=== PATIENT | male | born 1950 | race Caucasian/White ===

== ENCOUNTER 2017-06-18 22:26 | Emergency (ER) | payer OTHER ==
[~2017-06-18] VITALS: Ht 182.9 cm; Wt 76.2 kg
[~2017-06-18 22:26] MED LIST: ACET325 PO; ALBIPROI INH; ALBU.083IS IH; ALBU3IS; ALBU3IS INH; ALBU90OI INH; ALBU90OI6 INH; ALBUIS INH; ASPI81CH PO; ASPI81EC PO; ATOR10 PO; ATOR20 PO; AZIT250 PO; AZIT500; AZIT500 PO; Aspirin EC81 MG PO; BENZ100A PO; BUDE6HFA INH; BUPR150ER PO; Bentyl20 MG PO; Biscolax10 MG RC; CARB10OTL LEFTEAR; CHOL10002 PO; CODGUAEL PO; CYCL10 PO; Cipro500 MG PO; Clotrim Antifun15 GM TOP; Clotrimazole15 GM TOP; Cyclobenzaprine5 MG PO; DELTASONE20 MG PO; DEXT40GEL; DIAZ5 PO; Dicyclomine HCl20 MG PO; Duoneb 2.5-0.5 M3 ML INH; EPIN.3I SC; ETAN25I SC; ETAN50I IM; ETAN50I SC; Flomax0.4 MG PO; GABA100 PO; GEMF600; GLIP2.5ER; GLIP5 PO; GUAI600T33; HUMULIN 70100 UNIT/1 SC; HYDACE5 PO; HYDCOR1TC TOP; HYDCOR2.5B TOP; HYDHCL25 PO; HYDHOMSY PO; HYDMOR2 PO; HYDMOR4 PO; HYDR1TAB94 PO; HYDROCORTISON28.4 GM TOP; IBUP400 PO; INSDET100 SC; INSU100I6; LAVAP17G PO; LEVFLO500 PO; LEVO750 PO; LEVOFLOXACIN500 MG PO; MAGCIT300 PO; META800 PO; METF500 PO; METO10 PO; METPRE4DP PO; METR500 PO; MUSCLE RELAXER; NAPR500; NAPR500 PO; NICO21TP TOP; NORT25 PO; Naprosyn500 MG PO; Norco 10-325 T1 EACH PO; OMEP20ER; OMEP20ER PO; OXYACE5T PO; OXYC10TA19 PO; OXYC5 PO; Omeprazole20 M1 PO; PANT40 PO; PRED10 PO; PRED20 PO; PREG50 PO; PREG75 PO; PROAIR RESPICL90 MCG IH; PROBIOTIC1 EACH PO; Pepcid40 MG PO; Percocet 10-321 EACH PO; Percocet 5-3251 EACH PO; Prednisone10 MG; Prednisone20 MG PO; Protonix40 MG PO; RABE20; ROBITUSSIN DM PO; RXCYCL10 PO; RXHYDACE PO; RXMETA800 PO; SENNA PO; SILD25T PO; SILD50TA PO; SUCR1 PO; SUCR1SU PO; Simvastatin20 MG PO; TAMS.4ER PO; TIOT18 INH; TRAM50 PO; TRAZ50 PO; TRIA80TC TOP; Ultram50 MG PO; VENTOLIN NEB; Ventolin/Prove6.7 GM INH; Zithromax250 MG PO; Zofran Odt4 MG SL; Zofran8 MG PO; [UNRECOGNIZED DRUG - REMARK]; [UNRECOGNIZED DRUG - REMARK]
[2017-06-18 23:45] LABS: BASOPHILS ABSOLUTE AUTO 0.03 K/mm3 (0.00-0.23); BASOPHILS PERCENT AUTO 0 % (0-2); EOSINOPHILS ABSOLUTE AUTO 0.38 K/mm3 (0.00-0.68); EOSINOPHILS PERCENT AUTO 4 % (0-6); Hematocrit 37.9 % (37.0-53.0); Hemoglobin 12.1 g/dL (13.5-17.5); IMMATURE GRAN ABSOLUTE AUTO 0.02 K/mm3 (0.00-0.10); IMMATURE GRAN PERCENT AUTO 0 % (0-1); LYMPHOCYTES ABSOLUTE AUTO 4.09 K/mm3 (0.84-5.20); LYMPHOCYTES PERCENT AUTO 47 % (21-46); MONOCYTES ABSOLUTE AUTO 0.85 K/mm3 (0.16-1.47); MONOCYTES PERCENT AUTO 10 % (4-13); Mean Corpuscular HGB 27.6 pg (26.0-34.0); Mean Corpuscular HGB Conc 31.9 g/dL (31.5-36.5); Mean Corpuscular Volume 87 fL (80-100); Mean Platelet Volume 8.7 fL (9.1-12.4); NEUTROPHILS PERCENT AUTO 38 % (41-73); Platelet Count 265 K/mm3 (150-400); RDW Coefficient Variation 15.5 % (11.7-14.2); RDW Standard Deviation 49.8 fL (35.1-46.3); Red Blood Cell Count 4.38 M/mm3 (4.30-5.90); White Blood Cell Count 8.67 K/mm3 (4.00-11.30)
[2017-06-19 00:10] LABS: Alanine Aminotransfer (ALT/SGP 27 U/L (12-78); Albumin, Blood 3.3 g/dL (3.4-5.0); Albumin/Globulin Ratio 0.8 (0.8-1.8); Alk Phos 100 U/L (50-136); Anion Gap 6 mmol/L (6-16); Aspartate Aminotrans (AST/SGOT 15 U/L (12-37); Bilirubin, Total 0.2 mg/dL (0.1-1.0); Blood Urea Nitrogen 24 mg/dL (8-24); Bun/Creatinine Ratio 27.9 (12.0-20.0); CO2, Blood 27 mmol/L (21-32); Calcium, Blood 8.1 mg/dL (8.5-10.1); Chloride, Blood 107 mmol/L (98-108); Creatinine, Blood 0.86 mg/dL (0.60-1.20); Glomerular Filtration Rate >60 (60-); Glucose, Blood 82 mg/dL (70-99); Potassium, Blood 3.6 mmol/L (3.5-5.5); Sodium, Blood 140 mmol/L (136-145); Total Protein, Blood 7.3 g/dL (6.4-8.2); Troponin I <0.015 ng/mL (0.000-0.040)
[2017-06-19] MEDS ORDERED: Pepcid40 MG PO (01:42)
[2017-06-19] MEDS ORDERED: Percocet 5-3251 EACH PO (01:44)
[2018-01-06] MEDS ORDERED: WARF1 (22:23)
[2018-01-13] MEDS ORDERED: OXYC10ER PO (10:30)
[2018-01-13] MEDS ORDERED: ALPR.25 PO (10:32)
[2018-01-13] MEDS ORDERED: ASCO500 PO (10:33)
[2018-01-13] MEDS ORDERED: BACL10 (10:34)
[2018-01-13] MEDS ORDERED: CEPACOL SORE T1 EACH MM (10:35)
[2018-01-13] MEDS ORDERED: CARB200 PO (10:36)
[2018-01-13] MEDS ORDERED: DOCU100 PO (10:36)
[2018-01-13] MEDS ORDERED: GUAI600T33 PO (10:37)
[2018-01-13] MEDS ORDERED: FERROUS SULFATE (10:39)
[2018-01-13] MEDS ORDERED: ONDA4ODT MM (10:40)
[2018-01-13] MEDS ORDERED: XARELTO20 MG PO (10:41)
[2018-01-13] MEDS ORDERED: SUMA25 (10:43)
[2018-03-28] MEDS ORDERED: Pepcid40 MG PO (16:04)
[2018-03-30] MEDS ORDERED: CIPR500 PO (22:03)
[2018-03-30] MEDS ORDERED: Flagyl500 MG PO (22:03)
[2018-03-30] MEDS ORDERED: Zofran Odt4 MG PO (22:03)
[2018-05-01] MEDS ORDERED: ETAN50I (15:26)
[2018-05-01] MEDS ORDERED: BUDE10.22 INH (15:26)
[2018-05-01] MEDS ORDERED: GABA300 PO (15:26)
[2018-05-03] MEDS ORDERED: ROBITUSSIN COU237 ML PO (13:09)
[2018-05-03] MEDS ORDERED: Acidophilus La1 EACH PO (13:10)
[2018-05-03] MEDS ORDERED: Omeprazole20 M1 PO (13:11)
[2018-05-03] MEDS ORDERED: AZIT500 PO (13:11)
[2018-05-03] MEDS ORDERED: PRED10 PO (13:14)
[2018-05-03] MEDS ORDERED: TIOT18 INH (13:17)
[2018-05-03] MEDS ORDERED: DULERA 200 MCG/13 GM INH (13:18)
== END 2017-06-19 02:42 | disposition home or self-care (01) ==
LOC: ER 22:26
PROVIDERS: Emergency Medicine
DX: R07.89 Other chest pain (principal); K29.70 Gastritis, unspecified, without bleeding; G89.29 Other chronic pain; K21.9 Gastro-esophageal reflux disease without esophagitis; J43.9 Emphysema, unspecified; F17.200 Nicotine dependence, unspecified, uncomplicated; Z90.49 Acquired absence of other specified parts of digestive tract; Z87.01 Personal history of pneumonia (recurrent)
CPT/HCPCS: 71046; 80053; 82272; 83690; 84484; 85025; 93005; 93010; 96374; 96375; 96376; 99284; C9113; J1170; J2405

== ENCOUNTER 2017-07-04 13:01 | Emergency (ER) | payer OTHER ==
[~2017-07-04] VITALS: Ht 180.3 cm; Wt 83.9 kg
[2017-07-04 13:51] LABS: BASOPHILS ABSOLUTE AUTO 0.04 K/mm3 (0.00-0.23); BASOPHILS PERCENT AUTO 0 % (0-2); EOSINOPHILS ABSOLUTE AUTO 0.35 K/mm3 (0.00-0.68); EOSINOPHILS PERCENT AUTO 3 % (0-6); Hematocrit 38.6 % (37.0-53.0); Hemoglobin 11.9 g/dL (13.5-17.5); IMMATURE GRAN ABSOLUTE AUTO 0.04 K/mm3 (0.00-0.10); IMMATURE GRAN PERCENT AUTO 0 % (0-1); LYMPHOCYTES ABSOLUTE AUTO 2.48 K/mm3 (0.84-5.20); LYMPHOCYTES PERCENT AUTO 20 % (21-46); MONOCYTES ABSOLUTE AUTO 0.93 K/mm3 (0.16-1.47); MONOCYTES PERCENT AUTO 8 % (4-13); Mean Corpuscular HGB 27.4 pg (26.0-34.0); Mean Corpuscular HGB Conc 30.8 g/dL (31.5-36.5); Mean Corpuscular Volume 89 fL (80-100); Mean Platelet Volume 9.2 fL (9.1-12.4); NEUTROPHILS ABSOLUTE AUTO 8.56 K/mm3 (1.96-9.15); NEUTROPHILS PERCENT AUTO 69 % (41-73); Platelet Count 217 K/mm3 (150-400); RDW Coefficient Variation 15.2 % (11.7-14.2); RDW Standard Deviation 49.9 fL (35.1-46.3); Red Blood Cell Count 4.35 M/mm3 (4.30-5.90)
[2017-07-04 14:02] LABS: Alanine Aminotransfer (ALT/SGP 20 U/L (12-78); Albumin, Blood 3.2 g/dL (3.4-5.0); Albumin/Globulin Ratio 0.8 (0.8-1.8); Alk Phos 104 U/L (50-136); Anion Gap 3 mmol/L (6-16); Aspartate Aminotrans (AST/SGOT 17 U/L (12-37); Bilirubin, Total 0.3 mg/dL (0.1-1.0); Blood Urea Nitrogen 15 mg/dL (8-24); Bun/Creatinine Ratio 16.1 (12.0-20.0); CO2, Blood 30 mmol/L (21-32); Calcium, Blood 8.2 mg/dL (8.5-10.1); Chloride, Blood 105 mmol/L (98-108); Creatinine, Blood 0.93 mg/dL (0.60-1.20); Globulin, Blood 4.2 g/dL (2.2-4.0); Glomerular Filtration Rate >60 (60-); Glucose, Blood 162 mg/dL (70-99); Potassium, Blood 4.3 mmol/L (3.5-5.5); Sodium, Blood 138 mmol/L (136-145); Total Protein, Blood 7.4 g/dL (6.4-8.2)
[2017-07-04 15:37] LABS: Source, Urine Voided
[2017-07-04 15:42] LABS: Bilirubin, Urine Neg (Neg); Blood, Urine Neg (Neg); Glucose Qualitative, Urine Neg (Neg); Ketones, Urine Neg (Neg); Leukocyte Esterase, Urine Neg (Neg); Nitrite, Urine Neg (Neg); Protein, Urine Neg (Neg); Urobilinogen, Urine NORM (Normal)
[2017-07-04 15:48] LABS: Appearance, Urine Clear (Clear); Color, Urine Yellow (P-Yellow)
[2017-07-04] MEDS ORDERED: Levaquin750 MG PO (19:28)
[2017-07-04] MEDS ORDERED: Prednisone20 MG PO (19:28)
[2018-01-06] MEDS ORDERED: WARF1 (22:23)
[2018-01-13] MEDS ORDERED: OXYC10ER PO (10:30)
[2018-01-13] MEDS ORDERED: ALPR.25 PO (10:32)
[2018-01-13] MEDS ORDERED: ASCO500 PO (10:33)
[2018-01-13] MEDS ORDERED: BACL10 (10:34)
[2018-01-13] MEDS ORDERED: CEPACOL SORE T1 EACH MM (10:35)
[2018-01-13] MEDS ORDERED: CARB200 PO (10:36)
[2018-01-13] MEDS ORDERED: DOCU100 PO (10:36)
[2018-01-13] MEDS ORDERED: GUAI600T33 PO (10:37)
[2018-01-13] MEDS ORDERED: FERROUS SULFATE (10:39)
[2018-01-13] MEDS ORDERED: ONDA4ODT MM (10:40)
[2018-01-13] MEDS ORDERED: XARELTO20 MG PO (10:41)
[2018-01-13] MEDS ORDERED: SUMA25 (10:43)
[2018-03-28] MEDS ORDERED: Pepcid40 MG PO (16:04)
[2018-03-30] MEDS ORDERED: CIPR500 PO (22:03)
[2018-03-30] MEDS ORDERED: Flagyl500 MG PO (22:03)
[2018-03-30] MEDS ORDERED: Zofran Odt4 MG PO (22:03)
[2018-05-01] MEDS ORDERED: ETAN50I (15:26)
[2018-05-01] MEDS ORDERED: GABA300 PO (15:26)
[2018-05-01] MEDS ORDERED: BUDE10.22 INH (15:26)
[2018-05-03] MEDS ORDERED: ROBITUSSIN COU237 ML PO (13:09)
[2018-05-03] MEDS ORDERED: Acidophilus La1 EACH PO (13:10)
[2018-05-03] MEDS ORDERED: Omeprazole20 M1 PO (13:11)
[2018-05-03] MEDS ORDERED: AZIT500 PO (13:11)
[2018-05-03] MEDS ORDERED: PRED10 PO (13:14)
[2018-05-03] MEDS ORDERED: TIOT18 INH (13:17)
[2018-05-03] MEDS ORDERED: DULERA 200 MCG/13 GM INH (13:18)
== END 2017-07-04 20:11 | disposition home or self-care (01) ==
LOC: ER 13:01
PROVIDERS: Physician Assistant
DX: J44.1 Chronic obstructive pulmonary disease with (acute) exacerbation (principal); K59.00 Constipation, unspecified; K57.30 Diverticulosis of large intestine without perforation or abscess without bleeding; K21.9 Gastro-esophageal reflux disease without esophagitis; F17.200 Nicotine dependence, unspecified, uncomplicated; Z91.018 Allergy to other foods; Z88.8 Allergy status to other drugs, medicaments and biological substances; Z79.899 Other long term (current) drug therapy; Z79.82 Long term (current) use of aspirin; Z79.4 Long term (current) use of insulin; Z79.52 Long term (current) use of systemic steroids; Z90.49 Acquired absence of other specified parts of digestive tract; Z87.01 Personal history of pneumonia (recurrent); Z86.73 Personal history of transient ischemic attack (TIA), and cerebral infarction without residual deficits
CPT/HCPCS: 36415; 71046; 74176; 80053; 81003; 83690; 85025; 96374; 96375; 99284; J0696; J1170; J2405

== ENCOUNTER 2017-07-18 16:32 | Emergency (ER) | payer OTHER ==
[~2017-07-18] VITALS: Ht 182.9 cm; Wt 78.9 kg
[~2017-07-18 16:32] MED LIST changes: +Levaquin750 MG PO
[2017-07-18] MEDS ORDERED: ETAN50I SC (17:15)
[2017-07-18 17:55] LABS: BASOPHILS ABSOLUTE AUTO 0.07 K/mm3 (0.00-0.23); BASOPHILS PERCENT AUTO 1 % (0-2); EOSINOPHILS ABSOLUTE AUTO 0.44 K/mm3 (0.00-0.68); EOSINOPHILS PERCENT AUTO 6 % (0-6); Hematocrit 39.2 % (37.0-53.0); Hemoglobin 12.3 g/dL (13.5-17.5); IMMATURE GRAN ABSOLUTE AUTO 0.02 K/mm3 (0.00-0.10); IMMATURE GRAN PERCENT AUTO 0 % (0-1); LYMPHOCYTES ABSOLUTE AUTO 2.96 K/mm3 (0.84-5.20); LYMPHOCYTES PERCENT AUTO 40 % (21-46); MONOCYTES ABSOLUTE AUTO 0.62 K/mm3 (0.16-1.47); MONOCYTES PERCENT AUTO 8 % (4-13); Mean Corpuscular HGB 27.1 pg (26.0-34.0); Mean Corpuscular HGB Conc 31.4 g/dL (31.5-36.5); Mean Corpuscular Volume 86 fL (80-100); NEUTROPHILS PERCENT AUTO 45 % (41-73); Platelet Count 325 K/mm3 (150-400); RDW Standard Deviation 47.9 fL (35.1-46.3); Red Blood Cell Count 4.54 M/mm3 (4.30-5.90); White Blood Cell Count 7.41 K/mm3 (4.00-11.30)
[2017-07-18 18:11] LABS: Alanine Aminotransfer (ALT/SGP 23 U/L (12-78); Albumin, Blood 3.5 g/dL (3.4-5.0); Albumin/Globulin Ratio 0.8 (0.8-1.8); Alk Phos 129 U/L (50-136); Anion Gap 9 mmol/L (6-16); Aspartate Aminotrans (AST/SGOT 20 U/L (12-37); Bilirubin, Total 0.2 mg/dL (0.1-1.0); Blood Urea Nitrogen 21 mg/dL (8-24); Bun/Creatinine Ratio 22.5 (12.0-20.0); CO2, Blood 25 mmol/L (21-32); Calcium, Blood 8.5 mg/dL (8.5-10.1); Chloride, Blood 104 mmol/L (98-108); Creatinine, Blood 0.93 mg/dL (0.60-1.20); Globulin, Blood 4.6 g/dL (2.2-4.0); Glomerular Filtration Rate >60 (60-); Glucose, Blood 130 mg/dL (70-99); Sodium, Blood 138 mmol/L (136-145); Total Protein, Blood 8.1 g/dL (6.4-8.2)
[2017-07-18] MEDS ORDERED: Percocet 5-3251 EACH PO (20:40)
[2018-01-06] MEDS ORDERED: WARF1 (22:23)
[2018-01-13] MEDS ORDERED: OXYC10ER PO (10:30)
[2018-01-13] MEDS ORDERED: ALPR.25 PO (10:32)
[2018-01-13] MEDS ORDERED: ASCO500 PO (10:33)
[2018-01-13] MEDS ORDERED: BACL10 (10:34)
[2018-01-13] MEDS ORDERED: CEPACOL SORE T1 EACH MM (10:35)
[2018-01-13] MEDS ORDERED: DOCU100 PO (10:36)
[2018-01-13] MEDS ORDERED: CARB200 PO (10:36)
[2018-01-13] MEDS ORDERED: GUAI600T33 PO (10:37)
[2018-01-13] MEDS ORDERED: FERROUS SULFATE (10:39)
[2018-01-13] MEDS ORDERED: ONDA4ODT MM (10:40)
[2018-01-13] MEDS ORDERED: XARELTO20 MG PO (10:41)
[2018-01-13] MEDS ORDERED: SUMA25 (10:43)
[2018-03-28] MEDS ORDERED: Pepcid40 MG PO (16:04)
[2018-03-30] MEDS ORDERED: Zofran Odt4 MG PO (22:03)
[2018-03-30] MEDS ORDERED: CIPR500 PO (22:03)
[2018-03-30] MEDS ORDERED: Flagyl500 MG PO (22:03)
[2018-05-01] MEDS ORDERED: GABA300 PO (15:26)
[2018-05-01] MEDS ORDERED: BUDE10.22 INH (15:26)
[2018-05-01] MEDS ORDERED: ETAN50I (15:26)
[2018-05-03] MEDS ORDERED: ROBITUSSIN COU237 ML PO (13:09)
[2018-05-03] MEDS ORDERED: Acidophilus La1 EACH PO (13:10)
[2018-05-03] MEDS ORDERED: AZIT500 PO (13:11)
[2018-05-03] MEDS ORDERED: Omeprazole20 M1 PO (13:11)
[2018-05-03] MEDS ORDERED: PRED10 PO (13:14)
[2018-05-03] MEDS ORDERED: TIOT18 INH (13:17)
[2018-05-03] MEDS ORDERED: DULERA 200 MCG/13 GM INH (13:18)
== END 2017-07-18 21:12 | disposition home or self-care (01) ==
LOC: ER 16:32
PROVIDERS: Physician Assistant
DX: R10.31 Right lower quadrant pain (principal); Z88.8 Allergy status to other drugs, medicaments and biological substances; Z91.018 Allergy to other foods; Z79.899 Other long term (current) drug therapy; Z79.84 Long term (current) use of oral hypoglycemic drugs; K21.9 Gastro-esophageal reflux disease without esophagitis; J44.9 Chronic obstructive pulmonary disease, unspecified; F17.210 Nicotine dependence, cigarettes, uncomplicated
CPT/HCPCS: 36415; 51798; 76882; 80053; 83690; 85025; 93005; 93010; 96374; 96375; 99284; J1170; J2405

== ENCOUNTER 2017-08-09 13:54 | Emergency (ER) | payer SELFPAY ==
[~2017-08-09] VITALS: Ht 182.9 cm; Wt 72.6 kg
[2017-08-09 15:08] LABS: PCO2 Venous 43 mmHg (38-42)
[2017-08-09 15:09] LABS: Base Excess Venous 1.9 mmol/L; Bicarbonate Venous 25.8 mmol/L (24.0-30.0); PO2 Venous 92.6 mmHg (38-42)
[2017-08-09 15:16] LABS: BASOPHILS ABSOLUTE AUTO 0.04 K/mm3 (0.00-0.23); BASOPHILS PERCENT AUTO 1 % (0-2); EOSINOPHILS ABSOLUTE AUTO 0.56 K/mm3 (0.00-0.68); EOSINOPHILS PERCENT AUTO 12 % (0-6); Hematocrit 40.6 % (37.0-53.0); Hemoglobin 12.8 g/dL (13.5-17.5); IMMATURE GRAN PERCENT AUTO 0 % (0-1); LYMPHOCYTES ABSOLUTE AUTO 1.39 K/mm3 (0.84-5.20); LYMPHOCYTES PERCENT AUTO 29 % (21-46); MONOCYTES ABSOLUTE AUTO 0.75 K/mm3 (0.16-1.47); MONOCYTES PERCENT AUTO 16 % (4-13); Mean Corpuscular HGB 27.2 pg (26.0-34.0); Mean Corpuscular HGB Conc 31.5 g/dL (31.5-36.5); Mean Corpuscular Volume 86 fL (80-100); Mean Platelet Volume 8.8 fL (9.1-12.4); NEUTROPHILS ABSOLUTE AUTO 2.08 K/mm3 (1.96-9.15); NEUTROPHILS PERCENT AUTO 43 % (41-73); Platelet Count 222 K/mm3 (150-400); RDW Coefficient Variation 15.2 % (11.7-14.2); RDW Standard Deviation 48.4 fL (35.1-46.3); White Blood Cell Count 4.82 K/mm3 (4.00-11.30)
[2017-08-09 15:28] LABS: Influenza A Negative (NEGATIVE); Influenza B Negative (NEGATIVE)
[2017-08-09 15:36] LABS: Alanine Aminotransfer (ALT/SGP 26 U/L (12-78); Albumin, Blood 3.5 g/dL (3.4-5.0); Albumin/Globulin Ratio 0.8 (0.8-1.8); Alk Phos 114 U/L (50-136); Anion Gap 8 mmol/L (6-16); Aspartate Aminotrans (AST/SGOT 21 U/L (12-37); Bilirubin, Total 0.3 mg/dL (0.1-1.0); Blood Urea Nitrogen 16 mg/dL (8-24); Bun/Creatinine Ratio 18.1 (12.0-20.0); CO2, Blood 26 mmol/L (21-32); Calcium, Blood 8.5 mg/dL (8.5-10.1); Chloride, Blood 104 mmol/L (98-108); Creatinine, Blood 0.88 mg/dL (0.60-1.20); Globulin, Blood 4.6 g/dL (2.2-4.0); Glomerular Filtration Rate >60 (60-); Glucose, Blood 97 mg/dL (70-99); Potassium, Blood 4.1 mmol/L (3.5-5.5); Sodium, Blood 138 mmol/L (136-145); Total Protein, Blood 8.1 g/dL (6.4-8.2); Troponin I <0.015 ng/mL (0.000-0.040)
[2017-08-09 15:41] LABS: Thyroid Stimulating Hormone 0.935 uIU/mL (0.360-4.800)
[2017-08-09] MEDS ORDERED: Proventil5 MG/1 ML INH (16:30)
[2017-08-09] MEDS ORDERED: PRED20 PO (16:30)
[2017-08-09] MEDS ORDERED: Percocet 10-321 EACH PO (16:30)
[2017-08-10] MEDS ORDERED: Desyrel150 MG PO (23:21)
[2018-01-06] MEDS ORDERED: WARF1 (22:23)
[2018-01-13] MEDS ORDERED: OXYC10ER PO (10:30)
[2018-01-13] MEDS ORDERED: ALPR.25 PO (10:32)
[2018-01-13] MEDS ORDERED: ASCO500 PO (10:33)
[2018-01-13] MEDS ORDERED: BACL10 (10:34)
[2018-01-13] MEDS ORDERED: CEPACOL SORE T1 EACH MM (10:35)
[2018-01-13] MEDS ORDERED: DOCU100 PO (10:36)
[2018-01-13] MEDS ORDERED: CARB200 PO (10:36)
[2018-01-13] MEDS ORDERED: GUAI600T33 PO (10:37)
[2018-01-13] MEDS ORDERED: FERROUS SULFATE (10:39)
[2018-01-13] MEDS ORDERED: ONDA4ODT MM (10:40)
[2018-01-13] MEDS ORDERED: XARELTO20 MG PO (10:41)
[2018-01-13] MEDS ORDERED: SUMA25 (10:43)
[2018-03-28] MEDS ORDERED: Pepcid40 MG PO (16:04)
[2018-03-30] MEDS ORDERED: Flagyl500 MG PO (22:03)
[2018-03-30] MEDS ORDERED: CIPR500 PO (22:03)
[2018-03-30] MEDS ORDERED: Zofran Odt4 MG PO (22:03)
[2018-05-01] MEDS ORDERED: GABA300 PO (15:26)
[2018-05-01] MEDS ORDERED: ETAN50I (15:26)
[2018-05-01] MEDS ORDERED: BUDE10.22 INH (15:26)
[2018-05-03] MEDS ORDERED: ROBITUSSIN COU237 ML PO (13:09)
[2018-05-03] MEDS ORDERED: Acidophilus La1 EACH PO (13:10)
[2018-05-03] MEDS ORDERED: AZIT500 PO (13:11)
[2018-05-03] MEDS ORDERED: Omeprazole20 M1 PO (13:11)
[2018-05-03] MEDS ORDERED: PRED10 PO (13:14)
[2018-05-03] MEDS ORDERED: TIOT18 INH (13:17)
[2018-05-03] MEDS ORDERED: DULERA 200 MCG/13 GM INH (13:18)
== END 2017-08-09 16:47 | disposition home or self-care (01) ==
LOC: ER 13:54
PROVIDERS: Emergency Medicine
DX: J40 Bronchitis, not specified as acute or chronic (principal); J98.01 Acute bronchospasm; R06.00 Dyspnea, unspecified; Z88.8 Allergy status to other drugs, medicaments and biological substances; Z91.02 Food additives allergy status; Z91.018 Allergy to other foods; Z79.899 Other long term (current) drug therapy; Z79.4 Long term (current) use of insulin; K21.9 Gastro-esophageal reflux disease without esophagitis; J44.9 Chronic obstructive pulmonary disease, unspecified; F17.210 Nicotine dependence, cigarettes, uncomplicated
CPT/HCPCS: 36415; 71046; 80053; 82803; 83880; 84443; 84484; 85025; 87804; 93005; 93010; 94640; 96361; 96374; 99284; J2930; J7030

== ENCOUNTER 2017-08-10 19:45 | Inpatient (IN) | payer MEDICARE, OTHER ==
[~2017-08-10] VITALS: Ht 182.9 cm; Wt 68.8 kg
[~2017-08-10 19:45] MED LIST changes: +Proventil5 MG/1 ML INH
[2017-08-10 20:36] LABS: PCO2 Arterial 46.6 mmHg (35-45); PO2 Arterial 97.2 mmHg (80-100); pH Blood Arterial 7.37 (7.35-7.45)
[2017-08-10 20:41] LABS: BASOPHILS ABSOLUTE AUTO 0.02 K/mm3 (0.00-0.23); BASOPHILS PERCENT AUTO 0 % (0-2); EOSINOPHILS ABSOLUTE AUTO 0.01 K/mm3 (0.00-0.68); EOSINOPHILS PERCENT AUTO 0 % (0-6); Hematocrit 38.3 % (37.0-53.0); Hemoglobin 12.3 g/dL (13.5-17.5); IMMATURE GRAN ABSOLUTE AUTO 0.06 K/mm3 (0.00-0.10); IMMATURE GRAN PERCENT AUTO 1 % (0-1); LYMPHOCYTES PERCENT AUTO 14 % (21-46); MONOCYTES ABSOLUTE AUTO 1.13 K/mm3 (0.16-1.47); MONOCYTES PERCENT AUTO 9 % (4-13); Mean Corpuscular HGB 27.5 pg (26.0-34.0); Mean Corpuscular HGB Conc 32.1 g/dL (31.5-36.5); Mean Corpuscular Volume 86 fL (80-100); Mean Platelet Volume 8.8 fL (9.1-12.4); NEUTROPHILS ABSOLUTE AUTO 9.73 K/mm3 (1.96-9.15); NEUTROPHILS PERCENT AUTO 76 % (41-73); Platelet Count 234 K/mm3 (150-400); RDW Coefficient Variation 15.2 % (11.7-14.2); RDW Standard Deviation 47.5 fL (35.1-46.3); Red Blood Cell Count 4.48 M/mm3 (4.30-5.90); White Blood Cell Count 12.75 K/mm3 (4.00-11.30)
[2017-08-10 21:00] LABS: Alanine Aminotransfer (ALT/SGP 28 U/L (12-78); Albumin, Blood 3.4 g/dL (3.4-5.0); Albumin/Globulin Ratio 0.8 (0.8-1.8); Alk Phos 108 U/L (50-136); Anion Gap 10 mmol/L (6-16); Aspartate Aminotrans (AST/SGOT 21 U/L (12-37); Bilirubin, Total 0.1 mg/dL (0.1-1.0); Blood Urea Nitrogen 28 mg/dL (8-24); Bun/Creatinine Ratio 34.2 (12.0-20.0); CO2, Blood 24 mmol/L (21-32); Calcium, Blood 8.2 mg/dL (8.5-10.1); Chloride, Blood 107 mmol/L (98-108); Creatinine, Blood 0.82 mg/dL (0.60-1.20); Globulin, Blood 4.4 g/dL (2.2-4.0); Glomerular Filtration Rate >60 (60-); Glucose, Blood 159 mg/dL (70-99); Potassium, Blood 3.9 mmol/L (3.5-5.5); Sodium, Blood 141 mmol/L (136-145); Total Protein, Blood 7.8 g/dL (6.4-8.2); Troponin I <0.015 ng/mL (0.000-0.040)
[2017-08-10] MEDS ORDERED: Desyrel150 MG PO (23:21)
[2017-08-11 02:58] LABS: Source, Urine Clean Catch
[2017-08-11 03:00] LABS: Bilirubin, Urine Neg (Neg); Blood, Urine Neg (Neg); Glucose Qualitative, Urine 4+ (Neg); Ketones, Urine Neg (Neg); Leukocyte Esterase, Urine Neg (Neg); Nitrite, Urine Neg (Neg); Protein, Urine Neg (Neg); Specific Gravity, Urine 1.025 (1.003-1.022); Urobilinogen, Urine NORM (Normal)
[2017-08-11 03:06] LABS: Appearance, Urine Clear (Clear); Color, Urine Yellow (P-Yellow)
[2017-08-11 06:02] LABS: BASOPHILS ABSOLUTE AUTO 0.01 K/mm3 (0.00-0.23); BASOPHILS PERCENT AUTO 0 % (0-2); EOSINOPHILS PERCENT AUTO 0 % (0-6); Hematocrit 37.1 % (37.0-53.0); Hemoglobin 11.8 g/dL (13.5-17.5); IMMATURE GRAN ABSOLUTE AUTO 0.06 K/mm3 (0.00-0.10); IMMATURE GRAN PERCENT AUTO 1 % (0-1); LYMPHOCYTES ABSOLUTE AUTO 0.52 K/mm3 (0.84-5.20); LYMPHOCYTES PERCENT AUTO 6 % (21-46); MONOCYTES ABSOLUTE AUTO 0.28 K/mm3 (0.16-1.47); MONOCYTES PERCENT AUTO 3 % (4-13); Mean Corpuscular HGB 27.6 pg (26.0-34.0); Mean Corpuscular HGB Conc 31.8 g/dL (31.5-36.5); Mean Corpuscular Volume 87 fL (80-100); Mean Platelet Volume 8.7 fL (9.1-12.4); NEUTROPHILS PERCENT AUTO 91 % (41-73); Platelet Count 218 K/mm3 (150-400); RDW Coefficient Variation 15.5 % (11.7-14.2); RDW Standard Deviation 49.1 fL (35.1-46.3); Red Blood Cell Count 4.27 M/mm3 (4.30-5.90); White Blood Cell Count 9.47 K/mm3 (4.00-11.30)
[2017-08-11 06:26] LABS: Troponin I <0.015 ng/mL (0.000-0.040)
[2017-08-11 06:28] LABS: Albumin, Blood 3.1 g/dL (3.4-5.0); Anion Gap 8 mmol/L (6-16); Blood Urea Nitrogen 24 mg/dL (8-24); Bun/Creatinine Ratio 33.7 (12.0-20.0); CO2, Blood 26 mmol/L (21-32); Calcium, Blood 8.1 mg/dL (8.5-10.1); Chloride, Blood 102 mmol/L (98-108); Creatinine, Blood 0.71 mg/dL (0.60-1.20); Glomerular Filtration Rate >60 (60-); Glucose, Blood 252 mg/dL (70-99); Phosphorus, Blood 2.3 mg/dL (2.5-4.9); Potassium, Blood 4.6 mmol/L (3.5-5.5); Sodium, Blood 136 mmol/L (136-145)
[2017-08-11 06:47] LABS: PCO2 Arterial 55.4 mmHg (35-45); PO2 Arterial 92.8 mmHg (80-100); pH Blood Arterial 7.27 (7.35-7.45)
[2017-08-11 17:58] LABS: Influenza A Negative (NEGATIVE); Influenza B Negative (NEGATIVE)
[2017-08-12 03:58] LABS: BASOPHILS ABSOLUTE AUTO 0.01 K/mm3 (0.00-0.23); BASOPHILS PERCENT AUTO 0 % (0-2); EOSINOPHILS PERCENT AUTO 0 % (0-6); Hematocrit 37.4 % (37.0-53.0); Hemoglobin 11.5 g/dL (13.5-17.5); IMMATURE GRAN ABSOLUTE AUTO 0.05 K/mm3 (0.00-0.10); IMMATURE GRAN PERCENT AUTO 1 % (0-1); LYMPHOCYTES ABSOLUTE AUTO 0.94 K/mm3 (0.84-5.20); LYMPHOCYTES PERCENT AUTO 9 % (21-46); MONOCYTES ABSOLUTE AUTO 0.64 K/mm3 (0.16-1.47); MONOCYTES PERCENT AUTO 6 % (4-13); Mean Corpuscular HGB Conc 30.7 g/dL (31.5-36.5); Mean Corpuscular Volume 88 fL (80-100); Mean Platelet Volume 8.8 fL (9.1-12.4); NEUTROPHILS ABSOLUTE AUTO 8.86 K/mm3 (1.96-9.15); NEUTROPHILS PERCENT AUTO 84 % (41-73); Platelet Count 210 K/mm3 (150-400); RDW Coefficient Variation 15.5 % (11.7-14.2); RDW Standard Deviation 50.2 fL (35.1-46.3); Red Blood Cell Count 4.26 M/mm3 (4.30-5.90)
[2017-08-12 04:15] LABS: Anion Gap 7 mmol/L (6-16); Blood Urea Nitrogen 19 mg/dL (8-24); Bun/Creatinine Ratio 31.4 (12.0-20.0); CO2, Blood 27 mmol/L (21-32); Calcium, Blood 8.3 mg/dL (8.5-10.1); Chloride, Blood 103 mmol/L (98-108); Creatinine, Blood 0.61 mg/dL (0.60-1.20); Glomerular Filtration Rate >60 (60-); Glucose, Blood 134 mg/dL (70-99); Potassium, Blood 4.1 mmol/L (3.5-5.5); Sodium, Blood 137 mmol/L (136-145)
[2017-08-13 02:57] LABS: BASOPHILS ABSOLUTE AUTO 0.01 K/mm3 (0.00-0.23); BASOPHILS PERCENT AUTO 0 % (0-2); EOSINOPHILS PERCENT AUTO 0 % (0-6); Hematocrit 38.4 % (37.0-53.0); Hemoglobin 11.6 g/dL (13.5-17.5); IMMATURE GRAN ABSOLUTE AUTO 0.13 K/mm3 (0.00-0.10); IMMATURE GRAN PERCENT AUTO 1 % (0-1); LYMPHOCYTES ABSOLUTE AUTO 1.31 K/mm3 (0.84-5.20); LYMPHOCYTES PERCENT AUTO 10 % (21-46); MONOCYTES ABSOLUTE AUTO 0.83 K/mm3 (0.16-1.47); MONOCYTES PERCENT AUTO 6 % (4-13); Mean Corpuscular HGB 27.1 pg (26.0-34.0); Mean Corpuscular HGB Conc 30.2 g/dL (31.5-36.5); Mean Corpuscular Volume 90 fL (80-100); Mean Platelet Volume 8.8 fL (9.1-12.4); NEUTROPHILS ABSOLUTE AUTO 10.94 K/mm3 (1.96-9.15); NEUTROPHILS PERCENT AUTO 83 % (41-73); Platelet Count 231 K/mm3 (150-400); RDW Coefficient Variation 15.6 % (11.7-14.2); RDW Standard Deviation 51.7 fL (35.1-46.3); Red Blood Cell Count 4.28 M/mm3 (4.30-5.90); White Blood Cell Count 13.22 K/mm3 (4.00-11.30)
[2017-08-13 03:17] LABS: Albumin, Blood 3.1 g/dL (3.4-5.0); Anion Gap 6 mmol/L (6-16); Blood Urea Nitrogen 20 mg/dL (8-24); Bun/Creatinine Ratio 29.3 (12.0-20.0); CO2, Blood 35 mmol/L (21-32); Calcium, Blood 7.9 mg/dL (8.5-10.1); Chloride, Blood 99 mmol/L (98-108); Creatinine, Blood 0.68 mg/dL (0.60-1.20); Glomerular Filtration Rate >60 (60-); Glucose, Blood 109 mg/dL (70-99); Magnesium, Blood 2.4 mg/dL (1.6-2.4); Phosphorus, Blood 4.6 mg/dL (2.5-4.9); Potassium, Blood 4.3 mmol/L (3.5-5.5); Sodium, Blood 140 mmol/L (136-145); Troponin I 0.016 ng/mL (0.000-0.040)
[2017-08-13 04:31] LABS: PCO2 Arterial 60.4 mmHg (35-45); PO2 Arterial 81.3 mmHg (80-100); pH Blood Arterial 7.38 (7.35-7.45)
[2017-08-14 05:07] LABS: BASOPHILS ABSOLUTE AUTO 0.01 K/mm3 (0.00-0.23); BASOPHILS PERCENT AUTO 0 % (0-2); EOSINOPHILS PERCENT AUTO 0 % (0-6); Hemoglobin 11.5 g/dL (13.5-17.5); Mean Corpuscular HGB 27.1 pg (26.0-34.0); Mean Corpuscular HGB Conc 31.1 g/dL (31.5-36.5); Platelet Count 191 K/mm3 (150-400); RDW Coefficient Variation 15.4 % (11.7-14.2); Red Blood Cell Count 4.25 M/mm3 (4.30-5.90); White Blood Cell Count 9.86 K/mm3 (4.00-11.30)
[2017-08-14 05:09] LABS: IMMATURE GRAN ABSOLUTE AUTO 0.04 K/mm3 (0.00-0.10); IMMATURE GRAN PERCENT AUTO 0 % (0-1); LYMPHOCYTES ABSOLUTE AUTO 1.84 K/mm3 (0.84-5.20); LYMPHOCYTES PERCENT AUTO 19 % (21-46); MONOCYTES ABSOLUTE AUTO 0.45 K/mm3 (0.16-1.47); MONOCYTES PERCENT AUTO 5 % (4-13); Mean Corpuscular Volume 87 fL (80-100); NEUTROPHILS ABSOLUTE AUTO 7.52 K/mm3 (1.96-9.15); NEUTROPHILS PERCENT AUTO 76 % (41-73)
[2017-08-14 05:24] LABS: PCO2 Arterial 56.3 mmHg (35-45); PO2 Arterial 83.3 mmHg (80-100); pH Blood Arterial 7.42 (7.35-7.45)
[2017-08-14 05:38] LABS: Anion Gap 4 mmol/L (6-16); Blood Urea Nitrogen 20 mg/dL (8-24); Bun/Creatinine Ratio 36.9 (12.0-20.0); CO2, Blood 35 mmol/L (21-32); Calcium, Blood 8.1 mg/dL (8.5-10.1); Chloride, Blood 100 mmol/L (98-108); Creatinine, Blood 0.54 mg/dL (0.60-1.20); Glomerular Filtration Rate >60 (60-); Glucose, Blood 172 mg/dL (70-99); Potassium, Blood 4.1 mmol/L (3.5-5.5); Sodium, Blood 139 mmol/L (136-145)
[2017-08-15 04:59] LABS: PCO2 Arterial 50.4 mmHg (35-45); PO2 Arterial 74.7 mmHg (80-100); pH Blood Arterial 7.45 (7.35-7.45)
[2017-08-15 09:47] LABS: PCO2 Arterial 51.3 mmHg (35-45); PO2 Arterial 76.8 mmHg (80-100); pH Blood Arterial 7.44 (7.35-7.45)
[2017-08-15 10:11] LABS: Anion Gap 7 mmol/L (6-16); Blood Urea Nitrogen 25 mg/dL (8-24); Bun/Creatinine Ratio 42.7 (12.0-20.0); CO2, Blood 31 mmol/L (21-32); Calcium, Blood 7.9 mg/dL (8.5-10.1); Chloride, Blood 102 mmol/L (98-108); Creatinine, Blood 0.59 mg/dL (0.60-1.20); Glomerular Filtration Rate >60 (60-); Glucose, Blood 157 mg/dL (70-99); Potassium, Blood 3.8 mmol/L (3.5-5.5); Sodium, Blood 140 mmol/L (136-145)
[2017-08-15 10:31] LABS: BASOPHILS ABSOLUTE AUTO 0.01 K/mm3 (0.00-0.23); BASOPHILS PERCENT AUTO 0 % (0-2); EOSINOPHILS PERCENT AUTO 0 % (0-6); Hematocrit 39.8 % (37.0-53.0); Hemoglobin 12.6 g/dL (13.5-17.5); IMMATURE GRAN ABSOLUTE AUTO 0.05 K/mm3 (0.00-0.10); IMMATURE GRAN PERCENT AUTO 1 % (0-1); LYMPHOCYTES ABSOLUTE AUTO 1.05 K/mm3 (0.84-5.20); LYMPHOCYTES PERCENT AUTO 11 % (21-46); MONOCYTES ABSOLUTE AUTO 0.66 K/mm3 (0.16-1.47); MONOCYTES PERCENT AUTO 7 % (4-13); Mean Corpuscular HGB 27.3 pg (26.0-34.0); Mean Corpuscular HGB Conc 31.7 g/dL (31.5-36.5); Mean Corpuscular Volume 86 fL (80-100); Mean Platelet Volume 9.2 fL (9.1-12.4); NEUTROPHILS ABSOLUTE AUTO 7.85 K/mm3 (1.96-9.15); NEUTROPHILS PERCENT AUTO 82 % (41-73); Platelet Count 178 K/mm3 (150-400); RDW Coefficient Variation 15.1 % (11.7-14.2); RDW Standard Deviation 47.6 fL (35.1-46.3); Red Blood Cell Count 4.62 M/mm3 (4.30-5.90); White Blood Cell Count 9.62 K/mm3 (4.00-11.30)
[2017-08-17 04:41] LABS: BASOPHILS ABSOLUTE AUTO 0.01 K/mm3 (0.00-0.23); BASOPHILS PERCENT AUTO 0 % (0-2); EOSINOPHILS PERCENT AUTO 0 % (0-6); Hematocrit 40.2 % (37.0-53.0); Hemoglobin 12.6 g/dL (13.5-17.5); IMMATURE GRAN ABSOLUTE AUTO 0.04 K/mm3 (0.00-0.10); IMMATURE GRAN PERCENT AUTO 1 % (0-1); LYMPHOCYTES ABSOLUTE AUTO 1.09 K/mm3 (0.84-5.20); LYMPHOCYTES PERCENT AUTO 14 % (21-46); MONOCYTES ABSOLUTE AUTO 0.41 K/mm3 (0.16-1.47); MONOCYTES PERCENT AUTO 5 % (4-13); Mean Corpuscular HGB 26.9 pg (26.0-34.0); Mean Corpuscular HGB Conc 31.3 g/dL (31.5-36.5); Mean Corpuscular Volume 86 fL (80-100); Mean Platelet Volume 8.9 fL (9.1-12.4); NEUTROPHILS PERCENT AUTO 80 % (41-73); Platelet Count 210 K/mm3 (150-400); RDW Coefficient Variation 15.2 % (11.7-14.2); RDW Standard Deviation 47.7 fL (35.1-46.3); Red Blood Cell Count 4.69 M/mm3 (4.30-5.90); White Blood Cell Count 7.65 K/mm3 (4.00-11.30)
[2017-08-17 04:58] LABS: Anion Gap 5 mmol/L (6-16); Blood Urea Nitrogen 26 mg/dL (8-24); Bun/Creatinine Ratio 51.7 (12.0-20.0); CO2, Blood 32 mmol/L (21-32); Calcium, Blood 8.1 mg/dL (8.5-10.1); Chloride, Blood 102 mmol/L (98-108); Glomerular Filtration Rate >60 (60-); Glucose, Blood 196 mg/dL (70-99); Potassium, Blood 3.9 mmol/L (3.5-5.5); Sodium, Blood 139 mmol/L (136-145)
[2017-08-17 05:09] LABS: PCO2 Arterial 44.1 mmHg (35-45); PO2 Arterial 77.3 mmHg (80-100); pH Blood Arterial 7.47 (7.35-7.45)
[2017-08-18 03:33] LABS: BASOPHILS ABSOLUTE AUTO 0.01 K/mm3 (0.00-0.23); BASOPHILS PERCENT AUTO 0 % (0-2); EOSINOPHILS PERCENT AUTO 0 % (0-6); Hemoglobin 13.4 g/dL (13.5-17.5); IMMATURE GRAN PERCENT AUTO 1 % (0-1); LYMPHOCYTES ABSOLUTE AUTO 1.22 K/mm3 (0.84-5.20); LYMPHOCYTES PERCENT AUTO 10 % (21-46); MONOCYTES ABSOLUTE AUTO 0.59 K/mm3 (0.16-1.47); MONOCYTES PERCENT AUTO 5 % (4-13); Mean Corpuscular HGB 26.9 pg (26.0-34.0); Mean Corpuscular HGB Conc 31.9 g/dL (31.5-36.5); Mean Corpuscular Volume 84 fL (80-100); Mean Platelet Volume 8.9 fL (9.1-12.4); NEUTROPHILS ABSOLUTE AUTO 9.78 K/mm3 (1.96-9.15); NEUTROPHILS PERCENT AUTO 84 % (41-73); Platelet Count 227 K/mm3 (150-400); RDW Coefficient Variation 15.1 % (11.7-14.2); Red Blood Cell Count 4.98 M/mm3 (4.30-5.90)
[2017-08-18 03:50] LABS: Anion Gap 6 mmol/L (6-16); Blood Urea Nitrogen 23 mg/dL (8-24); Bun/Creatinine Ratio 48.4 (12.0-20.0); CO2, Blood 30 mmol/L (21-32); Calcium, Blood 8.1 mg/dL (8.5-10.1); Chloride, Blood 103 mmol/L (98-108); Creatinine, Blood 0.48 mg/dL (0.60-1.20); Glomerular Filtration Rate >60 (60-); Glucose, Blood 186 mg/dL (70-99); Potassium, Blood 3.7 mmol/L (3.5-5.5); Sodium, Blood 139 mmol/L (136-145)
[2017-08-18 05:25] LABS: PCO2 Arterial 43.7 mmHg (35-45); PO2 Arterial 82.7 mmHg (80-100); pH Blood Arterial 7.46 (7.35-7.45)
[2017-08-19 04:44] LABS: PO2 Arterial 62.2 mmHg (80-100); pH Blood Arterial 7.48 (7.35-7.45)
[2017-08-19 05:11] LABS: BASOPHILS ABSOLUTE AUTO 0.02 K/mm3 (0.00-0.23); BASOPHILS PERCENT AUTO 0 % (0-2); EOSINOPHILS PERCENT AUTO 0 % (0-6); Hemoglobin 12.2 g/dL (13.5-17.5); IMMATURE GRAN ABSOLUTE AUTO 0.12 K/mm3 (0.00-0.10); IMMATURE GRAN PERCENT AUTO 1 % (0-1); LYMPHOCYTES ABSOLUTE AUTO 0.79 K/mm3 (0.84-5.20); LYMPHOCYTES PERCENT AUTO 8 % (21-46); MONOCYTES PERCENT AUTO 4 % (4-13); Mean Corpuscular HGB 27.3 pg (26.0-34.0); Mean Corpuscular HGB Conc 32.1 g/dL (31.5-36.5); Mean Corpuscular Volume 85 fL (80-100); NEUTROPHILS ABSOLUTE AUTO 9.14 K/mm3 (1.96-9.15); NEUTROPHILS PERCENT AUTO 87 % (41-73); Platelet Count 185 K/mm3 (150-400); RDW Coefficient Variation 15.2 % (11.7-14.2); RDW Standard Deviation 47.3 fL (35.1-46.3); Red Blood Cell Count 4.47 M/mm3 (4.30-5.90); White Blood Cell Count 10.47 K/mm3 (4.00-11.30)
[2017-08-19 05:22] LABS: Anion Gap 10 mmol/L (6-16); Blood Urea Nitrogen 23 mg/dL (8-24); Bun/Creatinine Ratio 47.5 (12.0-20.0); CO2, Blood 27 mmol/L (21-32); Chloride, Blood 102 mmol/L (98-108); Creatinine, Blood 0.48 mg/dL (0.60-1.20); Glomerular Filtration Rate >60 (60-); Glucose, Blood 205 mg/dL (70-99); Potassium, Blood 4.1 mmol/L (3.5-5.5); Sodium, Blood 139 mmol/L (136-145)
[2017-08-20 04:35] LABS: BASOPHILS ABSOLUTE AUTO 0.02 K/mm3 (0.00-0.23); BASOPHILS PERCENT AUTO 0 % (0-2); EOSINOPHILS PERCENT AUTO 0 % (0-6); Hematocrit 39.6 % (37.0-53.0); Hemoglobin 12.5 g/dL (13.5-17.5); IMMATURE GRAN PERCENT AUTO 1 % (0-1); LYMPHOCYTES ABSOLUTE AUTO 1.38 K/mm3 (0.84-5.20); LYMPHOCYTES PERCENT AUTO 13 % (21-46); MONOCYTES PERCENT AUTO 6 % (4-13); Mean Corpuscular HGB Conc 31.6 g/dL (31.5-36.5); Mean Corpuscular Volume 86 fL (80-100); Mean Platelet Volume 8.9 fL (9.1-12.4); NEUTROPHILS ABSOLUTE AUTO 8.27 K/mm3 (1.96-9.15); NEUTROPHILS PERCENT AUTO 80 % (41-73); Platelet Count 193 K/mm3 (150-400); RDW Coefficient Variation 15.5 % (11.7-14.2); RDW Standard Deviation 48.7 fL (35.1-46.3); Red Blood Cell Count 4.63 M/mm3 (4.30-5.90); White Blood Cell Count 10.37 K/mm3 (4.00-11.30)
[2017-08-20 05:00] LABS: Albumin, Blood 2.8 g/dL (3.4-5.0); Anion Gap 8 mmol/L (6-16); Blood Urea Nitrogen 21 mg/dL (8-24); Bun/Creatinine Ratio 42.2 (12.0-20.0); CO2, Blood 29 mmol/L (21-32); Calcium, Blood 8.2 mg/dL (8.5-10.1); Chloride, Blood 103 mmol/L (98-108); Glomerular Filtration Rate >60 (60-); Glucose, Blood 185 mg/dL (70-99); Phosphorus, Blood 2.8 mg/dL (2.5-4.9); Potassium, Blood 3.6 mmol/L (3.5-5.5); Sodium, Blood 140 mmol/L (136-145)
[2017-08-21 04:05] LABS: BASOPHILS ABSOLUTE AUTO 0.02 K/mm3 (0.00-0.23); BASOPHILS PERCENT AUTO 0 % (0-2); EOSINOPHILS PERCENT AUTO 0 % (0-6); Hemoglobin 12.9 g/dL (13.5-17.5); IMMATURE GRAN ABSOLUTE AUTO 0.15 K/mm3 (0.00-0.10); IMMATURE GRAN PERCENT AUTO 1 % (0-1); LYMPHOCYTES ABSOLUTE AUTO 1.28 K/mm3 (0.84-5.20); LYMPHOCYTES PERCENT AUTO 11 % (21-46); MONOCYTES ABSOLUTE AUTO 0.81 K/mm3 (0.16-1.47); MONOCYTES PERCENT AUTO 7 % (4-13); Mean Corpuscular HGB 26.9 pg (26.0-34.0); Mean Corpuscular HGB Conc 31.5 g/dL (31.5-36.5); Mean Corpuscular Volume 85 fL (80-100); NEUTROPHILS ABSOLUTE AUTO 9.82 K/mm3 (1.96-9.15); NEUTROPHILS PERCENT AUTO 81 % (41-73); Platelet Count 197 K/mm3 (150-400); RDW Coefficient Variation 15.9 % (11.7-14.2); RDW Standard Deviation 49.1 fL (35.1-46.3); White Blood Cell Count 12.08 K/mm3 (4.00-11.30)
[2017-08-21 04:21] LABS: Albumin, Blood 2.8 g/dL (3.4-5.0); Anion Gap 8 mmol/L (6-16); Blood Urea Nitrogen 15 mg/dL (8-24); Bun/Creatinine Ratio 31.4 (12.0-20.0); CO2, Blood 29 mmol/L (21-32); Calcium, Blood 7.9 mg/dL (8.5-10.1); Chloride, Blood 104 mmol/L (98-108); Creatinine, Blood 0.48 mg/dL (0.60-1.20); Glomerular Filtration Rate >60 (60-); Glucose, Blood 240 mg/dL (70-99); Magnesium, Blood 2.2 mg/dL (1.6-2.4); Phosphorus, Blood 2.6 mg/dL (2.5-4.9); Potassium, Blood 3.3 mmol/L (3.5-5.5); Sodium, Blood 141 mmol/L (136-145)
[2017-08-22 03:27] LABS: BASOPHILS ABSOLUTE AUTO 0.02 K/mm3 (0.00-0.23); BASOPHILS PERCENT AUTO 0 % (0-2); EOSINOPHILS ABSOLUTE AUTO 0.02 K/mm3 (0.00-0.68); EOSINOPHILS PERCENT AUTO 0 % (0-6); Hematocrit 40.8 % (37.0-53.0); Hemoglobin 12.8 g/dL (13.5-17.5); IMMATURE GRAN PERCENT AUTO 1 % (0-1); LYMPHOCYTES ABSOLUTE AUTO 3.11 K/mm3 (0.84-5.20); LYMPHOCYTES PERCENT AUTO 27 % (21-46); MONOCYTES ABSOLUTE AUTO 0.93 K/mm3 (0.16-1.47); MONOCYTES PERCENT AUTO 8 % (4-13); Mean Corpuscular HGB 27.2 pg (26.0-34.0); Mean Corpuscular HGB Conc 31.4 g/dL (31.5-36.5); Mean Corpuscular Volume 87 fL (80-100); Mean Platelet Volume 9.7 fL (9.1-12.4); NEUTROPHILS ABSOLUTE AUTO 7.34 K/mm3 (1.96-9.15); NEUTROPHILS PERCENT AUTO 64 % (41-73); Platelet Count 172 K/mm3 (150-400); RDW Coefficient Variation 15.9 % (11.7-14.2); RDW Standard Deviation 49.9 fL (35.1-46.3); White Blood Cell Count 11.52 K/mm3 (4.00-11.30)
[2017-08-22 03:44] LABS: Albumin, Blood 2.5 g/dL (3.4-5.0); Anion Gap 6 mmol/L (6-16); Blood Urea Nitrogen 14 mg/dL (8-24); Bun/Creatinine Ratio 26.4 (12.0-20.0); CO2, Blood 31 mmol/L (21-32); Calcium, Blood 7.6 mg/dL (8.5-10.1); Chloride, Blood 105 mmol/L (98-108); Creatinine, Blood 0.53 mg/dL (0.60-1.20); Glomerular Filtration Rate >60 (60-); Glucose, Blood 195 mg/dL (70-99); Magnesium, Blood 2.2 mg/dL (1.6-2.4); Phosphorus, Blood 2.6 mg/dL (2.5-4.9); Potassium, Blood 3.3 mmol/L (3.5-5.5); Sodium, Blood 142 mmol/L (136-145)
[2017-08-23 05:35] LABS: BASOPHILS ABSOLUTE AUTO 0.02 K/mm3 (0.00-0.23); BASOPHILS PERCENT AUTO 0 % (0-2); EOSINOPHILS ABSOLUTE AUTO 0.16 K/mm3 (0.00-0.68); EOSINOPHILS PERCENT AUTO 2 % (0-6); Hematocrit 41.7 % (37.0-53.0); Hemoglobin 12.7 g/dL (13.5-17.5); IMMATURE GRAN ABSOLUTE AUTO 0.12 K/mm3 (0.00-0.10); IMMATURE GRAN PERCENT AUTO 1 % (0-1); LYMPHOCYTES ABSOLUTE AUTO 2.34 K/mm3 (0.84-5.20); LYMPHOCYTES PERCENT AUTO 21 % (21-46); MONOCYTES ABSOLUTE AUTO 0.85 K/mm3 (0.16-1.47); MONOCYTES PERCENT AUTO 8 % (4-13); Mean Corpuscular HGB 26.8 pg (26.0-34.0); Mean Corpuscular HGB Conc 30.5 g/dL (31.5-36.5); Mean Corpuscular Volume 88 fL (80-100); NEUTROPHILS ABSOLUTE AUTO 7.49 K/mm3 (1.96-9.15); NEUTROPHILS PERCENT AUTO 68 % (41-73); RDW Coefficient Variation 15.9 % (11.7-14.2); RDW Standard Deviation 50.4 fL (35.1-46.3); Red Blood Cell Count 4.73 M/mm3 (4.30-5.90); White Blood Cell Count 10.98 K/mm3 (4.00-11.30)
[2017-08-23 05:39] LABS: Mean Platelet Volume 10.5 fL (9.1-12.4); Platelet Count 122 K/mm3 (150-400)
[2017-08-23 06:05] LABS: Anion Gap 7 mmol/L (6-16); Blood Urea Nitrogen 12 mg/dL (8-24); Bun/Creatinine Ratio 25.4 (12.0-20.0); CO2, Blood 29 mmol/L (21-32); Calcium, Blood 7.9 mg/dL (8.5-10.1); Chloride, Blood 101 mmol/L (98-108); Creatinine, Blood 0.47 mg/dL (0.60-1.20); Glomerular Filtration Rate >60 (60-); Glucose, Blood 221 mg/dL (70-99); Magnesium, Blood 2.1 mg/dL (1.6-2.4); Phosphorus, Blood 2.8 mg/dL (2.5-4.9); Potassium, Blood 4.2 mmol/L (3.5-5.5); Sodium, Blood 137 mmol/L (136-145)
[2017-08-23] MEDS ORDERED: CEPACOL SORE T1 EACH MM (11:09)
[2017-08-23] MEDS ORDERED: Pulmicort0.5 MG/2 M INH (11:10)
[2017-08-23] MEDS ORDERED: INSU100I6 SC (11:11)
[2017-08-23] MEDS ORDERED: OLAN10A MM (11:13)
[2017-08-23] MEDS ORDERED: MORP20L PO (11:14)
[2017-08-23] MEDS ORDERED: OMEPRAZOLE MAGN20 MG PO (11:14)
[2018-01-06] MEDS ORDERED: WARF1 (22:23)
[2018-01-13] MEDS ORDERED: OXYC10ER PO (10:30)
[2018-01-13] MEDS ORDERED: ALPR.25 PO (10:32)
[2018-01-13] MEDS ORDERED: ASCO500 PO (10:33)
[2018-01-13] MEDS ORDERED: BACL10 (10:34)
[2018-01-13] MEDS ORDERED: CEPACOL SORE T1 EACH MM (10:35)
[2018-01-13] MEDS ORDERED: CARB200 PO (10:36)
[2018-01-13] MEDS ORDERED: DOCU100 PO (10:36)
[2018-01-13] MEDS ORDERED: GUAI600T33 PO (10:37)
[2018-01-13] MEDS ORDERED: FERROUS SULFATE (10:39)
[2018-01-13] MEDS ORDERED: ONDA4ODT MM (10:40)
[2018-01-13] MEDS ORDERED: XARELTO20 MG PO (10:41)
[2018-01-13] MEDS ORDERED: SUMA25 (10:43)
[2018-03-28] MEDS ORDERED: Pepcid40 MG PO (16:04)
[2018-03-30] MEDS ORDERED: Flagyl500 MG PO (22:03)
[2018-03-30] MEDS ORDERED: Zofran Odt4 MG PO (22:03)
[2018-03-30] MEDS ORDERED: CIPR500 PO (22:03)
[2018-05-01] MEDS ORDERED: ETAN50I (15:26)
[2018-05-01] MEDS ORDERED: GABA300 PO (15:26)
[2018-05-01] MEDS ORDERED: BUDE10.22 INH (15:26)
[2018-05-03] MEDS ORDERED: ROBITUSSIN COU237 ML PO (13:09)
[2018-05-03] MEDS ORDERED: Acidophilus La1 EACH PO (13:10)
[2018-05-03] MEDS ORDERED: AZIT500 PO (13:11)
[2018-05-03] MEDS ORDERED: Omeprazole20 M1 PO (13:11)
[2018-05-03] MEDS ORDERED: PRED10 PO (13:14)
[2018-05-03] MEDS ORDERED: TIOT18 INH (13:17)
[2018-05-03] MEDS ORDERED: DULERA 200 MCG/13 GM INH (13:18)
== END 2017-08-23 11:36 | DRG 871 ==
LOC: ER 19:45 → ICUW 22:13 → MEDS 22:13 → ICUE 22:13 → MEDS 23:05 → ICUE 08-11 06:52 → MEDS 08-11 06:52 → ICUE 08-12 06:28 → PCU 08-12 15:29 → ICUE 08-12 15:29 → ICUW 08-13 02:26 → PCU 08-13 02:26 → ICUW 08-21 16:22 → MEDS 08-22 16:00 → ICUW 08-22 16:00 → ENPENDDIS 08-23 10:32 → MEDS 08-23 11:36
PROVIDERS: Family Medicine; Hospitalist; Internal Medicine; Internal Medicine Critical Care Medicine; Internal Medicine Pulmonary Disease; Physician Assistant
PROC: 5A09357 Assistance with Respiratory Ventilation, Less than 24 Consecutive Hours, Continuous Positive Airway Pressure (ICD-10-PCS; 2017-08-11)
PROC: 0BH17EZ Insertion of Endotracheal Airway into Trachea, Via Natural or Artificial Opening (ICD-10-PCS; principal; 2017-08-13)
PROC: 5A1935Z Respiratory Ventilation, Less than 24 Consecutive Hours (ICD-10-PCS; 2017-08-13)
DX: A41.9 Sepsis, unspecified organism (principal); J96.21 Acute and chronic respiratory failure with hypoxia; G93.41 Metabolic encephalopathy; J44.0 Chronic obstructive pulmonary disease with (acute) lower respiratory infection; E87.2 Acidosis; J44.1 Chronic obstructive pulmonary disease with (acute) exacerbation; R13.12 Dysphagia, oropharyngeal phase; J96.22 Acute and chronic respiratory failure with hypercapnia; F11.20 Opioid dependence, uncomplicated; F10.239 Alcohol dependence with withdrawal, unspecified; B97.4 Respiratory syncytial virus as the cause of diseases classified elsewhere; E11.42 Type 2 diabetes mellitus with diabetic polyneuropathy; J20.9 Acute bronchitis, unspecified; F17.210 Nicotine dependence, cigarettes, uncomplicated; R03.0 Elevated blood-pressure reading, without diagnosis of hypertension; G89.29 Other chronic pain; M54.9 Dorsalgia, unspecified; E87.6 Hypokalemia; F41.9 Anxiety disorder, unspecified; S01.91XA Laceration without foreign body of unspecified part of head, initial encounter; W18.30XA Fall on same level, unspecified, initial encounter; Y92.239 Unspecified place in hospital as the place of occurrence of the external cause; L40.9 Psoriasis, unspecified; K21.9 Gastro-esophageal reflux disease without esophagitis; Z88.8 Allergy status to other drugs, medicaments and biological substances; Z78.1 Physical restraint status; Z79.4 Long term (current) use of insulin; Z79.52 Long term (current) use of systemic steroids; Z79.899 Other long term (current) drug therapy; Z86.73 Personal history of transient ischemic attack (TIA), and cerebral infarction without residual deficits; Z99.81 Dependence on supplemental oxygen
CPT/HCPCS: 31500; 31720; 36415; 36600; 51702; 70450; 71045; 80048; 80053; 80069; 81003; 82803; 82947; 83605; 83735; 84100; 84484; 85025; 87040; 87070; 87205; 87804; 87807; 92526; 92610; 93005; 93010; 94002; 94003; 94640; 94660; 94760; 94762; 96361; 96374; 97116; 97162; 97166; 97530; 99285; C1751; C9113; G8978; G8979; G8987; G8988; G8996; G8997; J0330; J0456; J0696; J1630; J1650; J1720; J1815; J1956; J2060; J2405; J2930; J3010; J7030; J7040; J7050; J7060; J7120

== ENCOUNTER 2017-08-29 10:22 | Inpatient (IN) | payer OTHER, MEDICARE ==
[~2017-08-29] VITALS: Ht 182.9 cm; Wt 73.0 kg
[~2017-08-29 10:22] MED LIST changes: +CEPACOL SORE T1 EACH MM; +Desyrel150 MG PO; +INSU100I6 SC; +MORP20L PO; +OLAN10A MM; +OMEPRAZOLE MAGN20 MG PO; +Pulmicort0.5 MG/2 M INH
[2017-08-29 10:58] LABS: Source, Urine Clean Catch
[2017-08-29 11:03] LABS: BASOPHILS ABSOLUTE AUTO 0.01 K/mm3 (0.00-0.23); BASOPHILS PERCENT AUTO 0 % (0-2); Hematocrit 37.2 % (37.0-53.0); Hemoglobin 11.6 g/dL (13.5-17.5); LYMPHOCYTES ABSOLUTE AUTO 1.01 K/mm3 (0.84-5.20); LYMPHOCYTES PERCENT AUTO 14 % (21-46); MONOCYTES ABSOLUTE AUTO 0.47 K/mm3 (0.16-1.47); MONOCYTES PERCENT AUTO 6 % (4-13); Mean Corpuscular HGB 27.5 pg (26.0-34.0); Mean Corpuscular HGB Conc 31.2 g/dL (31.5-36.5); Mean Corpuscular Volume 88 fL (80-100); Mean Platelet Volume 9.1 fL (9.1-12.4); Platelet Count 252 K/mm3 (150-400); RDW Standard Deviation 51.6 fL (35.1-46.3); Red Blood Cell Count 4.22 M/mm3 (4.30-5.90); White Blood Cell Count 7.39 K/mm3 (4.00-11.30)
[2017-08-29 11:05] LABS: Bilirubin, Urine Neg (Neg); Blood, Urine Neg (Neg); Glucose Qualitative, Urine 1+ (Neg); Ketones, Urine 1+ (Neg); Leukocyte Esterase, Urine 1+ (Neg); Nitrite, Urine Neg (Neg); Protein, Urine 2+ (Neg); Urobilinogen, Urine 1+ (Normal); pH, Urine 6.5 (5.0-8.0)
[2017-08-29 11:22] LABS: Alanine Aminotransfer (ALT/SGP 33 U/L (12-78); Albumin, Blood 2.3 g/dL (3.4-5.0); Albumin/Globulin Ratio 0.4 (0.8-1.8); Alk Phos 108 U/L (50-136); Anion Gap 4 mmol/L (6-16); Aspartate Aminotrans (AST/SGOT 13 U/L (12-37); Bilirubin, Total 0.4 mg/dL (0.1-1.0); Blood Urea Nitrogen 17 mg/dL (8-24); CO2, Blood 32 mmol/L (21-32); Calcium, Blood 8.5 mg/dL (8.5-10.1); Chloride, Blood 100 mmol/L (98-108); Creatinine, Blood 0.77 mg/dL (0.60-1.20); Globulin, Blood 5.2 g/dL (2.2-4.0); Glomerular Filtration Rate >60 (60-); Glucose, Blood 184 mg/dL (70-99); Potassium, Blood 4.4 mmol/L (3.5-5.5); Sodium, Blood 136 mmol/L (136-145); Total Protein, Blood 7.5 g/dL (6.4-8.2); Troponin I <0.015 ng/mL (0.000-0.040)
[2017-08-29 11:23] LABS: PCO2 Arterial 50.1 mmHg (35-45); PO2 Arterial 72.6 mmHg (80-100); pH Blood Arterial 7.43 (7.35-7.45)
[2017-08-29 11:31] LABS: Appearance, Urine Cloudy (Clear); Color, Urine Yellow (P-Yellow)
[2017-08-29] MEDS ORDERED: Albuterol S5 MG/1 ML INH (11:34)
[2017-08-29] MEDS ORDERED: OXYC5 PO (11:35)
[2017-08-29 11:36] LABS: Influenza A Negative (NEGATIVE); Influenza B Negative (NEGATIVE)
[2017-08-29 11:36] LABS: Bacteria Rare /hpf; Mucus Mod (0-Heavy); Red Blood Cells, Urine 0-2 /hpf (0-2); Squamous Epithelial Cells Few /hpf (Few)
[2017-08-29] MEDS ORDERED: Multivitamin1 EAC2 PO (11:36)
[2017-08-29 11:42] LABS: EOSINOPHILS ABSOLUTE AUTO 0.01 K/mm3 (0.00-0.68); EOSINOPHILS PERCENT AUTO 0 % (0-6); IMMATURE GRAN ABSOLUTE AUTO 0.03 K/mm3 (0.00-0.10); IMMATURE GRAN PERCENT AUTO 0 % (0-1); NEUTROPHILS ABSOLUTE AUTO 5.86 K/mm3 (1.96-9.15); NEUTROPHILS PERCENT AUTO 79 % (41-73)
[2017-08-29 16:06] LABS: PCO2 Arterial 64.5 mmHg (35-45); PO2 Arterial 85.6 mmHg (80-100); pH Blood Arterial 7.23 (7.35-7.45)
[2017-08-29 18:08] LABS: BASOPHILS PERCENT AUTO 0 % (0-2); Hematocrit 32.9 % (37.0-53.0); LYMPHOCYTES ABSOLUTE AUTO 0.12 K/mm3 (0.84-5.20); LYMPHOCYTES PERCENT AUTO 10 % (21-46); MONOCYTES ABSOLUTE AUTO 0.01 K/mm3 (0.16-1.47); MONOCYTES PERCENT AUTO 1 % (4-13); Mean Corpuscular HGB 27.8 pg (26.0-34.0); Mean Corpuscular HGB Conc 30.4 g/dL (31.5-36.5); Mean Platelet Volume 8.9 fL (9.1-12.4); Platelet Count 148 K/mm3 (150-400); RDW Standard Deviation 53.2 fL (35.1-46.3); White Blood Cell Count 1.24 K/mm3 (4.00-11.30)
[2017-08-29 18:12] LABS: EOSINOPHILS PERCENT AUTO 0 % (0-6); IMMATURE GRAN PERCENT AUTO 0 % (0-1); Mean Corpuscular Volume 91 fL (80-100); NEUTROPHILS ABSOLUTE AUTO 1.11 K/mm3 (1.96-9.15); NEUTROPHILS PERCENT AUTO 90 % (41-73)
[2017-08-29 18:21] LABS: International Normalized Ratio 1.27; Prothrombin Time Results 13.3 Sec (9.7-11.5)
[2017-08-29 18:22] LABS: PCO2 Arterial 61.8 mmHg (35-45); PO2 Arterial 92.2 mmHg (80-100); pH Blood Arterial 7.31 (7.35-7.45)
[2017-08-29 18:26] LABS: Magnesium, Blood 1.7 mg/dL (1.6-2.4)
[2017-08-29 18:27] LABS: Alanine Aminotransfer (ALT/SGP 26 U/L (12-78); Albumin/Globulin Ratio 0.5 (0.8-1.8); Alk Phos 138 U/L (50-136); Anion Gap 7 mmol/L (6-16); Aspartate Aminotrans (AST/SGOT 34 U/L (12-37); Bilirubin, Total 0.3 mg/dL (0.1-1.0); Blood Urea Nitrogen 17 mg/dL (8-24); Bun/Creatinine Ratio 22.9 (12.0-20.0); CO2, Blood 29 mmol/L (21-32); Calcium, Blood 7.5 mg/dL (8.5-10.1); Chloride, Blood 105 mmol/L (98-108); Creatinine, Blood 0.74 mg/dL (0.60-1.20); Globulin, Blood 4.2 g/dL (2.2-4.0); Glomerular Filtration Rate >60 (60-); Glucose, Blood 187 mg/dL (70-99); Phosphorus, Blood 3.4 mg/dL (2.5-4.9); Potassium, Blood 4.1 mmol/L (3.5-5.5); Sodium, Blood 141 mmol/L (136-145); Total Protein, Blood 6.2 g/dL (6.4-8.2)
[2017-08-30 01:42] LABS: Base Excess Venous 4.4 mmol/L; Bicarbonate Venous 27.3 mmol/L (24.0-30.0); PCO2 Venous 56.9 mmHg (38-42); PO2 Venous 39.6 mmHg (38-42); pH Blood Venous 7.33 (7.34-7.37)
[2017-08-30 03:33] LABS: Hematocrit 30.2 % (37.0-53.0); Hemoglobin 9.4 g/dL (13.5-17.5); Mean Corpuscular HGB 28.1 pg (26.0-34.0); Mean Corpuscular HGB Conc 31.1 g/dL (31.5-36.5); Mean Corpuscular Volume 90 fL (80-100); Mean Platelet Volume 9.1 fL (9.1-12.4); Platelet Count 153 K/mm3 (150-400); RDW Coefficient Variation 15.8 % (11.7-14.2); RDW Standard Deviation 51.6 fL (35.1-46.3); Red Blood Cell Count 3.34 M/mm3 (4.30-5.90); White Blood Cell Count 5.46 K/mm3 (4.00-11.30)
[2017-08-30 03:51] LABS: Anion Gap 5 mmol/L (6-16); Blood Urea Nitrogen 14 mg/dL (8-24); Bun/Creatinine Ratio 21.6 (12.0-20.0); CO2, Blood 29 mmol/L (21-32); Calcium, Blood 7.5 mg/dL (8.5-10.1); Chloride, Blood 104 mmol/L (98-108); Creatinine, Blood 0.65 mg/dL (0.60-1.20); Glomerular Filtration Rate >60 (60-); Glucose, Blood 275 mg/dL (70-99); Sodium, Blood 138 mmol/L (136-145)
[2017-08-30 04:03] LABS: BAND PERCENT MAN 23 % (0-8); BASOPHILS PERCENT MAN 0 % (0-2); EOSINOPHILS PERCENT MAN 0 % (0-6); LYMPHOCYTES ABSOLUTE MAN 0.32 K/mm3 (0.84-5.20); LYMPHOCYTES PERCENT MAN 6 % (21-46); MONOCYTES ABSOLUTE MAN 0.16 K/mm3 (0.16-1.47); MONOCYTES PERCENT MAN 3 % (4-13); NEUTROPHILS ABSOLUTE MAN 4.96 K/mm3 (1.96-9.15); SEG NEUTROPHILS PERCENT MAN 68 % (41-73); TOTAL CELLS COUNTED 100
[2017-08-30 04:54] LABS: PCO2 Arterial 50.6 mmHg (35-45); PO2 Arterial 82.4 mmHg (80-100); pH Blood Arterial 7.38 (7.35-7.45)
[2017-08-30] MEDS ORDERED: ACET325 PO (11:03)
[2017-08-30 14:48] LABS: Vancomycin, Trough 6.7 ug/mL (5.0-10.0)
[2017-08-31 03:47] LABS: Hematocrit 27.8 % (37.0-53.0); Hemoglobin 8.7 g/dL (13.5-17.5); Mean Corpuscular HGB 27.4 pg (26.0-34.0); Mean Corpuscular HGB Conc 31.3 g/dL (31.5-36.5); Mean Corpuscular Volume 88 fL (80-100); Mean Platelet Volume 8.9 fL (9.1-12.4); Platelet Count 154 K/mm3 (150-400); RDW Coefficient Variation 15.3 % (11.7-14.2); RDW Standard Deviation 48.7 fL (35.1-46.3); Red Blood Cell Count 3.17 M/mm3 (4.30-5.90); White Blood Cell Count 4.77 K/mm3 (4.00-11.30)
[2017-08-31 04:06] LABS: Alanine Aminotransfer (ALT/SGP 29 U/L (12-78); Albumin, Blood 1.8 g/dL (3.4-5.0); Albumin/Globulin Ratio 0.4 (0.8-1.8); Alk Phos 93 U/L (50-136); Anion Gap 5 mmol/L (6-16); Aspartate Aminotrans (AST/SGOT 13 U/L (12-37); Bilirubin, Total 0.1 mg/dL (0.1-1.0); Blood Urea Nitrogen 8 mg/dL (8-24); Bun/Creatinine Ratio 14.8 (12.0-20.0); CO2, Blood 31 mmol/L (21-32); Calcium, Blood 7.6 mg/dL (8.5-10.1); Chloride, Blood 103 mmol/L (98-108); Creatinine, Blood 0.54 mg/dL (0.60-1.20); Globulin, Blood 4.1 g/dL (2.2-4.0); Glomerular Filtration Rate >60 (60-); Glucose, Blood 298 mg/dL (70-99); Potassium, Blood 2.9 mmol/L (3.5-5.5); Sodium, Blood 139 mmol/L (136-145); Total Protein, Blood 5.9 g/dL (6.4-8.2)
[2017-08-31 04:15] LABS: BAND PERCENT MAN 15 % (0-8); BASOPHILS PERCENT MAN 0 % (0-2); EOSINOPHILS PERCENT MAN 0 % (0-6); LYMPHOCYTES ABSOLUTE MAN 0.38 K/mm3 (0.84-5.20); LYMPHOCYTES PERCENT MAN 8 % (21-46); MONOCYTES ABSOLUTE MAN 0.19 K/mm3 (0.16-1.47); MONOCYTES PERCENT MAN 4 % (4-13); NEUTROPHILS ABSOLUTE MAN 4.19 K/mm3 (1.96-9.15); SEG NEUTROPHILS PERCENT MAN 73 % (41-73); TOTAL CELLS COUNTED 100
[2017-08-31 05:20] LABS: PCO2 Arterial 48.7 mmHg (35-45); PO2 Arterial 73.3 mmHg (80-100); pH Blood Arterial 7.42 (7.35-7.45)
[2017-08-31 15:50] LABS: Vancomycin, Trough 20.7 ug/mL (5.0-10.0)
[2017-09-01 05:22] LABS: Hematocrit 28.3 % (37.0-53.0); Mean Corpuscular HGB 27.6 pg (26.0-34.0); Mean Corpuscular HGB Conc 31.8 g/dL (31.5-36.5); Mean Corpuscular Volume 87 fL (80-100); Mean Platelet Volume 9.5 fL (9.1-12.4); Platelet Count 182 K/mm3 (150-400); RDW Coefficient Variation 15.2 % (11.7-14.2); Red Blood Cell Count 3.26 M/mm3 (4.30-5.90); White Blood Cell Count 5.58 K/mm3 (4.00-11.30)
[2017-09-01 06:12] LABS: BAND PERCENT MAN 6 % (0-8); BASOPHILS PERCENT MAN 0 % (0-2); EOSINOPHILS PERCENT MAN 0 % (0-6); LYMPHOCYTES ABSOLUTE MAN 0.61 K/mm3 (0.84-5.20); LYMPHOCYTES PERCENT MAN 11 % (21-46); MONOCYTES ABSOLUTE MAN 0.27 K/mm3 (0.16-1.47); MONOCYTES PERCENT MAN 5 % (4-13); NEUTROPHILS ABSOLUTE MAN 4.68 K/mm3 (1.96-9.15); SEG NEUTROPHILS PERCENT MAN 78 % (41-73); TOTAL CELLS COUNTED 100
[2017-09-01 06:15] LABS: Alanine Aminotransfer (ALT/SGP 38 U/L (12-78); Albumin, Blood 1.9 g/dL (3.4-5.0); Albumin/Globulin Ratio 0.5 (0.8-1.8); Alk Phos 92 U/L (50-136); Anion Gap 6 mmol/L (6-16); Aspartate Aminotrans (AST/SGOT 20 U/L (12-37); Bilirubin, Total 0.3 mg/dL (0.1-1.0); Blood Urea Nitrogen 9 mg/dL (8-24); Bun/Creatinine Ratio 18.3 (12.0-20.0); CO2, Blood 31 mmol/L (21-32); Calcium, Blood 7.8 mg/dL (8.5-10.1); Chloride, Blood 103 mmol/L (98-108); Creatinine, Blood 0.49 mg/dL (0.60-1.20); Globulin, Blood 3.9 g/dL (2.2-4.0); Glomerular Filtration Rate >60 (60-); Glucose, Blood 214 mg/dL (70-99); Potassium, Blood 3.4 mmol/L (3.5-5.5); Sodium, Blood 140 mmol/L (136-145); Total Protein, Blood 5.8 g/dL (6.4-8.2)
[2017-09-02 03:53] LABS: BASOPHILS ABSOLUTE AUTO 0.01 K/mm3 (0.00-0.23); BASOPHILS PERCENT AUTO 0 % (0-2); EOSINOPHILS PERCENT AUTO 0 % (0-6); Hematocrit 33.2 % (37.0-53.0); Hemoglobin 10.6 g/dL (13.5-17.5); IMMATURE GRAN ABSOLUTE AUTO 0.11 K/mm3 (0.00-0.10); IMMATURE GRAN PERCENT AUTO 2 % (0-1); LYMPHOCYTES PERCENT AUTO 27 % (21-46); MONOCYTES PERCENT AUTO 11 % (4-13); Mean Corpuscular HGB 27.5 pg (26.0-34.0); Mean Corpuscular HGB Conc 31.9 g/dL (31.5-36.5); Mean Corpuscular Volume 86 fL (80-100); Mean Platelet Volume 9.7 fL (9.1-12.4); NEUTROPHILS ABSOLUTE AUTO 4.01 K/mm3 (1.96-9.15); NEUTROPHILS PERCENT AUTO 60 % (41-73); NRBC ABSOLUTE 0.07 K/mm3 (0.00-0.02); NRBC Auto 1.1 /100 WBC (0.0-0.2); Platelet Count 194 K/mm3 (150-400); RDW Coefficient Variation 15.8 % (11.7-14.2); RDW Standard Deviation 49.1 fL (35.1-46.3); Red Blood Cell Count 3.85 M/mm3 (4.30-5.90); White Blood Cell Count 6.63 K/mm3 (4.00-11.30)
[2017-09-02 04:16] LABS: Alanine Aminotransfer (ALT/SGP 58 U/L (12-78); Albumin, Blood 2.2 g/dL (3.4-5.0); Albumin/Globulin Ratio 0.5 (0.8-1.8); Alk Phos 107 U/L (50-136); Anion Gap 4 mmol/L (6-16); Aspartate Aminotrans (AST/SGOT 29 U/L (12-37); Bilirubin, Total 0.2 mg/dL (0.1-1.0); Blood Urea Nitrogen 14 mg/dL (8-24); Bun/Creatinine Ratio 25.3 (12.0-20.0); CO2, Blood 30 mmol/L (21-32); Calcium, Blood 8.1 mg/dL (8.5-10.1); Chloride, Blood 103 mmol/L (98-108); Creatinine, Blood 0.55 mg/dL (0.60-1.20); Globulin, Blood 4.7 g/dL (2.2-4.0); Glomerular Filtration Rate >60 (60-); Glucose, Blood 178 mg/dL (70-99); Potassium, Blood 3.7 mmol/L (3.5-5.5); Sodium, Blood 137 mmol/L (136-145); Total Protein, Blood 6.9 g/dL (6.4-8.2)
[2017-09-03 05:18] LABS: Hematocrit 37.3 % (37.0-53.0); Hemoglobin 12.1 g/dL (13.5-17.5); Mean Corpuscular HGB 27.3 pg (26.0-34.0); Mean Corpuscular HGB Conc 32.4 g/dL (31.5-36.5); Mean Corpuscular Volume 84 fL (80-100); Mean Platelet Volume 10.2 fL (9.1-12.4); NRBC ABSOLUTE 0.06 K/mm3 (0.00-0.02); NRBC Auto 0.8 /100 WBC (0.0-0.2); Platelet Count 220 K/mm3 (150-400); RDW Coefficient Variation 16.2 % (11.7-14.2); RDW Standard Deviation 48.4 fL (35.1-46.3); Red Blood Cell Count 4.44 M/mm3 (4.30-5.90); White Blood Cell Count 7.24 K/mm3 (4.00-11.30)
[2017-09-03 05:59] LABS: BAND PERCENT MAN 3 % (0-8); BASOPHILS PERCENT MAN 0 % (0-2); EOSINOPHILS PERCENT MAN 0 % (0-6); LYMPHOCYTES % ATYPICAL MANUAL 5 % (0-0); LYMPHOCYTES ABSOLUTE MAN 3.83 K/mm3 (0.84-5.20); LYMPHOCYTES PERCENT MAN 48 % (21-46); METAMYELOCYTE ABSOLUTE MAN 0.07 K/mm3 (0.00-0.00); METAMYELOCYTE PERCENT MAN 1 % (0-0); MONOCYTES ABSOLUTE MAN 0.57 K/mm3 (0.16-1.47); MONOCYTES PERCENT MAN 8 % (4-13); NEUTROPHILS ABSOLUTE MAN 2.75 K/mm3 (1.96-9.15); SEG NEUTROPHILS PERCENT MAN 35 % (41-73); TOTAL CELLS COUNTED 100
[2017-09-03 06:20] LABS: Alanine Aminotransfer (ALT/SGP 66 U/L (12-78); Albumin, Blood 2.4 g/dL (3.4-5.0); Albumin/Globulin Ratio 0.5 (0.8-1.8); Alk Phos 101 U/L (50-136); Anion Gap 8 mmol/L (6-16); Aspartate Aminotrans (AST/SGOT 25 U/L (12-37); Bilirubin, Total 0.4 mg/dL (0.1-1.0); Blood Urea Nitrogen 20 mg/dL (8-24); CO2, Blood 27 mmol/L (21-32); Calcium, Blood 8.4 mg/dL (8.5-10.1); Chloride, Blood 101 mmol/L (98-108); Creatinine, Blood 0.67 mg/dL (0.60-1.20); Globulin, Blood 4.5 g/dL (2.2-4.0); Glomerular Filtration Rate >60 (60-); Glucose, Blood 99 mg/dL (70-99); Magnesium, Blood 2.2 mg/dL (1.6-2.4); Potassium, Blood 3.7 mmol/L (3.5-5.5); Sodium, Blood 136 mmol/L (136-145); Total Protein, Blood 6.9 g/dL (6.4-8.2)
[2017-09-04 04:51] LABS: Hematocrit 39.4 % (37.0-53.0); Hemoglobin 12.4 g/dL (13.5-17.5); Mean Corpuscular HGB 26.8 pg (26.0-34.0); Mean Corpuscular HGB Conc 31.5 g/dL (31.5-36.5); Mean Corpuscular Volume 85 fL (80-100); Mean Platelet Volume 9.5 fL (9.1-12.4); Platelet Count 265 K/mm3 (150-400); RDW Coefficient Variation 16.8 % (11.7-14.2); RDW Standard Deviation 51.7 fL (35.1-46.3); Red Blood Cell Count 4.62 M/mm3 (4.30-5.90); White Blood Cell Count 8.25 K/mm3 (4.00-11.30)
[2017-09-04 05:13] LABS: Alanine Aminotransfer (ALT/SGP 61 U/L (12-78); Albumin, Blood 2.4 g/dL (3.4-5.0); Albumin/Globulin Ratio 0.5 (0.8-1.8); Alk Phos 108 U/L (50-136); Anion Gap 8 mmol/L (6-16); Aspartate Aminotrans (AST/SGOT 19 U/L (12-37); Bilirubin, Total 0.3 mg/dL (0.1-1.0); Blood Urea Nitrogen 22 mg/dL (8-24); Bun/Creatinine Ratio 31.9 (12.0-20.0); CO2, Blood 27 mmol/L (21-32); Calcium, Blood 8.7 mg/dL (8.5-10.1); Chloride, Blood 100 mmol/L (98-108); Creatinine, Blood 0.69 mg/dL (0.60-1.20); Globulin, Blood 4.8 g/dL (2.2-4.0); Glomerular Filtration Rate >60 (60-); Glucose, Blood 156 mg/dL (70-99); Sodium, Blood 135 mmol/L (136-145); Total Protein, Blood 7.2 g/dL (6.4-8.2)
[2017-09-04 05:22] LABS: BASOPHILS PERCENT MAN 0 % (0-2); EOSINOPHILS ABSOLUTE MAN 0.08 K/mm3 (0.00-0.68); EOSINOPHILS PERCENT MAN 1 % (0-6); LYMPHOCYTES % ATYPICAL MANUAL 1 % (0-0); LYMPHOCYTES ABSOLUTE MAN 4.12 K/mm3 (0.84-5.20); LYMPHOCYTES PERCENT MAN 49 % (21-46); METAMYELOCYTE ABSOLUTE MAN 0.16 K/mm3 (0.00-0.00); METAMYELOCYTE PERCENT MAN 2 % (0-0); MONOCYTES ABSOLUTE MAN 0.66 K/mm3 (0.16-1.47); MONOCYTES PERCENT MAN 8 % (4-13); MYELOCYTE ABSOLUTE MAN 0.16 K/mm3 (0.00-0.00); MYELOCYTE PERCENT MAN 2 % (0-0); NEUTROPHILS ABSOLUTE MAN 3.05 K/mm3 (1.96-9.15); SEG NEUTROPHILS PERCENT MAN 37 % (41-73); TOTAL CELLS COUNTED 100
[2017-09-06 08:37] LABS: RPR Non-reactive (Nonreactive)
[2017-09-06 09:53] LABS: RNP/SM Ab IgG <0.2 AI (<1.0)
[2017-09-06 10:53] LABS: Antinuclear Antibody Screen Negative (Negative)
[2017-09-07 04:47] LABS: Hematocrit 32.9 % (37.0-53.0); Hemoglobin 10.3 g/dL (13.5-17.5); Mean Corpuscular HGB 27.1 pg (26.0-34.0); Mean Corpuscular HGB Conc 31.3 g/dL (31.5-36.5); Mean Corpuscular Volume 87 fL (80-100); Mean Platelet Volume 9.5 fL (9.1-12.4); Platelet Count 299 K/mm3 (150-400); RDW Coefficient Variation 16.5 % (11.7-14.2); RDW Standard Deviation 51.3 fL (35.1-46.3); White Blood Cell Count 9.44 K/mm3 (4.00-11.30)
[2017-09-07 05:06] LABS: Anion Gap 8 mmol/L (6-16); Blood Urea Nitrogen 16 mg/dL (8-24); Bun/Creatinine Ratio 23.8 (12.0-20.0); CO2, Blood 27 mmol/L (21-32); Calcium, Blood 7.8 mg/dL (8.5-10.1); Chloride, Blood 100 mmol/L (98-108); Creatinine, Blood 0.67 mg/dL (0.60-1.20); Glomerular Filtration Rate >60 (60-); Glucose, Blood 176 mg/dL (70-99); Potassium, Blood 4.2 mmol/L (3.5-5.5); Sodium, Blood 135 mmol/L (136-145)
[2017-09-07 06:02] LABS: C3 165 mg/dL
[2017-09-08] MEDS ORDERED: INSU100I6 (11:34)
[2017-09-08] MEDS ORDERED: LEVEMIR FL100 UNIT/1 SC (11:35)
[2017-09-08] MEDS ORDERED: QUET25 PO (11:35)
[2017-09-08] MEDS ORDERED: Miralax17 GM PO (11:36)
[2017-09-08] MEDS ORDERED: THIA100 PO (11:36)
== END 2017-09-08 11:31 | DRG 871 ==
LOC: ER 10:22 → PCU 12:34 → ICUE 12:34 → MEDS 12:34 → ICUE 16:49 → PCU 08-31 07:30 → MEDS 09-02 18:30 → ENPENDDIS 09-08 10:30 → MEDS 09-08 11:31
PROVIDERS: Emergency Medicine; Internal Medicine; Internal Medicine Critical Care Medicine; Pharmacist
PROC: 5A09357 Assistance with Respiratory Ventilation, Less than 24 Consecutive Hours, Continuous Positive Airway Pressure (ICD-10-PCS; principal; 2017-08-29)
DX: A41.9 Sepsis, unspecified organism (principal); J96.22 Acute and chronic respiratory failure with hypercapnia; J96.21 Acute and chronic respiratory failure with hypoxia; G92 Toxic encephalopathy; J44.0 Chronic obstructive pulmonary disease with (acute) lower respiratory infection; J44.1 Chronic obstructive pulmonary disease with (acute) exacerbation
CPT/HCPCS: 36415; 36569; 36600; 51702; 70450; 71045; 74220; 80048; 80053; 80202; 81001; 82330; 82533; 82607; 82728; 82746; 82803; 82947; 83540; 83550; 83605; 83735; 83880; 84100; 84425; 84443; 84484; 85007; 85025; 85027; 85610; 85651; 85730; 86038; 86160; 86225; 86235; 86592; 87040; 87070; 87086; 87205; 87804; 92610; 93005; 93010; 94640; 94660; 94760; 94762; 96365; 96375; 97110; 97116; 97162; 97164; 97530; 99285; C1751; C9113; G8978; G8979; G8996; G8997; G8998; J0456; J0696; J1650; J1815; J2001; J2405; J2543; J2920; J2930; J3370; J3480; J7030; J7050; J7060; J7120

== ENCOUNTER 2017-09-11 11:37 | Emergency (ER) | payer OTHER, MEDICARE ==
[~2017-09-11] VITALS: Ht 182.9 cm; Wt 72.6 kg
[~2017-09-11 11:37] MED LIST changes: +Albuterol S5 MG/1 ML INH; +LEVEMIR FL100 UNIT/1 SC; +Miralax17 GM PO; +Multivitamin1 EAC2 PO; +QUET25 PO; +THIA100 PO
[2017-09-11 12:07] LABS: BASOPHILS ABSOLUTE AUTO 0.03 K/mm3 (0.00-0.23); BASOPHILS PERCENT AUTO 0 % (0-2); EOSINOPHILS ABSOLUTE AUTO 0.02 K/mm3 (0.00-0.68); EOSINOPHILS PERCENT AUTO 0 % (0-6); Hematocrit 32.1 % (37.0-53.0); Hemoglobin 9.8 g/dL (13.5-17.5); IMMATURE GRAN ABSOLUTE AUTO 0.06 K/mm3 (0.00-0.10); IMMATURE GRAN PERCENT AUTO 1 % (0-1); LYMPHOCYTES ABSOLUTE AUTO 2.32 K/mm3 (0.84-5.20); LYMPHOCYTES PERCENT AUTO 33 % (21-46); MONOCYTES ABSOLUTE AUTO 1.02 K/mm3 (0.16-1.47); MONOCYTES PERCENT AUTO 15 % (4-13); Mean Corpuscular HGB 27.4 pg (26.0-34.0); Mean Corpuscular HGB Conc 30.5 g/dL (31.5-36.5); Mean Corpuscular Volume 90 fL (80-100); Mean Platelet Volume 8.7 fL (9.1-12.4); NEUTROPHILS ABSOLUTE AUTO 3.52 K/mm3 (1.96-9.15); NEUTROPHILS PERCENT AUTO 51 % (41-73); Platelet Count 392 K/mm3 (150-400); RDW Coefficient Variation 15.9 % (11.7-14.2); RDW Standard Deviation 51.9 fL (35.1-46.3); Red Blood Cell Count 3.58 M/mm3 (4.30-5.90); White Blood Cell Count 6.97 K/mm3 (4.00-11.30)
[2017-09-11 12:21] LABS: Alanine Aminotransfer (ALT/SGP 30 U/L (12-78); Albumin, Blood 2.1 g/dL (3.4-5.0); Albumin/Globulin Ratio 0.5 (0.8-1.8); Alk Phos 87 U/L (50-136); Anion Gap 7 mmol/L (6-16); Aspartate Aminotrans (AST/SGOT 18 U/L (12-37); Bilirubin, Total 0.1 mg/dL (0.1-1.0); Blood Urea Nitrogen 11 mg/dL (8-24); Bun/Creatinine Ratio 17.5 (12.0-20.0); CO2, Blood 27 mmol/L (21-32); Chloride, Blood 101 mmol/L (98-108); Creatinine, Blood 0.63 mg/dL (0.60-1.20); Globulin, Blood 4.6 g/dL (2.2-4.0); Glomerular Filtration Rate >60 (60-); Glucose, Blood 184 mg/dL (70-99); Potassium, Blood 3.9 mmol/L (3.5-5.5); Sodium, Blood 135 mmol/L (136-145); Total Protein, Blood 6.7 g/dL (6.4-8.2); Troponin I <0.015 ng/mL (0.000-0.040)
[2017-09-11] MEDS ORDERED: QUET25 PO ×2 (15:26→15:27)
== END 2017-09-11 16:37 | disposition home or self-care (01) ==
LOC: ER 11:37
PROVIDERS: Emergency Medicine
DX: R07.89 Other chest pain (principal); K21.9 Gastro-esophageal reflux disease without esophagitis; J44.9 Chronic obstructive pulmonary disease, unspecified; E11.9 Type 2 diabetes mellitus without complications; F03.90 Unspecified dementia, unspecified severity, without behavioral disturbance, psychotic disturbance, mood disturbance, and anxiety; Z91.02 Food additives allergy status; Z88.8 Allergy status to other drugs, medicaments and biological substances; Z91.018 Allergy to other foods; Z79.899 Other long term (current) drug therapy; Z79.4 Long term (current) use of insulin; Z87.891 Personal history of nicotine dependence
CPT/HCPCS: 36415; 71046; 71260; 80053; 83880; 84484; 85025; 93005; 93010; 99284; Q9967

== ENCOUNTER 2017-09-20 13:51 | Observation (INO) | payer OTHER ==
[~2017-09-20] VITALS: Ht 182.9 cm; Wt 74.7 kg
[2017-09-20 14:29] LABS: BASOPHILS ABSOLUTE AUTO 0.03 K/mm3 (0.00-0.23); BASOPHILS PERCENT AUTO 1 % (0-2); EOSINOPHILS ABSOLUTE AUTO 0.12 K/mm3 (0.00-0.68); EOSINOPHILS PERCENT AUTO 4 % (0-6); Hematocrit 32.4 % (37.0-53.0); Hemoglobin 9.8 g/dL (13.5-17.5); IMMATURE GRAN ABSOLUTE AUTO 0.02 K/mm3 (0.00-0.10); IMMATURE GRAN PERCENT AUTO 1 % (0-1); LYMPHOCYTES ABSOLUTE AUTO 1.15 K/mm3 (0.84-5.20); LYMPHOCYTES PERCENT AUTO 37 % (21-46); MONOCYTES ABSOLUTE AUTO 0.61 K/mm3 (0.16-1.47); MONOCYTES PERCENT AUTO 19 % (4-13); Mean Corpuscular HGB 26.8 pg (26.0-34.0); Mean Corpuscular HGB Conc 30.2 g/dL (31.5-36.5); Mean Corpuscular Volume 89 fL (80-100); Mean Platelet Volume 8.6 fL (9.1-12.4); NEUTROPHILS ABSOLUTE AUTO 1.21 K/mm3 (1.96-9.15); NEUTROPHILS PERCENT AUTO 39 % (41-73); Platelet Count 310 K/mm3 (150-400); RDW Coefficient Variation 15.9 % (11.7-14.2); RDW Standard Deviation 51.8 fL (35.1-46.3); Red Blood Cell Count 3.65 M/mm3 (4.30-5.90); White Blood Cell Count 3.14 K/mm3 (4.00-11.30)
[2017-09-20 14:43] LABS: International Normalized Ratio 1.09; Prothrombin Time Results 11.4 Sec (9.7-11.5)
[2017-09-20 14:51] LABS: Alanine Aminotransfer (ALT/SGP 19 U/L (12-78); Albumin, Blood 2.7 g/dL (3.4-5.0); Albumin/Globulin Ratio 0.6 (0.8-1.8); Alk Phos 129 U/L (50-136); Anion Gap 4 mmol/L (6-16); Aspartate Aminotrans (AST/SGOT 19 U/L (12-37); Bilirubin, Total 0.2 mg/dL (0.1-1.0); Blood Urea Nitrogen 6 mg/dL (8-24); Bun/Creatinine Ratio 9.4 (12.0-20.0); CO2, Blood 30 mmol/L (21-32); Calcium, Blood 8.1 mg/dL (8.5-10.1); Chloride, Blood 103 mmol/L (98-108); Creatinine, Blood 0.64 mg/dL (0.60-1.20); Globulin, Blood 4.9 g/dL (2.2-4.0); Glomerular Filtration Rate >60 (60-); Glucose, Blood 103 mg/dL (70-99); Potassium, Blood 3.9 mmol/L (3.5-5.5); Sodium, Blood 137 mmol/L (136-145); Total Protein, Blood 7.6 g/dL (6.4-8.2); Troponin I <0.015 ng/mL (0.000-0.040)
[2017-09-20 15:26] LABS: Source, Urine Clean Catch
[2017-09-20 15:47] LABS: Bilirubin, Urine Neg (Neg); Blood, Urine Neg (Neg); Glucose Qualitative, Urine Neg (Neg); Ketones, Urine Neg (Neg); Leukocyte Esterase, Urine Neg (Neg); Nitrite, Urine Neg (Neg); Protein, Urine Neg (Neg); Specific Gravity, Urine 1.005 (1.003-1.022); Urobilinogen, Urine NORM (Normal)
[2017-09-20 16:06] LABS: Appearance, Urine Clear (Clear); Color, Urine Pale Yellow (P-Yellow)
[2017-09-21 06:45] LABS: BASOPHILS ABSOLUTE AUTO 0.04 K/mm3 (0.00-0.23); BASOPHILS PERCENT AUTO 1 % (0-2); EOSINOPHILS ABSOLUTE AUTO 0.16 K/mm3 (0.00-0.68); EOSINOPHILS PERCENT AUTO 4 % (0-6); Hematocrit 35.9 % (37.0-53.0); Hemoglobin 10.8 g/dL (13.5-17.5); IMMATURE GRAN ABSOLUTE AUTO 0.02 K/mm3 (0.00-0.10); IMMATURE GRAN PERCENT AUTO 1 % (0-1); LYMPHOCYTES ABSOLUTE AUTO 2.46 K/mm3 (0.84-5.20); LYMPHOCYTES PERCENT AUTO 56 % (21-46); MONOCYTES ABSOLUTE AUTO 0.75 K/mm3 (0.16-1.47); MONOCYTES PERCENT AUTO 17 % (4-13); Mean Corpuscular HGB 26.7 pg (26.0-34.0); Mean Corpuscular HGB Conc 30.1 g/dL (31.5-36.5); Mean Corpuscular Volume 89 fL (80-100); Mean Platelet Volume 8.8 fL (9.1-12.4); NEUTROPHILS PERCENT AUTO 23 % (41-73); Platelet Count 318 K/mm3 (150-400); RDW Standard Deviation 52.2 fL (35.1-46.3); Red Blood Cell Count 4.04 M/mm3 (4.30-5.90); White Blood Cell Count 4.43 K/mm3 (4.00-11.30)
[2017-09-21 06:58] LABS: International Normalized Ratio 1.11; Prothrombin Time Results 11.6 Sec (9.7-11.5)
[2017-09-21 07:22] LABS: Albumin, Blood 2.7 g/dL (3.4-5.0); Anion Gap 6 mmol/L (6-16); Blood Urea Nitrogen 6 mg/dL (8-24); CO2, Blood 30 mmol/L (21-32); Calcium, Blood 8.4 mg/dL (8.5-10.1); Chloride, Blood 101 mmol/L (98-108); Creatinine, Blood 0.66 mg/dL (0.60-1.20); Glomerular Filtration Rate >60 (60-); Glucose, Blood 97 mg/dL (70-99); Phosphorus, Blood 3.8 mg/dL (2.5-4.9); Potassium, Blood 4.3 mmol/L (3.5-5.5); Sodium, Blood 137 mmol/L (136-145)
[2017-09-21] MEDS ORDERED: XARELTO15 MG PO (17:39)
== END 2017-09-21 18:00 | disposition home or self-care (01) ==
LOC: ER 13:51 → MEDS 13:52
PROVIDERS: Emergency Medicine; Family Medicine
DX: R07.9 Chest pain, unspecified (principal); F17.210 Nicotine dependence, cigarettes, uncomplicated; I26.99 Other pulmonary embolism without acute cor pulmonale; R94.31 Abnormal electrocardiogram [ECG] [EKG]; D72.819 Decreased white blood cell count, unspecified; D64.9 Anemia, unspecified; I82.401 Acute embolism and thrombosis of unspecified deep veins of right lower extremity; E11.9 Type 2 diabetes mellitus without complications; J44.9 Chronic obstructive pulmonary disease, unspecified; M25.551 Pain in right hip; G89.29 Other chronic pain; Z88.8 Allergy status to other drugs, medicaments and biological substances; Z79.899 Other long term (current) drug therapy; Z79.01 Long term (current) use of anticoagulants; Z86.73 Personal history of transient ischemic attack (TIA), and cerebral infarction without residual deficits; Z99.81 Dependence on supplemental oxygen; Z98.890 Other specified postprocedural states; Z87.01 Personal history of pneumonia (recurrent); Z90.49 Acquired absence of other specified parts of digestive tract
CPT/HCPCS: 36415; 71046; 71260; 80053; 80069; 81003; 82947; 83880; 84484; 85025; 85610; 93005; 93010; 93306; 93971; 94640; 94760; 96372; 99285; G0378; J1650; J1815; Q9967

== ENCOUNTER 2017-10-02 08:28 | Emergency (ER) | payer OTHER, MEDICARE ==
[~2017-10-02] VITALS: Ht 182.9 cm; Wt 99.8 kg
[~2017-10-02 08:28] MED LIST changes: +XARELTO15 MG PO
[2017-10-02 08:59] LABS: BASOPHILS ABSOLUTE AUTO 0.06 K/mm3 (0.00-0.23); BASOPHILS PERCENT AUTO 1 % (0-2); EOSINOPHILS ABSOLUTE AUTO 0.09 K/mm3 (0.00-0.68); EOSINOPHILS PERCENT AUTO 1 % (0-6); Hematocrit 37.4 % (37.0-53.0); Hemoglobin 11.4 g/dL (13.5-17.5); IMMATURE GRAN ABSOLUTE AUTO 0.02 K/mm3 (0.00-0.10); IMMATURE GRAN PERCENT AUTO 0 % (0-1); LYMPHOCYTES ABSOLUTE AUTO 3.38 K/mm3 (0.84-5.20); LYMPHOCYTES PERCENT AUTO 34 % (21-46); MONOCYTES ABSOLUTE AUTO 0.93 K/mm3 (0.16-1.47); MONOCYTES PERCENT AUTO 9 % (4-13); Mean Corpuscular HGB 26.3 pg (26.0-34.0); Mean Corpuscular HGB Conc 30.5 g/dL (31.5-36.5); Mean Platelet Volume 8.6 fL (9.1-12.4); NEUTROPHILS ABSOLUTE AUTO 5.48 K/mm3 (1.96-9.15); NEUTROPHILS PERCENT AUTO 55 % (41-73); Platelet Count 390 K/mm3 (150-400); RDW Coefficient Variation 15.6 % (11.7-14.2); Red Blood Cell Count 4.34 M/mm3 (4.30-5.90); White Blood Cell Count 9.96 K/mm3 (4.00-11.30)
[2017-10-02 09:01] LABS: Mean Corpuscular Volume 86 fL (80-100)
[2017-10-02 09:09] LABS: Alanine Aminotransfer (ALT/SGP 24 U/L (12-78); Albumin/Globulin Ratio 0.6 (0.8-1.8); Alk Phos 116 U/L (50-136); Anion Gap 6 mmol/L (6-16); Aspartate Aminotrans (AST/SGOT 20 U/L (12-37); Bilirubin, Total 0.5 mg/dL (0.1-1.0); Blood Urea Nitrogen 19 mg/dL (8-24); Bun/Creatinine Ratio 31.2 (12.0-20.0); CO2, Blood 27 mmol/L (21-32); Calcium, Blood 8.3 mg/dL (8.5-10.1); Chloride, Blood 105 mmol/L (98-108); Creatinine, Blood 0.61 mg/dL (0.60-1.20); Globulin, Blood 5.2 g/dL (2.2-4.0); Glomerular Filtration Rate >60 (60-); Glucose, Blood 120 mg/dL (70-99); Potassium, Blood 4.1 mmol/L (3.5-5.5); Sodium, Blood 138 mmol/L (136-145); Total Protein, Blood 8.2 g/dL (6.4-8.2)
== END 2017-10-02 11:42 | disposition home or self-care (01) ==
LOC: ER 08:28
PROVIDERS: Physician Assistant
DX: R10.9 Unspecified abdominal pain (principal); F11.23 Opioid dependence with withdrawal; E11.9 Type 2 diabetes mellitus without complications; K21.9 Gastro-esophageal reflux disease without esophagitis; J44.9 Chronic obstructive pulmonary disease, unspecified; F03.90 Unspecified dementia, unspecified severity, without behavioral disturbance, psychotic disturbance, mood disturbance, and anxiety; Z91.02 Food additives allergy status; Z88.8 Allergy status to other drugs, medicaments and biological substances; Z91.018 Allergy to other foods; Z79.899 Other long term (current) drug therapy; Z79.01 Long term (current) use of anticoagulants; Z79.4 Long term (current) use of insulin; Z86.711 Personal history of pulmonary embolism; Z86.73 Personal history of transient ischemic attack (TIA), and cerebral infarction without residual deficits; Z87.01 Personal history of pneumonia (recurrent); Z87.891 Personal history of nicotine dependence
CPT/HCPCS: 74177; 80053; 81000; 83690; 85025; 93005; 93010; 96374; 96375; 96376; 99284; J2405; J3010; J7030; Q9967

== ENCOUNTER 2018-07-09 19:51 | Inpatient (IN) | payer OTHER, MEDICARE ==
[~2018-07-09] VITALS: Ht 182.9 cm; Wt 82.2 kg
[~2018-07-09 19:51] MED LIST changes: +ALPR.25 PO; +ASCO500 PO; +Acidophilus La100 GM; +BACL10; +BUDE10.22 INH; +CARB200 PO; +CIPR500 PO; +DOCU100 PO; +FERROUS SULFATE; +Flagyl500 MG PO; +GABA300 PO; +GUAI600T33 PO; -LEVEMIR FL100 UNIT/1 SC; +ONDA4ODT MM; +OXYC10ER PO; +ROBITUSSIN COU237 ML PO; +SUMA25; +Symbicort 80-10.2 GM INH; +WARF1; +XARELTO10 MG PO; +Zofran Odt4 MG PO
[2018-07-09 21:06] LABS: BASOPHILS ABSOLUTE AUTO 0.04 K/mm3 (0.00-0.23); BASOPHILS PERCENT AUTO 1 % (0-2); EOSINOPHILS ABSOLUTE AUTO 0.42 K/mm3 (0.00-0.68); EOSINOPHILS PERCENT AUTO 5 % (0-6); Hematocrit 40.9 % (37.0-53.0); Hemoglobin 12.5 g/dL (13.5-17.5); IMMATURE GRAN ABSOLUTE AUTO 0.03 K/mm3 (0.00-0.10); IMMATURE GRAN PERCENT AUTO 0 % (0-1); LYMPHOCYTES ABSOLUTE AUTO 3.05 K/mm3 (0.84-5.20); LYMPHOCYTES PERCENT AUTO 35 % (21-46); MONOCYTES ABSOLUTE AUTO 0.92 K/mm3 (0.16-1.47); MONOCYTES PERCENT AUTO 10 % (4-13); Mean Corpuscular HGB 26.9 pg (26.0-34.0); Mean Corpuscular HGB Conc 30.6 g/dL (31.5-36.5); Mean Corpuscular Volume 88 fL (80-100); Mean Platelet Volume 8.8 fL (9.1-12.4); NEUTROPHILS ABSOLUTE AUTO 4.39 K/mm3 (1.96-9.15); NEUTROPHILS PERCENT AUTO 50 % (41-73); Platelet Count 230 K/mm3 (150-400); RDW Coefficient Variation 15.3 % (11.7-14.2); RDW Standard Deviation 48.7 fL (35.1-46.3); Red Blood Cell Count 4.65 M/mm3 (4.30-5.90); White Blood Cell Count 8.85 K/mm3 (4.00-11.30)
[2018-07-09 21:26] LABS: Alanine Aminotransfer (ALT/SGP 29 U/L (12-78); Albumin, Blood 3.7 g/dL (3.4-5.0); Albumin/Globulin Ratio 0.8 (0.8-1.8); Alk Phos 147 U/L (50-136); Anion Gap 5 mmol/L (6-16); Aspartate Aminotrans (AST/SGOT 21 U/L (12-37); Bilirubin, Total 0.4 mg/dL (0.1-1.0); Blood Urea Nitrogen 18 mg/dL (8-24); Bun/Creatinine Ratio 19.7 (12.0-20.0); CO2, Blood 29 mmol/L (21-32); Calcium, Blood 8.3 mg/dL (8.5-10.1); Chloride, Blood 104 mmol/L (98-108); Creatinine, Blood 0.92 mg/dL (0.60-1.20); Globulin, Blood 4.8 g/dL (2.2-4.0); Glomerular Filtration Rate >60 (60-); Glucose, Blood 124 mg/dL (70-99); Potassium, Blood 4.3 mmol/L (3.5-5.5); Sodium, Blood 138 mmol/L (136-145); Total Protein, Blood 8.5 g/dL (6.4-8.2); Troponin I <0.015 ng/mL (0.000-0.040)
[2018-07-09] MEDS ORDERED: Prednisone50 MG PO (22:26)
[2018-07-09] MEDS ORDERED: Zithromax250 MG PO (22:26)
[2018-07-09 23:47] LABS: PO2 Arterial 81.8 mmHg (80-100)
--- NOTE | 2018-07-10 00:55 | NUR ---
ASSUMED CARE PT TRANSFERRED FROM ED GURNEY TO BED VIA AMBULATION. PT DYSPNEIC ON EXERTION. VS STABLE. 02 SATS 100% VIA 4L NC. PT TITRATED TO 3L AND SATS HAVE REMAINED ABOVE 92%. LS INSP EXP WHEEZES. PT STATES HE HAS BEEN COUGHING FOR SEVERAL DAYS AND IT IS CAUSING CHEST PAIN. COUGH SOUNDS MOIST, BUT IS NONPRODUCTIVE. PT MEDICATED FOR PAIN PRIOR TO ADMISSION TO UNIT. THREADY PULSES BLE PT STATES HE HAS DVT. PT ORIENTED TO ROOM. WILL CONTINUE TO MONITOR AND ASSESS. CALL LIGHT IN REACH.
[2018-07-10 01:55] LABS: Influenza A Negative (NEGATIVE); Influenza B Negative (NEGATIVE)
--- NOTE | 2018-07-10 05:36 | NUR ---
SHIFT SUMMARY PT ALERT AND ORIENTED WITH MILD CONFUSION UPON WAKING. PT REORIENTS QUICKLY. VS STABLE. 02 SATS >92% ON 3L VIA NC. PT DENIES ANY CHEST PAIN AT THIS TIME. PT HAS BEEN RESTING SINCE ADMISSION. NO OTHER CHANGES AT THIS TIME. WILL CONTINUE TO MONITOR AND REPORT TO ONCOMING RN. CALL LIGHT IN REACH.
--- NOTE | 2018-07-10 10:31 | NUR ---
ABDOMINAL PAIN PT AWOKE, YELLING OUT DUE TO ABDOMINAL PAIN. STATED FELT LIKE SOMETHING "RIPPING" INSIDE. TENDER TO PALPATION ON R SIDE. BTx4. VSS. NO CHANGES TO TELE. CALLED DR JEAN-BAPTISTE AND NOTIFIED. ORDERS OBTAINED.
--- NOTE | 2018-07-10 11:16 | NUR ---
ABDOMINAL PAIN PT REPORTS CONTINUES TO HAVE ABD PAIN. REPOSITIONED TO R SIDE. ADMINISTERED SIMETHICONE PER ORDERS. WILL CONTINUE TO MONITOR.
[2018-07-10 11:37] LABS: Adenovirus Not Detected (NOT DETECT); Bordetella pertussis Not Detected (NOT DETECT); Chlamydophila pneumoniae Not Detected (NOT DETECT); Coronavirus 229E Not Detected (NOT DETECT); Coronavirus HKU1 Not Detected (NOT DETECT); Coronavirus NL63 Not Detected (NOT DETECT); Coronavirus OC43 Not Detected (NOT DETECT); Human Metapneumovirus Not Detected (NOT DETECT); Human Rhinovirus/Enterovirus Detected (NOT DETECT); Influenza A Not Detected (NOT DETECT); Influenza A/2009-H1 Not Detected (NOT DETECT); Influenza A/H1 Not Detected (NOT DETECT); Influenza A/H3 Not Detected (NOT DETECT); Influenza B Not Detected (NOT DETECT); Mycoplasma pneumoniae Not Detected (NOT DETECT); Parainfluenza Virus 1 Not Detected (NOT DETECT); Parainfluenza Virus 2 Not Detected (NOT DETECT); Parainfluenza Virus 3 Not Detected (NOT DETECT); Parainfluenza Virus 4 Not Detected (NOT DETECT); Respiratory Syncytial Virus Not Detected (NOT DETECT)
[2018-07-10 12:53] LABS: Source, Urine Clean Catch
[2018-07-10 13:05] LABS: Appearance, Urine Clear (Clear); Bilirubin, Urine Neg (Neg); Blood, Urine 1+ (Neg); Color, Urine Yellow (P-Yellow); Glucose Qualitative, Urine 4+ (Neg); Ketones, Urine 1+ (Neg); Leukocyte Esterase, Urine Neg (Neg); Nitrite, Urine Neg (Neg); Protein, Urine Neg (Neg); Urobilinogen, Urine NORM (Normal)
[2018-07-10 13:26] LABS: Bacteria Not Seen /hpf; Red Blood Cells, Urine 0-2 /hpf (0-2); Squamous Epithelial Cells Not Seen /hpf (Few); White Blood Cells, Urine Not Seen /hpf (0-5)
--- NOTE | 2018-07-10 16:44 | NUR ---
report called to tierra villar rn and pt transferred to room 305
--- NOTE | 2018-07-10 16:50 | NUR ---
PT. ARRIVED TO FLOOR VIA WC FROM PCU. NOTICEBLY SOB WITH NC IN PLACE. PT APPEARS TO BE GASPING FOR AIR. PT. SETTLED IN BED AND ENCOURAGED TO BREATHE THROUGH THE NOSE AND OUT THROUGH MOUTH, SPOUSE AND GRANDSON ACCOMPANIED PT TO THE ROOM. ICE WATER GIVEN PER PT. REQUEST. PT. A&O, PLEASANT AND COOPERATIVE DENIES PAIN AT THIS TIME.
--- NOTE | 2018-07-10 18:15 | NUR ---
WAS CALLED TO ROOM BY BUSINESS SOLUTIONS ANALYST WHO REPORTED PT. HAVING TROUBLE BREATHING. I HAD JUST GIVEN HIS SOLUMEDROL AND AND HE WAS RESTING COMFORTABLY WHEN I LEFT THE ROOM. HE IS NOW SITTING UP IN BED GASPING FOR AIR, TRIED TO GET HIM TO SLOW HIS BREATHING AND BREATHE IN THROUGH THE NOSE AND OUT THROUGHT THE MOUTH. CALLED RT FOR A BREATHING TREATMENT BUT THEY WERE UNABLE TO COME AT THAT TIME. COULD FEEL PT'S HEART POUNDING AND HE WAS NOT CALMING DOWN, HAD BUSINESS SOLUTIONS ANALYST GET VS AND CALLED RAPID RESPONSE. BP 90/70 BIOX 97% ON 5L/NC. RT ARIVED AND GAVE BREATHING TREATMENT, 1830 BP 120/60, 1MG ATIVAN GIVEN AT 1835 AND TRAMADOL AT 1840. PT. RESTING AND BREATHING QUIETLY RR RESOLVED.
--- NOTE | 2018-07-11 05:23 | NUR ---
VSS, AFEBRILE, TELE: NSR, 22G R HAND, 20G R AC, SBA W/FWW, CBG ACHS. PMHX: A FIB, DM II, PE/DVT. RAPID RESPONSE CALLED AT CHANGE OF SHIFT 07/10/18 DUE OF PANIC ATTACK. VERY ANXIOUS ALL NOC, SLEPT VERY LITTLE, FREQ REQUESTS FOR PAIN MEDICATION FOR R UPPER ABD PAIN, [place]RA[place].
--- NOTE | 2018-07-11 15:40 | NUR ---
The patient has given verbal concent to allow this associate of science in nursing to see his medical chart, and attend in his care in the morning of 07-12-18.
--- NOTE | 2018-07-11 19:44 | NUR ---
SHIFT SUMMARY: VSS. NO ACUTE CHANGES NOTED THIS SHIFT. PT IS A SBA W/FWW. HE IS ABLE TO USE URINAL AT BEDSIDE. R/T IN T/O DAY FOR BREATHING TREATMENTS. REPORT GIVEN TO BAYRON ROTHMAN.
--- NOTE | 2018-07-12 05:43 | NUR ---
*SHIFT SUMMARY* PATIENT IS ALERT AND ORIENTED. PATIENT COMPLAINS OF PAIN, SEE EMAR. USES URINAL INDEPENDENTLY. PT DID NOT SLEEP MUCH THROUGHOUT THE NIGHT. NO NEW CHANGES TO STATUS. CALL LIGHT WITHIN REACH, BED LOWERED AND LOCKED.
--- NOTE | 2018-07-12 11:21 | NUR ---
Pt medications were late secondary to pt experiencing headache. I did not give the pt his lovenox because of when asking the pt about his the medication he stated that he doesn't remember getting it before. Pt also stated that he has beed experiencing increased confusion. I inquired about the medication to the nurse, and she stated that she would talk to the patient and give it to him.
[2018-07-12] MEDS ORDERED: Atrovent Inha12.9 GM INH (15:23)
[2018-07-12] MEDS ORDERED: Percocet 5-3251 EACH PO (15:23)
--- NOTE | 2018-07-12 16:57 | NUR ---
SHIFT SUMMARY PT HAS HAD NO ACUTE CHANGES THIS SHIFT, MEDICATED PER MAR FOR PAIN, 1X FOR ANXIETY. PT IS BEDRESTING AT THIS TIME, WILL CONT TO MONITOR UNTIL REPORT GTIVEN TO NOC RN.
--- NOTE | 2018-07-13 03:03 | NUR ---
PT WOKE UP COMPLAINING OF PAIN AND REQUESTING MEDICATIONS. MEDICATED ORDERED SEE EMAR.
--- NOTE | 2018-07-13 05:46 | NUR ---
*SHIFT SUMMARY* PATIENT IS ALERT AND ORIETNED. NO COMPLAINTS OF SOB, OR HEART BURN THROUGHOUT SHIFT. PT DID HAVE PAIN AND WAS MEDICATED SEE EMAR. PATIENT WOKE UP AROUND 0200 HAVING PAIN AND FEELING ANXIOUS. MEDICATED PATIENT WITH TYLENOL AND XANAX ORDERED. PATIENT SLEPT THROUGHOUT THE REST OF THE NIGHT WELL. NO NEW ACUTE CHANGES TO PATIENTS STATUS. VITAL SIGNS STABLE. USES CALL LIGHT APPROPRIATELY. BED LOWERED AND LOCKED WITH ALARM ON
[2018-07-13 13:11] LABS: BASOPHILS ABSOLUTE AUTO 0.03 K/mm3 (0.00-0.23); BASOPHILS PERCENT AUTO 0 % (0-2); EOSINOPHILS PERCENT AUTO 0 % (0-6); Hematocrit 37.2 % (37.0-53.0); Hemoglobin 11.5 g/dL (13.5-17.5); IMMATURE GRAN ABSOLUTE AUTO 0.16 K/mm3 (0.00-0.10); IMMATURE GRAN PERCENT AUTO 1 % (0-1); LYMPHOCYTES ABSOLUTE AUTO 1.83 K/mm3 (0.84-5.20); LYMPHOCYTES PERCENT AUTO 16 % (21-46); MONOCYTES ABSOLUTE AUTO 0.89 K/mm3 (0.16-1.47); MONOCYTES PERCENT AUTO 8 % (4-13); Mean Corpuscular HGB 26.4 pg (26.0-34.0); Mean Corpuscular HGB Conc 30.9 g/dL (31.5-36.5); Mean Platelet Volume 9.2 fL (9.1-12.4); NEUTROPHILS ABSOLUTE AUTO 8.66 K/mm3 (1.96-9.15); NEUTROPHILS PERCENT AUTO 75 % (41-73); Platelet Count 281 K/mm3 (150-400); RDW Standard Deviation 49.8 fL (35.1-46.3); Red Blood Cell Count 4.36 M/mm3 (4.30-5.90); White Blood Cell Count 11.57 K/mm3 (4.00-11.30)
[2018-07-13 13:16] LABS: Mean Corpuscular Volume 85 fL (80-100)
[2018-07-13 13:18] LABS: Anion Gap 10 mmol/L (6-16); Blood Urea Nitrogen 31 mg/dL (8-24); Bun/Creatinine Ratio 35.3 (12.0-20.0); CO2, Blood 24 mmol/L (21-32); Calcium, Blood 7.8 mg/dL (8.5-10.1); Chloride, Blood 102 mmol/L (98-108); Creatinine, Blood 0.88 mg/dL (0.60-1.20); Glomerular Filtration Rate >60 (60-); Glucose, Blood 300 mg/dL (70-99); Potassium, Blood 4.3 mmol/L (3.5-5.5); Sodium, Blood 136 mmol/L (136-145)
--- NOTE | 2018-07-13 14:27 | NUR ---
Spiritual care visit conducted. Patient was sleeping when I enetered the room but awoke to the sound of his name. Patient said the last couple of days have been rough and that his overall pain seems to be increasing. He said he was not up for much of a visit this day. I listened, provided companionship and laughter, and I provided prayer. Patient said that he needed the prayer and that it was greatly appreciated. Patient also expressed gratitude for my visit.
--- NOTE | 2018-07-13 16:28 | NUR ---
SHIFT SUMMARY PT HAS HAD NO ACUTE CHANGES THIS SHIFT, MEDICATED PER MAR FOR PAIN, HAVE BEEN REMINDING PT SEVERAL TIMES T/O SHIFT TO REAPPLY O2. HAVE ENCOURAGED PT TO AMBULATE, PT WAS UP TO CHAIR FOR LUNCH. PT IS BEDRESTING AT THIS TIME, WILL CONT TO MONITOR UNTIL REPORT GIVEN TO NOC RN.
--- NOTE | 2018-07-14 04:56 | NUR ---
PT CONTINUES WITH IV STEROIDS FOR COPD. BLOOD GLUCOSE ELEVATED. BG GREATER THAN 300 AND 9 UNITS SLIDING SCALE GIVEN WITH 40 UNITS LANTUS BID. CHRONIC PAIN AND ANXIETY. MEDICATED FOR BOTH WITH HELPFUL EFFECT. PT IS A WAS IN 2 TOURS OF DUTY A ELECTRICAL TESTER. HAS SUPPORTIVE FAMILY. OXYGEN AND NEBS PER HOME SETUP. SMOKING CESSATION ENCOURAGED.
[2018-07-14 06:07] LABS: BASOPHILS ABSOLUTE AUTO 0.03 K/mm3 (0.00-0.23); BASOPHILS PERCENT AUTO 0 % (0-2); EOSINOPHILS PERCENT AUTO 0 % (0-6); Hematocrit 36.2 % (37.0-53.0); Hemoglobin 11.3 g/dL (13.5-17.5); IMMATURE GRAN ABSOLUTE AUTO 0.34 K/mm3 (0.00-0.10); IMMATURE GRAN PERCENT AUTO 3 % (0-1); LYMPHOCYTES ABSOLUTE AUTO 1.77 K/mm3 (0.84-5.20); LYMPHOCYTES PERCENT AUTO 15 % (21-46); MONOCYTES ABSOLUTE AUTO 0.72 K/mm3 (0.16-1.47); MONOCYTES PERCENT AUTO 6 % (4-13); Mean Corpuscular HGB Conc 31.2 g/dL (31.5-36.5); Mean Corpuscular Volume 86 fL (80-100); Mean Platelet Volume 8.9 fL (9.1-12.4); NEUTROPHILS ABSOLUTE AUTO 9.29 K/mm3 (1.96-9.15); NEUTROPHILS PERCENT AUTO 77 % (41-73); Platelet Count 268 K/mm3 (150-400); RDW Coefficient Variation 15.9 % (11.7-14.2); RDW Standard Deviation 50.3 fL (35.1-46.3); Red Blood Cell Count 4.19 M/mm3 (4.30-5.90); White Blood Cell Count 12.15 K/mm3 (4.00-11.30)
[2018-07-14 06:33] LABS: Alanine Aminotransfer (ALT/SGP 29 U/L (12-78); Albumin/Globulin Ratio 0.8 (0.8-1.8); Alk Phos 93 U/L (50-136); Anion Gap 9 mmol/L (6-16); Aspartate Aminotrans (AST/SGOT 14 U/L (12-37); Bilirubin, Total 0.4 mg/dL (0.1-1.0); Blood Urea Nitrogen 25 mg/dL (8-24); Bun/Creatinine Ratio 29.8 (12.0-20.0); CO2, Blood 26 mmol/L (21-32); Calcium, Blood 7.9 mg/dL (8.5-10.1); Chloride, Blood 102 mmol/L (98-108); Creatinine, Blood 0.84 mg/dL (0.60-1.20); Glomerular Filtration Rate >60 (60-); Glucose, Blood 191 mg/dL (70-99); Potassium, Blood 4.3 mmol/L (3.5-5.5); Sodium, Blood 137 mmol/L (136-145)
[2018-07-14 06:34] LABS: Troponin I <0.015 ng/mL (0.000-0.040)
--- NOTE | 2018-07-14 18:45 | NUR ---
PT. LAYING IN BED WWATCHING TV. REPORTING RIB PAIN FROM COUGHING BUT DOES NOT HAVE ANY PAIN MEDS DUE AT THIS TIME. NO CHANGES WITH PT. THIS SHIFT. DR. LANDEROS (ANTIQUE JEWELRY REPAIRER) CAME TO SEE PT TODAY. DO NOT KNOW THE OUTCOME THE DID NOT LEAVE A CONSULT NOTE.
--- NOTE | 2018-07-14 19:35 | NUR ---
complaints of abd and chest pain when PT woken by day RN. He was asleep and appeared comfortable. Lungs wheezy and lt sided breath sounds very diminished. he has loose nonprod cough.
--- NOTE | 2018-07-14 20:09 | NUR ---
DR BOCANEGRA ON FLOOR AND SAW PT AND EKG DONE , MEDS AND NEB TX ORDERS GIVEN. WILL GIVE TORADOL. ON ANTICOAGU. FOR PE. FENTANYL GIVEN WITH SOME HELPFUL EFFECT.
--- NOTE | 2018-07-14 21:22 | NUR ---
spoke with PT's and discussed anxiety and PTs refusal to stop smoking. hx of [facility] recently decreaased xaralto from 20 mg to 10 mg due to risk of bleeding and gi issues baseline. PT has long hx of smoking and lung disease. Spouse asked to be updated on plan of care if it changes. PT has been asleep after toradol and oxicodone given. sats 92 % on 2.5 l nc. cxr has been completed.
--- NOTE | 2018-07-15 03:48 | NUR ---
68 year old Male Smoker with copd, repeated admissions for copd on 2.5 l nc and co acute abd and chest pain continues to complain of acute upper epigastric pain but is passing large amts of flatus and appears much more comfortable. no desats stat 12 lead ekg wnl shows nsr. pt has acute anxiety PTSD? 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 PT has been noncompliant with smoking cessation and refusing flutter therapy to promote clearance of thick yellow resp secretions. he appears painful to any touch and on lyrica. simethicone liquid given x 3 with helpful effect. pt laying on lt side passing large amts of flatus. medicated x 2 with xanax and oxycontin 10 mg x 2 . ultram 50 mg po x 1 , iv toradol 15 mg x 1 and fentanyl 25 mcg x 1 for co acute chest and abd pain. discussed pt's refusal to comply with medical advice from [facility] and [facility] for smoking cessation and increase activity. not out of bed this shift, continues on iv steroids with blood glucose elevated greater than 200. lantus and sliding scale insulin given. will provide handout on copd and tobacco dependence.
--- NOTE | 2018-07-15 06:34 | NUR ---
pt reassessed frequently duering night and he has much more relaxed and denies acute shortness of breath. 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 chronic pain continues to request pain meds frequently for pain 10/10 as per usual complaints. vital signs continue stable. encouraged pt to cough out thick sticky yellow sputum and says he always swallows sputum, he says he is too lazy to spit it out. Continues to have pain with any touch,. on lyrica for pain
--- NOTE | 2018-07-15 08:11 | NUR ---
NOTIFIED DR. TERRY PT C/O MUSCLE SPASMS IN HIS ABDOMEN. DR. TERRY SAID TO ORDER 10MG PO FLEXERIL Q8H PRN. NO OTHER NEW ORDERS AT THIS TIME.
--- NOTE | 2018-07-15 10:57 | NUR ---
Spiritual care visit conducted. Patient was lying in bed and alert. Patient is known to me from prior visits and so therapeutic alliance is already established. Patient shared about personal fears, his deep anatoliy and what the future may look like for him. I listened empathically, provided companionship and emotional support, normalized his experience, provided anxiety containment and provided prayer. Patient responded well to all interventions. Patient displayed evidence of reduced stress, restored anatoliy and elevated mood.
[2018-07-15 12:28] LABS: Albumin, Blood 2.7 g/dL (3.4-5.0); Anion Gap 9 mmol/L (6-16); Blood Urea Nitrogen 32 mg/dL (8-24); Bun/Creatinine Ratio 40.5 (12.0-20.0); CO2, Blood 25 mmol/L (21-32); Calcium, Blood 7.5 mg/dL (8.5-10.1); Chloride, Blood 100 mmol/L (98-108); Creatinine, Blood 0.79 mg/dL (0.60-1.20); Glomerular Filtration Rate >60 (60-); Glucose, Blood 261 mg/dL (70-99); Magnesium, Blood 2.6 mg/dL (1.6-2.4); Potassium, Blood 4.4 mmol/L (3.5-5.5); Sodium, Blood 134 mmol/L (136-145)
--- NOTE | 2018-07-15 13:10 | NUR ---
Initial palliative care consult: Orville is a 68 year old with a history of COPD, home O2 at 2.5 l/min at night, GERD, psoriasis, migraines, DM, DVT. He was having increased SOB at home and [place] Orville is and lives in the [facility]. He lives with his and they are raising his 3 year old great nephew. Orville reports he helped raise his great nephew's mother and grandmother as well. He has no biological children. He reports that he enjoys "every minute of it." He does admit that his breathing and his hip pain from a hip that needs to be replaced do slow him down. He reports that he has enough money to get by, but that sometimes money gets tight. He receives no money or assistance for raising his great nephew. He state he wears his home O2 only at night and that he used to have a nebulizer but he no longer uses it. He reports that he quit smoking recently and that he doesn't like to talk about it. He states "I don't want people telling me what I have to do or not do." He does not have a CPAP or bipap machine at home. Some of the pain and anxiety issues that have been reviewed in his chart may be from nicotine withdrawl. He reports pain, sounds like it may be pleuritic from what he describes as pain that increases with coughing and deep breathing. He also complains of his muscles aching in his right upper quad with coughing. He states he was recently scheduled to have a hip surgery, however he states this has been postponed because he is currently ill. He takes 3 pain pills a day, down from 4 pain pills per day that are prescribed by Dr. rBennan in the [facility]. He states 3 pills a day doesn't work as well as the 4, however, he states he is managing at home. He reports that he has an upcoming pain clinic appointment in [place]. He reports his pain is mostly in his hip and chest. He states that sometimes it gets as bad as 10-11/10. He reports that lowest his pain level gets is 7-8/10. He states that the lyrica that he was started on 07/12/18 he feels is working. He is very appreciative of the time and effort staff spend caring for him. He states that when his pain escalates he feels bad that he gets short tempered with staff. He currently is on oxycodone, tramadol and tylenol for pain here and he feels this regimen is helping. Discussed other non-pharmalogical pain reduction modalities: imagery, visualization, relaxation, heat and cold therapies. He states at home that sometimes heat works. He states that imagery and visualization have not worked for him in the past. Explained to him that the lyrica may take several weeks to see the full effects. Also discussed staggering pain medication admin times to help get more consistant pain relief. He is currently receiving IV steroids which may also assist with pain symptoms. He didn't appear to be anxious during our conversation this afternoon. He was calm and open to talking about his symptoms and his home life. He is working with CM to get some extra in home care assistance through the [place]. He again was very appreciative of the help received from care management. He does get SOB with conversation, so time was allowed for him to take breaks and recover. He reports a good appetite. PC to follow up with pt for symptom management and advanced care planning.
--- NOTE | 2018-07-15 16:20 | NUR ---
SHIFT SUMMARY- PT C/O BACK, SHOULDER AND ABDOMEN PAIN. MEDS GIVEN PER EMAR. PT CONSISTANTLY RATES PAIN 10/. PT BECAME IRRITABLE AND STARTED YELLING THIS AFTERNOON WHEN I EXPLAINED TO HIM HE HAD HIS OXYCONTIN 2 TIMES AND ONLY HAD ONE REMAINING DOSE TODAY. HE BECAME VERY UPSET WHEN I EXPLAINED TO HIM THE RN CASE MANAGER HOSPICE RN GAVE HIM HIS 1ST DOSE AND AT 0334 AND HE RECIEVED HIS SECOND DOSE FROM ME AT 0900. I OFFERED PT ULTRAM AND TYLENOL. THE PT KEPT REPEATING "LIAR." I OFFERED TO CALL THE AND SEE IF WE COULD INCREASE THE DOSE TO QID. THE PT REFUSED TO ALLOW ME TO SPEAK AND KEPT REPEATING "LIAR I NEVER GOT ANY PAIN MEDICINE AT 3 IN THE MORNING." SENT ROSENDO, CHARGE NURSE IN TO SPEAK WITH PT. PT AGREED TO TRY TRAMADOL AND TYLENOL AND WAIT FOR THIRD DOSE OF OXYCONTIN AT 2100. PT ANXIOUS THIS AFTERNOON. MEDS GIVEN PER EMAR. PT REPORTS MILD SOB. DYSPNEA UPON EXERTION. 96% ON RA. DENIES N/V. BEDREST AT THIS TIME. TURNS Q2H. PALLIATIVE CARE IN TO SEE PT. NO OTHER SIGNIFICANT CHANGES THIS SHIFT.
--- NOTE | 2018-07-15 17:47 | NUR ---
NOTIFIED DR. TERRY PT REQUESTING HIS OXYCONTIN BE INCREASED TO QID AND THAT HE CONTINUALLY RATES HIS PAIN 10/10. INFORMED DR. TERRY PT HAS BEEN SLEEPING A LOT T/O THE DAY. DR. TERRY REPORTS SHE WILL NOT BE INCREASING HIS MEDICATION FREQUENCY. NO OTHER NEW ORDERS AT THIS TIME.
--- NOTE | 2018-07-16 05:18 | NUR ---
SHIFT SUMMARY PT SLEPT SOUNDLY T/O NIGHT AFTER RECIVING TRAZODONE @HS PER ORDERS. THIS AM PT WOKE UP CONFUSED TO WHERE HE WAS, DATE & WHAT HIS NAME WAS STATING IT WAS "RAYMON, OR SOMETHING LIKE THAT," PT REPORTED HE DID NOT FEEL WELL & WAS SOB. RR WAS 24, LUNGS SOUND WHEEZY T/O, W/SPO2 @ 85% ON RA DUE TO PT TAKING NASAL CANNULA OFF. PUT O2 CANNULA BACK ON & INCREASED O2 TO 4L UNTIL SPO2 REACHED 90% & THEN DECREASED O2 BACK DOWN TO 3L, CALLED RT FOR BREATHING TX PER ORDERS. PT IS MORE ALERT NOW & ABLE TO STATE HE IS AT "[facility]" BUT IS STILL GROGGY. PT REPORTS CONSTANT 10/10 PAIN IN BACK/ALLOVER BODY & WAS MEDICATED 1X THIS AM W/ULTRAM. NO S/S OF N/V. PT REPORTED FEELING ANXIOUS LAST NIGHT & WAS MEDICATED 1X W/XANAX PER ORDERS. CALL LIGHT IS IN REACH & I WILL CONTINUE TO MONITOR PT UNTIL DAY SHIFT RN TAKES OVER CARE.
--- NOTE | 2018-07-16 09:03 | NUR ---
PT SITTING QUIETLY IN ROOM WHEN NURSE ENTERED AT THIS TIME TO ADMINISTER MORNING MEDICATIONS. PT THEN SMILED AND STARTED CLAPPING AND SAYING "YAY! TIME FOR MY PAIN MEDS!" THEN QUICKLY THE SMILE DISAPPEARED AND PT STARTED SAYING " OH GOD, OH GOD"
[2018-07-16 11:54] LABS: PCO2 Arterial 48.7 mmHg (35-45); PO2 Arterial 51.5 mmHg (80-100); pH Blood Arterial 7.38 (7.35-7.45)
[2018-07-16 12:01] LABS: Hemoglobin 13.1 g/dL (13.5-17.5); Mean Corpuscular HGB 26.7 pg (26.0-34.0); Mean Corpuscular HGB Conc 31.2 g/dL (31.5-36.5); Mean Corpuscular Volume 86 fL (80-100); Mean Platelet Volume 8.7 fL (9.1-12.4); NRBC ABSOLUTE 0.04 K/mm3 (0.00-0.02); NRBC Auto 0.4 /100 WBC (0.0-0.2); Platelet Count 344 K/mm3 (150-400); RDW Coefficient Variation 16.3 % (11.7-14.2); RDW Standard Deviation 50.9 fL (35.1-46.3); Red Blood Cell Count 4.91 M/mm3 (4.30-5.90); White Blood Cell Count 10.69 K/mm3 (4.00-11.30)
--- NOTE | 2018-07-16 12:15 | NUR ---
NURSE ATTEMPTED TO CALL PT'S SPOUSE TO UPDATE HER ON PT. NO ANSWER, LEFT MESSAGE TO CALL BACK
[2018-07-16 12:16] LABS: Alanine Aminotransfer (ALT/SGP 48 U/L (12-78); Albumin, Blood 2.8 g/dL (3.4-5.0); Albumin/Globulin Ratio 0.7 (0.8-1.8); Alk Phos 90 U/L (50-136); Anion Gap 8 mmol/L (6-16); Aspartate Aminotrans (AST/SGOT 28 U/L (12-37); Bilirubin, Total 0.2 mg/dL (0.1-1.0); Blood Urea Nitrogen 35 mg/dL (8-24); Bun/Creatinine Ratio 41.3 (12.0-20.0); CO2, Blood 28 mmol/L (21-32); Calcium, Blood 7.5 mg/dL (8.5-10.1); Chloride, Blood 100 mmol/L (98-108); Creatinine, Blood 0.85 mg/dL (0.60-1.20); Globulin, Blood 4.1 g/dL (2.2-4.0); Glomerular Filtration Rate >60 (60-); Glucose, Blood 223 mg/dL (70-99); Potassium, Blood 4.6 mmol/L (3.5-5.5); Sodium, Blood 136 mmol/L (136-145); Total Protein, Blood 6.9 g/dL (6.4-8.2)
[2018-07-16 12:20] LABS: BAND PERCENT MAN 12 % (0-8); BASOPHILS PERCENT MAN 0 % (0-2); EOSINOPHILS PERCENT MAN 0 % (0-6); LYMPHOCYTES % ATYPICAL MANUAL 2 % (0-0); LYMPHOCYTES ABSOLUTE MAN 1.38 K/mm3 (0.84-5.20); LYMPHOCYTES PERCENT MAN 11 % (21-46); METAMYELOCYTE PERCENT MAN 1 % (0-0); MONOCYTES PERCENT MAN 1 % (4-13); NEUTROPHILS ABSOLUTE MAN 9.08 K/mm3 (1.96-9.15); SEG NEUTROPHILS PERCENT MAN 73 % (41-73); TOTAL CELLS COUNTED 100
--- NOTE | 2018-07-16 15:05 | NUR ---
NURSE ENTERED PT ROOM AT 1040 TO GIVE LONG ACTING INSULIN PER EMAR. PT ANXIOUS, STATING THAT HE FELT LIKE HE "WAS GOING TO ." NURSE ASSESSED PT VITAL SIGNS TEMP WAS 101.2, HR WAS 131, 28 BPM, AND WAS 89% ON 4L O2. NURSE TURNED UP O2 AND CALLED RT. RT IN, SEE NOTE AND MAR. NURSE CALLED CHARGE NURSE BARB DUENAS RN. NURSE THEN CALLED DR TERRY AT 1050 WHO INITIATED NEW ORDERS. BLOOD CULTURES ORDERED STAT. AT 1104 PT WAS TRANSITIONED TO HIGH FLOW NASAL CANNULA AT 10LPM, PT CONTINUED TO SAT AT 86%. PT PLACED ON BI-PAP, SEE RT NOTES. DR TERRY CALLED AT 1210 WHO ORDERED TRANSFER TO PCU.REPORT CALLED TO MANNY DE LOS SANTOS AT 1230. IV PLACED BY JEVON GREGG THEM PT TRANSFERRED. MANNY DE LOS SANTOS TO ASSUME CARE UPON TRANSFER.
--- NOTE | 2018-07-16 18:45 | NUR ---
SHIFT SUMMARY PT ARRIVED TO UNIT AT 1310, PT WAS VERY ANXIOUS AND TALKING VERY RAPIDLY AND CONSTANTLY, PT APPEARED TO BE GETTING INCREASINGLY MORE AGITATED AND ANXIOUS AND WAS REFUSING TO WEAR THE BIPAP MASK. PROVIDER WAS CALLED AND ORDERS OBTAINED (SEE EMAR.) PT WAS MEDICATED PER EMAR WITH GOOD RESULTS, PT WAS ABLE TO TOLERATE THE BIPAP AND REST. AT APROX 1700 PT WOKE UP, PULLED OFF THE BIPAP AND BEGAN YELLING OUT "MAMA MAMA!" AND OTHER WORDS THAT DID NOT MAKE SENSE. PT REFUSED TO PUT THE BIPAP BACK ON, PT WAS 89% ON 4L NC. PT AGAIN WAS TALKING CONSTANTLY AND NOT MAKING SENSE, PT WAS MEDICATED PER EMAR WITH GOOD RESULTS. PT'S CURRENT VS ARE 173/85, RR 37, 99.1, HR 128 AND 94% ON THE BIPAP. ALL OF PT'S PO MEDS HAVE BEEN HELD AT THIS TIME DUE TO RESPIRATORY STATUS AND CONFUSION, PT HAS BEEN UNABLE TO FOLLOW DIRECTIONS AT THIS TIME. CALL LIGHT IN REACH, BED ALARM ON, WILL CONTINUE TO MONITOR UNTIL REPORT IS GIVEN TO ONCOMING RN.
--- NOTE | 2018-07-16 19:30 | NUR ---
PT UPDATE... SPOKE WITH PT'S , SHE STATED THAT HE HAS A HISTORY OF ASPIRATION PNEUMONIA AND HAS BEEN HOSPITALIZED MULTIPLE TIMES FOR THIS IN THE PAST AND "ALMOST ONE TIME FROM IT."
--- NOTE | 2018-07-17 01:58 | NUR ---
UPDATE PT CONTINUES TO BE DISORIENTED AND AGITATED, CALLING OUT "MOMMY!" AND OTHER NONSENSICAL THINGS. PT DOES CALL OUT "PEE! PEE!" WHEN HE'S PEED IN HIS ATTENDS. PT WEARING BIPAP, REMOVING IT AND HIS CONTINUOUS PULSE OX AT TIMES. PT REFUSING BIPAP FOR SHORT PERIOD, REAPPLIED WHEN PT AGREEABLE. MEDICATING ANXIETY AND AGITATION PER EMAR. PO MEDICATIONS HELD D/T PT CONFUSION AND RR IN THE 30'S. WILL CONTINUE TO MONITOR AND PROVIDE CARE.
--- NOTE | 2018-07-17 05:13 | NUR ---
SHIFT SUMMARY UNABLE TO FULLY ASSESS PT'S ORIENTATION D/T MAJORITY OF PT SPEECH NONSENSIBLE W/ OCCASSIONAL UNDERSTANDABILITY OF WORDS "MOMMY" AND "PEE PEE". PT CALLING OUT INTERMITTENTLY T/O SHIFT, MEDICATING AND PROVIDING CARE TO PT ORDERED/NEEDED. PT PULLING AT BIPAP AND PULSE OX, BUT TOLERATING OXYMIZER. SPO2 > 90% ON 14L OXYMIZER OR BIPAP 14/6 W/ DESAT TO 80'S% W/ OXYGEN REMOVAL BY PT. PT INCONTINENT, PRN GANESH CARE/ATTENDS CHANGES PROVIDED ALONG W/ Q2H REPOSITIONING. WILL CONTINUE TO MONITOR AND PROVIDE CARE UNTIL REPORT OFF TO DAY SHIFT RN. FOLLOW UP IMAGING TO BE PERFORMED DURING DAY SHIFT PER ORDERS.
[2018-07-17 06:27] LABS: Hematocrit 37.5 % (37.0-53.0); Hemoglobin 11.6 g/dL (13.5-17.5); Mean Corpuscular HGB 26.4 pg (26.0-34.0); Mean Corpuscular HGB Conc 30.9 g/dL (31.5-36.5); Mean Corpuscular Volume 85 fL (80-100); Mean Platelet Volume 9.3 fL (9.1-12.4); NRBC ABSOLUTE 0.03 K/mm3 (0.00-0.02); NRBC Auto 0.2 /100 WBC (0.0-0.2); Platelet Count 238 K/mm3 (150-400); RDW Coefficient Variation 16.8 % (11.7-14.2); RDW Standard Deviation 51.8 fL (35.1-46.3); Red Blood Cell Count 4.39 M/mm3 (4.30-5.90); White Blood Cell Count 19.85 K/mm3 (4.00-11.30)
[2018-07-17 06:43] LABS: Albumin, Blood 2.3 g/dL (3.4-5.0); Anion Gap 7 mmol/L (6-16); Blood Urea Nitrogen 32 mg/dL (8-24); Bun/Creatinine Ratio 36.4 (12.0-20.0); CO2, Blood 28 mmol/L (21-32); Calcium, Blood 7.3 mg/dL (8.5-10.1); Chloride, Blood 103 mmol/L (98-108); Creatinine, Blood 0.88 mg/dL (0.60-1.20); Glomerular Filtration Rate >60 (60-); Glucose, Blood 74 mg/dL (70-99); Phosphorus, Blood 3.9 mg/dL (2.5-4.9); Potassium, Blood 4.8 mmol/L (3.5-5.5); Sodium, Blood 138 mmol/L (136-145)
[2018-07-17 08:21] LABS: BAND PERCENT MAN 27 % (0-8); BASOPHILS PERCENT MAN 0 % (0-2); EOSINOPHILS PERCENT MAN 0 % (0-6); LYMPHOCYTES ABSOLUTE MAN 1.58 K/mm3 (0.84-5.20); LYMPHOCYTES PERCENT MAN 8 % (21-46); METAMYELOCYTE ABSOLUTE MAN 0.39 K/mm3 (0.00-0.00); METAMYELOCYTE PERCENT MAN 2 % (0-0); MONOCYTES PERCENT MAN 0 % (4-13); NEUTROPHILS ABSOLUTE MAN 17.86 K/mm3 (1.96-9.15); SEG NEUTROPHILS PERCENT MAN 63 % (41-73); TOTAL CELLS COUNTED 100
[2018-07-17 13:27] LABS: PO2 Arterial 53.1 mmHg (80-100); pH Blood Arterial 7.46 (7.35-7.45)
--- NOTE | 2018-07-17 13:35 | NUR ---
Visited with nursing regarding Orville this afternoon. Chart and EMAR reviewed. Pt's family is not currently in his room. Nursing and RT are present drawing a blood gas at the time of my visit. Pt is currently on 6L of O2 per NC and nursing reports he is starting to talk with words that make sense and he is starting to follow commands. Reviewed lyrica side effects. Pt over the past day or so has experienced many of the lyrica side effects: tachycardia, difficulty breathing, tiredness, changes in cognition, speech disturbances, confusion, anxiety, loss of bladder control. Pt has pneumonia and chronic pain and anxiety, so it is difficult to tell what the exact cause of his change in behavior is over the past day. Pt also reportedly stopped smoking about a week ago after smoking for >30 years. Nicotine withdrawl may also be playing a role in his behavior. D/T pt's change in condition, he has not received any lyrica or oxycondone is the past 24 hours. Half life of lyrica is [address] Ramirez re: concerns for lyrica side effects vs pt's pneumonia and chronic pain/anxiety. Lyrica will be discontinued per MD. Nursing plans to administer pt's scheduled narcotic when able to prevent any withdrawls from that. PC will continue to follow for symptom management. Pt's spouse plans to visit later, and nursing will call PC RN when pt's spouse arrives.
--- NOTE | 2018-07-17 18:02 | NUR ---
Met with pt's this afternoon. Pt slept during the visit. Pt's states that pt did talk with her earlier today and she felt he appeared to be more oriented today than yesterday. Talked with pt's re: POLST. She reports that she and Mo have had conversations in the past and that he would want to be resusitated. She reports their three year old great nephew who they are raising means the world to him and he would want to live for him. She also stated that during the last hospital stay Mo wore a nicotine patch. She reports he smokes about 1 1/2 packs a day and quit on the day he was admitted to the hospital. Pt may benefit from a nicotine patch. Pt has current orders for a full code which is consistant with his current wishes per his . If pt continues to improve his cognition a discussion can be held with him re: signing a POLST form.
[2018-07-17 18:20] LABS: Appearance, Urine Clear (Clear); Bilirubin, Urine Neg (Neg); Blood, Urine Neg (Neg); Color, Urine Yellow (P-Yellow); Glucose Qualitative, Urine 1+ (Neg); Ketones, Urine 2+ (Neg); Leukocyte Esterase, Urine Neg (Neg); Nitrite, Urine Neg (Neg); Protein, Urine 1+ (Neg); Specific Gravity, Urine 1.015 (1.003-1.022); Urobilinogen, Urine NORM (Normal)
--- NOTE | 2018-07-17 18:24 | NUR ---
SHIFT SUMMARY PT RESTING IN BED THROUGHOUT THE DAY. VSS. PT YELLING OUT OFF AND ON TODAY. ALERT AND ORIENTED TO SELF ONLY THIS AM, UNABLE TO FOLLOW COMMANDS. STATES "LET ME GO HOME" AND ALSO C/O [place] 03/23 BUT THEN PT FALLS BACK TO SLEEP. LUNG SOUNDS COARSE WITH EXPIRATORY WHEEZES THROUGHOUT. ON HIGH FLOW NASAL CANNULA OXYGEN STARTED AT 14L/MIN THIS AM, TITRATED O2 DOWN TO 6-7 L/MIN VIA HIGH FLOW NC, SATURATION 88-91%. AM MEDS HELD D/T ASPIRATION RISK. PT WAKING UP MORE DURING THIS AFTERNOON AND EVENING. ALERT AND ORIENTED TO SELF, PLACE, AND FAMILY. HOB ELEVATED AND PT SWALLOWED EVENING PILLS WITH APPLESAUCE AND PUDDING. PT C/O 03/23 STOMACH PAIN, MEDICATED WITH PRN PAIN MEDS, SEE EMAR. PT TOLERATING PUDDING WELL THIS EVENING. AT BEDSIDE THIS AFTERNOON. WILL CONTINUE TO MONITOR.
[2018-07-18 04:17] LABS: Hematocrit 38.9 % (37.0-53.0); Hemoglobin 11.2 g/dL (13.5-17.5); Mean Corpuscular HGB 27.4 pg (26.0-34.0); Mean Corpuscular HGB Conc 28.8 g/dL (31.5-36.5); Platelet Count 180 K/mm3 (150-400); RDW Coefficient Variation 16.2 % (11.7-14.2); RDW Standard Deviation 56.5 fL (35.1-46.3); Red Blood Cell Count 4.09 M/mm3 (4.30-5.90); White Blood Cell Count 17.75 K/mm3 (4.00-11.30)
[2018-07-18 04:35] LABS: Mean Corpuscular Volume 95 fL (80-100)
[2018-07-18 04:50] LABS: Albumin, Blood 2.1 g/dL (3.4-5.0); Anion Gap 7 mmol/L (6-16); Blood Urea Nitrogen 29 mg/dL (8-24); Bun/Creatinine Ratio 35.3 (12.0-20.0); CO2, Blood 30 mmol/L (21-32); Calcium, Blood 7.5 mg/dL (8.5-10.1); Chloride, Blood 99 mmol/L (98-108); Creatinine, Blood 0.82 mg/dL (0.60-1.20); Glomerular Filtration Rate >60 (60-); Glucose, Blood 197 mg/dL (70-99); Phosphorus, Blood 2.6 mg/dL (2.5-4.9); Potassium, Blood 4.2 mmol/L (3.5-5.5); Sodium, Blood 136 mmol/L (136-145)
[2018-07-18 04:54] LABS: Vancomycin, Trough 9.9 ug/mL (5.0-10.0)
[2018-07-18 05:22] LABS: BAND PERCENT MAN 14 % (0-8); BASOPHILS PERCENT MAN 0 % (0-2); EOSINOPHILS PERCENT MAN 0 % (0-6); LYMPHOCYTES ABSOLUTE MAN 0.71 K/mm3 (0.84-5.20); LYMPHOCYTES PERCENT MAN 4 % (21-46); MONOCYTES PERCENT MAN 0 % (4-13); NEUTROPHILS ABSOLUTE MAN 17.04 K/mm3 (1.96-9.15); SEG NEUTROPHILS PERCENT MAN 82 % (41-73); TOTAL CELLS COUNTED 100
--- NOTE | 2018-07-18 07:28 | NUR ---
SHIFT SUMMARY PT ALERT, ORIENTED TO SELF AND FAMILY. PT INTERMITTENTLY CRYING OUT FROM ROOM. PT C/O BACK AND BILAT FOOT PAIN DURING SHIFT. PT MEDICATED PER EMAR, REPOSITIONED, AND WARM BLANKETS PROVIDED. PT CONFUSED THIS MORNING STATING SOMEONE WAS USING HIS URINAL SO HE NEEDED TO USE A BUCKET AND STATING "SOMEONE'S IN MY BED. THERE'S A MAN WHO'S BEEN USING MY BED." THEN LATER STATING "I WANT TO GO TO BED" THOUGH PT WAS IN BED. PT ATTEMPTING TO GET OUT OF BED ON OWN, BED ALARM SET OFF MULTIPLE TIMES. PT PULLING OFF O2 W/ DESAT TO 79% W/ REFUSAL TO PLACE O2 BACK ON. TIME SPENT ENCOURAGING PT W/ SUCCESSFUL READMINISTRATION OF O2. PT THEN MOVED TO PCU RM 9 TO BE CLOSER TO NURSES'S STATION FOR CLOSER MONITORING. PT IN BED W/ CALL LIGHT IN REACH AND BED ALARM ON. REPORT OFF TO DAY SHIFT RN DONE.
--- NOTE | 2018-07-18 13:06 | NUR ---
PT SITTING UP IN BED, REFUSED TO SIT UP ALL THE WAY FOR LUNCH, TOLD PT HE HAD TO SIT UP TO EAT, WHEN THIS RN WALKED IN THE ROOM, HOB WAS AT 44 DEGREES AND PT WAS EATING LUNCH. PT BEGAN TO COUGH. HOB ELEVATED PT STARTED TO YELL HE COULDN'T SIT UP ANY MORE. PT STATES "IT WENT DOWN THE WRONG TUBE". COUGHING AND SPITTING UP. PT BECOMING ANXIOUS AND NAUSEOUS. OXYGEN SATURATIONS AT 89-92% ON 7L VIA HIGH FLOW CANNULA. MEDICATED WITH ATIVAN AND ZOFRAN. PT RESTING QUIETLY IN BED.
--- NOTE | 2018-07-18 15:16 | NUR ---
Spiritual care visit conducted. Patient was in his bed resting when I entered the room but quickly awoke to the sound of his name. Patient had requested at a prior visit that I let him know when my granddaughter was born so I showed patient baby pictures and he perked up and celebrated with me. Patient displayed signs of an elevated mood. Pt. and RT. were waiting to get in to see the patient so I had to cut my visit short.
--- NOTE | 2018-07-18 18:48 | NUR ---
SHIFT SUMMARY PT RESTING IN BED THROUGHOUT THE DAY. ALERT AND ORIENTED TO SELF, FAMILY, AND PLACE. FOLLOWING COMMANDS APPROPRIATELY. YELLS OUT FROM TIME TO TIME. C/O 10/10 "ALL OVER" PAIN, MEDICATED WITH PRN PAIN MEDS, SEE EMAR. LUNG SOUNDS COARSE WITH EXPIRATORY WHEEZES THROUGHOUT THE DAY. C/O SHORTNESS OF BREATH, OXYGEN SATURATIONS 90-95% ON 5-7 L VIA HIGH FLOW NC. C/O NUMBNESS TO HANDS AND FEET. HAD AN EPISODE OF POSSIBLE ASPIRATION AT LUNCH TIME, LARGE AMOUNT OF COUGHING AND PT BECAME ANXIOUS. PT'S OXYGENATION MAINTAINED AT GREATER THAN 90% ON 5-7L. DR. DASILVA AND DR. RICH AWARE. ORDERS RECEIVED. FAMILY AT BEDSIDE THIS EVENING. WILL CONTINUE TO MONITOR.
--- NOTE | 2018-07-18 19:15 | NUR ---
ASSUMING CARE OF PT AT THIS TIME. PT REPORT RECEIVED AT BEDSIDE WITH OFFGOING NURSE, ASHA ROTHMAN. PT SITTING IN CHAIR, WATCHING TELEVISION, AND TALKING WITH FAMILY MEMBERS UPON ENTERING THE ROOM. VS STABLE - SEE VS FS. PT DOES NOT APPEAR TO BE IN DISTRESS AT THIS TIME. WILL REVIEW PLAN OF CARE.
--- NOTE | 2018-07-18 19:30 | NUR ---
ASSESSMENT PT CALM, COOPERATIVE, OCC ANXIETY AND AGITATION NOTED, GARBLED SPEECH AT TIMES, A&O TO SELF AND FAMILY, RESPONDS TO VERBAL STIMULI, SPONT OPENS EYES, ABLE TO COMMUNICATE NEEDS, CONFUSION NOTED. PT STATES HX OF NEUROPATHY. N/T ALL EXTREMETIES. PT LAUGHLIN. WEAKNESS NOTED. 1P SBA WITH WALKER TO AMBULATE. PT ABLE TO TURN SELF IN BED. PT C/O PAIN "ALL OVER". MEDICATED WITH SCHEDULED PAIN MEDICATIONS PER PHYSICIAN'S ORDER / UTILIZED NONPHARM METHODS. LUNGS COARSSE, DIMINISHED MIDDLE AND LOWER LOBES. SHALLOW BREATHING NOTED. PT ON 5L HIGH FLOW NC. OXY SAT >90%. RR 20'S. DENIES SOB @ REST. DYSPNEA WITH EXERTION. OCC MOIST NONPRODUCTIVE COUGH. AFEBRILE. NSR. HR 90'S. BP STABLE - SEE VS FS. STRONG RADIAL PULSES. FAINT TIBIAL AND PEDAL PULSES. WARM, PALE SKIN. ACTIVE BT X4 QUADRANTS. ABD SOFT, TENDER WITH AND WITHOUT PALPATION. PT STATES ABD TENDERNESS IS NORMAL. NO BM AT THIS TIME. NO N/V. OCC INCONTIENCE. PT VOIDS IN URINAL - CLEAR, YELLOW URINE NOTED. PIV X1. NS TKO AT 10 ML/HR.
--- NOTE | 2018-07-19 04:56 | NUR ---
SHIFT ASSESSMENT NO ACUTE CHANGES NOTED T/O SHIFT. PT SLEPT APPROXIMATELY 7 HOURS T/O SHIFT. PT CALM, COOPERATIVE, OCC ANXIETY AND AGITATION NOTED, GARBLED SPEECH AT TIMES, YELLING OUT FOR STAFF AT TIMES, USING CALL LIGHT APPROPRIATELY AT TIMES, A&O TO SELF AND FAMILY, RESPONDS TO VERBAL STIMULI, SPONT OPENS EYES, ABLE TO COMMUNICATE NEEDS, CONFUSION NOTED. PT STATES HX OF NEUROPATHY. N/T TO ALL EXTREMETIES. PT LAUGHLIN. WEAKNESS NOTED. 1P SBA WITH WALKER TO AMBULATE. 1P SBA TO STAND AT EDGE OF BED TO VOID. PT ABLE TO TURN SELF IN BED, BUT REQUIRES CONSTANT REINFORCEMENT. PT C/O PAIN "ALL OVER". CONT TO ASSESS FOR PAIN/DISCOMFORT AND MEDICATED WITH SCHEDULED AND PRN PAIN MEDICATIONS PER PHYSICIAN'S ORDER / UTILIZED NONPHARM METHODS. LUNGS COARSE, DIMINISHED MIDDLE AND LWOER LOBES. SHALLOW BREATHING. PT ON 2L HIGH FLOW NC. OXY SAT REMAINED >90%. RR 16 TO 20'S. DENIES SOB AT REST. DYSPNEA WITH EXERTION. OCC MOIST NONPRODUCTIVE COUGH. AFEBRILE. NSR. HR 80'S TO 90'S. BP STABLE - SEE VS FS. STRONG RADIAL PUSLES. FAINT TIBIAL AND PEDAL PULSES. WARM, PALE SKIN. ACTIVE BT X4 QUADRANTS. ABD SOFT, TENDER WITH AND WITHOUT PALPATION. PT STATES ABD TENDERNESS IS NORMAL. BM X1 T/O SHIFT. NO N/V. OCC INCONTIENCE. PT OCC VOIDS IN URINAL WITH ASSISTANCE - CLEAR, YELLOW URINE NOTED. PIV X1. NS TKO AT 10 ML/HR. WILL SL PIV THIS AM. WAITING FOR HEADING MAKER TO RECEIVE AM LABS. WILL CONT TO MONITOR PT AND WILL PROVIDE BEDSIDE REPORT TO ONCOMING NURSE THIS AM.
[2018-07-19 06:14] LABS: BASOPHILS ABSOLUTE AUTO 0.02 K/mm3 (0.00-0.23); BASOPHILS PERCENT AUTO 0 % (0-2); EOSINOPHILS PERCENT AUTO 0 % (0-6); Hematocrit 33.1 % (37.0-53.0); Hemoglobin 10.3 g/dL (13.5-17.5); IMMATURE GRAN ABSOLUTE AUTO 0.11 K/mm3 (0.00-0.10); IMMATURE GRAN PERCENT AUTO 1 % (0-1); LYMPHOCYTES ABSOLUTE AUTO 0.54 K/mm3 (0.84-5.20); LYMPHOCYTES PERCENT AUTO 4 % (21-46); MONOCYTES ABSOLUTE AUTO 0.42 K/mm3 (0.16-1.47); MONOCYTES PERCENT AUTO 3 % (4-13); Mean Corpuscular HGB 26.7 pg (26.0-34.0); Mean Corpuscular HGB Conc 31.1 g/dL (31.5-36.5); NEUTROPHILS ABSOLUTE AUTO 13.14 K/mm3 (1.96-9.15); NEUTROPHILS PERCENT AUTO 92 % (41-73); Platelet Count 186 K/mm3 (150-400); RDW Coefficient Variation 16.5 % (11.7-14.2); RDW Standard Deviation 51.7 fL (35.1-46.3); Red Blood Cell Count 3.86 M/mm3 (4.30-5.90); White Blood Cell Count 14.23 K/mm3 (4.00-11.30)
[2018-07-19 06:19] LABS: Mean Corpuscular Volume 86 fL (80-100)
[2018-07-19 06:44] LABS: Alanine Aminotransfer (ALT/SGP 31 U/L (12-78); Albumin, Blood 2.1 g/dL (3.4-5.0); Albumin/Globulin Ratio 0.5 (0.8-1.8); Alk Phos 70 U/L (50-136); Anion Gap 7 mmol/L (6-16); Aspartate Aminotrans (AST/SGOT 9 U/L (12-37); Bilirubin, Total 0.3 mg/dL (0.1-1.0); Blood Urea Nitrogen 27 mg/dL (8-24); CO2, Blood 27 mmol/L (21-32); Calcium, Blood 7.5 mg/dL (8.5-10.1); Chloride, Blood 102 mmol/L (98-108); Creatinine, Blood 0.64 mg/dL (0.60-1.20); Globulin, Blood 3.9 g/dL (2.2-4.0); Glomerular Filtration Rate >60 (60-); Glucose, Blood 293 mg/dL (70-99); Magnesium, Blood 2.5 mg/dL (1.6-2.4); Potassium, Blood 4.3 mmol/L (3.5-5.5); Sodium, Blood 136 mmol/L (136-145)
--- NOTE | 2018-07-19 07:20 | NUR ---
Initial assessment: Pt resting in bed. States that he wants something for his caugh and for pain. States that he has pain in his lower back. Rates it a 10/10. FLACC scale 4. LS with crackles and coarsness in bases. HR reg. PUlses palp. Pt oriented to self, family. Pt also remembers that he is at [facility] for "breathing problems". Pt confused to date and year. Pt seems forgetful to using call light. Bed and chair alarm in use. Pt up to chair for breakfast with 2 person SBA. Stable at this time. Call light in reach and chair alarm on.
[2018-07-19 11:14] LABS: Thyroid Stimulating Hormone 0.383 uIU/mL (0.360-4.800)
--- NOTE | 2018-07-19 16:02 | NUR ---
PAtient was awake and alert when I entered the room. Patient was glad to see me (Patient is known to me from prior visits). I conducted a life review covering patients family history and work life history. I provided companionship, emotional support and prayer. Patient responded well to all interventions and showed signs elevated mood and reduced stress. Patient expressed gratitude for the visit.
--- NOTE | 2018-07-19 19:25 | NUR ---
SHIFT SUMMARY: Pt resting in bed at this time. He was up for every meal today. Tolerated Physical therapy well. Pt seems to be becoming stronger. Pt oxygen has been titrated up and down today to keep oxgyen level >90%. Pt on 4L oxygen per HF NC at this time. Pt seemed to become more oriented throughout the shift. Started using call light appropriatly and was able to answer orientation questions correctly. VSS throughout shift. Pt called at around 1820 C/O severe headache. States it is the worst CLIFTON he has ever had. Physician notified and orders were obtained. Pt was medicated prior to transfer of care. Report given.
--- NOTE | 2018-07-19 20:16 | NUR ---
PM NOTE. ASSUMED CARE OF PT APROX 1900. PT IS A&Ox3, PT IS CONFUSED AT TIMES AND CALLS OUT AT TIME WELL. PT WAS ADMITTED DUE TO RESP FAILURE, HE IS CURRENTLY ON A NC AT 4L, RESPIRATIONS ARE EVEN AND UNLABORED. TELE INTACT, SR IN THE 70'S PER STRATEGIC ACCOUNT EXECUTIVE. PT'S BP 119/59, NO EDEMA NOTED ON ASSESSMENT. L/S COARSE AND TIGHT W/WHEEZES HEARD T/O. BT PRESENT AND HYPOACTIVE, ABD IS FIRM BUT NONTENDER TO PALP. PT IS CURRENTLY COMPLAINING OF A 10/10 HEADACHE, PT WAS MEDICATED PER EMAR BUT STATES THAT IT DID NOT HELP, HOWEVER 10MINS LATER WHEN THIS RN WENT TO CHECK ON PT HE WAS RESTING WITH EYES CLOSED, RELAXED AND APPEARED TO BE ASLEEP. CALL LIGHT IN REACH, BED IS LOCKED AND LOW W/BED ALARM ON, WILL CONTINUE TO MONITOR.
--- NOTE | 2018-07-20 05:05 | NUR ---
SHIFT SUMMARY. NO ACUTE CHANGES NOTED THIS SHIFT. PT VS HAVE BEEN STABLE T/O SHIFT. PT DENIES ANY CHEST PAIN/PRESSURE. PT COMPLAINS OF CONSTANT 10/10 PAIN "EVERYWHERE" THAT DOES NOT RESPOND TO MEDICATION. PT HAS HAD MOMENTS OF CONFUSION AND YELLING OUT AND PERIODS OF SEVERE ANXIETY, PT WAS MEDICATED PER EMAR FOR THESE EPISODES WITH GOOD RESULTS. PT HAS BEEN TITRATED FROM 4L NC TO 1L NC T/O THIS SHIFT, PT'S O2 STATS ARE CURRENTLY >90%. PER H&P PT'S HOME 02 IS 2L NC. CALL LIGHT IN REACH, BED IS LOCKED AND LOW WILL CONTINUE TO MONITOR UNTIL REPORT IS GIVEN TO ONCOMING RN.
[2018-07-20 05:41] LABS: BASOPHILS ABSOLUTE AUTO 0.01 K/mm3 (0.00-0.23); BASOPHILS PERCENT AUTO 0 % (0-2); EOSINOPHILS PERCENT AUTO 0 % (0-6); Hematocrit 31.9 % (37.0-53.0); IMMATURE GRAN ABSOLUTE AUTO 0.13 K/mm3 (0.00-0.10); IMMATURE GRAN PERCENT AUTO 1 % (0-1); LYMPHOCYTES ABSOLUTE AUTO 2.47 K/mm3 (0.84-5.20); LYMPHOCYTES PERCENT AUTO 26 % (21-46); MONOCYTES ABSOLUTE AUTO 0.64 K/mm3 (0.16-1.47); MONOCYTES PERCENT AUTO 7 % (4-13); Mean Corpuscular HGB 26.2 pg (26.0-34.0); Mean Corpuscular HGB Conc 31.3 g/dL (31.5-36.5); Mean Corpuscular Volume 84 fL (80-100); Mean Platelet Volume 9.4 fL (9.1-12.4); NEUTROPHILS ABSOLUTE AUTO 6.43 K/mm3 (1.96-9.15); NEUTROPHILS PERCENT AUTO 67 % (41-73); Platelet Count 177 K/mm3 (150-400); RDW Coefficient Variation 16.5 % (11.7-14.2); RDW Standard Deviation 50.3 fL (35.1-46.3); Red Blood Cell Count 3.82 M/mm3 (4.30-5.90); White Blood Cell Count 9.68 K/mm3 (4.00-11.30)
[2018-07-20 05:59] LABS: Alanine Aminotransfer (ALT/SGP 29 U/L (12-78); Albumin/Globulin Ratio 0.5 (0.8-1.8); Alk Phos 57 U/L (50-136); Anion Gap 5 mmol/L (6-16); Aspartate Aminotrans (AST/SGOT 10 U/L (12-37); Bilirubin, Total 0.3 mg/dL (0.1-1.0); Blood Urea Nitrogen 28 mg/dL (8-24); Bun/Creatinine Ratio 35.2 (12.0-20.0); CO2, Blood 30 mmol/L (21-32); Calcium, Blood 7.4 mg/dL (8.5-10.1); Chloride, Blood 103 mmol/L (98-108); Globulin, Blood 3.7 g/dL (2.2-4.0); Glomerular Filtration Rate >60 (60-); Glucose, Blood 160 mg/dL (70-99); Magnesium, Blood 2.3 mg/dL (1.6-2.4); Potassium, Blood 4.2 mmol/L (3.5-5.5); Sodium, Blood 138 mmol/L (136-145); Total Protein, Blood 5.7 g/dL (6.4-8.2)
--- NOTE | 2018-07-20 08:50 | NUR ---
INITIAL ASSESSMENT: Pt wakes to verabl stimulus. LS coarse with wheezing throughout. BT positive. HR reg. Pulses palp. Pt states that he has "unbearable" pain everywhere. Will medicate per orders. VSS. Pt up to chair with one person standby assist with walker. Tolerated well. Pt was also given a bedbath by KIMBERLY. This seemed to help and lifted his spirits. Call light in reach. Chair alarm on. Will monitor.
--- NOTE | 2018-07-20 13:34 | NUR ---
update: Pt Resting in bed after being up in chair for lunch. VSS. Prior to getting up to chair for lunch Pt was C/O "severe abd pain". When offered gas releif pt states "no, it's my arm and it's my head, I need something more then Tylenol". Infomed him I would look and see what he could have. Assisted Pt up and did some talking and joking and Pt seemed very comfortable. After this I talked to Pt about pain control at home and about medications he takes. Pt states "I can manage really well with my medications at home and I never abuse them." Told Pt that I would like to continue with his home meds since we were hoping to discharge soon, and that we could use Tylenol for breakthrough pain. Pt agreed to this and took Tylenol and gas ex. Assured him I would give him his oxycodone when it was due. Pt states "I know you will". Pt denies needs, call light in reach. Bed alarm on. Will continue to monitor.
--- NOTE | 2018-07-20 16:06 | NUR ---
Spiritual care visit conducted. Patient is known to me from prior visits. Patient immediately shared his frustrations about feeling like he was being forced to go to a SNF and that he was feeling depressed about this. I listened empathically and reminded the patient that options are being presented and that there is no coercion. I also stated that the patient is still in control of his medical decisions. Concern for his safety and well being are the driving forces for the options going forward. I explored sources of dignity and reminded him of his value as a person, a man, a and a father. I provided companionship and emotional support and I provided prayer. Patient responded well and was laughing and smiling as we concluded our time. Patient expressed gratitude for my time and care.
--- NOTE | 2018-07-20 18:06 | NUR ---
SHIFT SUMMARY: Pt has done well this shift. Biox has remained >90% on 2-4L NC. Pt states that he plans to be discharged tomorrow. Pt has been more oriented this shift. Able to answer questions appropriatly, use call light, and carry on conversation. VSS this shift. Will report to night RN.
--- NOTE | 2018-07-20 22:00 | NUR ---
ASSUMED CARE OF PATIENT AT APPROXIMATELY 1900 FROM ANABELLE Armstrong RN. PATIENT ALERT TO SELF, FAMILY AND LOCATION; STATES READY TO GO HOME. PATIENT IS ANXIOUS AT TIMES; PATIENT CAN BE FORGETFUL; SETS BED ALARM OFF WHEN ATTEMPTS TO AMBULATE INDEPENDENTLY; SBA W/ FWW OR USES URINAL AT BEDSIDE. NSR ON TELE; OXYEGN SATURATION ABOVE 90% ON 1-2LPM VIA NC. PATIENT REPORTS PAIN 10/10 IN LEGS, HEADACHE AND ALL OVER; MEDICATED PER EMAR. PATIENT REPORTS NUMBNESS, TINGLING IN LEGS AND ARMS. PATIENT DENIES DIZZINESS OR NAUSEA. REPORTED PATIENT IS BEING D/C'D IN AM. PIV S/L IN ANASTASIA. PATIENT CURRENTLY EATING A SNACK IN BED; CALL LIGHT IN REACH; BED IN LOWEST POSISTION; BED ALARM ON; WILL CONTINUE TO MONITOR AND ASSESS UNTIL END OF SHIFT.
[2018-07-21 06:07] LABS: Alanine Aminotransfer (ALT/SGP 33 U/L (12-78); Albumin, Blood 2.2 g/dL (3.4-5.0); Albumin/Globulin Ratio 0.5 (0.8-1.8); Alk Phos 65 U/L (50-136); Anion Gap 6 mmol/L (6-16); Aspartate Aminotrans (AST/SGOT 12 U/L (12-37); BASOPHILS ABSOLUTE AUTO 0.01 K/mm3 (0.00-0.23); BASOPHILS PERCENT AUTO 0 % (0-2); Bilirubin, Total 0.6 mg/dL (0.1-1.0); Blood Urea Nitrogen 21 mg/dL (8-24); Bun/Creatinine Ratio 27.4 (12.0-20.0); CO2, Blood 30 mmol/L (21-32); Chloride, Blood 102 mmol/L (98-108); Creatinine, Blood 0.77 mg/dL (0.60-1.20); EOSINOPHILS ABSOLUTE AUTO 0.02 K/mm3 (0.00-0.68); EOSINOPHILS PERCENT AUTO 0 % (0-6); Globulin, Blood 4.2 g/dL (2.2-4.0); Glomerular Filtration Rate >60 (60-); Glucose, Blood 140 mg/dL (70-99); Hematocrit 36.8 % (37.0-53.0); Hemoglobin 11.6 g/dL (13.5-17.5); IMMATURE GRAN ABSOLUTE AUTO 0.16 K/mm3 (0.00-0.10); IMMATURE GRAN PERCENT AUTO 2 % (0-1); LYMPHOCYTES ABSOLUTE AUTO 3.02 K/mm3 (0.84-5.20); LYMPHOCYTES PERCENT AUTO 32 % (21-46); MONOCYTES PERCENT AUTO 7 % (4-13); Mean Corpuscular HGB 26.1 pg (26.0-34.0); Mean Corpuscular HGB Conc 31.5 g/dL (31.5-36.5); Mean Corpuscular Volume 83 fL (80-100); Mean Platelet Volume 9.2 fL (9.1-12.4); NEUTROPHILS ABSOLUTE AUTO 5.67 K/mm3 (1.96-9.15); NEUTROPHILS PERCENT AUTO 59 % (41-73); Platelet Count 206 K/mm3 (150-400); Potassium, Blood 3.8 mmol/L (3.5-5.5); RDW Coefficient Variation 16.4 % (11.7-14.2); RDW Standard Deviation 49.7 fL (35.1-46.3); Red Blood Cell Count 4.44 M/mm3 (4.30-5.90); Sodium, Blood 138 mmol/L (136-145); Total Protein, Blood 6.4 g/dL (6.4-8.2); White Blood Cell Count 9.58 K/mm3 (4.00-11.30)
[2018-07-21] MEDS ORDERED: GUAI600T33 PO (10:42)
[2018-07-21] MEDS ORDERED: DOCU100 PO (10:42)
[2018-07-21] MEDS ORDERED: QUET25 PO (10:43)
[2018-07-21] MEDS ORDERED: PRED20 PO (10:44)
[2018-07-21] MEDS ORDERED: AMOXICILLIN-CL1 EACH PO (10:45)
--- NOTE | 2018-07-21 13:22 | NUR ---
PT DISCHARGED PT HAS HAD NO CHANGES TO THE ASSESSMENT, VSS, PT HAS NO PAIN, PT EDUCATED ON THE DISCHARGE EDUCATION AND MEDICATION, PT AGREED WITH THE EDUCATION, PT HAS NO PAIN AT THIS TIME, PT IN STABLE CONDITION
== END 2018-07-21 12:51 | disposition home or self-care (01) | DRG 190 ==
LOC: ER 19:51 → PCU 23:41 → MEDS 23:41 → PCU 07-10 00:38 → MEDS 07-10 16:41 → PCU 07-16 12:38
PROVIDERS: Emergency Medicine; Hospitalist; Internal Medicine; Internal Medicine Critical Care Medicine; ADMIT Hospitalist
PROC: 5A09357 Assistance with Respiratory Ventilation, Less than 24 Consecutive Hours, Continuous Positive Airway Pressure (ICD-10-PCS; principal; 2018-07-16)
DX: J43.9 Emphysema, unspecified (principal); J96.21 Acute and chronic respiratory failure with hypoxia; J18.9 Pneumonia, unspecified organism; J96.22 Acute and chronic respiratory failure with hypercapnia; I82.509 Chronic embolism and thrombosis of unspecified deep veins of unspecified lower extremity; G43.909 Migraine, unspecified, not intractable, without status migrainosus; K21.9 Gastro-esophageal reflux disease without esophagitis; L40.9 Psoriasis, unspecified; Z86.73 Personal history of transient ischemic attack (TIA), and cerebral infarction without residual deficits; F17.210 Nicotine dependence, cigarettes, uncomplicated; E11.9 Type 2 diabetes mellitus without complications; F41.9 Anxiety disorder, unspecified; R07.9 Chest pain, unspecified; R00.0 Tachycardia, unspecified; E83.51 Hypocalcemia; E88.09 Other disorders of plasma-protein metabolism, not elsewhere classified; G89.29 Other chronic pain; Z99.81 Dependence on supplemental oxygen; R41.0 Disorientation, unspecified; Z79.4 Long term (current) use of insulin
CPT/HCPCS: 36415; 36600; 70450; 71045; 71046; 71260; 80048; 80053; 80069; 80202; 81001; 82140; 82607; 82746; 82803; 82947; 83735; 83880; 84443; 84484; 85025; 85379; 85651; 86592; 87040; 87070; 87077; 87186; 87205; 87486; 87581; 87633; 87798; 87804; 92610; 93005; 93010; 94640; 94644; 94660; 94667; 94760; 94762; 96365; 96375; 97110; 97116; 97162; 97165; 97530; 99285-25; J0696; J1100; J1650; J1885; J2060; J2405; J2543; J2930; J3010; J3370; J3475; J7050; Q9967

== ENCOUNTER 2018-08-29 21:29 | Emergency (ER) | payer SELFPAY ==
[~2018-08-29] VITALS: Ht 182.9 cm; Wt 77.6 kg
[~2018-08-29 21:29] MED LIST changes: +AMOXICILLIN-CL1 EACH PO; +Atrovent Inha12.9 GM INH; +Prednisone50 MG PO
== END 2018-08-30 00:15 | disposition home or self-care (01) ==
LOC: ER 21:29
DX: R10.9 Unspecified abdominal pain (principal); Z91.018 Allergy to other foods; Z88.8 Allergy status to other drugs, medicaments and biological substances; Z79.899 Other long term (current) drug therapy; Z79.52 Long term (current) use of systemic steroids; K21.9 Gastro-esophageal reflux disease without esophagitis; J44.9 Chronic obstructive pulmonary disease, unspecified; F17.200 Nicotine dependence, unspecified, uncomplicated
CPT/HCPCS: 96372; 99283; J1885

== ENCOUNTER 2018-09-04 19:51 | Emergency (ER) | payer SELFPAY ==
[~2018-09-04] VITALS: Ht 182.9 cm; Wt 73.0 kg
[2018-09-04 20:50] LABS: BASOPHILS ABSOLUTE AUTO 0.02 K/mm3 (0.00-0.23); BASOPHILS PERCENT AUTO 0 % (0-2); EOSINOPHILS ABSOLUTE AUTO 0.07 K/mm3 (0.00-0.68); EOSINOPHILS PERCENT AUTO 1 % (0-6); Hematocrit 34.7 % (37.0-53.0); Hemoglobin 10.8 g/dL (13.5-17.5); IMMATURE GRAN ABSOLUTE AUTO 0.02 K/mm3 (0.00-0.10); IMMATURE GRAN PERCENT AUTO 0 % (0-1); LYMPHOCYTES ABSOLUTE AUTO 2.97 K/mm3 (0.84-5.20); LYMPHOCYTES PERCENT AUTO 33 % (21-46); MONOCYTES ABSOLUTE AUTO 0.92 K/mm3 (0.16-1.47); MONOCYTES PERCENT AUTO 10 % (4-13); Mean Corpuscular HGB 26.6 pg (26.0-34.0); Mean Corpuscular HGB Conc 31.1 g/dL (31.5-36.5); Mean Corpuscular Volume 86 fL (80-100); Mean Platelet Volume 8.4 fL (9.1-12.4); NEUTROPHILS ABSOLUTE AUTO 4.99 K/mm3 (1.96-9.15); NEUTROPHILS PERCENT AUTO 56 % (41-73); Platelet Count 300 K/mm3 (150-400); RDW Coefficient Variation 15.9 % (11.7-14.2); RDW Standard Deviation 50.3 fL (35.1-46.3); Red Blood Cell Count 4.06 M/mm3 (4.30-5.90); White Blood Cell Count 8.99 K/mm3 (4.00-11.30)
[2018-09-04 21:08] LABS: Alanine Aminotransfer (ALT/SGP 18 U/L (12-78); Albumin, Blood 3.4 g/dL (3.4-5.0); Albumin/Globulin Ratio 0.7 (0.8-1.8); Alk Phos 93 U/L (50-136); Anion Gap 7 mmol/L (6-16); Aspartate Aminotrans (AST/SGOT 16 U/L (12-37); Bilirubin, Total 0.3 mg/dL (0.1-1.0); Blood Urea Nitrogen 17 mg/dL (8-24); CO2, Blood 26 mmol/L (21-32); Calcium, Blood 8.4 mg/dL (8.5-10.1); Chloride, Blood 104 mmol/L (98-108); Creatinine, Blood 0.81 mg/dL (0.60-1.20); Globulin, Blood 4.6 g/dL (2.2-4.0); Glomerular Filtration Rate >60 (60-); Glucose, Blood 114 mg/dL (70-99); Potassium, Blood 4.3 mmol/L (3.5-5.5); Sodium, Blood 137 mmol/L (136-145)
== END 2018-09-05 00:13 | disposition home or self-care (01) ==
LOC: ER 19:51
PROVIDERS: Emergency Medicine
DX: J11.1 Influenza due to unidentified influenza virus with other respiratory manifestations (principal); R07.9 Chest pain, unspecified
CPT/HCPCS: 36415; 70450; 71046; 80053; 82947; 84484; 85025; 93005; 93010; 96374; 99285-25; J1885

== ENCOUNTER 2019-01-14 18:17 | Inpatient (IN) | payer OTHER, MEDICARE ==
[~2019-01-14] VITALS: Ht 182.9 cm; Wt 74.5 kg
[2019-01-14 19:15] LABS: BASOPHILS ABSOLUTE AUTO 0.03 K/mm3 (0.00-0.23); BASOPHILS PERCENT AUTO 0 % (0-2); EOSINOPHILS ABSOLUTE AUTO 0.29 K/mm3 (0.00-0.68); EOSINOPHILS PERCENT AUTO 4 % (0-6); Hematocrit 40.3 % (37.0-53.0); Hemoglobin 12.4 g/dL (13.5-17.5); IMMATURE GRAN ABSOLUTE AUTO 0.02 K/mm3 (0.00-0.10); IMMATURE GRAN PERCENT AUTO 0 % (0-1); LYMPHOCYTES ABSOLUTE AUTO 3.33 K/mm3 (0.84-5.20); LYMPHOCYTES PERCENT AUTO 45 % (21-46); MONOCYTES ABSOLUTE AUTO 0.65 K/mm3 (0.16-1.47); MONOCYTES PERCENT AUTO 9 % (4-13); Mean Corpuscular HGB 26.1 pg (26.0-34.0); Mean Corpuscular HGB Conc 30.8 g/dL (31.5-36.5); Mean Corpuscular Volume 85 fL (80-100); Mean Platelet Volume 9.2 fL (9.1-12.4); NEUTROPHILS ABSOLUTE AUTO 3.04 K/mm3 (1.96-9.15); NEUTROPHILS PERCENT AUTO 41 % (41-73); Platelet Count 351 K/mm3 (150-400); RDW Coefficient Variation 15.9 % (11.7-14.2); RDW Standard Deviation 49.9 fL (35.1-46.3); Red Blood Cell Count 4.76 M/mm3 (4.30-5.90); White Blood Cell Count 7.36 K/mm3 (4.00-11.30)
[2019-01-14 19:33] LABS: Alanine Aminotransfer (ALT/SGP 35 U/L (12-78); Albumin, Blood 3.4 g/dL (3.4-5.0); Albumin/Globulin Ratio 0.7 (0.8-1.8); Alk Phos 125 U/L (50-136); Anion Gap 5 mmol/L (6-16); Aspartate Aminotrans (AST/SGOT 22 U/L (12-37); Bilirubin, Total 0.3 mg/dL (0.1-1.0); Blood Urea Nitrogen 25 mg/dL (8-24); Bun/Creatinine Ratio 28.9 (12.0-20.0); CO2, Blood 25 mmol/L (21-32); Calcium, Blood 8.7 mg/dL (8.5-10.1); Chloride, Blood 106 mmol/L (98-108); Creatinine, Blood 0.86 mg/dL (0.60-1.20); Globulin, Blood 4.7 g/dL (2.2-4.0); Glomerular Filtration Rate >60 (60-); Glucose, Blood 137 mg/dL (70-99); Potassium, Blood 4.2 mmol/L (3.5-5.5); Sodium, Blood 136 mmol/L (136-145); Total Protein, Blood 8.1 g/dL (6.4-8.2)
[2019-01-14] MEDS ORDERED: ETAN50I SC (19:52)
[2019-01-14] MEDS ORDERED: GABA300 PO (19:54)
[2019-01-14] MEDS ORDERED: TRAZ50 PO (19:55)
[2019-01-14] MEDS ORDERED: TRIDESILON60 GM TOP (19:56)
--- NOTE | 2019-01-15 03:09 | NUR ---
shift summary: Pt admitted to med floor at 2330 last pm for upper gi bleed. Pt has had no bloody emesis since being admitted but does c/o abdominal pain. Morphine giving some relief but does not last long enough. Admission paperwork completed. VSS. Pt has COPD and is a smoker. Lungs tight. Pt put on 2 liters O2 NC and pt states he wears this at night at home. Pt npo p mn for an EGD in am. Protonix drip running.
[2019-01-15 04:49] LABS: BASOPHILS ABSOLUTE AUTO 0.04 K/mm3 (0.00-0.23); BASOPHILS PERCENT AUTO 1 % (0-2); EOSINOPHILS ABSOLUTE AUTO 0.34 K/mm3 (0.00-0.68); EOSINOPHILS PERCENT AUTO 5 % (0-6); Hemoglobin 10.8 g/dL (13.5-17.5); IMMATURE GRAN ABSOLUTE AUTO 0.03 K/mm3 (0.00-0.10); IMMATURE GRAN PERCENT AUTO 0 % (0-1); LYMPHOCYTES ABSOLUTE AUTO 4.46 K/mm3 (0.84-5.20); LYMPHOCYTES PERCENT AUTO 59 % (21-46); MONOCYTES ABSOLUTE AUTO 0.65 K/mm3 (0.16-1.47); MONOCYTES PERCENT AUTO 9 % (4-13); Mean Corpuscular HGB 25.2 pg (26.0-34.0); Mean Corpuscular Volume 84 fL (80-100); Mean Platelet Volume 9.1 fL (9.1-12.4); NEUTROPHILS ABSOLUTE AUTO 1.99 K/mm3 (1.96-9.15); NEUTROPHILS PERCENT AUTO 27 % (41-73); Platelet Count 298 K/mm3 (150-400); RDW Coefficient Variation 15.9 % (11.7-14.2); RDW Standard Deviation 48.7 fL (35.1-46.3); Red Blood Cell Count 4.29 M/mm3 (4.30-5.90); White Blood Cell Count 7.51 K/mm3 (4.00-11.30)
--- NOTE | 2019-01-15 06:17 | NUR ---
PT C/O CHEST PAIN LEVEL 8 OUT OF 10. sTATES HE HAS NO CARDIAC HISTORY. sTATES PAIN GOING OUT TO LEFT ARM. O2 ON AT 4 LITER. EKG TAKEN. vss. O2 SAT 94 RA.
--- NOTE | 2019-01-15 06:31 | NUR ---
EKG NORMAL. MORPHINE GIVEN A LITTLE EARLY. WILL CONTINUE TO MONITOR CLOSELY
--- NOTE | 2019-01-15 06:49 | NUR ---
ekg normal. Pt states he's feeling better since getting the morphine.
--- NOTE | 2019-01-15 09:28 | NUR ---
01/15/19 0928 Christy Batista PATIENT DETERMINED TO BE ASA APPROPRIATE FOR PROPOFOL SEDATION PRIOR TO START OF PROCEDURE BY DR. CASTELLANOS. 3-LEAD EKG REVIEWED WITH PHYSICIAN PRIOR TO START OF PROCEDURE. PATIENT CONFIRMS NPO STATUS AND AGREES WITH SCHEDULED PROCEDURE. History, Chart, Medications and Allergies reviewed before start of procedure. MONITOR INTACT WITH CONTINUOUS PULSE OXIMETRY AND INTERMITTENT BP. O2 VIA N/C INTACT THROUGHOUT SEDATION/PROCEDURE, POM MASK WITH END TIDAL CO2 INTACT, 10 L. DROPLET PRECAUTIONS OBSERVED.
--- NOTE | 2019-01-15 19:11 | NUR ---
shift summary patient is alert and oriented. does not want to get up. asking for pain medications every 2 hours on the dot. will assess for any changes.
--- NOTE | 2019-01-16 03:23 | NUR ---
Shift summary. Pt very demanding and slept very little all night. Pt requesting pain meds q 2 hours all night. Pt abdominal pain remains about the same. Pt has strange affect and pain is difficult to access. Pt gets very loud and demanding if he doesn't get his pain meds now. Pt upset about his clear liquid diet. Pt called family to bring him in some real food at 0200 in am. No gi bleeding noted and no emesis during the night.
[2019-01-16 05:08] LABS: BASOPHILS ABSOLUTE AUTO 0.04 K/mm3 (0.00-0.23); BASOPHILS PERCENT AUTO 1 % (0-2); EOSINOPHILS ABSOLUTE AUTO 0.31 K/mm3 (0.00-0.68); EOSINOPHILS PERCENT AUTO 4 % (0-6); Hematocrit 35.8 % (37.0-53.0); Hemoglobin 10.9 g/dL (13.5-17.5); IMMATURE GRAN ABSOLUTE AUTO 0.02 K/mm3 (0.00-0.10); IMMATURE GRAN PERCENT AUTO 0 % (0-1); LYMPHOCYTES ABSOLUTE AUTO 3.28 K/mm3 (0.84-5.20); LYMPHOCYTES PERCENT AUTO 45 % (21-46); MONOCYTES ABSOLUTE AUTO 0.64 K/mm3 (0.16-1.47); MONOCYTES PERCENT AUTO 9 % (4-13); Mean Corpuscular HGB 25.5 pg (26.0-34.0); Mean Corpuscular HGB Conc 30.4 g/dL (31.5-36.5); Mean Corpuscular Volume 84 fL (80-100); Mean Platelet Volume 9.3 fL (9.1-12.4); NEUTROPHILS ABSOLUTE AUTO 2.95 K/mm3 (1.96-9.15); NEUTROPHILS PERCENT AUTO 41 % (41-73); Platelet Count 292 K/mm3 (150-400); RDW Coefficient Variation 15.8 % (11.7-14.2); RDW Standard Deviation 48.2 fL (35.1-46.3); Red Blood Cell Count 4.27 M/mm3 (4.30-5.90); White Blood Cell Count 7.24 K/mm3 (4.00-11.30)
--- NOTE | 2019-01-16 10:24 | NUR ---
DOWN TO RADIOLOGY AT BOUT 0830. RADIOLOGY NOTIFIED OF NEW ORDER OF 2V ABD, PATIENT STILL IN XRAY.
--- NOTE | 2019-01-16 13:33 | NUR ---
PATIENT C/O LEFT SIDED CHEST PAIN RAD TO LEFT ARM. NO NAUSEA OR SOB. MORPHINE HELPS. IS REPRODUCIBLE. PAIN SINCE THIS AM WHEN HE HAS BEEN GOING DOWN TO RADIOLOGY. PER PATIENT HAD SAME THING YESTERDAY. PER EKG.
--- NOTE | 2019-01-16 14:54 | NUR ---
Patient is sitting on the edge of his bed and alert. Patient tells me about his medical issues, about the process they are in currently to adopt his 4 year old grandson, and about his recent return to hinduism. Patient tells me that their have been a few tests and scans but the doctors have not nailed down exactly what is going on. Patient is concerned by this. I listen empathically, provide companionship and prayer. Patient responds well and thanks me for the visit.
--- NOTE | 2019-01-16 15:13 | NUR ---
PER RADIOLOGY DEPT PATIENT ADMITTED TO CHEWING ONE OF HIS OXYCODONE AND CHASING IT WITH WATER. PER PATIENT "THEY TOLD ME I COULD." THIS RN TALKED TO HIS WHO STATES SHE DID NOT GIVE HIM ANY, BUT HE "MAY HAVE HAD ONE PILL ON HIM." ADVISED TO NOT GIVE HIM ANY. DISCUSS RESPIRATORY ARREST,ETC.
--- NOTE | 2019-01-16 18:01 | NUR ---
ALERT. ORIENTED. CALLS FOR PRN PAIN MEDS Q2 HOURS WITH PAIN ALWAYS A "10". NO NAUSEA OR VOMITING. AMBULATORY WITH STEADY GAIT IN ROOM. UNLABORED RESPIRATIONS OFF OF OXYGEN. SAW PATIENT AND ADVANCED DIET TO FULL LIQUID. PER , PATIENT DOES NOT HAVE ANY MORE OF HIS HOME MEDS. PATIENT TOLD THIS RN ABOUT TAKING HIS OXY AND WAS APOLOGETIC AND STS HE WOULD NOT DO IT AGAIN. ABLE TO MAKE HIS NEEDS KNOWN. RELATIVE GAVE PATIENT A TAQUITO WHEN PATIENT KNEW HE WAS NOT SUPPOSE TO HAVE. SCOUT
--- NOTE | 2019-01-17 07:16 | NUR ---
SHIFT SUMMARY A/O, ABLE TO MAKE NEEDS KNOWN. COOPERATIVE WITH CARE, ALTHOUGH WITH INSTRUCTION BECOMES AGITATED. MULTIPLE REQUESTS FOR PAIN MEDICATION WITH MINIMAL CHANGES DURING RE-ASSESSMENTS. STATED ABLE TO REST MORE SOUNDLY THIS NIGHT. NO BLOODY EMESIS/STOOLS REPORTD. NO N/V/D. COMPLETED LAST PART OF RADIOLOGY STUDY. NO ACUTE CHANGES OVERNIGHT. VSS. UP INDEPENDENTLY IN ROOM. BED IN LOWEST POSITION. CALL LIGHT AND BELONGINGS WITHIN REACH. WCTM. REPORT GIVEN TO DAY SHIFT RN.
--- NOTE | 2019-01-17 13:29 | NUR ---
REVIEW D'C ORDERS. NO NEW MEDS AND MEDS HAVE NOT CHANGED. HAS F/U APPT LATER THIS MONTH AT [facility] ANSWER ALL QUESTIONS. WAITING RIDE.
== END 2019-01-17 14:06 | disposition home or self-care (01) | DRG 379 ==
LOC: ER 18:17 → MEDS 22:11 → ENPENDDIS 01-16 11:33 → MEDS 01-17 14:06
PROVIDERS: Hospitalist; Internal Medicine Gastroenterology; Physician Assistant; ADMIT Hospitalist
PROC: 0DJ08ZZ Inspection of Upper Intestinal Tract, Via Natural or Artificial Opening Endoscopic (ICD-10-PCS; principal; 2019-01-15 09:00)
DX: K92.2 Gastrointestinal hemorrhage, unspecified (principal); E11.42 Type 2 diabetes mellitus with diabetic polyneuropathy; M06.9 Rheumatoid arthritis, unspecified; J44.9 Chronic obstructive pulmonary disease, unspecified; F17.210 Nicotine dependence, cigarettes, uncomplicated; Z86.718 Personal history of other venous thrombosis and embolism; L40.9 Psoriasis, unspecified; Z79.4 Long term (current) use of insulin
CPT/HCPCS: 36415; 71275; 74175; 74245; 80053; 82947; 83605; 83690; 85025; 86140; 87081; 93005; 93010; 94640; 94760; 96365-59; 96366; 96375-59; 96376-59; 99285-25; C9113; J2250; J2270; J2405; J2704; J7030; J7120; Q9967

== ENCOUNTER 2019-03-17 10:07 | Emergency (ER) | payer OTHER ==
[~2019-03-17] VITALS: Ht 182.9 cm; Wt 80.3 kg
[~2019-03-17 10:07] MED LIST changes: +TRIDESILON60 GM TOP
[2019-03-17] MEDS ORDERED: Norco 10-325 T1 EACH PO (11:57)
[2019-03-17] MEDS ORDERED: Prednisone20 MG PO (11:57)
== END 2019-03-17 12:26 | disposition home or self-care (01) ==
LOC: ER 10:07
DX: S29.011A Strain of muscle and tendon of front wall of thorax, initial encounter (principal); J44.1 Chronic obstructive pulmonary disease with (acute) exacerbation; Z86.711 Personal history of pulmonary embolism; F17.200 Nicotine dependence, unspecified, uncomplicated; Z91.018 Allergy to other foods; Z88.8 Allergy status to other drugs, medicaments and biological substances; Z79.899 Other long term (current) drug therapy; Z79.01 Long term (current) use of anticoagulants; X58.XXXA Exposure to other specified factors, initial encounter
CPT/HCPCS: 71046; 94640; 99285-25

== ENCOUNTER 2019-05-27 11:47 | Emergency (ER) | payer OTHER ==
[~2019-05-27] VITALS: Ht 182.9 cm; Wt 83.9 kg
[~2019-05-27 11:47] MED LIST changes: +MIRALAX17 GM PO; +PROM25 PO
[2019-05-27] MEDS ORDERED: Cyclobenzaprine5 MG PO (14:37)
[2019-05-28] MEDS ORDERED: Ventolin/Prove6.7 GM INH (21:12)
[2019-05-28] MEDS ORDERED: OMEPRAZOLE20 MG PO (21:16)
[2019-05-28] MEDS ORDERED: ENBREL50 MG/1 M1 SC (21:17)
[2019-05-28] MEDS ORDERED: Desowen60 GM TOP (21:18)
[2019-06-22] MEDS ORDERED: ALBU2.5V5 INH (15:30)
[2019-06-22] MEDS ORDERED: BASAGLAR K100 UNIT/1 SC (15:35)
[2019-06-22] MEDS ORDERED: PRED10 PO (15:39)
[2019-06-22] MEDS ORDERED: Duoneb 2.5-0.5 M3 ML INH (16:03)
[2019-07-03] MEDS ORDERED: Norco 5-325 Ta1 EACH PO (14:19)
== END 2019-05-27 15:19 | disposition home or self-care (01) ==
LOC: ER 11:47
DX: G89.29 Other chronic pain (principal); M54.5 Low back pain; K21.9 Gastro-esophageal reflux disease without esophagitis; J44.9 Chronic obstructive pulmonary disease, unspecified; F17.210 Nicotine dependence, cigarettes, uncomplicated; Z91.02 Food additives allergy status; Z91.018 Allergy to other foods; Z88.8 Allergy status to other drugs, medicaments and biological substances; Z79.899 Other long term (current) drug therapy
CPT/HCPCS: 72100; 96372; 99283-25; J1885

== ENCOUNTER 2019-05-28 14:56 | Inpatient (IN) | payer OTHER, MEDICARE ==
[~2019-05-28] VITALS: Ht 182.9 cm; Wt 89.5 kg
[2019-05-28 15:51] LABS: Source, Urine Clean Catch
[2019-05-28 15:54] LABS: Bilirubin, Urine Neg (Neg); Blood, Urine Neg (Neg); Glucose Qualitative, Urine Neg (Neg); Ketones, Urine Neg (Neg); Leukocyte Esterase, Urine Neg (Neg); Nitrite, Urine Neg (Neg); Protein, Urine 1+ (Neg); Specific Gravity, Urine 1.025 (1.003-1.022); Urobilinogen, Urine NORM (Normal)
[2019-05-28 16:03] LABS: Appearance, Urine Clear (Clear); Color, Urine Yellow (P-Yellow)
[2019-05-28 16:45] LABS: Hematocrit 41.4 % (37.0-53.0); Hemoglobin 12.6 g/dL (13.5-17.5); Mean Corpuscular HGB 26.8 pg (26.0-34.0); Mean Corpuscular HGB Conc 30.4 g/dL (31.5-36.5); Mean Corpuscular Volume 88 fL (80-100); Mean Platelet Volume 8.7 fL (9.1-12.4); Platelet Count 329 K/mm3 (150-400); RDW Standard Deviation 52.5 fL (35.1-46.3); White Blood Cell Count 22.98 K/mm3 (4.00-11.30)
[2019-05-28 17:07] LABS: BAND PERCENT MAN 17 % (0-8); BASOPHILS ABSOLUTE MAN 0.22 K/mm3 (0.00-0.23); BASOPHILS PERCENT MAN 1 % (0-2); EOSINOPHILS PERCENT MAN 0 % (0-6); LYMPHOCYTES PERCENT MAN 7 % (21-46); METAMYELOCYTE ABSOLUTE MAN 0.22 K/mm3 (0.00-0.00); METAMYELOCYTE PERCENT MAN 1 % (0-0); MONOCYTES PERCENT MAN 7 % (4-13); SEG NEUTROPHILS PERCENT MAN 67 % (41-73); TOTAL CELLS COUNTED 100
[2019-05-28 17:21] LABS: Bun/Creatinine Ratio 25.7 (12.0-20.0); Calcium, Blood 8.9 mg/dL (8.5-10.1); Creatinine, Blood 1.36 mg/dL (0.60-1.20); Potassium, Blood 6.2 mmol/L (3.5-5.5)
[2019-05-28] MEDS ORDERED: Ventolin/Prove6.7 GM INH (21:12)
[2019-05-28] MEDS ORDERED: OMEPRAZOLE20 MG PO (21:16)
[2019-05-28] MEDS ORDERED: ENBREL50 MG/1 M1 SC (21:17)
[2019-05-28] MEDS ORDERED: Desowen60 GM TOP (21:18)
--- NOTE | 2019-05-28 23:05 | NUR ---
UPDATE DR DEVRIES NOTIFIED OF LACTIC RESULTS. ORDERS RECIEVED.
--- NOTE | 2019-05-28 23:30 | NUR ---
ADMIT NOTE PATIENT ARRIVED FROM THE ER AT APPROX 2152. PATIENT VERY SLEEPY BUT AWAKENS TO PAINFUL STIMULI. PATIENT VERY PALE WITH RAPID RESPIRATIONS IN THE 30'S. TEMP 99.0, OTHER VITALS STABLE AT THIS TIME. PATIENT'S AT THE BEDSIDE AND WILL ASSIST WITH COMPLETING THE ADMIT. WILL CONTINUE TO MONITOR PATIENT.
[2019-05-28 23:48] LABS: PCO2 Arterial 68.3 mmHg (35-45); PO2 Arterial 66.3 mmHg (80-100)
[2019-05-28 23:49] LABS: pH Blood Arterial 7.23 (7.35-7.45)
[2019-05-29 00:27] LABS: Source, Urine Catheter
[2019-05-29 00:31] LABS: Appearance, Urine Clear (Clear); Bilirubin, Urine Neg (Neg); Blood, Urine 1+ (Neg); Color, Urine Yellow (P-Yellow); Glucose Qualitative, Urine Neg (Neg); Ketones, Urine Neg (Neg); Leukocyte Esterase, Urine Neg (Neg); Nitrite, Urine Neg (Neg); Protein, Urine Neg (Neg); Specific Gravity, Urine 1.015 (1.003-1.022); Urobilinogen, Urine NORM (Normal)
[2019-05-29 00:39] LABS: Red Blood Cells, Urine 0-2 /hpf (0-2); White Blood Cells, Urine 0-2 /hpf (0-5)
[2019-05-29 00:40] LABS: Bacteria Few /hpf; Squamous Epithelial Cells Not Seen /hpf (Few)
--- NOTE | 2019-05-29 01:00 | NUR ---
LARGE LOOSE BROWN STOOL CLEANED. TYLENOL SUPP PLACED PER MD ORDERS. REPOSITIONED TO COMFORT. SAFETY MEASURES IN PLACE. WILL CONTINUE TO MONITOR.
--- NOTE | 2019-05-29 01:10 | NUR ---
UPDATE AT APPROX 2330 PATIENT BEGAN TO GUPPY BREATH ALONG WITH USING ACCESSORY MUSCLES FOR BREATHING. RESPIRATION RATE CONTINUED TO BE IN THE 30'S. PATIENT CONTINUED TO BE VERY PALE. PATIENT ALSO HAD STARTED TO HAVE TREMORS AND SHAKES. CHARGE NURSE JUDE YUNG CAME INTO ASSESS PATIENT. ICU CHARGE NURSE MOHAMUD CAME TO ASSESS PATIENT WELL. AT THIS TIME PATIENT STARTED TO BECOME MUCH LESS RESPONSIVE EVEN TO PAIN. PATIENT DID NOT APPEAR TO HAVE A GAG REFLEX WHEN BEING SUCTIONED. RESPIRTORY THERAPY ARRIVED AT THE BEDSIDE. DR DEVRIES WAS CALLED TO THE BEDSIDE AND CAME TO ASSESS PATIENT. NARCAN X 3 WAS GIVEN WITH MINIMAL RESULTS. PATIENT SLIGHTLY MORE RESPONSIVE TO PAIN BUT CONTINUES TO BE VERY LETHARGIC WITH RESPIRATIONS IN THE 30'S AND GUPPY BREATHING. PATIENT ALSO CONTINUED TO BE VERY PALE WITH TREMORS. PATIENT'S TEMP WAS ALSO STARTING TO CLIMB. PATIENT THEN TRANSFERED TO ICU PER ORDERS AND WAS PLACED ON BIPAP AND A NARCAN GTT. REPORT GIVEN TO LORNA YADAV. WAITING IN ICU WAITING ROOM AND AWARE OF SITUATION AND TRANSFER. ALL BELONGINGS GATHERED AND SENT WITH PATIENT.
[2019-05-29 01:23] LABS: PCO2 Arterial 51.2 mmHg (35-45); PO2 Arterial 81.7 mmHg (80-100); pH Blood Arterial 7.37 (7.35-7.45)
--- NOTE | 2019-05-29 02:00 | NUR ---
RECEIVED HAND OFF FROM Gaby STOKES RN USING SBAR AT 0015HRS . TRANSPORTED TO ICU 8 VIA BED. TRANSFERED WITH FULL STAFF ASSISTANCE, TOLERATED WELL. CPAP IN PLACED DUE TO RESPIRATORY DISTRESS. TEMPERATURE CAMACHO PLACED BY Trenton PEREZ RN USING STERILE TECHNIQUE, TOLERATED WELL. CAMACHO TEMP AT 102.9 AND CLIMBING. ICE PACKS PLACED TO AXILLA AND GROIN. COOLING VEST AND LEG SLEEVES PLACED TO ASSIST WITH LOWERING TEMP. DR. ARRIAZA AT BEDSIDE SPEAKING TO ABOUT PMHX AND CURRENT STATUS. SAFETY MEASURES IN PLACE. WILL CONTINUE TO MONITOR.
[2019-05-29 02:34] LABS: Adenovirus Not Detected (NOT DETECT); Bordetella pertussis Not Detected (NOT DETECT); Chlamydophila pneumoniae Not Detected (NOT DETECT); Coronavirus 229E Not Detected (NOT DETECT); Coronavirus HKU1 Not Detected (NOT DETECT); Coronavirus NL63 Not Detected (NOT DETECT); Coronavirus OC43 Not Detected (NOT DETECT); Human Metapneumovirus Not Detected (NOT DETECT); Human Rhinovirus/Enterovirus Not Detected (NOT DETECT); Influenza A Not Detected (NOT DETECT); Influenza A/2009-H1 Not Detected (NOT DETECT); Influenza A/H1 Not Detected (NOT DETECT); Influenza A/H3 Not Detected (NOT DETECT); Influenza B Not Detected (NOT DETECT); Mycoplasma pneumoniae Not Detected (NOT DETECT); Parainfluenza Virus 1 Not Detected (NOT DETECT); Parainfluenza Virus 2 Not Detected (NOT DETECT); Parainfluenza Virus 3 Not Detected (NOT DETECT); Parainfluenza Virus 4 Not Detected (NOT DETECT); Respiratory Syncytial Virus Not Detected (NOT DETECT)
--- NOTE | 2019-05-29 03:50 | NUR ---
DR. ARRIAZA CONTACTED REGUARDING CONTINUED ELEVATED TEMP. NEW OREDERS RECEIVED. WILL CONTINUE TO MONITOR.
--- NOTE | 2019-05-29 04:10 | NUR ---
LARGE LIQUID BROWN BM CLEANED. REPOSITIONED TO COMFORT AFTER PLACING ASA RECTALLY PER ORDERS. SAFETY MEASURES IN PLACE. WILL CONTINUE TO MONITOR.
--- NOTE | 2019-05-29 04:35 | NUR ---
CONTACTED DR. ARRIAZA VIA TELEPHONE FOR ORDERS DUE TO PT TREMORS. NEW ORDERS RECEIVED. WILL CONTINUE TO MONITOR.
[2019-05-29 05:48] LABS: Hematocrit 32.6 % (37.0-53.0); Hemoglobin 9.8 g/dL (13.5-17.5); Mean Corpuscular HGB 26.5 pg (26.0-34.0); Mean Corpuscular HGB Conc 30.1 g/dL (31.5-36.5); Mean Corpuscular Volume 88 fL (80-100); Mean Platelet Volume 9.1 fL (9.1-12.4); Platelet Count 187 K/mm3 (150-400); RDW Coefficient Variation 16.3 % (11.7-14.2); RDW Standard Deviation 52.8 fL (35.1-46.3); White Blood Cell Count 12.77 K/mm3 (4.00-11.30)
[2019-05-29 06:01] LABS: Albumin, Blood 2.9 g/dL (3.4-5.0); Anion Gap 5 mmol/L (6-16); BAND PERCENT MAN 30 % (0-8); BASOPHILS ABSOLUTE MAN 0.12 K/mm3 (0.00-0.23); BASOPHILS PERCENT MAN 1 % (0-2); Blood Urea Nitrogen 25 mg/dL (8-24); Bun/Creatinine Ratio 27.6 (12.0-20.0); CO2, Blood 28 mmol/L (21-32); Calcium, Blood 7.8 mg/dL (8.5-10.1); Chloride, Blood 107 mmol/L (98-108); Creatinine, Blood 0.91 mg/dL (0.60-1.20); EOSINOPHILS PERCENT MAN 0 % (0-6); Glomerular Filtration Rate >60 (60-); Glucose, Blood 150 mg/dL (70-99); LYMPHOCYTES ABSOLUTE MAN 0.63 K/mm3 (0.84-5.20); LYMPHOCYTES PERCENT MAN 5 % (21-46); MONOCYTES ABSOLUTE MAN 0.12 K/mm3 (0.16-1.47); MONOCYTES PERCENT MAN 1 % (4-13); NEUTROPHILS ABSOLUTE MAN 11.87 K/mm3 (1.96-9.15); Phosphorus, Blood 3.1 mg/dL (2.5-4.9); Potassium, Blood 4.4 mmol/L (3.5-5.5); SEG NEUTROPHILS PERCENT MAN 63 % (41-73); Sodium, Blood 140 mmol/L (136-145); TOTAL CELLS COUNTED 100
--- NOTE | 2019-05-29 10:33 | NUR ---
PT ASSESSED AT 0715 THIS AM. PT ASLEEP INTERMIT ON BIPAP 14/8 WITH FIO2 35%. PT MOANS AND CALLS OUT FOR HELP. BIPAP REMOVED FOR ASSESSMENT AND ORAL CARE. OXY AT 4-6L PLACED. PT TOLERATED BREAK FOR 10MIN. PT C/O SOB AND STOMACH PAIN. ZOFRAN GIVEN. OFF BIPAP RESP 30-40 SHALLOW AND LABORED, AFTER 5-10MIN SATS DROPPED INTO HIGH 80'S; BIPAP REPLACED. DURING BREAK PT C/O PAIN;UNSPECIFIC, CALLED OUT FOR , UNABLE TO REDIRECT, ORIENTED TO SELF AND ONLY, UNABLE TO FOLLOW SIMPLE COMMANDS. PT REQUIRED NT SX VIA LEFT NARE(R NARE DEVIATED). COPIOUS AMTS OF THICK DARK YELLOW SPUTUM SUCTIONS, PT TOLERATED PROCEDURE WELL. DR PHAM IN TO SEE PT; FULL UPDATE GIVEN. PT HAS HAD TO BM'S, LAST BM LIQUID; SENT FOR CDIFF PER DR PHAM. RECTAL TUBE PLACED. SKIN ON BUTTOCKS AND AROUND RECTUM CLEAR AND INTACT. PT HAS CRACKLES TO BILAT LOWER LOBES. PT ATTEMPTS TO PULL OFF BIPAP AND PULLS AT IV LINES, RESTRAINTS PLACED AT 0800. PRCEDEX GTT STARTED TO HELP PT TOLERATED BIPAP HE IS NOT TOLERATING BREAKS WELL AT THIS POINT. RT GIVEN FULL UPDATE.
--- NOTE | 2019-05-29 13:15 | NUR ---
PT IS RESTING WELL WITH BIPAP; PRECEDEX AT 0.2MCG. NS MAINENANCE FLUIDS DC'D. BICARB GTT INFUSING.
--- NOTE | 2019-05-29 13:26 | NUR ---
Spiritual care visit conducted. Patient is lying in bed and resting. He awakens to the sound of his name. Patient tells he is not well. He asks me, "Please pray." I gladly provide prayer. After I pray patient asks, "Am I dying?" I ask his RN, Chante, who tells me that he is not. I tell patient that he is not at this time and that he is going to hang out for awhile longer. Patient seems to seattle right down (his pain medications kicking may help with this as well). I will continue to remain available to patient and family.
--- NOTE | 2019-05-29 15:13 | NUR ---
PT AWAKE, AND ABLE TO STATE THAT HE IS IN PAIN 8/10 TO RIGHT HIP. PT IS CLEARING BUT REMAINS SOMEWHAT CONFUSED. PT MEDICATED FOR PAIN AND REPOSITIONED OFF OF RIGHT HIP. PT CONT TO TOLERATE BIPAP ON PRECEDEX GTT.
--- NOTE | 2019-05-29 15:46 | NUR ---
Patient going to CT scan. On Precidex, review of pt status with nursing. Will see if chaplian Felipe has spoke with . Will review patient social needs with outdoor emergency care technician.
--- NOTE | 2019-05-29 16:08 | NUR ---
Review of plan of care with intesivist and pt needs. Review of wifes needs with managed care analyst. Suggest pt meet with benefits team at [place]. Hope is that they can adopt child and get some benefits and fanancial support. Will speak with and hopfully patient later about trajectory of his disease and plan addressing his increasing fraility.
--- NOTE | 2019-05-29 18:31 | NUR ---
PT WAS ABLE TO GO TO CT ON OXYMIZER AT 4L, SATS STAYED AT 100%. PT AWAKE, CONFUSED, AND VERY ANXIOUS ON TRIP DOWN TO CT. PT CRYING OUT IN PAIN AT TIMES, AND ASKING QUESTIONS AT OTHER TIMES. PT UNABLE TO LAY STILL FOR CT SCAN. VERSED 2MG IVP GIVEN FOR CT SCAN PER DR ARRIAZA. PRECEDEX PLACED ON STABY D/T SEDATION. PT REMAINS AROUSABLE TO VOICE, BIPAP PLACED BACK ON PT IN ICU. PT HAS BEEN SOMEWHAT HYPOTENSIVE T/O SHIFT W MOST MAPS>60/65. BP CONT TO TREND DOWN AT 1700 W MAPS 50'S. PRECEDEX REMAINS ON STANDBY. BIPAP ON. DR ARRIAZA NOTIFIED; ALBUMIN X2 ORDERED. PT AWAKENS INTERMIT YELLING OUT INCOMPREHENSIBLE STATEMENTS AND HELP ME. RESTRAINTS REMAIN ON.
[2019-05-29 23:28] LABS: Adenovirus F 40/41 Not Detected (NOT DETECT); Astrovirus Not Detected (NOT DETECT); Campylobacter Sp Not Detected (NOT DETECT); Cryptosporidium Not Detected (NOT DETECT); Cyclospora Cayetanensis Not Detected (NOT DETECT); E. Coli O157 Not Detected (NOT DETECT); Entamoeba Histolytica Not Detected (NOT DETECT); Enteroaggregative E. coli-EAEC Not Detected (NOT DETECT); Enteropathogenic E. coli-EPEC Not Detected (NOT DETECT); Enterotoxigenic E. coli-ETEC Not Detected (NOT DETECT); Giardia Lamblia Not Detected (NOT DETECT); Norovirus GI/GII Not Detected (NOT DETECT); Plesiomonas Shigelloides Not Detected (NOT DETECT); Rotavirus A Not Detected (NOT DETECT); Salmonella Sp Not Detected (NOT DETECT); Sapovirus Not Detected (NOT DETECT); Shiga Toxin-prod E. coli-STEC Not Detected (NOT DETECT); Shigella/Enteroin E. coli-EIEC Not Detected (NOT DETECT); Vibrio Cholerae Not Detected (NOT DETECT); Vibrio Sp Not Detected (NOT DETECT); Yersinia Enterocolitica Not Detected (NOT DETECT)
--- NOTE | 2019-05-30 01:14 | NUR ---
TEMP VIA CAMACHO PROBE 102.4 RECTAL TUBE REMOVED, CONTAINING SMALL AMT OF LIQUID LIGHT BROWN STOOL. TYLENOL GIVEN PER RECTAL DUE TO ASPIRATION RISK.
[2019-05-30 02:18] LABS: Vancomycin, Trough 13.1 ug/mL (5.0-10.0)
[2019-05-30 04:24] LABS: BASOPHILS ABSOLUTE AUTO 0.02 K/mm3 (0.00-0.23); BASOPHILS PERCENT AUTO 0 % (0-2); Hematocrit 29.8 % (37.0-53.0); Hemoglobin 8.8 g/dL (13.5-17.5); LYMPHOCYTES ABSOLUTE AUTO 0.95 K/mm3 (0.84-5.20); LYMPHOCYTES PERCENT AUTO 8 % (21-46); MONOCYTES ABSOLUTE AUTO 0.32 K/mm3 (0.16-1.47); MONOCYTES PERCENT AUTO 3 % (4-13); Mean Corpuscular HGB 26.3 pg (26.0-34.0); Mean Corpuscular HGB Conc 29.5 g/dL (31.5-36.5); Mean Corpuscular Volume 89 fL (80-100); Mean Platelet Volume 8.8 fL (9.1-12.4); Platelet Count 119 K/mm3 (150-400); RDW Coefficient Variation 16.1 % (11.7-14.2); Red Blood Cell Count 3.34 M/mm3 (4.30-5.90); White Blood Cell Count 11.83 K/mm3 (4.00-11.30)
[2019-05-30 04:29] LABS: EOSINOPHILS ABSOLUTE AUTO 0.15 K/mm3 (0.00-0.68); EOSINOPHILS PERCENT AUTO 1 % (0-6); IMMATURE GRAN PERCENT AUTO 1 % (0-1); NEUTROPHILS ABSOLUTE AUTO 10.29 K/mm3 (1.96-9.15); NEUTROPHILS PERCENT AUTO 87 % (41-73)
[2019-05-30 04:47] LABS: Albumin, Blood 3.1 g/dL (3.4-5.0); Anion Gap 3 mmol/L (6-16); Blood Urea Nitrogen 14 mg/dL (8-24); Bun/Creatinine Ratio 19.7 (12.0-20.0); CO2, Blood 33 mmol/L (21-32); Calcium, Blood 7.3 mg/dL (8.5-10.1); Chloride, Blood 103 mmol/L (98-108); Creatinine, Blood 0.71 mg/dL (0.60-1.20); Glomerular Filtration Rate >60 (60-); Glucose, Blood 158 mg/dL (70-99); Potassium, Blood 3.8 mmol/L (3.5-5.5); Sodium, Blood 139 mmol/L (136-145)
[2019-05-30 05:17] LABS: Phosphorus, Blood 0.8 mg/dL (2.5-4.9)
--- NOTE | 2019-05-30 06:29 | NUR ---
SUMMARY PATIENT SLEEPING MOST OF THE NIGHT WITH BIPAP IN PLACE SET AT 14/8 FIO2 35%. WHEN AWAKE PATIENT YELLING OUT, VERY FORGETFUL. PATIENT ABLE TO HOLD A CONVERSATION BETTER THIS AM. PRECEDEX INFUSING TO HELP PATIENT KAT BIPAP. PATIENT ON 2L/NC WHEN OFF BIPAP, PATIENT C/O FEELING LIKE HE CAN'T BREATH WHEN BIPAP IS OFF. PATIENT MEDICATED SEVERAL TIMES T/O NIGHT FOR C/O PAIN TO BACK AND HIPS. PATIENT NEEDING A LOT OF ENCOURAGEMENT TO ASSIST WITH REPOSITIONING. T/O THE NIGHT. DOCTOR ARRIAZA CALLED WITH AM LABS AND CRITICAL PHOS. ORDER OBTAINED FOR KPHOS 30MM.
--- NOTE | 2019-05-30 10:35 | NUR ---
PT ASSESSED AT 0730. PT DOZING ON AND OFF ON BIPAP; AROUSES TO VOICE. PRECEDEX AT 0.3MCG. BIPAP REMOVED AT 0800 FOR ASSESSEMNT AND ORAL CARE. PT MUCH MORE ALERT AND ORIENTED THIS AM. ORIENTED TO SELF AND MAINTAINING APPROPRIATE CONVERSATION. WHEN PROBED AND GIVEN TIME PT ABLE TO STATE THAT HE IS IN A HOSPITAL IN [place]. UNABLE TO GIVE DATE/YEAR. PT PLACED ON 2L O2 VIA OXYMIZER; TOLERATING BREAK OFF BIPAP VERY WELL. RESP EVEN AND UNLABORED. DENIES SOB. C/O PAIN 10/10 TO RIGHT SIDE (FALL AT HOME) AND ESSENTIALY EVERYWHERE WHEN TOUCHED OR MOVED. FENT PRN; TOLERATES WELL WITH GOOD EFFECT. KPHOS INFUSING. PRECEDEX PLACED ON STANDBY AT 1025. DR ARRIAZA AND DR PHAM HAVE SEEN PT THIS AM.
--- NOTE | 2019-05-30 11:20 | NUR ---
PT AWAKE AND ALERT, C/O PAIN EVERYWHERE; MEDICATED W FENT. WILL ASK ABOUT TRANSITIONING TO PT'S HOME MED P SPEECH EVAL. PRECEDEX HAS BEEN OFF SINCE 1024; PT DOING VERY WELL. OXYMIZER CHANGED TO N/C AT 2L; STATS 96%. PT PLACED IN HIGH FOWLERS AND ENCOURAGED TO COUGH AND TAKE DEEP BREATHS. PT/OT ORDERED. PT NOW PCU STATUS; MAY TRANSFER PT TO CHAIR USING LIFT LATER TODAY.
--- NOTE | 2019-05-30 12:05 | NUR ---
Spiritual care visit conducted. Patient is resting in bed but awakens to the sound of his name. Patient lights up once he realizes that I am in the room to visit with him. Because therapeutic alliance is already established, Patient tells me that he prays to God and asks Him to forgive Him so He could make the patient well. I then talk with patient about his idea of God and about what the Bible says about God's love and forgiveness. Patient states that he feels like his heart is "much hyperbaric tech and yet full of peace." Patient also shares about how much he misses his grandson (whom he and La Nena are raising). I listen empathically, hear confession, explore sources of value and forgiveness, provide companionship and prayer. Patient responds well and displays evidence of catharsis. Patient also tells me about the amazing care he is receiving from RNChnate. I will continue to remain available to patient and family.
--- NOTE | 2019-05-30 12:51 | NUR ---
PT AWAKE, CHILD LIKE BEHAVIOR/COMMUNICATION. CHOSE A PRESCHOOL PROGRAM TO WATCH ON TV. PT CRIES OUT AND WHINES ABOUT NEEDING SOMETHING FOR PAIN, AND SOMETHING TO EAT IN CHILD-LIKE MANOR. PT IS CONSOLABLE TO SOME DEGREE. PT VERY THANKFUL AND APPOLIGIZES OFTEN UNNECESSARILY. ORAL CAST CLEANED. PT SHOULD BE HAVING SWALLOW EVAL SHORTLY; THIS EXPLAINED TO PT; THEN HE MAY EAT. ALSO EXPLAINED THAT PAIN MEDS HELD SO THAT HE MAY BE ALERT FOR EVAL PAIN MEDS TEND TO SEDATE HIM; FALLS ASLEEP. PT VERY DISTRACTABLE AND FELL ASLEEP SHORTLY AFTER ORAL CARE
--- NOTE | 2019-05-30 14:31 | NUR ---
AROUND 1330 PT COUGHED ON SALIVA FOLLOWING SWALLOW EVAL; PT W INCREASED ANXIETY AND C/O SOB. PT PLACED BACK ON BIPAP. PRECEDEX REMAINS OFF. RT AT BEDSIDE SHORTLY ATER TO GIVE BREATHING TX. PT CALM AND SLEEPING NOW. VSS
--- NOTE | 2019-05-30 18:34 | NUR ---
PT OOB TO CHAIR WHILE WORKING W PT/OT. PT UP TO COMMODE X2, MUCH STRONGER 2ND TIME UP. PT'S CNVI 0/5 IN-BETWEEN PAIN MED DOSES. PT REQUEST PAIN MEDICATION Q2HRS. SUGGESTION MADE THAT ADDING PO PAIN MAY HELP LENGTHEN PAIN RELIEF, PT STATED "NO I DONT WANT MY OXYCONTIN UNTIL I GO BACK HOME, I WANT TO STAY ON THE IV PAIN MEDS WHILE IM IN THE HOSPITAL". PT EDUCATED THAT HE WOULD BE TRANSITIONED BACK TO HIS ORAL PAIN MEDS PRIOR TO GOING HOME. PT YELLS HE IS [place] AND REFUSES TO WEAR HIS HEARING AIDES. PT IS VERY DEMANDING AND YELLS OUT FOR HELP FREQUENTLY, BUT REMAINS PLEASANT AND THANKFUL FOR CARE.
--- NOTE | 2019-05-30 21:26 | NUR ---
PATIENT AWAKE, A&O ABLE TO HOLD A CONVERSATION. CONTINUES TO YELL OUT WHEN HE FEELS IF HIS CALL LIGHT HAS NOT BEEN ANSWERED QUICK ENOUGH. PATIENT C/O ABD PAIN AND CRAMPING. ASSISTED UP TO BSC WITH WALKER AND 1 PERSON STAND BY ASSIST. PATIENT PASSED LARGE LIQUID/SOFT STOOL BROWN/GREEN IN COLOR. PATIENT CONTINUES TO C/O ABD CRAMPING, AND BACK PAIN. PATIENT HAD SMALL EMESIS AND NAUSEA AFTER TAKING PO MEDICATIONS AND SOME MILK. ZOFRAN GIVEN FOR NAUSEA AND FENTANYL GIVEN FOR PAIN. ORDER OBTAINED FROM DOCTOR ARRIAZA FOR IMODIUM FOR DIARRHEA.
--- NOTE | 2019-05-31 00:50 | NUR ---
PATIENT CONTINUES TO C/O ABD CRAMPING AND C/O "HEART BURN" DOCTOR ARSALAN CALLED AND ORDER OBTAINED FOR TUMS. PATIENT CONTINUES TO HAVE LOOSE BM, APPEARS TO BE FIRMING UP AFTER IMODIUM.
--- NOTE | 2019-05-31 02:50 | NUR ---
DOCTOR ARSALAN NOTIFIED OF PATIENT CONTINUE TO C/O ABD CRAMPING AND CONTINUING TO HAVE FREQUENT LOOSE BM. PEPTO ORDERED.
--- NOTE | 2019-05-31 03:45 | NUR ---
PATIENT CONTINUES TO BE RESTLESS AND ANXIOUS. ON AND OFF BED CARRERO WITH NO RESULTS. ORDER OBTAINED FOR ATIVAN.
[2019-05-31 04:35] LABS: BASOPHILS ABSOLUTE AUTO 0.03 K/mm3 (0.00-0.23); BASOPHILS PERCENT AUTO 0 % (0-2); EOSINOPHILS ABSOLUTE AUTO 0.06 K/mm3 (0.00-0.68); EOSINOPHILS PERCENT AUTO 1 % (0-6); Hematocrit 31.6 % (37.0-53.0); Hemoglobin 9.4 g/dL (13.5-17.5); IMMATURE GRAN ABSOLUTE AUTO 0.08 K/mm3 (0.00-0.10); IMMATURE GRAN PERCENT AUTO 1 % (0-1); LYMPHOCYTES ABSOLUTE AUTO 1.48 K/mm3 (0.84-5.20); LYMPHOCYTES PERCENT AUTO 15 % (21-46); MONOCYTES ABSOLUTE AUTO 0.61 K/mm3 (0.16-1.47); MONOCYTES PERCENT AUTO 6 % (4-13); Mean Corpuscular HGB Conc 29.7 g/dL (31.5-36.5); Mean Corpuscular Volume 87 fL (80-100); NEUTROPHILS ABSOLUTE AUTO 7.86 K/mm3 (1.96-9.15); NEUTROPHILS PERCENT AUTO 78 % (41-73); Platelet Count 136 K/mm3 (150-400); Red Blood Cell Count 3.62 M/mm3 (4.30-5.90); White Blood Cell Count 10.12 K/mm3 (4.00-11.30)
[2019-05-31 04:51] LABS: Albumin, Blood 2.9 g/dL (3.4-5.0); Anion Gap 4 mmol/L (6-16); Blood Urea Nitrogen 10 mg/dL (8-24); Bun/Creatinine Ratio 15.6 (12.0-20.0); CO2, Blood 30 mmol/L (21-32); Calcium, Blood 7.6 mg/dL (8.5-10.1); Chloride, Blood 104 mmol/L (98-108); Creatinine, Blood 0.64 mg/dL (0.60-1.20); Glomerular Filtration Rate >60 (60-); Glucose, Blood 136 mg/dL (70-99); Phosphorus, Blood 1.6 mg/dL (2.5-4.9); Potassium, Blood 3.4 mmol/L (3.5-5.5); Sodium, Blood 138 mmol/L (136-145)
--- NOTE | 2019-05-31 05:00 | NUR ---
PATIENT RESTING QUIETLY, AWAKENS TO SLIGHT STIMULI, VERBALIZING RELIEF OF ABD CRAMPING. FALLING BACK TO SLEEP WHEN UNDISTURBED.
--- NOTE | 2019-05-31 07:32 | NUR ---
SUMMARY PATIENT AWAKE MOST OF THE NIGHT. A&O X3, BUT YELLING OUT WHEN FEELING IF HIS NEEDS ARE NOT BEING MET. PATIENT ANXIOUS T/O NIGHT, WITH SEVERAL LOOSE BM'S T/O THE NIGHT. BM IS NOW A SOFT BROWN AFTER SEVERAL DOSES OF IMODIUM. CAMACHO DRAINING LARGE AMT YELLOW URINE. TYLENOL GIVEN X1 FOR TEMP 101.3 WITH GOOD RESULTS. AFTER ATIVAN PATIENT RESTING QUIETLY AND VERBALIZED RELIEF OF ABD CRAMPING
--- NOTE | 2019-05-31 08:00 | NUR ---
INITIAL ASSESMENT PT RESTING IN BED, OCCASIONALLY YELLING OUT/ C/O HIP/SHOULDER/ABD AND LOWER BACK PAIN. PRNS GIVEN PER MD ORDER. ALERT AND ORIENT TIMES FOUR. FOLLOWS ALL COMMANDS. VSS, PALP PULSES T/O AND GENERALIZED EDEMA. 2L NC WITH SATS WNL AND CLEAR AND DIN BILAT. NO APPETITE AND NO N/V. UO ADEQUATE. REFUSING PT/OT AT THIS TIME. WILL CONT TO MONITOR.
[2019-05-31 13:48] LABS: Vancomycin, Trough 14.6 ug/mL (5.0-10.0)
--- NOTE | 2019-05-31 14:00 | NUR ---
PT UPDATE PT DOWNGRADED TO MEDICAL STATUS. STILL REQUIRING PAIN RX. 2L NC, CLEAR AND DIM BILAT AND WILL WEAN TOLERATED. POOR PO INTAKE R/T ABD PAIN, RX GIVEN PER MD ORDERS. PT/OT AT BEDSIDE TO GET PT OOB. UPDATED ON PT STATUS. WILL CONT TO MONITOR
--- NOTE | 2019-05-31 14:06 | NUR ---
Spiritual care visit conducted. Patient is somewhat aggitated and complaining of his stomach being [id number]. It was a a challenge to get any laughter from the patient but patient does have a love for God that is a hope and strength to him and Talk of God can melt his heart and change his demeanor. Also talking about his grandson, Branden helps perk the patient up almost immediately. I listen to patient, hear patient's stories of anatoliy and family, provide companioship and prayer. Patient responds well and shows signs of an elevated mood. I will continue to remain available to patient and family.
--- NOTE | 2019-05-31 20:33 | NUR ---
ASSUMED CARE OF PT AT 1915. REPORT RECEIVED. PT PRESENTS IN BED SLEEPING. PT PENDING TRANSFER TO MEDICAL FLOOR ROOM 330. WILL ALLOW TO REST AT THIS TIME. WILL REVIEW CHART AND PLAN OF CARE FOR THIS PT.
--- NOTE | 2019-05-31 23:15 | NUR ---
PT TRANSFERRED OUT OF ICU 8 TO ROOM 330 ON MEDICAL FLOOR STATUS. PT LEAVES UNIT AT 2245. HAS BEEN PREMEDICATED WITH 1 PERCOCET FOR COMFORT WITH TRANSPORT. PT WAS AWAKENED FOR HS MEDICATIONS INCLUDING THE PERCOCET. PT ASKS FOR "PAIN SHOT" REFERRING TO FENTANYL. PT STATES HE WAS HAVING LEG, HIP, ARM, CHEST, BACK, AND FOOT PAIN HE RATED 10/10. WHEN EXPLAINING THE PAIN SCALE, HE STATES "IT IS A 10". PT STATES THAT HIS PAIN GOT WORSE WHEN HIS SCD PUMP WAS UNPLUGGED. PT INSTRUCTED THAT THE FENTANYL IV HAD BEEN DISCONTINUED EARLIER IN THE DAY SECONDARY TRANSISTIONING PT TO ORAL PAIN MEDICATIONS. PT STATES "WELL THEY GAVE IT TO ME LAST NIGHT". AGAIN, TEACHING DONE.
[2019-06-01 05:35] LABS: BASOPHILS ABSOLUTE AUTO 0.02 K/mm3 (0.00-0.23); BASOPHILS PERCENT AUTO 0 % (0-2); EOSINOPHILS ABSOLUTE AUTO 0.35 K/mm3 (0.00-0.68); EOSINOPHILS PERCENT AUTO 6 % (0-6); Hematocrit 31.4 % (37.0-53.0); Hemoglobin 9.6 g/dL (13.5-17.5); IMMATURE GRAN ABSOLUTE AUTO 0.01 K/mm3 (0.00-0.10); IMMATURE GRAN PERCENT AUTO 0 % (0-1); LYMPHOCYTES PERCENT AUTO 35 % (21-46); MONOCYTES ABSOLUTE AUTO 0.65 K/mm3 (0.16-1.47); MONOCYTES PERCENT AUTO 11 % (4-13); Mean Corpuscular HGB 26.4 pg (26.0-34.0); Mean Corpuscular HGB Conc 30.6 g/dL (31.5-36.5); Mean Corpuscular Volume 87 fL (80-100); Mean Platelet Volume 8.9 fL (9.1-12.4); NEUTROPHILS ABSOLUTE AUTO 2.86 K/mm3 (1.96-9.15); NEUTROPHILS PERCENT AUTO 48 % (41-73); Platelet Count 141 K/mm3 (150-400); RDW Coefficient Variation 16.4 % (11.7-14.2); RDW Standard Deviation 52.5 fL (35.1-46.3); Red Blood Cell Count 3.63 M/mm3 (4.30-5.90); White Blood Cell Count 5.99 K/mm3 (4.00-11.30)
[2019-06-01 06:29] LABS: Albumin, Blood 2.8 g/dL (3.4-5.0); Anion Gap 8 mmol/L (6-16); Blood Urea Nitrogen 11 mg/dL (8-24); CO2, Blood 25 mmol/L (21-32); Calcium, Blood 7.7 mg/dL (8.5-10.1); Chloride, Blood 106 mmol/L (98-108); Creatinine, Blood 0.58 mg/dL (0.60-1.20); Glomerular Filtration Rate >60 (60-); Glucose, Blood 220 mg/dL (70-99); Phosphorus, Blood 2.3 mg/dL (2.5-4.9); Potassium, Blood 3.5 mmol/L (3.5-5.5); Sodium, Blood 139 mmol/L (136-145)
--- NOTE | 2019-06-01 06:32 | NUR ---
SHIFT SUMMARY PATIENT TRANFERRED FROM ICU. HE IS ALERT AND ORIENTED, ALTHOUGH SLIGHTLY ANXIOUS. PATIENT IS PAINFUL AND HAS BEEN REQUIRING PRN PERCOCET EVERY 4 HOURS OVERNIGHT. IV AND POWERGLIDE PATENT AND FLUSHED. CAMACHO PATENT AND FLOWING. PATIENT PLACED ON TELEMITRY MONITOR. BED IN LOWEST POSITION WITH WHEELS LOCKED AND ALARM ON. CALL LIGHT WITHIN REACH. REPORT GIVEN TO ONCOMING RN.
--- NOTE | 2019-06-01 17:08 | NUR ---
PT AOX4 AND COOPERATIVE OF CARE. PT TREATED FOR CHRONIC BACK AND HIP PAIN PER EMAR. 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 PT RESTING IN BED AT THIS TIME. PT DOES HAVE EPISODES OF ANXIETY WHICH SEEM TO RESOLVE. HE WILL THINK HE IS SHORT OF BREATH, YET WHEN CHECKED OUT HE IS DOING WELL IN THE LOW 90s. HE QUICKLY CALMS DOWN WHEN SHOWN HE IS FINE. WILL CONTINUE TO MONITOR. CAMACHO REMOVED TO DAY AND PT TOLERATED WELL AND HAS BEEN VOIDING.
--- NOTE | 2019-06-02 04:40 | NUR ---
SHIFT SUMMARY PT HAD NO NEW ISSUES NOTED. PT HAS SLEPT WELL THIS SHIFT. PT STILL HAS COMPLAINTS OF HIP/ LEG DISCOMFORT. PT CURRENTLY SLEEPING IN NO DISTRESS. CALL LIGHT IN REACH.
--- NOTE | 2019-06-02 11:17 | NUR ---
Spiritual acre visit conducted. I provided companionship and prayer. Patient responded well and expressed increased court following the prayer. I will continue to remain available to patient and family.
[2019-06-02] MEDS ORDERED: Augmentin 875-1 EACH PO (13:53)
[2019-06-02] MEDS ORDERED: TUMS500 MG PO (13:55)
[2019-06-02] MEDS ORDERED: Pepto-Bism525 MG/15 PO (13:55)
[2019-06-02] MEDS ORDERED: FERSU300 PO (13:57)
[2019-06-02] MEDS ORDERED: Vsl#3 Capsule1 EACH PO (13:58)
--- NOTE | 2019-06-02 16:58 | NUR ---
PT AOX4 AND COOPERATIVE OF CARE. PT VOIDING WELL TODAY. DISCHARGED AT 1655 ALL PAPERWORK REVIEWED WITH PT AND HIS . INSTRUCTED ON THE IMPORTANCE OF PT DRINKING THICKENED LIQUIDS AND EATING MECHANICAL SOFT AT 90 DEGREES. PT ALSO NEEDS 1L OF O2. PT DID NOT HAVE O2 TANK IN CARE. THIS COMPUTER CUSTOMER SUPPORT SPECIALIST WAS INSTRUCTED TO SEND NASAL CANULA HOME WITH PT O2 WAS AT HOME, PER WHIT. [facility] AND WERE REVIEWED. THIS COMPUTER CUSTOMER SUPPORT SPECIALIST ESCORTE PT TO [facility] VIA WHEEL CHAIR.
[2019-06-22] MEDS ORDERED: ALBU2.5V5 INH (15:30)
[2019-06-22] MEDS ORDERED: BASAGLAR K100 UNIT/1 SC (15:35)
[2019-06-22] MEDS ORDERED: PRED10 PO (15:39)
[2019-06-22] MEDS ORDERED: Duoneb 2.5-0.5 M3 ML INH (16:03)
[2019-07-03] MEDS ORDERED: Norco 5-325 Ta1 EACH PO (14:19)
== END 2019-06-02 16:42 | disposition home health service (06) | DRG 871 ==
LOC: ER 14:56 → ICUE 21:50 → MEDS 21:50 → PCU 21:50 → ICUE 22:05 → MEDS 05-31 22:56
PROVIDERS: Internal Medicine; Internal Medicine Critical Care Medicine; Physician Assistant; ADMIT Hospitalist
PROC: 5A09357 Assistance with Respiratory Ventilation, Less than 24 Consecutive Hours, Continuous Positive Airway Pressure (ICD-10-PCS; principal; 2019-05-29)
DX: A41.9 Sepsis, unspecified organism (principal); J69.0 Pneumonitis due to inhalation of food and vomit; G92 Toxic encephalopathy; J96.21 Acute and chronic respiratory failure with hypoxia; J96.22 Acute and chronic respiratory failure with hypercapnia; N17.9 Acute kidney failure, unspecified; Z99.81 Dependence on supplemental oxygen; K21.9 Gastro-esophageal reflux disease without esophagitis; L40.9 Psoriasis, unspecified; J43.9 Emphysema, unspecified; E87.5 Hyperkalemia; G89.4 Chronic pain syndrome; Z68.28 Body mass index [BMI] 28.0-28.9, adult; E66.9 Obesity, unspecified; E78.00 Pure hypercholesterolemia, unspecified; F17.210 Nicotine dependence, cigarettes, uncomplicated; E83.39 Other disorders of phosphorus metabolism; R65.20 Severe sepsis without septic shock
CPT/HCPCS: 0097U; 0099U; 36415; 36600; 51702; 70450; 71045; 71046; 74176; 80048; 80069; 80202; 81001; 82803; 82947; 83605; 84145; 85025; 87040; 87493; 92526; 92610; 93005; 93010; 94640; 94660; 94667; 94760; 94761; 96361; 96365; 96375; 96376; 97116; 97162; 97166; 97530; 97535; 99285-25; A9270; C1751; C9113; J0610; J0692; J0696; J1170; J1650; J1815; J1940; J2060; J2250; J2310; J2405; J2543; J3010; J3370; J7030; J7050; J7060; J7070; J7120; P9046

== ENCOUNTER 2019-06-08 15:20 | Emergency (ER) | payer OTHER, MEDICARE ==
[~2019-06-08] VITALS: Ht 182.9 cm; Wt 81.7 kg
[~2019-06-08 15:20] MED LIST changes: +Augmentin 875-1 EACH PO; +Desowen60 GM TOP; +ENBREL50 MG/1 M1 SC; +FERSU300 PO; +OMEPRAZOLE20 MG PO; +Pepto-Bism525 MG/15 PO; +TUMS500 MG PO; +Vsl#3 Capsule1 EACH PO
[2019-06-08 16:10] LABS: BASOPHILS ABSOLUTE AUTO 0.05 K/mm3 (0.00-0.23); BASOPHILS PERCENT AUTO 1 % (0-2); EOSINOPHILS ABSOLUTE AUTO 0.15 K/mm3 (0.00-0.68); EOSINOPHILS PERCENT AUTO 3 % (0-6); Hematocrit 33.9 % (37.0-53.0); Hemoglobin 10.5 g/dL (13.5-17.5); IMMATURE GRAN ABSOLUTE AUTO 0.01 K/mm3 (0.00-0.10); IMMATURE GRAN PERCENT AUTO 0 % (0-1); LYMPHOCYTES PERCENT AUTO 41 % (21-46); MONOCYTES ABSOLUTE AUTO 0.57 K/mm3 (0.16-1.47); MONOCYTES PERCENT AUTO 11 % (4-13); Mean Corpuscular HGB 26.6 pg (26.0-34.0); Mean Corpuscular Volume 86 fL (80-100); Mean Platelet Volume 9.1 fL (9.1-12.4); NEUTROPHILS ABSOLUTE AUTO 2.38 K/mm3 (1.96-9.15); NEUTROPHILS PERCENT AUTO 45 % (41-73); Platelet Count 357 K/mm3 (150-400); RDW Coefficient Variation 16.4 % (11.7-14.2); RDW Standard Deviation 52.2 fL (35.1-46.3); Red Blood Cell Count 3.95 M/mm3 (4.30-5.90); White Blood Cell Count 5.36 K/mm3 (4.00-11.30)
[2019-06-08 16:30] LABS: Alanine Aminotransfer (ALT/SGP 35 U/L (12-78); Albumin, Blood 3.5 g/dL (3.4-5.0); Albumin/Globulin Ratio 0.8 (0.8-1.8); Alk Phos 76 U/L (50-136); Anion Gap 4 mmol/L (6-16); Aspartate Aminotrans (AST/SGOT 24 U/L (12-37); Bilirubin, Total 0.3 mg/dL (0.1-1.0); Blood Urea Nitrogen 18 mg/dL (8-24); Bun/Creatinine Ratio 22.3 (12.0-20.0); CO2, Blood 27 mmol/L (21-32); Calcium, Blood 8.3 mg/dL (8.5-10.1); Chloride, Blood 103 mmol/L (98-108); Creatinine, Blood 0.81 mg/dL (0.60-1.20); Globulin, Blood 4.3 g/dL (2.2-4.0); Glomerular Filtration Rate >60 (60-); Glucose, Blood 116 mg/dL (70-99); Potassium, Blood 4.2 mmol/L (3.5-5.5); Sodium, Blood 134 mmol/L (136-145); Total Protein, Blood 7.8 g/dL (6.4-8.2); Troponin I <0.015 ng/mL (0.000-0.040)
[2019-06-22] MEDS ORDERED: ALBU2.5V5 INH (15:30)
[2019-06-22] MEDS ORDERED: BASAGLAR K100 UNIT/1 SC (15:35)
[2019-06-22] MEDS ORDERED: PRED10 PO (15:39)
[2019-06-22] MEDS ORDERED: Duoneb 2.5-0.5 M3 ML INH (16:03)
[2019-07-03] MEDS ORDERED: Norco 5-325 Ta1 EACH PO (14:19)
== END 2019-06-08 19:42 | disposition home or self-care (01) ==
LOC: ER 15:20
PROVIDERS: Emergency Medicine
DX: R07.9 Chest pain, unspecified (principal); R91.1 Solitary pulmonary nodule; G89.29 Other chronic pain; M54.9 Dorsalgia, unspecified; J43.9 Emphysema, unspecified; F17.200 Nicotine dependence, unspecified, uncomplicated; Z79.899 Other long term (current) drug therapy
CPT/HCPCS: 71046; 71260; 80053; 84484; 85025; 85379; 93005; 93010; 96374-59; 99285-25; A9270-GY; J3010; Q9967

== ENCOUNTER 2019-08-30 22:46 | Observation (INO) | payer OTHER ==
[~2019-08-30] VITALS: Ht 182.9 cm; Wt 72.6 kg
[~2019-08-30 22:46] MED LIST changes: +ALBU2.5V5 INH; +BASAGLAR K100 UNIT/1 SC; +Norco 5-325 Ta1 EACH PO
[2019-08-30 23:14] LABS: BASOPHILS ABSOLUTE AUTO 0.06 K/mm3 (0.00-0.23); BASOPHILS PERCENT AUTO 1 % (0-2); EOSINOPHILS ABSOLUTE AUTO 0.34 K/mm3 (0.00-0.68); EOSINOPHILS PERCENT AUTO 4 % (0-6); Hematocrit 42.6 % (37.0-53.0); Hemoglobin 13.5 g/dL (13.5-17.5); IMMATURE GRAN ABSOLUTE AUTO 0.01 K/mm3 (0.00-0.10); IMMATURE GRAN PERCENT AUTO 0 % (0-1); LYMPHOCYTES ABSOLUTE AUTO 2.82 K/mm3 (0.84-5.20); LYMPHOCYTES PERCENT AUTO 29 % (21-46); MONOCYTES ABSOLUTE AUTO 0.93 K/mm3 (0.16-1.47); MONOCYTES PERCENT AUTO 10 % (4-13); Mean Corpuscular HGB 28.8 pg (26.0-34.0); Mean Corpuscular HGB Conc 31.7 g/dL (31.5-36.5); Mean Corpuscular Volume 91 fL (80-100); Mean Platelet Volume 8.5 fL (9.1-12.4); NEUTROPHILS ABSOLUTE AUTO 5.54 K/mm3 (1.96-9.15); NEUTROPHILS PERCENT AUTO 57 % (41-73); Platelet Count 224 K/mm3 (150-400); RDW Coefficient Variation 16.4 % (11.7-14.2); RDW Standard Deviation 54.7 fL (35.1-46.3); Red Blood Cell Count 4.69 M/mm3 (4.30-5.90)
[2019-08-30 23:35] LABS: Alanine Aminotransfer (ALT/SGP 28 U/L (12-78); Albumin, Blood 3.6 g/dL (3.4-5.0); Albumin/Globulin Ratio 0.8 (0.8-1.8); Alk Phos 107 U/L (50-136); Anion Gap 5 mmol/L (6-16); Aspartate Aminotrans (AST/SGOT 17 U/L (12-37); Bilirubin, Total 0.2 mg/dL (0.1-1.0); Blood Urea Nitrogen 26 mg/dL (8-24); CO2, Blood 26 mmol/L (21-32); Calcium, Blood 8.5 mg/dL (8.5-10.1); Chloride, Blood 105 mmol/L (98-108); Creatinine, Blood 0.96 mg/dL (0.60-1.20); Globulin, Blood 4.6 g/dL (2.2-4.0); Glomerular Filtration Rate >60 (60-); Glucose, Blood 137 mg/dL (70-99); Potassium, Blood 4.4 mmol/L (3.5-5.5); Sodium, Blood 136 mmol/L (136-145); Total Protein, Blood 8.2 g/dL (6.4-8.2)
--- NOTE | 2019-08-31 05:16 | NUR ---
69 YR OLD MALE DMITTED TO THE FLOOR FROM THE ED WITH DX OF DIVERTICULITIS. REMAINS NPO. ALERT AND ORIENTED X 4. ABLE TO AMBULATE TO AND FROM THE BR, NOTE SHUFFLING GAIT. ORIENTED TO USE OF CALL LIGHT. CALL LIGHT IN REACH.
--- NOTE | 2019-08-31 11:12 | NUR ---
Spiritual care visit conducted. Patient tells me about his fears of coming to the hospital even though he knew he needed help. Patient explains the pain and discomfort he is having. Patient also shares about the stress he is under because a custody miramontes he is in for his grandson. 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 I listen empathically, normalize patient's experience and provide pastoral addictions counselor, companionship and prayer. Patient responds well and states that his stress is reduced because of the guidance and the prayer. I will continue to remain available to patient and family.
[2019-08-31 13:37] LABS: Source, Urine Clean Catch
[2019-08-31 14:14] LABS: Appearance, Urine Clear (Clear); Bilirubin, Urine Neg (Neg); Blood, Urine Neg (Neg); Color, Urine Yellow (P-Yellow); Glucose Qualitative, Urine 3+ (Neg); Ketones, Urine Neg (Neg); Leukocyte Esterase, Urine Neg (Neg); Nitrite, Urine Neg (Neg); Protein, Urine 1+ (Neg); Specific Gravity, Urine 1.015 (1.003-1.022); Urobilinogen, Urine NORM (Normal)
--- NOTE | 2019-08-31 15:54 | NUR ---
AROUND 2PM THE PATIENT WAS COMPLAINING OF 10/10 PAIN IN HIS ABDOMEN, ARMS, AND LEGS. MEDICATED PER EMAR. WHEN THE RN WENT TO ASSESS THE PAIN MEDICATION, SHE NOTICED HE WAS INCREASINGLY CONFUSED WITH A TEMPERATURE OF 101.1. THE HEATER IN HIS ROOM WAS TURNED OFF AT THIS TIME AND THE BLANKETS WERE REVOVED FROM THE PATIENT'S LAP. TYLENOL WAS GIVEN PER EMAR. DR. LOPEZ WAS NOTIFIED OF THE PATIENT'S TEMPERATURE. AT THIS TIME THE PATIENT IS RESTING AND HAS AN ORAL TEMPERATURE OF 99.2. WILL CONTINUE TO MONITOR
--- NOTE | 2019-08-31 17:22 | NUR ---
PATIENT IS ALERT. HE IS CONFUSED. 2L O2 VIA NC. HE HAD MULTIPLE STOOLS TODAY, LOOSE AND GREEN. A UA WAS COLLECTED AND SENT TO THE LAB. PAIN MANAGED PER EMAR. HE HAD A TEMPERATURE OF 101.1 THIS AFTERNOON WHICH WAS TREATED PER EMAR. WILL CONTINUE TO MONITOR
--- NOTE | 2019-09-01 05:17 | NUR ---
SHIFT SUMMARY PT VERY DROWSY AT THE BEGINNING OF THE SHIFT TO THE POINT THAT IT WAS UNSAFE TO GIVE HIM HIS NIGHT TIME MEDICATION HE WOULD NOT STAY AWAKE LONG ENOUGH TO TAKE THEM. PT BECAME MUCH MORE AWAKE AND ALERT AROUND 2300 AFTER A FEW EXTRA HOURS OF REST. PT IS A/OX4 AND INDPENDENT IN THE ROOM. PT ASSESSMENT OTHERWISE UNCHANGED. IV ABX CONTINUED PER ORDERS. BED IN LOWEST POSITION, CALL LIGHT WITHIN REACH. WILL CONTINUE TO MONITOR AND REPORT TO ONCOMING RN.
[2019-09-01 05:19] LABS: BASOPHILS ABSOLUTE AUTO 0.02 K/mm3 (0.00-0.23); BASOPHILS PERCENT AUTO 0 % (0-2); EOSINOPHILS ABSOLUTE AUTO 0.03 K/mm3 (0.00-0.68); EOSINOPHILS PERCENT AUTO 0 % (0-6); Hematocrit 40.2 % (37.0-53.0); Hemoglobin 12.6 g/dL (13.5-17.5); IMMATURE GRAN ABSOLUTE AUTO 0.03 K/mm3 (0.00-0.10); IMMATURE GRAN PERCENT AUTO 0 % (0-1); LYMPHOCYTES ABSOLUTE AUTO 0.88 K/mm3 (0.84-5.20); LYMPHOCYTES PERCENT AUTO 9 % (21-46); MONOCYTES ABSOLUTE AUTO 0.37 K/mm3 (0.16-1.47); MONOCYTES PERCENT AUTO 4 % (4-13); Mean Corpuscular HGB 28.4 pg (26.0-34.0); Mean Corpuscular HGB Conc 31.3 g/dL (31.5-36.5); Mean Corpuscular Volume 91 fL (80-100); Mean Platelet Volume 8.5 fL (9.1-12.4); NEUTROPHILS ABSOLUTE AUTO 8.12 K/mm3 (1.96-9.15); NEUTROPHILS PERCENT AUTO 86 % (41-73); Platelet Count 160 K/mm3 (150-400); RDW Coefficient Variation 16.7 % (11.7-14.2); RDW Standard Deviation 56.1 fL (35.1-46.3); Red Blood Cell Count 4.44 M/mm3 (4.30-5.90); White Blood Cell Count 9.45 K/mm3 (4.00-11.30)
[2019-09-01 05:29] LABS: Alanine Aminotransfer (ALT/SGP 22 U/L (12-78); Albumin, Blood 3.2 g/dL (3.4-5.0); Albumin/Globulin Ratio 0.7 (0.8-1.8); Alk Phos 91 U/L (50-136); Anion Gap 6 mmol/L (6-16); Aspartate Aminotrans (AST/SGOT 26 U/L (12-37); Bilirubin, Total 0.5 mg/dL (0.1-1.0); Blood Urea Nitrogen 17 mg/dL (8-24); Bun/Creatinine Ratio 15.7 (12.0-20.0); CO2, Blood 27 mmol/L (21-32); Calcium, Blood 8.4 mg/dL (8.5-10.1); Chloride, Blood 104 mmol/L (98-108); Creatinine, Blood 1.08 mg/dL (0.60-1.20); Globulin, Blood 4.4 g/dL (2.2-4.0); Glomerular Filtration Rate >60 (60-); Glucose, Blood 136 mg/dL (70-99); Potassium, Blood 4.6 mmol/L (3.5-5.5); Sodium, Blood 137 mmol/L (136-145); Total Protein, Blood 7.6 g/dL (6.4-8.2)
[2019-09-01] MEDS ORDERED: CIPR500 PO (13:26)
--- NOTE | 2019-09-01 16:28 | NUR ---
DISCHARGE NOTE- PT WAS GIVEN VERBAL AND WRITTEN DISCHARGE INSTRUCTIONS AND ACKNOWLEDGED UNDERSTANDING OF THEM. PT MEDS WERE FAXED TO HIS PHARMACY AND HE WILL RECIEVE A CALL FROM CARE MANAGEMENT WITH APPOINTMENT TIMES AND DATES. PT IV DC'D PRIOR TO DISCHARGE. PT PROVIDED HARD COPY SCRIPT FOR PAIN MEDICATION AND DECLINED TO TAKE IT. PT STATED HE IS ON A PAIN CONTRACT AND HIS PAIN MANAGEMENT DOCTOR WILL PROVIDE PAIN MEDICINE FOR HIM. HARD COPY SCRIPT RETAINED IN PT CHART, NOTIFIED.
== END 2019-09-01 15:25 | disposition home or self-care (01) ==
LOC: ER 22:46 → MEDS 22:47
PROVIDERS: Emergency Medicine; ADMIT Internal Medicine
DX: K57.32 Diverticulitis of large intestine without perforation or abscess without bleeding (principal); R30.0 Dysuria; J44.9 Chronic obstructive pulmonary disease, unspecified; K21.9 Gastro-esophageal reflux disease without esophagitis; L40.9 Psoriasis, unspecified; M19.90 Unspecified osteoarthritis, unspecified site; E11.9 Type 2 diabetes mellitus without complications; G89.29 Other chronic pain; Z86.73 Personal history of transient ischemic attack (TIA), and cerebral infarction without residual deficits; Z87.891 Personal history of nicotine dependence; Z86.711 Personal history of pulmonary embolism; Z86.718 Personal history of other venous thrombosis and embolism; Z79.01 Long term (current) use of anticoagulants; Z79.51 Long term (current) use of inhaled steroids; Z79.52 Long term (current) use of systemic steroids; Z79.4 Long term (current) use of insulin; Z79.899 Other long term (current) drug therapy; Z88.8 Allergy status to other drugs, medicaments and biological substances; Z88.5 Allergy status to narcotic agent; Z91.018 Allergy to other foods; Z99.81 Dependence on supplemental oxygen
CPT/HCPCS: 36415; 71046; 74176; 80053; 82947; 83690; 85025; 94640; 94760; 96365; 96366; 96367; 96375; 96376; 99285-25; A9270; A9270-GY; G0378; J0744; J1170; J1630; J2543; J3010; J7030

== ENCOUNTER 2019-09-11 10:50 | Inpatient (IN) | payer OTHER ==
[~2019-09-11] VITALS: Ht 182.9 cm; Wt 84.2 kg
[2019-09-11 11:30] LABS: BASOPHILS ABSOLUTE AUTO 0.05 K/mm3 (0.00-0.23); BASOPHILS PERCENT AUTO 0 % (0-2); EOSINOPHILS PERCENT AUTO 1 % (0-6); Hematocrit 43.8 % (37.0-53.0); Hemoglobin 13.8 g/dL (13.5-17.5); IMMATURE GRAN ABSOLUTE AUTO 0.07 K/mm3 (0.00-0.10); IMMATURE GRAN PERCENT AUTO 0 % (0-1); LYMPHOCYTES ABSOLUTE AUTO 3.36 K/mm3 (0.84-5.20); LYMPHOCYTES PERCENT AUTO 19 % (21-46); MONOCYTES ABSOLUTE AUTO 0.83 K/mm3 (0.16-1.47); MONOCYTES PERCENT AUTO 5 % (4-13); Mean Corpuscular HGB 28.8 pg (26.0-34.0); Mean Corpuscular HGB Conc 31.5 g/dL (31.5-36.5); Mean Corpuscular Volume 91 fL (80-100); Mean Platelet Volume 8.3 fL (9.1-12.4); NEUTROPHILS ABSOLUTE AUTO 13.39 K/mm3 (1.96-9.15); NEUTROPHILS PERCENT AUTO 75 % (41-73); Platelet Count 235 K/mm3 (150-400); RDW Coefficient Variation 15.9 % (11.7-14.2); RDW Standard Deviation 53.2 fL (35.1-46.3); Red Blood Cell Count 4.79 M/mm3 (4.30-5.90)
[2019-09-11 11:41] LABS: Alanine Aminotransfer (ALT/SGP 24 U/L (12-78); Albumin, Blood 3.5 g/dL (3.4-5.0); Albumin/Globulin Ratio 0.7 (0.8-1.8); Alk Phos 95 U/L (50-136); Anion Gap 4 mmol/L (6-16); Aspartate Aminotrans (AST/SGOT 19 U/L (12-37); Bilirubin, Total 0.2 mg/dL (0.1-1.0); Blood Urea Nitrogen 16 mg/dL (8-24); Bun/Creatinine Ratio 20.5 (12.0-20.0); CO2, Blood 28 mmol/L (21-32); Calcium, Blood 8.6 mg/dL (8.5-10.1); Chloride, Blood 106 mmol/L (98-108); Creatinine, Blood 0.78 mg/dL (0.60-1.20); Globulin, Blood 5.1 g/dL (2.2-4.0); Glomerular Filtration Rate >60 (60-); Glucose, Blood 139 mg/dL (70-99); Potassium, Blood 4.3 mmol/L (3.5-5.5); Sodium, Blood 138 mmol/L (136-145); Total Protein, Blood 8.6 g/dL (6.4-8.2)
[2019-09-11 13:46] LABS: International Normalized Ratio 1.05; Prothrombin Time Results 11.2 Sec (9.7-11.5)
[2019-09-11 14:11] LABS: PCO2 Arterial 48.2 mmHg (35-45); PO2 Arterial 63.3 mmHg (80-100); pH Blood Arterial 7.34 (7.35-7.45)
[2019-09-11 15:06] LABS: Adenovirus Not Detected (NOT DETECT); Bordetella pertussis Not Detected (NOT DETECT); Chlamydophila pneumoniae Not Detected (NOT DETECT); Coronavirus 229E Not Detected (NOT DETECT); Coronavirus HKU1 Not Detected (NOT DETECT); Coronavirus NL63 Not Detected (NOT DETECT); Coronavirus OC43 Not Detected (NOT DETECT); Human Metapneumovirus Not Detected (NOT DETECT); Human Rhinovirus/Enterovirus Not Detected (NOT DETECT); Influenza A/2009-H1 Not Detected (NOT DETECT); Influenza A/H1 Not Detected (NOT DETECT); Influenza A/H3 Not Detected (NOT DETECT); Influenza B Not Detected (NOT DETECT); Mycoplasma pneumoniae Not Detected (NOT DETECT); Parainfluenza Virus 1 Not Detected (NOT DETECT); Parainfluenza Virus 2 Not Detected (NOT DETECT); Parainfluenza Virus 3 Not Detected (NOT DETECT); Parainfluenza Virus 4 Not Detected (NOT DETECT); Respiratory Syncytial Virus Not Detected (NOT DETECT)
--- NOTE | 2019-09-11 16:15 | NUR ---
ASSUMED PATIENT CARE. PATIENT TRANSFERRED TO BED, VITAL SIGNS STABLE. PATIENT ORIENTED TO SELF, NOT ORIENTED TO SITUATION/PLACE/TIME. PATIENT CONFUSED BUT COOPERATIVE, WILL FOLLOW COMMANDS AND IS ABLE TO BE REDIRECTED BY NURSING STAFF. SCOUT.
[2019-09-11 16:32] LABS: Source, Urine Clean Catch
[2019-09-11 16:47] LABS: Bilirubin, Urine Neg (Neg); Blood, Urine Neg (Neg); Glucose Qualitative, Urine 2+ (Neg); Ketones, Urine Neg (Neg); Leukocyte Esterase, Urine Neg (Neg); Nitrite, Urine Neg (Neg); Protein, Urine Neg (Neg); Urobilinogen, Urine NORM (Normal)
[2019-09-11 16:52] LABS: Appearance, Urine Clear (Clear); Color, Urine Yellow (P-Yellow)
--- NOTE | 2019-09-11 18:19 | NUR ---
NO ACUTE EVENTS THIS HALF OF SHIFT. PATIENT ARRIVED TO UNIT FROM ED THIS EVENING, REMAINED CONFUSED THROUGH THIS SHIFT. PATIENT IS ABLE TO BE REDIRECTED AND IS COOPERATIVE. PATIENT ORIENTED TO SELF, NOT ORIENTED TO TIME/PLACE/SITUATION, UNABLE TO ANSWER HEALTH HISTORY AND SCREENING QUESTIONS AT THIS TIME.
--- NOTE | 2019-09-11 19:20 | NUR ---
RELINQUISHED PATIENT CARE.
--- NOTE | 2019-09-11 20:30 | NUR ---
UPDATE PATIENT COMPLAINING OF SEVER CHEST PAIN UPON SHIFT CHANGE. PATIENT YELLING OUT CONSTANTLY. PER DAY SHIFT THE YELLING OUT IS NOT NEW. NURSE PRACTIONER CESAR NOTIFIED, CESAR ASSESSED PATIENT'S CHART AND PLACED ORDERS. EKG DONE. MAALOX GIVEN. PATIENT CONTINUES TO CONSTANTLY YELL OUT AND IS CALLING HIS FREQUENTLY APPEARING TO BE VERY ANXIOUS. PATIENT APPEARS TO BE HAVING HALLUCENATIONS WELL. PATIENT YELLING OUT, "I'VE BEEN SHOT, I'VE BEEN SHOT. CAN'T YOU SEE I'M BLEEDING ALL OVER." NO BLOOD NOTED ON PATIENT.
--- NOTE | 2019-09-12 00:43 | NUR ---
UPDATE PATIENT CONTINUES TO BE VERY CONFUSED AND NOT EASILY REORIENTED AT THIS TIME. PATIENT UNABLE TO STATE HIS NAME, BIRTHDATE, OR LOCATION. PATIENT HAS APPEARED TO SETTLED DOWN SIGNFICANTLY AFTER ZYPREXA GIVEN PER ORDERS. PATIENT HAS BEEN YELLING OUT ONLY OCCATIONALLY NOW AND APPEARS TO BE SLEEPING WELL AT THIS TIME. WILL CONTINUE TO MONITOR PATIENT.
[2019-09-12 04:55] LABS: BASOPHILS ABSOLUTE AUTO 0.03 K/mm3 (0.00-0.23); BASOPHILS PERCENT AUTO 0 % (0-2); EOSINOPHILS PERCENT AUTO 0 % (0-6); Hemoglobin 12.4 g/dL (13.5-17.5); IMMATURE GRAN PERCENT AUTO 0 % (0-1); LYMPHOCYTES ABSOLUTE AUTO 1.52 K/mm3 (0.84-5.20); LYMPHOCYTES PERCENT AUTO 7 % (21-46); MONOCYTES ABSOLUTE AUTO 0.21 K/mm3 (0.16-1.47); MONOCYTES PERCENT AUTO 1 % (4-13); Mean Corpuscular HGB Conc 31.8 g/dL (31.5-36.5); Mean Corpuscular Volume 91 fL (80-100); Mean Platelet Volume 9.1 fL (9.1-12.4); NEUTROPHILS ABSOLUTE AUTO 20.37 K/mm3 (1.96-9.15); NEUTROPHILS PERCENT AUTO 92 % (41-73); Platelet Count 253 K/mm3 (150-400); RDW Coefficient Variation 16.4 % (11.7-14.2); Red Blood Cell Count 4.28 M/mm3 (4.30-5.90); White Blood Cell Count 22.23 K/mm3 (4.00-11.30)
[2019-09-12 05:18] LABS: Alanine Aminotransfer (ALT/SGP 23 U/L (12-78); Albumin/Globulin Ratio 0.7 (0.8-1.8); Alk Phos 79 U/L (50-136); Anion Gap 5 mmol/L (6-16); Aspartate Aminotrans (AST/SGOT 13 U/L (12-37); Bilirubin, Total 0.4 mg/dL (0.1-1.0); Blood Urea Nitrogen 17 mg/dL (8-24); Bun/Creatinine Ratio 22.6 (12.0-20.0); CO2, Blood 25 mmol/L (21-32); Calcium, Blood 8.7 mg/dL (8.5-10.1); Chloride, Blood 106 mmol/L (98-108); Creatinine, Blood 0.75 mg/dL (0.60-1.20); Globulin, Blood 4.4 g/dL (2.2-4.0); Glomerular Filtration Rate >60 (60-); Glucose, Blood 294 mg/dL (70-99); Potassium, Blood 4.8 mmol/L (3.5-5.5); Sodium, Blood 136 mmol/L (136-145); Total Protein, Blood 7.4 g/dL (6.4-8.2); Troponin I <0.015 ng/mL (0.000-0.040)
--- NOTE | 2019-09-12 05:19 | NUR ---
SHIFT SUMMARY PATIENT PLEASENT THROUGHOUT THE REST OF THE NIGHT AND HAS NOT BEEN YELLING OUT MUCH HE WAS AT THE BEGINNING OF THE SHIFT. PATIENT ONLY YELLING OUT OCCATIONALLY. PATIENT CONTINUES TO BE CONFUSED AND NOT EASILY REORIENTED, HOWEVER PATIENT APPEARS LESS ANXIOUS. PATEINT HAS APPEARED TO SLEEP VERY WELL THROUGHOUT THE SECOND HALF OF THE SHIFT. PATIENT APPEARS TO BE TURNNING SELF ABOUT IN BED. IV FLUIDS RUNNING PER ORDERS. WILL CONTINUE TO MONITOR PATIENT AND GIVE REPORT TO ONCOMING NR.
--- NOTE | 2019-09-12 08:44 | NUR ---
ASSUMED CARE - DAYSHIFT PATIENT LAYING IN BED - CONFUSED TO LOCATION AND SITUATION - PATIENT IS ABLE TO VERBALIZE HIS AND FULL NAME. VSS; PATIENT REMAINS ON 4 LPM NC WITH CONTINUOUS BIOX IN PLACE NO S/SX OF RESPIRTORY DISTRESS NOTED. CALL LIGHT W/I REACH; WILL CONTINUE TO MONITOR.
--- NOTE | 2019-09-12 15:11 | NUR ---
Patient is lying in bed and alert. Patient immediately shares about his medical issues, his family unit complications and his anatoliy. We talk about patient's fears concerning his health and family. I listen empathically, normalize patient's experience, reinforce helpful attitudes and practices and provide anxiety containment, companionship and prayer. Patient responds well and and shows signs of reduced stress. I will continue to remain available to patient and family.
--- NOTE | 2019-09-12 17:41 | NUR ---
PCU DAYSHIFT SUMMARY PATIENT ALERT AND ORIENTED TO SELF AND LOCATION - CONFUSED TO DATE AND SITUATION. PATIENT REPORTS ONGOING CHRONIC PAIN - DISTRACTIONS AND MEDICATIONS PER EMAR USED WITH RELIEF NOTED. PATIENT NOW MED NO TELE; VSS. PATIENT REMAINS ON 4 LPM NC WITH NO SOB NOTED; RESP E/U. CALL LIGHT W/I REACH AND BED ALARM ON FOR CONFUSION. PATIENT WORKED WITH PT/OT AND TOLERATED WELL WITH SBA TO BATHROOM. PATIENT ABLE TO FEED SELF AND SWALLOW PILLS WHOLE WITH WATER. WILL CONTINUE TO MONITOR AND GIVE REPORT TO NOC SHIFT RN.
--- NOTE | 2019-09-13 03:54 | NUR ---
HOME O2 USE PT TITRATED FROM 4L NC TO PT's HOME O2 USE OF 2L NC. PT TOLERATING WELL W/ SPO2 > 92%. WILL CONTINUE TO MONITOR AND PROVIDE CARE.
[2019-09-13 04:16] LABS: BASOPHILS ABSOLUTE AUTO 0.03 K/mm3 (0.00-0.23); BASOPHILS PERCENT AUTO 0 % (0-2); EOSINOPHILS PERCENT AUTO 0 % (0-6); Hematocrit 37.6 % (37.0-53.0); Hemoglobin 11.9 g/dL (13.5-17.5); IMMATURE GRAN ABSOLUTE AUTO 0.12 K/mm3 (0.00-0.10); IMMATURE GRAN PERCENT AUTO 1 % (0-1); LYMPHOCYTES ABSOLUTE AUTO 2.77 K/mm3 (0.84-5.20); LYMPHOCYTES PERCENT AUTO 13 % (21-46); MONOCYTES ABSOLUTE AUTO 1.15 K/mm3 (0.16-1.47); MONOCYTES PERCENT AUTO 6 % (4-13); Mean Corpuscular HGB 28.7 pg (26.0-34.0); Mean Corpuscular HGB Conc 31.6 g/dL (31.5-36.5); Mean Corpuscular Volume 91 fL (80-100); NEUTROPHILS ABSOLUTE AUTO 16.75 K/mm3 (1.96-9.15); NEUTROPHILS PERCENT AUTO 81 % (41-73); Platelet Count 270 K/mm3 (150-400); RDW Coefficient Variation 16.6 % (11.7-14.2); RDW Standard Deviation 55.8 fL (35.1-46.3); Red Blood Cell Count 4.14 M/mm3 (4.30-5.90); White Blood Cell Count 20.82 K/mm3 (4.00-11.30)
[2019-09-13 04:30] LABS: Albumin, Blood 2.9 g/dL (3.4-5.0); Anion Gap 6 mmol/L (6-16); Blood Urea Nitrogen 22 mg/dL (8-24); Bun/Creatinine Ratio 29.9 (12.0-20.0); CO2, Blood 27 mmol/L (21-32); Calcium, Blood 8.5 mg/dL (8.5-10.1); Chloride, Blood 106 mmol/L (98-108); Creatinine, Blood 0.74 mg/dL (0.60-1.20); Glomerular Filtration Rate >60 (60-); Glucose, Blood 209 mg/dL (70-99); Phosphorus, Blood 2.2 mg/dL (2.5-4.9); Potassium, Blood 4.3 mmol/L (3.5-5.5); Sodium, Blood 139 mmol/L (136-145)
--- NOTE | 2019-09-13 06:25 | NUR ---
SHIFT SUMMARY PT MEDICAL NO TELE STATUS. A&O TO SELF AND PLACE, DISORIENTED TO TIME. PLEASANT & COOPERATIVE, LAUGHING IN ROOM W/ STAFF. VSS. SPO2 > 92% ON 2L NC WHICH IS PT's REPORTED HOME O2 USE. PT DENIES SOB THIS SHIFT. REPORTS "CHEST" PAIN THAT PT REPORTS GOING ACROSS CHEST AND ABD. PT REPORTS TENDERNESS W/ PALPATION TO ABD. PT RATING PAIN 10/10 INITIALLY, THEN 8/10 AFTER MEDICATION PER EMAR/PT REQUEST. PT HOPEFUL TO BE GOING HOME TODAY, STATING HE MISSES HIS FAMILY. WILL CONTINUE TO MONITOR AND PROVIDE CARE UNTIL REPORT OFF TO DAY SHIFT RN.
--- NOTE | 2019-09-13 14:44 | NUR ---
Patient tells me he is feeling down today and that it has been "rough." He tells me that he is scared about the Coronavirus, he misses his family and he had a restless night. I conduct a life review and as soon as patient starts telling stories he becomes more and more loud and begins laughing at the crazy people and situations in his life. Patient actually encourages himself and states that he had a blast during our visit. I listen, provide comic relief and prayer. Patient responds well and shows signs of an elevated mood and reduced fear. I will continue to remain available to patient and family.
--- NOTE | 2019-09-13 17:02 | NUR ---
SHIFT SUMMARY NO ACUTE CHANGES THROUGHOUT SHIFT. VSS. PT ORIENTED TO PERSON & PLACE, DISORIENTED TO TIME & SITUATION. REMAINS ON OXYGEN VIA NC @ 2LPM, PULSE OX >92%. PT DENIED ANY C/O SOB, RESPIRATIONS EVEN & UNLABORED. PT MEDICATED FOR "CHEST" PAIN PER EMAR, DESCRIBES WORSE W/ INSPIRATION & MOVEMENT. PLAN FOR PT TO BE DISCHARGED TOMORROW LONG WBC COUNT CONTINUES TO TREND DOWN PER MD. REMAINS ON ISOLATION PRECAUTIONS FOR R/O COVID-19. WILL CONTINUE TO MONITOR UNTIL END OF SHIFT.
--- NOTE | 2019-09-13 18:34 | NUR ---
172: SPOKE W/ DR. DURBIN ON TELEPHONE TO NOTIFY HER OF CBG RESULT 411. PT ASYMPTOMATIC & STATES, "THERE'S NO WAY IT'S THAT HIGH I USUALLY FEEL IT." RECEIVED NEW TELEPHONE ORDER TO CHANGE INSULIN SLIDING SCALE FROM MEDIUM TO HIGH & CHANGE PO PREDNISONE FROM 60MG TO 4OMG DAILY. STATED TO HOLD PT'S DINNER FOR NOW, RECHECK CBG IN 1 HOUR, & NOTIFY HER OF RESULTS. 1833: NOTIFIED DR. DURBIN OF REPEAT CBG RESULT OF 292. STATES OKAY FOR PT TO HAVE A LIGHT DINNER. WILL CONTINUE TO MONITOR.
--- NOTE | 2019-09-13 21:02 | NUR ---
CARE ASSUMPTION PT MEDICAL NO TELE STATUS. A&O TO SELF, LOCATION, & FAMILY, FOLLOWING INSTRUCTIONS. PT UNINTERESTED IN AWARENESS OF DATE/TIME. VSS. SPO2 > 92% ON 2L NC WHICH IS PT's HOME BASELINE. PT EXPRESSING APPRECIATIVENESS OF HOSPITAL CARE, BUT STATES EAGERNESS TO DISCHARGE HOME. WILL CONTINUE TO MONITOR AND PROVIDE CARE.
[2019-09-14 03:56] LABS: BASOPHILS ABSOLUTE AUTO 0.02 K/mm3 (0.00-0.23); BASOPHILS PERCENT AUTO 0 % (0-2); EOSINOPHILS ABSOLUTE AUTO 0.01 K/mm3 (0.00-0.68); EOSINOPHILS PERCENT AUTO 0 % (0-6); Hematocrit 37.8 % (37.0-53.0); Hemoglobin 12.2 g/dL (13.5-17.5); IMMATURE GRAN ABSOLUTE AUTO 0.04 K/mm3 (0.00-0.10); IMMATURE GRAN PERCENT AUTO 0 % (0-1); LYMPHOCYTES ABSOLUTE AUTO 3.98 K/mm3 (0.84-5.20); LYMPHOCYTES PERCENT AUTO 30 % (21-46); MONOCYTES ABSOLUTE AUTO 0.85 K/mm3 (0.16-1.47); MONOCYTES PERCENT AUTO 6 % (4-13); Mean Corpuscular HGB 28.6 pg (26.0-34.0); Mean Corpuscular HGB Conc 32.3 g/dL (31.5-36.5); Mean Corpuscular Volume 89 fL (80-100); Mean Platelet Volume 8.5 fL (9.1-12.4); NEUTROPHILS ABSOLUTE AUTO 8.57 K/mm3 (1.96-9.15); NEUTROPHILS PERCENT AUTO 64 % (41-73); Platelet Count 268 K/mm3 (150-400); RDW Coefficient Variation 16.7 % (11.7-14.2); RDW Standard Deviation 54.4 fL (35.1-46.3); Red Blood Cell Count 4.26 M/mm3 (4.30-5.90); White Blood Cell Count 13.47 K/mm3 (4.00-11.30)
--- NOTE | 2019-09-14 05:39 | NUR ---
SHIFT SUMMARY PT CONTINUES TO BE MEDICAL NO TELE STATUS. A&O TO SELF, LOCATION, & FAMILY, FOLLOWING INSTRUCTIONS. NO EVENTS OR CHANGES THIS SHIFT. VSS. SPO2 > 92% ON 2L NC. PT EAGER TO GO HOME. WILL CONTINUE TO MONITOR AND PROVIDE CARE UNTIL REPORT OFF TO DAY SHIFT RN.
--- NOTE | 2019-09-14 08:42 | NUR ---
Report received from nightshift RN. No acute issues noted. No current complaints of pain or discomfort noted. Lung sounds are diminished in all lobes. Will continue to monitor for changes.
[2019-09-14] MEDS ORDERED: BUDE10.22 INH (10:30)
[2019-09-14] MEDS ORDERED: PROAIR DIGIHAL90 MCG INH (10:32)
[2019-09-14] MEDS ORDERED: AZIT500 PO (10:43)
[2019-09-14] MEDS ORDERED: GUAI600T33 PO (10:45)
[2019-09-14] MEDS ORDERED: Florastor250 MG PO (10:45)
[2019-09-14] MEDS ORDERED: CEPH500 PO (10:46)
[2019-09-14] MEDS ORDERED: Prednisone10 MG PO (10:48)
--- NOTE | 2019-09-14 11:55 | NUR ---
patient discharged home with . Patient educated to stay home in isolation until cleared by the health department. all iv lines discontinued.
== END 2019-09-14 11:51 | disposition home or self-care (01) | DRG 871 ==
LOC: ER 10:50 → PCU 15:22
PROVIDERS: Emergency Medicine; Family Medicine; Nurse Practitioner Acute Care; ADMIT Internal Medicine
DX: A41.9 Sepsis, unspecified organism (principal); J18.9 Pneumonia, unspecified organism; J96.21 Acute and chronic respiratory failure with hypoxia; G92 Toxic encephalopathy; J44.0 Chronic obstructive pulmonary disease with (acute) lower respiratory infection; J44.1 Chronic obstructive pulmonary disease with (acute) exacerbation; E11.65 Type 2 diabetes mellitus with hyperglycemia; K21.9 Gastro-esophageal reflux disease without esophagitis; L40.9 Psoriasis, unspecified; G47.00 Insomnia, unspecified; G89.29 Other chronic pain; Z86.718 Personal history of other venous thrombosis and embolism; Z86.73 Personal history of transient ischemic attack (TIA), and cerebral infarction without residual deficits; Z99.81 Dependence on supplemental oxygen; Z79.4 Long term (current) use of insulin; Z87.891 Personal history of nicotine dependence; Z79.01 Long term (current) use of anticoagulants
CPT/HCPCS: 0099U; 36415; 36600; 71045; 80053; 80069; 81003; 82803; 82947; 83605; 83735; 83880; 84145; 84484; 85025; 85610; 85730; 87040; 87449; 90686; 93005; 93010; 94640; 94664; 94762; 96361; 96365; 96366; 96375; 97110; 97116; 97162; 97166; 97530; 97535; 99285-25; A9270; A9270-GY; G0008; J0456; J0696; J2060; J2920; J7030; J7050; J7512; U0002

== ENCOUNTER 2019-09-17 10:19 | Emergency (ER) | payer OTHER ==
[~2019-09-17] VITALS: Ht 182.9 cm; Wt 85.3 kg
[~2019-09-17 10:19] MED LIST changes: +CEPH500 PO; +Florastor250 MG PO; +PROAIR DIGIHAL90 MCG INH; +Prednisone10 MG PO
[2019-09-17 10:55] LABS: BASOPHILS ABSOLUTE AUTO 0.05 K/mm3 (0.00-0.23); BASOPHILS PERCENT AUTO 0 % (0-2); EOSINOPHILS ABSOLUTE AUTO 0.19 K/mm3 (0.00-0.68); EOSINOPHILS PERCENT AUTO 2 % (0-6); Hematocrit 41.5 % (37.0-53.0); Hemoglobin 13.4 g/dL (13.5-17.5); IMMATURE GRAN ABSOLUTE AUTO 0.15 K/mm3 (0.00-0.10); IMMATURE GRAN PERCENT AUTO 1 % (0-1); LYMPHOCYTES ABSOLUTE AUTO 5.08 K/mm3 (0.84-5.20); LYMPHOCYTES PERCENT AUTO 39 % (21-46); MONOCYTES ABSOLUTE AUTO 0.84 K/mm3 (0.16-1.47); MONOCYTES PERCENT AUTO 7 % (4-13); Mean Corpuscular HGB 29.1 pg (26.0-34.0); Mean Corpuscular HGB Conc 32.3 g/dL (31.5-36.5); Mean Corpuscular Volume 90 fL (80-100); Mean Platelet Volume 8.4 fL (9.1-12.4); NEUTROPHILS ABSOLUTE AUTO 6.68 K/mm3 (1.96-9.15); NEUTROPHILS PERCENT AUTO 51 % (41-73); Platelet Count 299 K/mm3 (150-400); RDW Coefficient Variation 16.3 % (11.7-14.2); RDW Standard Deviation 54.2 fL (35.1-46.3); Red Blood Cell Count 4.61 M/mm3 (4.30-5.90); White Blood Cell Count 12.99 K/mm3 (4.00-11.30)
[2019-09-17 11:16] LABS: Alanine Aminotransfer (ALT/SGP 34 U/L (12-78); Albumin, Blood 3.1 g/dL (3.4-5.0); Albumin/Globulin Ratio 0.7 (0.8-1.8); Alk Phos 80 U/L (50-136); Anion Gap 8 mmol/L (6-16); Aspartate Aminotrans (AST/SGOT 15 U/L (12-37); Bilirubin, Total 0.2 mg/dL (0.1-1.0); Blood Urea Nitrogen 26 mg/dL (8-24); CO2, Blood 26 mmol/L (21-32); Calcium, Blood 8.5 mg/dL (8.5-10.1); Chloride, Blood 102 mmol/L (98-108); Creatinine, Blood 0.87 mg/dL (0.60-1.20); Globulin, Blood 4.4 g/dL (2.2-4.0); Glomerular Filtration Rate >60 (60-); Glucose, Blood 257 mg/dL (70-99); Potassium, Blood 4.3 mmol/L (3.5-5.5); Sodium, Blood 136 mmol/L (136-145); Total Protein, Blood 7.5 g/dL (6.4-8.2)
[2019-09-17 12:37] LABS: Source, Urine Voided
[2019-09-17 12:43] LABS: Bilirubin, Urine Neg (Neg); Blood, Urine Neg (Neg); Glucose Qualitative, Urine 3+ (Neg); Ketones, Urine Neg (Neg); Leukocyte Esterase, Urine Neg (Neg); Nitrite, Urine Neg (Neg); Protein, Urine Neg (Neg); Urobilinogen, Urine NORM (Normal)
[2019-09-17 12:48] LABS: Appearance, Urine Clear (Clear); Color, Urine Yellow (P-Yellow)
[2019-09-17] MEDS ORDERED: Flagyl500 MG PO (14:16)
[2019-09-17] MEDS ORDERED: Cipro500 MG PO (14:16)
[2019-09-17] MEDS ORDERED: Ultram50 MG PO (14:16)
== END 2019-09-17 14:52 | disposition home or self-care (01) ==
LOC: ER 10:19
PROVIDERS: Emergency Medicine
DX: K57.32 Diverticulitis of large intestine without perforation or abscess without bleeding (principal); K62.89 Other specified diseases of anus and rectum; J43.9 Emphysema, unspecified; K21.9 Gastro-esophageal reflux disease without esophagitis; R16.0 Hepatomegaly, not elsewhere classified; Z87.891 Personal history of nicotine dependence; Z88.5 Allergy status to narcotic agent; Z91.018 Allergy to other foods; Z88.8 Allergy status to other drugs, medicaments and biological substances; Z79.2 Long term (current) use of antibiotics; Z79.4 Long term (current) use of insulin; Z79.899 Other long term (current) drug therapy
CPT/HCPCS: 36415; 51798; 74176; 80053; 81003; 85025; 99284-25

== ENCOUNTER 2019-10-12 17:34 | Emergency (ER) | payer OTHER ==
[~2019-10-12] VITALS: Ht 182.9 cm; Wt 72.6 kg
[2019-10-12 19:00] LABS: BASOPHILS ABSOLUTE AUTO 0.04 K/mm3 (0.00-0.23); BASOPHILS PERCENT AUTO 1 % (0-2); EOSINOPHILS ABSOLUTE AUTO 0.27 K/mm3 (0.00-0.68); EOSINOPHILS PERCENT AUTO 4 % (0-6); Hematocrit 43.8 % (37.0-53.0); Hemoglobin 14.3 g/dL (13.5-17.5); IMMATURE GRAN ABSOLUTE AUTO 0.02 K/mm3 (0.00-0.10); IMMATURE GRAN PERCENT AUTO 0 % (0-1); LYMPHOCYTES ABSOLUTE AUTO 3.34 K/mm3 (0.84-5.20); LYMPHOCYTES PERCENT AUTO 47 % (21-46); MONOCYTES ABSOLUTE AUTO 0.78 K/mm3 (0.16-1.47); MONOCYTES PERCENT AUTO 11 % (4-13); Mean Corpuscular HGB 29.7 pg (26.0-34.0); Mean Corpuscular HGB Conc 32.6 g/dL (31.5-36.5); Mean Corpuscular Volume 91 fL (80-100); Mean Platelet Volume 8.6 fL (9.1-12.4); NEUTROPHILS ABSOLUTE AUTO 2.65 K/mm3 (1.96-9.15); NEUTROPHILS PERCENT AUTO 37 % (41-73); Platelet Count 210 K/mm3 (150-400); RDW Coefficient Variation 14.6 % (11.7-14.2); RDW Standard Deviation 48.8 fL (35.1-46.3); Red Blood Cell Count 4.82 M/mm3 (4.30-5.90)
[2019-10-12 19:18] LABS: Alanine Aminotransfer (ALT/SGP 42 U/L (12-78); Albumin, Blood 3.4 g/dL (3.4-5.0); Albumin/Globulin Ratio 0.8 (0.8-1.8); Alk Phos 114 U/L (50-136); Anion Gap 6 mmol/L (6-16); Aspartate Aminotrans (AST/SGOT 28 U/L (12-37); Bilirubin, Total 0.2 mg/dL (0.1-1.0); Blood Urea Nitrogen 19 mg/dL (8-24); CO2, Blood 27 mmol/L (21-32); Calcium, Blood 8.5 mg/dL (8.5-10.1); Chloride, Blood 103 mmol/L (98-108); Creatinine, Blood 0.86 mg/dL (0.60-1.20); Globulin, Blood 4.5 g/dL (2.2-4.0); Glomerular Filtration Rate >60 (60-); Glucose, Blood 201 mg/dL (70-99); Potassium, Blood 4.5 mmol/L (3.5-5.5); Sodium, Blood 136 mmol/L (136-145); Total Protein, Blood 7.9 g/dL (6.4-8.2); Troponin I <0.015 ng/mL (0.000-0.040)
[2019-10-12 20:27] LABS: Source, Urine Clean Catch
[2019-10-12 20:29] LABS: Bilirubin, Urine Neg (Neg); Blood, Urine Neg (Neg); Glucose Qualitative, Urine 3+ (Neg); Ketones, Urine 1+ (Neg); Leukocyte Esterase, Urine Neg (Neg); Nitrite, Urine Neg (Neg); Protein, Urine Neg (Neg); Specific Gravity, Urine 1.025 (1.003-1.022); Urobilinogen, Urine NORM (Normal)
[2019-10-12 20:40] LABS: Appearance, Urine Clear (Clear); Color, Urine Yellow (P-Yellow)
[2019-10-12] MEDS ORDERED: Flagyl500 MG PO (23:05)
[2019-10-12] MEDS ORDERED: Percocet 7.5-31 EACH PO (23:05)
[2019-10-12] MEDS ORDERED: Cipro500 MG PO (23:05)
[2019-10-14] MEDS ORDERED: TRAM50 PO (12:03)
[2019-10-14] MEDS ORDERED: XARELTO20 MG PO (12:03)
[2019-10-14] MEDS ORDERED: Florastor250 MG PO (12:03)
== END 2019-10-12 23:41 | disposition home or self-care (01) ==
LOC: ER 17:34
PROVIDERS: Physician Assistant
DX: K57.32 Diverticulitis of large intestine without perforation or abscess without bleeding (principal); K21.9 Gastro-esophageal reflux disease without esophagitis; J44.9 Chronic obstructive pulmonary disease, unspecified; Z91.02 Food additives allergy status; Z91.018 Allergy to other foods; Z88.8 Allergy status to other drugs, medicaments and biological substances; Z88.5 Allergy status to narcotic agent; Z79.899 Other long term (current) drug therapy; Z79.4 Long term (current) use of insulin; Z79.51 Long term (current) use of inhaled steroids; Z87.891 Personal history of nicotine dependence
CPT/HCPCS: 36415; 71045; 74177; 80053; 81003; 82947; 83605; 83690; 84484; 85025; 93005; 93010; 96365-59; 96375; 99285-25; A9270; J1170; J2405; J2543; J7030; Q9967

== ENCOUNTER 2019-10-26 19:24 | Emergency (ER) | payer OTHER ==
[~2019-10-26] VITALS: Ht 182.9 cm; Wt 77.6 kg
[~2019-10-26 19:24] MED LIST changes: +Percocet 7.5-31 EACH PO; +XARELTO20 MG PO
[2019-10-26 20:04] LABS: PCO2 Arterial 38.6 mmHg (35-45); PO2 Arterial 75.9 mmHg (80-100); pH Blood Arterial 7.42 (7.35-7.45)
== END 2019-10-26 22:50 | disposition home or self-care (01) ==
LOC: ER 19:24
PROVIDERS: Emergency Medicine
DX: R06.00 Dyspnea, unspecified (principal); K21.9 Gastro-esophageal reflux disease without esophagitis; J44.9 Chronic obstructive pulmonary disease, unspecified; E11.9 Type 2 diabetes mellitus without complications; Z91.02 Food additives allergy status; Z88.5 Allergy status to narcotic agent; Z88.8 Allergy status to other drugs, medicaments and biological substances; Z79.899 Other long term (current) drug therapy; Z79.4 Long term (current) use of insulin; Z79.51 Long term (current) use of inhaled steroids; Z87.891 Personal history of nicotine dependence
CPT/HCPCS: 36600; 71045; 82803; 93005; 93010; 99284-25

== ENCOUNTER 2019-11-16 16:37 | Emergency (ER) | payer OTHER ==
[~2019-11-16] VITALS: Ht 182.9 cm; Wt 77.1 kg
[2019-11-16 17:15] LABS: BASOPHILS ABSOLUTE AUTO 0.05 K/mm3 (0.00-0.23); BASOPHILS PERCENT AUTO 1 % (0-2); EOSINOPHILS ABSOLUTE AUTO 0.36 K/mm3 (0.00-0.68); EOSINOPHILS PERCENT AUTO 5 % (0-6); Hematocrit 42.6 % (37.0-53.0); Hemoglobin 14.1 g/dL (13.5-17.5); IMMATURE GRAN ABSOLUTE AUTO 0.02 K/mm3 (0.00-0.10); IMMATURE GRAN PERCENT AUTO 0 % (0-1); LYMPHOCYTES ABSOLUTE AUTO 3.41 K/mm3 (0.84-5.20); LYMPHOCYTES PERCENT AUTO 49 % (21-46); MONOCYTES ABSOLUTE AUTO 0.48 K/mm3 (0.16-1.47); MONOCYTES PERCENT AUTO 7 % (4-13); Mean Corpuscular HGB 30.5 pg (26.0-34.0); Mean Corpuscular HGB Conc 33.1 g/dL (31.5-36.5); Mean Corpuscular Volume 92 fL (80-100); Mean Platelet Volume 8.6 fL (9.1-12.4); NEUTROPHILS ABSOLUTE AUTO 2.64 K/mm3 (1.96-9.15); NEUTROPHILS PERCENT AUTO 38 % (41-73); Platelet Count 276 K/mm3 (150-400); RDW Coefficient Variation 13.4 % (11.7-14.2); RDW Standard Deviation 45.5 fL (35.1-46.3); Red Blood Cell Count 4.62 M/mm3 (4.30-5.90); White Blood Cell Count 6.96 K/mm3 (4.00-11.30)
[2019-11-16 17:44] LABS: Alanine Aminotransfer (ALT/SGP 43 U/L (12-78); Albumin, Blood 3.5 g/dL (3.4-5.0); Albumin/Globulin Ratio 0.8 (0.8-1.8); Alk Phos 98 U/L (50-136); Anion Gap 6 mmol/L (6-16); Aspartate Aminotrans (AST/SGOT 30 U/L (12-37); Bilirubin, Total 0.4 mg/dL (0.1-1.0); Blood Urea Nitrogen 21 mg/dL (8-24); Bun/Creatinine Ratio 22.9 (12.0-20.0); CO2, Blood 24 mmol/L (21-32); Calcium, Blood 8.6 mg/dL (8.5-10.1); Chloride, Blood 106 mmol/L (98-108); Creatinine, Blood 0.92 mg/dL (0.60-1.20); Globulin, Blood 4.4 g/dL (2.2-4.0); Glomerular Filtration Rate >60 (60-); Glucose, Blood 188 mg/dL (70-99); Potassium, Blood 4.4 mmol/L (3.5-5.5); Sodium, Blood 136 mmol/L (136-145); Total Protein, Blood 7.9 g/dL (6.4-8.2)
[2019-11-16] MEDS ORDERED: ONDA4ODT MM (19:14)
== END 2019-11-16 19:42 | disposition home or self-care (01) ==
LOC: ER 16:37
PROVIDERS: Emergency Medicine
DX: E86.0 Dehydration (principal); R11.2 Nausea with vomiting, unspecified; R19.7 Diarrhea, unspecified; J43.9 Emphysema, unspecified; K21.9 Gastro-esophageal reflux disease without esophagitis; R16.0 Hepatomegaly, not elsewhere classified; E11.9 Type 2 diabetes mellitus without complications; Z91.018 Allergy to other foods; Z88.5 Allergy status to narcotic agent; Z88.8 Allergy status to other drugs, medicaments and biological substances; Z79.4 Long term (current) use of insulin; Z79.899 Other long term (current) drug therapy; Z79.2 Long term (current) use of antibiotics; Z87.891 Personal history of nicotine dependence
CPT/HCPCS: 36415; 71046; 74177; 80053; 83690; 83880; 84145; 84484; 85025; 96374-59; 99284-25; A9270-GY; J3010; Q9967

== ENCOUNTER 2020-04-11 15:16 | Emergency (ER) | payer OTHER, MEDICARE ==
[~2020-04-11] VITALS: Ht 182.9 cm; Wt 72.6 kg
[2020-04-11] MEDS ORDERED: FERSU300 PO (15:29)
[2020-04-11] MEDS ORDERED: PROM25 PO (15:30)
[2020-04-11] MEDS ORDERED: FLUO10 PO (15:32)
[2020-04-11] MEDS ORDERED: ATOR20 PO (15:32)
[2020-04-11 15:54] LABS: BASOPHILS ABSOLUTE AUTO 0.05 K/mm3 (0.00-0.23); BASOPHILS PERCENT AUTO 1 % (0-2); EOSINOPHILS ABSOLUTE AUTO 0.35 K/mm3 (0.00-0.68); EOSINOPHILS PERCENT AUTO 5 % (0-6); Hematocrit 46.5 % (37.0-53.0); Hemoglobin 15.2 g/dL (13.5-17.5); IMMATURE GRAN ABSOLUTE AUTO 0.02 K/mm3 (0.00-0.10); IMMATURE GRAN PERCENT AUTO 0 % (0-1); LYMPHOCYTES PERCENT AUTO 45 % (21-46); MONOCYTES ABSOLUTE AUTO 0.54 K/mm3 (0.16-1.47); MONOCYTES PERCENT AUTO 7 % (4-13); Mean Corpuscular HGB Conc 32.7 g/dL (31.5-36.5); Mean Corpuscular Volume 92 fL (80-100); Mean Platelet Volume 8.6 fL (9.1-12.4); NEUTROPHILS ABSOLUTE AUTO 3.16 K/mm3 (1.96-9.15); NEUTROPHILS PERCENT AUTO 42 % (41-73); Platelet Count 207 K/mm3 (150-400); RDW Coefficient Variation 15.3 % (11.7-14.2); Red Blood Cell Count 5.06 M/mm3 (4.30-5.90); White Blood Cell Count 7.52 K/mm3 (4.00-11.30)
[2020-04-11 16:22] LABS: Alanine Aminotransfer (ALT/SGP 35 U/L (12-78); Albumin, Blood 3.8 g/dL (3.4-5.0); Albumin/Globulin Ratio 0.9 (0.8-1.8); Alk Phos 125 U/L (50-136); Anion Gap 5 mmol/L (6-16); Aspartate Aminotrans (AST/SGOT 24 U/L (12-37); Bilirubin, Total 0.5 mg/dL (0.1-1.0); Blood Urea Nitrogen 18 mg/dL (8-24); CO2, Blood 29 mmol/L (21-32); Calcium, Blood 9.1 mg/dL (8.5-10.1); Chloride, Blood 106 mmol/L (98-108); Globulin, Blood 4.2 g/dL (2.2-4.0); Glomerular Filtration Rate >60 (60-); Glucose, Blood 128 mg/dL (70-99); Potassium, Blood 4.4 mmol/L (3.5-5.5); Sodium, Blood 140 mmol/L (136-145)
[2020-04-11] MEDS ORDERED: ONDA4ODT SL (17:19)
== END 2020-04-11 17:34 | disposition home or self-care (01) ==
LOC: ER 15:16
PROVIDERS: Emergency Medicine
DX: R10.84 Generalized abdominal pain (principal); R07.9 Chest pain, unspecified; R11.2 Nausea with vomiting, unspecified; R19.5 Other fecal abnormalities; R06.02 Shortness of breath; K21.9 Gastro-esophageal reflux disease without esophagitis; J43.9 Emphysema, unspecified; E11.9 Type 2 diabetes mellitus without complications; Z91.018 Allergy to other foods; Z79.01 Long term (current) use of anticoagulants; Z88.5 Allergy status to narcotic agent; Z79.899 Other long term (current) drug therapy; Z79.51 Long term (current) use of inhaled steroids; Z86.718 Personal history of other venous thrombosis and embolism; Z86.73 Personal history of transient ischemic attack (TIA), and cerebral infarction without residual deficits; Z87.891 Personal history of nicotine dependence
CPT/HCPCS: 36415; 71045; 80053; 83690; 84484; 85025; 86850; 86900; 86901; 93005; 93010; 96374; 96375; 99284-25; J1200; J2405; J2765

== ENCOUNTER 2020-05-02 13:21 | Emergency (ER) | payer OTHER, MEDICARE ==
[~2020-05-02] VITALS: Ht 182.9 cm; Wt 79.4 kg
[~2020-05-02 13:21] MED LIST changes: -ENBREL50 MG/1 M1 SC; +ENBREL50 MG/1 M2 SC; +FLUO10 PO; +ONDA4ODT SL; +SYMBICORT 80-10.2 GM INH; +XARELTO10 M1 PO; -XARELTO20 MG PO
[2020-05-02 14:26] LABS: Source, Urine Catheter
[2020-05-02 14:40] LABS: BASOPHILS ABSOLUTE AUTO 0.03 K/mm3 (0.00-0.23); BASOPHILS PERCENT AUTO 0 % (0-2); EOSINOPHILS ABSOLUTE AUTO 0.11 K/mm3 (0.00-0.68); EOSINOPHILS PERCENT AUTO 1 % (0-6); Hematocrit 45.6 % (37.0-53.0); Hemoglobin 14.6 g/dL (13.5-17.5); IMMATURE GRAN ABSOLUTE AUTO 0.03 K/mm3 (0.00-0.10); IMMATURE GRAN PERCENT AUTO 0 % (0-1); LYMPHOCYTES ABSOLUTE AUTO 1.39 K/mm3 (0.84-5.20); LYMPHOCYTES PERCENT AUTO 16 % (21-46); MONOCYTES ABSOLUTE AUTO 0.58 K/mm3 (0.16-1.47); MONOCYTES PERCENT AUTO 7 % (4-13); Mean Corpuscular HGB 30.8 pg (26.0-34.0); Mean Corpuscular Volume 96 fL (80-100); Mean Platelet Volume 9.4 fL (9.1-12.4); NEUTROPHILS ABSOLUTE AUTO 6.31 K/mm3 (1.96-9.15); NEUTROPHILS PERCENT AUTO 75 % (41-73); Platelet Count 185 K/mm3 (150-400); RDW Coefficient Variation 15.8 % (11.7-14.2); RDW Standard Deviation 56.5 fL (35.1-46.3); Red Blood Cell Count 4.74 M/mm3 (4.30-5.90); White Blood Cell Count 8.45 K/mm3 (4.00-11.30)
[2020-05-02 15:08] LABS: Appearance, Urine Clear (Clear); Bilirubin, Urine Neg (Neg); Blood, Urine Neg (Neg); Color, Urine Yellow (P-Yellow); Glucose Qualitative, Urine Neg (Neg); Ketones, Urine Neg (Neg); Leukocyte Esterase, Urine Neg (Neg); Nitrite, Urine Neg (Neg); Protein, Urine Neg (Neg); Urobilinogen, Urine NORM (Normal)
[2020-05-02 15:18] LABS: Alanine Aminotransfer (ALT/SGP 23 U/L (12-78); Albumin, Blood 3.6 g/dL (3.4-5.0); Albumin/Globulin Ratio 0.9 (0.8-1.8); Alk Phos 117 U/L (50-136); Anion Gap 5 mmol/L (6-16); Aspartate Aminotrans (AST/SGOT 20 U/L (12-37); Bilirubin, Total 0.5 mg/dL (0.1-1.0); Blood Urea Nitrogen 22 mg/dL (8-24); CO2, Blood 28 mmol/L (21-32); Calcium, Blood 8.4 mg/dL (8.5-10.1); Chloride, Blood 103 mmol/L (98-108); Creatinine, Blood 0.96 mg/dL (0.60-1.20); Globulin, Blood 4.1 g/dL (2.2-4.0); Glomerular Filtration Rate >60 (60-); Glucose, Blood 126 mg/dL (70-99); Potassium, Blood 4.7 mmol/L (3.5-5.5); Sodium, Blood 136 mmol/L (136-145); Total Protein, Blood 7.7 g/dL (6.4-8.2)
[2020-05-02] MEDS ORDERED: AZIT250 PO (16:24)
[2020-05-03] MEDS ORDERED: IPRAT-ALBUT 0.5-3 ML NEB (15:06)
[2020-05-03] MEDS ORDERED: TRIDESILON60 GM TOP (15:11)
[2020-05-03] MEDS ORDERED: SPIRIVA RESPIMAT4 G3 INH (15:18)
[2020-05-03] MEDS ORDERED: IPRAT-ALBUT 0.5-3 ML INH (23:45)
[2020-05-03] MEDS ORDERED: AZIT250 PO (23:46)
== END 2020-05-02 17:35 | disposition home or self-care (01) ==
LOC: ER 13:21
PROVIDERS: Emergency Medicine
DX: R41.82 Altered mental status, unspecified (principal); J18.9 Pneumonia, unspecified organism; R53.1 Weakness; K21.9 Gastro-esophageal reflux disease without esophagitis; J43.9 Emphysema, unspecified; Z88.5 Allergy status to narcotic agent; Z91.018 Allergy to other foods; Z79.899 Other long term (current) drug therapy; Z79.4 Long term (current) use of insulin; Z79.51 Long term (current) use of inhaled steroids; Z79.01 Long term (current) use of anticoagulants; Z87.891 Personal history of nicotine dependence; Z86.73 Personal history of transient ischemic attack (TIA), and cerebral infarction without residual deficits
CPT/HCPCS: 36415; 71045; 80053; 81003; 82947; 85025; 93005; 93010; 96361; 96374; 99285-25; J2310; J7030

== ENCOUNTER 2020-05-03 07:36 | Inpatient (IN) | payer OTHER, MEDICARE ==
[~2020-05-03] VITALS: Ht 182.9 cm; Wt 75.0 kg
[2020-05-03 08:07] LABS: BASOPHILS ABSOLUTE AUTO 0.03 K/mm3 (0.00-0.23); BASOPHILS PERCENT AUTO 0 % (0-2); EOSINOPHILS ABSOLUTE AUTO 0.09 K/mm3 (0.00-0.68); EOSINOPHILS PERCENT AUTO 1 % (0-6); Hematocrit 41.9 % (37.0-53.0); Hemoglobin 13.6 g/dL (13.5-17.5); IMMATURE GRAN ABSOLUTE AUTO 0.02 K/mm3 (0.00-0.10); IMMATURE GRAN PERCENT AUTO 0 % (0-1); LYMPHOCYTES ABSOLUTE AUTO 1.48 K/mm3 (0.84-5.20); LYMPHOCYTES PERCENT AUTO 15 % (21-46); MONOCYTES PERCENT AUTO 6 % (4-13); Mean Corpuscular HGB Conc 32.5 g/dL (31.5-36.5); Mean Corpuscular Volume 95 fL (80-100); Mean Platelet Volume 8.8 fL (9.1-12.4); NEUTROPHILS ABSOLUTE AUTO 8.01 K/mm3 (1.96-9.15); NEUTROPHILS PERCENT AUTO 78 % (41-73); Platelet Count 167 K/mm3 (150-400); RDW Coefficient Variation 15.7 % (11.7-14.2); RDW Standard Deviation 55.4 fL (35.1-46.3); Red Blood Cell Count 4.39 M/mm3 (4.30-5.90); White Blood Cell Count 10.23 K/mm3 (4.00-11.30)
[2020-05-03 08:30] LABS: Alanine Aminotransfer (ALT/SGP 17 U/L (12-78); Albumin, Blood 3.3 g/dL (3.4-5.0); Albumin/Globulin Ratio 0.8 (0.8-1.8); Alk Phos 101 U/L (50-136); Anion Gap 4 mmol/L (6-16); Aspartate Aminotrans (AST/SGOT 18 U/L (12-37); Bilirubin, Total 0.8 mg/dL (0.1-1.0); Blood Urea Nitrogen 18 mg/dL (8-24); CO2, Blood 28 mmol/L (21-32); Calcium, Blood 8.5 mg/dL (8.5-10.1); Chloride, Blood 104 mmol/L (98-108); Creatinine, Blood 0.95 mg/dL (0.60-1.20); Globulin, Blood 4.2 g/dL (2.2-4.0); Glomerular Filtration Rate >60 (60-); Glucose, Blood 184 mg/dL (70-99); Sodium, Blood 136 mmol/L (136-145); Total Protein, Blood 7.5 g/dL (6.4-8.2); Troponin I <0.015 ng/mL (0.000-0.040)
[2020-05-03 09:01] LABS: Influenza A, PCR Negative (NEGATIVE); Influenza B, PCR Negative (NEGATIVE); Resp Syncytial Virus, PCR Negative (NEGATIVE); SARS-Cov-2 (COVID-19) PCR, MMC Negative (NEGATIVE)
[2020-05-03 11:02] LABS: PCO2 Arterial 47.8 mmHg (35-45); pH Blood Arterial 7.37 (7.35-7.45)
[2020-05-03] MEDS ORDERED: IPRAT-ALBUT 0.5-3 ML NEB (15:06)
[2020-05-03] MEDS ORDERED: TRIDESILON60 GM TOP (15:11)
[2020-05-03] MEDS ORDERED: SPIRIVA RESPIMAT4 G3 INH (15:18)
--- NOTE | 2020-05-03 16:28 | NUR ---
CALLED DR CONKLIN AND INFORMED OF VITAL SIGNS, GOING TO GIVE TYLENOL AND WCTM
--- NOTE | 2020-05-03 18:45 | NUR ---
SHIFT SUMMARY ARAM ARRIVED ON MEDICAL FLOOR FROM ER AROUND 230PM. VERY AGITATED, SOILED BRIEF, VERY CONFUSED, YELLING AND PULLING AT LINES, TAKING OFF HIS OXYGEN. NOT REDIRECTABLE, NOT FOLLOWING DIRECTIONS, CONTINAULLY TRYING TO GET OOB. CALLED DR CONKLIN, VEST RESTRAINT ORDERED AND APPLIED. CORPORATE RECRUITER ORDERED, SOME COUGHING NOTED WITH FOOD, WILL HOLD OFF ON DINNER UNTIL CORPORATE RECRUITER COMES IN THE MORNING. AO1 ON HIS FEET, ON 4 LITERS OXYGEN. HAD TEMP WHEN ARRIVED OF 101.5, TYLENOL GIVEN. DR CONKLIN INFORMED OF VS.
[2020-05-03] MEDS ORDERED: IPRAT-ALBUT 0.5-3 ML INH (23:45)
[2020-05-03] MEDS ORDERED: AZIT250 PO (23:46)
--- NOTE | 2020-05-04 04:58 | NUR ---
SPIKE MACHINE HEATER SUMMARY Patient slept well off and on waking and yelling he was going to leave. He would shake the rails and tried very hard to pull the restraints loose. Rubbing IV arm on bedsheets repeatedly. New gauze wrap in place, and 2nd bag NS running without difficulty. Admission assessment completed as well as could be with only patient as a reference. He is very confused and continues to dwell on "getting out of here" Lung sounds coarse. Upper airways somewhat clear with harsh, nonproductive cough
[2020-05-04 05:13] LABS: Hematocrit 38.9 % (37.0-53.0); Hemoglobin 12.4 g/dL (13.5-17.5); Mean Corpuscular HGB 31.1 pg (26.0-34.0); Mean Corpuscular HGB Conc 31.9 g/dL (31.5-36.5); Mean Corpuscular Volume 98 fL (80-100); Mean Platelet Volume 8.8 fL (9.1-12.4); Platelet Count 122 K/mm3 (150-400); RDW Coefficient Variation 16.2 % (11.7-14.2); RDW Standard Deviation 58.4 fL (35.1-46.3); Red Blood Cell Count 3.99 M/mm3 (4.30-5.90); White Blood Cell Count 5.45 K/mm3 (4.00-11.30)
[2020-05-04 05:35] LABS: Anion Gap 5 mmol/L (6-16); Blood Urea Nitrogen 20 mg/dL (8-24); Bun/Creatinine Ratio 18.2 (12.0-20.0); CO2, Blood 27 mmol/L (21-32); Calcium, Blood 7.9 mg/dL (8.5-10.1); Chloride, Blood 108 mmol/L (98-108); Glomerular Filtration Rate >60 (60-); Glucose, Blood 94 mg/dL (70-99); Potassium, Blood 4.1 mmol/L (3.5-5.5); Sodium, Blood 140 mmol/L (136-145)
[2020-05-04 05:37] LABS: BAND PERCENT MAN 14 % (0-8); BASOPHILS PERCENT MAN 0 % (0-2); EOSINOPHILS PERCENT MAN 0 % (0-6); LYMPHOCYTES ABSOLUTE MAN 0.43 K/mm3 (0.84-5.20); LYMPHOCYTES PERCENT MAN 8 % (21-46); MONOCYTES ABSOLUTE MAN 0.05 K/mm3 (0.16-1.47); MONOCYTES PERCENT MAN 1 % (4-13); NEUTROPHILS ABSOLUTE MAN 4.95 K/mm3 (1.96-9.15); SEG NEUTROPHILS PERCENT MAN 77 % (41-73); TOTAL CELLS COUNTED 100
--- NOTE | 2020-05-04 18:09 | NUR ---
SHIFT SUMMARY PATIENT MEDICATED X2 FOR PAIN THIS SHIFT, DENIES NAUSEA AND SHORTNESS OF BREATH. 3L/NC TO MAINTAIN OXYGEN SATURATION ABOVE 92%. WORKED WITH PT, UP SBA W/FWW TO BR. NAPPING MOST OF AFTERNOON. VISITED THIS EVENING.
[2020-05-05 05:18] LABS: BASOPHILS ABSOLUTE AUTO 0.03 K/mm3 (0.00-0.23); BASOPHILS PERCENT AUTO 1 % (0-2); EOSINOPHILS ABSOLUTE AUTO 0.48 K/mm3 (0.00-0.68); EOSINOPHILS PERCENT AUTO 10 % (0-6); Hematocrit 40.9 % (37.0-53.0); Hemoglobin 13.2 g/dL (13.5-17.5); IMMATURE GRAN ABSOLUTE AUTO 0.02 K/mm3 (0.00-0.10); IMMATURE GRAN PERCENT AUTO 0 % (0-1); LYMPHOCYTES ABSOLUTE AUTO 1.28 K/mm3 (0.84-5.20); LYMPHOCYTES PERCENT AUTO 25 % (21-46); MONOCYTES PERCENT AUTO 4 % (4-13); Mean Corpuscular HGB Conc 32.3 g/dL (31.5-36.5); Mean Corpuscular Volume 96 fL (80-100); Mean Platelet Volume 9.1 fL (9.1-12.4); NEUTROPHILS ABSOLUTE AUTO 3.03 K/mm3 (1.96-9.15); NEUTROPHILS PERCENT AUTO 60 % (41-73); Platelet Count 120 K/mm3 (150-400); RDW Coefficient Variation 15.9 % (11.7-14.2); RDW Standard Deviation 56.1 fL (35.1-46.3); Red Blood Cell Count 4.26 M/mm3 (4.30-5.90); White Blood Cell Count 5.04 K/mm3 (4.00-11.30)
[2020-05-05 05:36] LABS: Anion Gap 3 mmol/L (6-16); Blood Urea Nitrogen 16 mg/dL (8-24); Bun/Creatinine Ratio 19.9 (12.0-20.0); CO2, Blood 28 mmol/L (21-32); Calcium, Blood 7.9 mg/dL (8.5-10.1); Chloride, Blood 106 mmol/L (98-108); Creatinine, Blood 0.81 mg/dL (0.60-1.20); Glomerular Filtration Rate >60 (60-); Glucose, Blood 126 mg/dL (70-99); Potassium, Blood 4.1 mmol/L (3.5-5.5); Sodium, Blood 137 mmol/L (136-145)
--- NOTE | 2020-05-05 16:14 | NUR ---
SHIFT SUMMARY PATIENT MEDICATED X1 FOR COUGH AND X1 FOR PAIN THIS SHIFT. DENIES NAUSEA AND SHORTNESS OF BREATH. UP SBA W/FWW TO BATHROOM. EATING AND DRINKING WELL. HOME 02 EVAL ORDERED, POSSIBLE DISCHARGE TOMORROW.
[2020-05-06 05:00] LABS: BASOPHILS ABSOLUTE AUTO 0.04 K/mm3 (0.00-0.23); BASOPHILS PERCENT AUTO 1 % (0-2); EOSINOPHILS ABSOLUTE AUTO 0.38 K/mm3 (0.00-0.68); EOSINOPHILS PERCENT AUTO 8 % (0-6); Hematocrit 41.7 % (37.0-53.0); Hemoglobin 13.7 g/dL (13.5-17.5); IMMATURE GRAN ABSOLUTE AUTO 0.01 K/mm3 (0.00-0.10); IMMATURE GRAN PERCENT AUTO 0 % (0-1); LYMPHOCYTES ABSOLUTE AUTO 1.84 K/mm3 (0.84-5.20); LYMPHOCYTES PERCENT AUTO 39 % (21-46); MONOCYTES ABSOLUTE AUTO 0.39 K/mm3 (0.16-1.47); MONOCYTES PERCENT AUTO 8 % (4-13); Mean Corpuscular HGB 31.1 pg (26.0-34.0); Mean Corpuscular HGB Conc 32.9 g/dL (31.5-36.5); Mean Corpuscular Volume 95 fL (80-100); NEUTROPHILS PERCENT AUTO 44 % (41-73); Platelet Count 124 K/mm3 (150-400); RDW Coefficient Variation 15.4 % (11.7-14.2); RDW Standard Deviation 53.8 fL (35.1-46.3); White Blood Cell Count 4.76 K/mm3 (4.00-11.30)
--- NOTE | 2020-05-06 07:28 | NUR ---
BUSINESS PROCESS EXPERT SUMMARY Patient awake all night watching TV. Had episode of severe chest pain, Mid sternally located. Pain intensified with deep breathing. Patient has a history of PE's and is currently on xarelto. Patient even stated that this felt like his previous clots. Hospitalist was notified as patient appeared terrified. VSS. no change in lung sounds. Obtained order for EKG which turned out to be a Normal Sinus Rhythm which made patient feel better, and patient was able to relax, but still not sleep. Patient was upset about dose of Trazodone and stated he took three of them at home to sleep. It was explained to him that this is [facility], Patient then said he was actually taking two. supposed to
--- NOTE | 2020-05-06 17:59 | NUR ---
SHIFT SUMMARY PATIENT MEDICATED X1 FOR PAIN. DENIES NAUSEA AND SHORTNESS OF BREATH. MAINTAINING OXYGEN SATURATION ABOVE 92% ON ROOM AIR THIS AFTERNOON. WORKED W/PT AND OT. UP SBA W/FWW AND WALKED IN CASTRO. INTERMITTENTLY CONFUSED THIS AFTERNOON BUT EASILY REDIRECTED. EATING AND DRINKING WELL.
--- NOTE | 2020-05-07 05:51 | NUR ---
SHIFT SUMMARY NO ACUTE CHANGES THIS SHIFT. AOX2-UNAWARE DATE/PLACE, FORGETFUL & CONFUSED @TIMES. FOLLOWS DIRECTIONS. SLEPT SOUNDLY T/O NIGHT. VSS. DENIES N/V OR DYSPNEA. SPO2 >90% ON RA MOST OF SHIFT, THIS AM PT ASKED FOR O2, STATES HE USES IT PRN. ON 1L O2 PRN. LUNGS SOUND DIM c CRACKLES IN BASES, E/U BREATHING. REPORTED 8-9/10 PAIN IN BLE, MEDICATED 1X c PERCOCET. CALL LIGHT IN REACH.
--- NOTE | 2020-05-07 17:11 | NUR ---
Spiritual care visit conducted. 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 Patient talks about what the holidays mean to him and about his recent trip to [place]. I provide therapeutic listening, companionship and prayer. Patient responds well and shows signs of an elevated mood. I will continue to remain available to patient and family.
--- NOTE | 2020-05-07 18:59 | NUR ---
PT RESTING IN BED WITH ABT RUNNING. PT CALM AND COOPERATIVE, ALERT AND ORIENTED X4, MED COMPLIANT, ATE HIS MEALS, IS A 1 PERSON ASSIST AND IS AWAITING DC IN THE MORNING. STAFF WILL CONT TO MONITOR FOR CHANGES.
--- NOTE | 2020-05-07 23:45 | NUR ---
FAMILY COMMUNICATION *LATE ENTRY* THIS EVENING PT WAS ON SPEAKER PHONE c HIS MARIA DOLORES & SHE ASKED IF PT WAS RECIEIVING PROZAC. I INFORMED HER IT WAS HELD THIS AM, BUT YES IT WAS ON HIS EMAR & PT HAD RECIEVED IT THE DAY PRIOR. STATED PT GETS REALLY "CONFUSED" WHEN HE TAKES THAT MED & WE DO NOT GIVE IT TO HIM @HOME ANYMORE BECAUSE HE CAN'T THINK STRAIGHT ON IT. INFORMED I WOULD MAKE NOTE & DC OFF HOME MED LIST.
--- NOTE | 2020-05-08 05:26 | NUR ---
SHIFT SUMMARY NO ACUTE CHANGES THIS SHIFT. AOX3, FORGETFUL OF DATE. VSS. REPORTS 8/10 CHRONIC PAIN IN HANDS, MEDICATED 1X c TYLENOL, PT REPORTS MILD RELIEF. DENIES N/V, DYSPNEA. SPO2 >90% ON RA, USES 1L SUPPLEMENTAL O2 PRN. LUNGS SOUND DIM c CRACKLES IN BASES. PLAN TO DC KANU TODAY. CALL LIGHT IN REACH & PT ABLE TO MAKE NEEDS KNOWN. WCTM.
[2020-05-08] MEDS ORDERED: AZIT500 PO (10:00)
[2020-05-08] MEDS ORDERED: ACET325 PO (10:01)
[2020-05-08] MEDS ORDERED: CALCIUM CARBON500 M1 PO (10:02)
[2020-05-08] MEDS ORDERED: CHEST CONGESTI473 ML PO (10:04)
[2020-05-08] MEDS ORDERED: SULFAMETHOXAZO1 EAC1 PO (10:05)
[2020-05-08] MEDS ORDERED: MIRALAX17 GM PO (10:06)
[2020-05-08] MEDS ORDERED: LACT PO (10:07)
--- NOTE | 2020-05-08 14:30 | NUR ---
PATIENT DISCHARGED TO HOME, TO PICK HIM UP AFTER BEING NOTIFIED BY HEALTHCARE SPECIALIST. IV SALINE LOCK REMOVED WITHOUT INCIDENT. PT VERBALIZED UNDERSTANDING OF INSTRUCTIONS INCLUDING THE NEED TO FISCAL OFFICER PRESCRIPTIONS TODAY D/T ANTIBIOTICS. PATIENT OFF UNIT AT 1405 VIA W/C.
== END 2020-05-08 14:05 | disposition home or self-care (01) | DRG 177 ==
LOC: ER 07:36 → ERHOLD 07:37 → MEDS 14:27
PROVIDERS: Emergency Medicine; Family Medicine; ADMIT Internal Medicine
DX: J15.212 Pneumonia due to Methicillin resistant Staphylococcus aureus (principal); J96.21 Acute and chronic respiratory failure with hypoxia; J44.0 Chronic obstructive pulmonary disease with (acute) lower respiratory infection; G89.4 Chronic pain syndrome; Z20.828 Contact with and (suspected) exposure to other viral communicable diseases; E11.40 Type 2 diabetes mellitus with diabetic neuropathy, unspecified; K21.9 Gastro-esophageal reflux disease without esophagitis; L40.9 Psoriasis, unspecified; D50.9 Iron deficiency anemia, unspecified; F17.210 Nicotine dependence, cigarettes, uncomplicated; Z86.73 Personal history of transient ischemic attack (TIA), and cerebral infarction without residual deficits; Z86.718 Personal history of other venous thrombosis and embolism; Z99.81 Dependence on supplemental oxygen; Z79.01 Long term (current) use of anticoagulants; Z79.4 Long term (current) use of insulin
CPT/HCPCS: 0241U; 36415; 36600; 71045; 71250; 80048; 80053; 82803; 82947; 83605; 83880; 84145; 84484; 85025; 87040; 92610; 93005; 93010; 94640; 94760; 94761; 96365; 96366; 96367; 96368; 96375; 97116; 97162; 97165; 97530; 97535; 99285-25; A9270; G0378; J0456; J0696; J2543; J7030; J7050

== ENCOUNTER 2020-05-31 13:54 | Emergency (ER) | payer OTHER, MEDICARE ==
[~2020-05-31] VITALS: Ht 182.9 cm; Wt 70.8 kg
[~2020-05-31 13:54] MED LIST changes: +CALCIUM CARBON500 M1 PO; +CHEST CONGESTI473 ML PO; +IPRAT-ALBUT 0.5-3 ML INH; +IPRAT-ALBUT 0.5-3 ML NEB; +LACT PO; +SPIRIVA RESPIMAT4 G3 INH; +SULFAMETHOXAZO1 EAC1 PO
[2020-05-31 14:38] LABS: BASOPHILS ABSOLUTE AUTO 0.05 K/mm3 (0.00-0.23); BASOPHILS PERCENT AUTO 1 % (0-2); EOSINOPHILS ABSOLUTE AUTO 0.34 K/mm3 (0.00-0.68); EOSINOPHILS PERCENT AUTO 5 % (0-6); Hematocrit 42.4 % (37.0-53.0); IMMATURE GRAN ABSOLUTE AUTO 0.01 K/mm3 (0.00-0.10); IMMATURE GRAN PERCENT AUTO 0 % (0-1); LYMPHOCYTES ABSOLUTE AUTO 4.09 K/mm3 (0.84-5.20); LYMPHOCYTES PERCENT AUTO 58 % (21-46); MONOCYTES ABSOLUTE AUTO 0.55 K/mm3 (0.16-1.47); MONOCYTES PERCENT AUTO 8 % (4-13); Mean Corpuscular HGB 31.7 pg (26.0-34.0); Mean Corpuscular Volume 96 fL (80-100); Mean Platelet Volume 9.1 fL (9.1-12.4); NEUTROPHILS ABSOLUTE AUTO 1.97 K/mm3 (1.96-9.15); NEUTROPHILS PERCENT AUTO 28 % (41-73); Platelet Count 150 K/mm3 (150-400); RDW Coefficient Variation 13.2 % (11.7-14.2); RDW Standard Deviation 46.4 fL (35.1-46.3); Red Blood Cell Count 4.42 M/mm3 (4.30-5.90); White Blood Cell Count 7.01 K/mm3 (4.00-11.30)
[2020-05-31 15:00] LABS: Alanine Aminotransfer (ALT/SGP 39 U/L (12-78); Albumin, Blood 3.5 g/dL (3.4-5.0); Albumin/Globulin Ratio 0.8 (0.8-1.8); Alk Phos 113 U/L (50-136); Anion Gap 3 mmol/L (6-16); Aspartate Aminotrans (AST/SGOT 24 U/L (12-37); Bilirubin, Total 0.4 mg/dL (0.1-1.0); Blood Urea Nitrogen 23 mg/dL (8-24); Bun/Creatinine Ratio 26.1 (12.0-20.0); CO2, Blood 30 mmol/L (21-32); Calcium, Blood 8.4 mg/dL (8.5-10.1); Chloride, Blood 105 mmol/L (98-108); Creatinine, Blood 0.88 mg/dL (0.60-1.20); Globulin, Blood 4.2 g/dL (2.2-4.0); Glomerular Filtration Rate >60 (60-); Glucose, Blood 141 mg/dL (70-99); Potassium, Blood 4.4 mmol/L (3.5-5.5); Sodium, Blood 138 mmol/L (136-145); Total Protein, Blood 7.7 g/dL (6.4-8.2); Troponin I <0.015 ng/mL (0.000-0.040)
[2020-05-31 19:37] LABS: Influenza A, PCR Negative (NEGATIVE); Influenza B, PCR Negative (NEGATIVE); Resp Syncytial Virus, PCR Negative (NEGATIVE); SARS-Cov-2 (COVID-19) PCR, MMC Negative (NEGATIVE)
[2020-05-31] MEDS ORDERED: ALBU90OI INH (21:03)
[2020-06-09] MEDS ORDERED: DELTASONE20 MG (12:03)
== END 2020-05-31 21:26 | disposition home or self-care (01) ==
LOC: ER 13:54
PROVIDERS: Physician Assistant
DX: J40 Bronchitis, not specified as acute or chronic (principal); R07.9 Chest pain, unspecified; J44.9 Chronic obstructive pulmonary disease, unspecified; K21.9 Gastro-esophageal reflux disease without esophagitis; E11.40 Type 2 diabetes mellitus with diabetic neuropathy, unspecified; F32.9 Major depressive disorder, single episode, unspecified; F17.200 Nicotine dependence, unspecified, uncomplicated; Z20.828 Contact with and (suspected) exposure to other viral communicable diseases; Z91.018 Allergy to other foods; Z88.5 Allergy status to narcotic agent; Z88.8 Allergy status to other drugs, medicaments and biological substances; Z79.01 Long term (current) use of anticoagulants; Z79.51 Long term (current) use of inhaled steroids; Z79.899 Other long term (current) drug therapy; Z79.4 Long term (current) use of insulin; Z79.82 Long term (current) use of aspirin; Z86.718 Personal history of other venous thrombosis and embolism
CPT/HCPCS: 0241U; 36415; 71045; 80053; 84484; 85025; 93005; 93010; 94640; 99285-25

== ENCOUNTER 2020-07-01 13:48 | Emergency (ER) | payer OTHER, MEDICARE ==
[~2020-07-01] VITALS: Ht 182.9 cm; Wt 83.9 kg
[~2020-07-01 13:48] MED LIST changes: +DELTASONE20 MG
[2020-07-01 14:46] LABS: Hematocrit 41.9 % (37.0-53.0); Hemoglobin 13.9 g/dL (13.5-17.5); Mean Corpuscular HGB 32.9 pg (26.0-34.0); Mean Corpuscular HGB Conc 33.2 g/dL (31.5-36.5); Mean Corpuscular Volume 99 fL (80-100); Mean Platelet Volume 8.9 fL (9.1-12.4); Platelet Count 189 K/mm3 (150-400); RDW Coefficient Variation 12.6 % (11.7-14.2); RDW Standard Deviation 45.5 fL (35.1-46.3); Red Blood Cell Count 4.22 M/mm3 (4.30-5.90); White Blood Cell Count 9.59 K/mm3 (4.00-11.30)
[2020-07-01 15:12] LABS: Alanine Aminotransfer (ALT/SGP 33 U/L (12-78); Albumin, Blood 3.5 g/dL (3.4-5.0); Albumin/Globulin Ratio 0.9 (0.8-1.8); Alk Phos 113 U/L (50-136); Anion Gap 7 mmol/L (6-16); Aspartate Aminotrans (AST/SGOT 24 U/L (12-37); Bilirubin, Total 0.5 mg/dL (0.1-1.0); Blood Urea Nitrogen 17 mg/dL (8-24); Bun/Creatinine Ratio 23.8 (12.0-20.0); CO2, Blood 29 mmol/L (21-32); Calcium, Blood 8.2 mg/dL (8.5-10.1); Chloride, Blood 104 mmol/L (98-108); Creatinine, Blood 0.71 mg/dL (0.60-1.20); Glomerular Filtration Rate >60 (60-); Glucose, Blood 126 mg/dL (70-99); Sodium, Blood 140 mmol/L (136-145); Total Protein, Blood 7.5 g/dL (6.4-8.2)
[2020-07-01 15:18] LABS: BAND PERCENT MAN 3 % (0-8); BASOPHILS ABSOLUTE MAN 0.09 K/mm3 (0.00-0.23); BASOPHILS PERCENT MAN 1 % (0-2); EOSINOPHILS ABSOLUTE MAN 0.09 K/mm3 (0.00-0.68); EOSINOPHILS PERCENT MAN 1 % (0-6); LYMPHOCYTES ABSOLUTE MAN 3.16 K/mm3 (0.84-5.20); LYMPHOCYTES PERCENT MAN 33 % (21-46); METAMYELOCYTE ABSOLUTE MAN 0.09 K/mm3 (0.00-0.00); METAMYELOCYTE PERCENT MAN 1 % (0-0); MONOCYTES ABSOLUTE MAN 0.57 K/mm3 (0.16-1.47); MONOCYTES PERCENT MAN 6 % (4-13); NEUTROPHILS ABSOLUTE MAN 5.56 K/mm3 (1.96-9.15); SEG NEUTROPHILS PERCENT MAN 55 % (41-73); TOTAL CELLS COUNTED 100
== END 2020-07-01 17:59 | disposition home or self-care (01) ==
LOC: ER 13:48
PROVIDERS: Emergency Medicine
DX: R53.1 Weakness (principal); K21.9 Gastro-esophageal reflux disease without esophagitis; J43.9 Emphysema, unspecified; Z79.01 Long term (current) use of anticoagulants; Z79.52 Long term (current) use of systemic steroids; Z79.899 Other long term (current) drug therapy; Z88.5 Allergy status to narcotic agent; Z79.84 Long term (current) use of oral hypoglycemic drugs; Z91.018 Allergy to other foods; Z91.02 Food additives allergy status; Z87.891 Personal history of nicotine dependence
CPT/HCPCS: 36415; 71045; 80053; 85025; 99285-25; A9270

== ENCOUNTER 2020-10-01 19:36 | Emergency (ER) | payer OTHER, MEDICARE ==
[~2020-10-01] VITALS: Ht 188 cm; Wt 74.8 kg
[2020-10-01 19:58] LABS: BASOPHILS ABSOLUTE AUTO 0.07 K/mm3 (0.00-0.23); BASOPHILS PERCENT AUTO 1 % (0-2); EOSINOPHILS ABSOLUTE AUTO 0.29 K/mm3 (0.00-0.68); EOSINOPHILS PERCENT AUTO 3 % (0-6); Hematocrit 41.2 % (37.0-53.0); Hemoglobin 14.4 g/dL (13.5-17.5); IMMATURE GRAN ABSOLUTE AUTO 0.02 K/mm3 (0.00-0.10); IMMATURE GRAN PERCENT AUTO 0 % (0-1); LYMPHOCYTES PERCENT AUTO 36 % (21-46); MONOCYTES ABSOLUTE AUTO 0.63 K/mm3 (0.16-1.47); MONOCYTES PERCENT AUTO 7 % (4-13); Mean Corpuscular Volume 97 fL (80-100); NEUTROPHILS ABSOLUTE AUTO 4.72 K/mm3 (1.96-9.15); NEUTROPHILS PERCENT AUTO 53 % (41-73); Platelet Count 209 K/mm3 (150-400); RDW Coefficient Variation 11.9 % (11.7-14.2); RDW Standard Deviation 43.1 fL (35.1-46.3); Red Blood Cell Count 4.23 M/mm3 (4.30-5.90); White Blood Cell Count 8.93 K/mm3 (4.00-11.30)
[2020-10-01 20:18] LABS: Alanine Aminotransfer (ALT/SGP 49 U/L (12-78); Albumin, Blood 3.4 g/dL (3.4-5.0); Albumin/Globulin Ratio 0.8 (0.8-1.8); Alk Phos 91 U/L (50-136); Anion Gap 5 mmol/L (6-16); Aspartate Aminotrans (AST/SGOT 26 U/L (12-37); Bilirubin, Total 0.2 mg/dL (0.1-1.0); Blood Urea Nitrogen 16 mg/dL (8-24); Bun/Creatinine Ratio 20.6 (12.0-20.0); CO2, Blood 27 mmol/L (21-32); Calcium, Blood 8.3 mg/dL (8.5-10.1); Chloride, Blood 104 mmol/L (98-108); Creatinine, Blood 0.78 mg/dL (0.60-1.20); Glomerular Filtration Rate >60 (60-); Glucose, Blood 255 mg/dL (70-99); Potassium, Blood 4.2 mmol/L (3.5-5.5); Sodium, Blood 136 mmol/L (136-145); Total Protein, Blood 7.4 g/dL (6.4-8.2); Troponin I <0.015 ng/mL (0.000-0.040)
== END 2020-10-01 23:42 | disposition home or self-care (01) ==
LOC: ER 19:36
PROVIDERS: Emergency Medicine
DX: R07.1 Chest pain on breathing (principal); J44.9 Chronic obstructive pulmonary disease, unspecified; E11.40 Type 2 diabetes mellitus with diabetic neuropathy, unspecified; F17.200 Nicotine dependence, unspecified, uncomplicated; Z88.5 Allergy status to narcotic agent; Z79.899 Other long term (current) drug therapy
CPT/HCPCS: 71046; 71260; 80053; 83690; 84484; 85025; 93005; 93010; 96374; 99285-25; J3010; Q9967

== ENCOUNTER 2020-10-16 19:54 | Emergency (ER) | payer OTHER, MEDICARE ==
[~2020-10-16] VITALS: Ht 172.7 cm; Wt 88.5 kg
[2020-10-16 20:39] LABS: BASOPHILS ABSOLUTE AUTO 0.05 K/mm3 (0.00-0.23); BASOPHILS PERCENT AUTO 1 % (0-2); EOSINOPHILS ABSOLUTE AUTO 0.37 K/mm3 (0.00-0.68); EOSINOPHILS PERCENT AUTO 5 % (0-6); Hematocrit 42.6 % (37.0-53.0); Hemoglobin 14.7 g/dL (13.5-17.5); IMMATURE GRAN ABSOLUTE AUTO 0.01 K/mm3 (0.00-0.10); IMMATURE GRAN PERCENT AUTO 0 % (0-1); LYMPHOCYTES ABSOLUTE AUTO 3.16 K/mm3 (0.84-5.20); LYMPHOCYTES PERCENT AUTO 45 % (21-46); MONOCYTES ABSOLUTE AUTO 0.53 K/mm3 (0.16-1.47); MONOCYTES PERCENT AUTO 8 % (4-13); Mean Corpuscular HGB Conc 34.5 g/dL (31.5-36.5); Mean Corpuscular Volume 99 fL (80-100); Mean Platelet Volume 8.8 fL (9.1-12.4); NEUTROPHILS ABSOLUTE AUTO 2.86 K/mm3 (1.96-9.15); NEUTROPHILS PERCENT AUTO 41 % (41-73); Platelet Count 214 K/mm3 (150-400); RDW Standard Deviation 43.8 fL (35.1-46.3); Red Blood Cell Count 4.32 M/mm3 (4.30-5.90); White Blood Cell Count 6.98 K/mm3 (4.00-11.30)
[2020-10-16 20:58] LABS: Troponin I <0.015 ng/mL (0.000-0.040)
[2020-10-16 20:59] LABS: Alanine Aminotransfer (ALT/SGP 43 U/L (12-78); Albumin, Blood 3.7 g/dL (3.4-5.0); Albumin/Globulin Ratio 0.9 (0.8-1.8); Alk Phos 98 U/L (50-136); Anion Gap 4 mmol/L (6-16); Aspartate Aminotrans (AST/SGOT 26 U/L (12-37); Bilirubin, Total 0.2 mg/dL (0.1-1.0); Blood Urea Nitrogen 22 mg/dL (8-24); Bun/Creatinine Ratio 26.6 (12.0-20.0); CO2, Blood 28 mmol/L (21-32); Chloride, Blood 104 mmol/L (98-108); Creatinine, Blood 0.83 mg/dL (0.60-1.20); Globulin, Blood 4.1 g/dL (2.2-4.0); Glomerular Filtration Rate >60 (60-); Glucose, Blood 278 mg/dL (70-99); Potassium, Blood 4.5 mmol/L (3.5-5.5); Sodium, Blood 136 mmol/L (136-145); Total Protein, Blood 7.8 g/dL (6.4-8.2)
== END 2020-10-17 02:10 | disposition home or self-care (01) ==
LOC: ER 19:54
PROVIDERS: Physician Assistant
DX: R10.9 Unspecified abdominal pain (principal); R11.0 Nausea; R53.1 Weakness; R30.0 Dysuria; J44.9 Chronic obstructive pulmonary disease, unspecified; K21.9 Gastro-esophageal reflux disease without esophagitis; E11.40 Type 2 diabetes mellitus with diabetic neuropathy, unspecified; F17.200 Nicotine dependence, unspecified, uncomplicated; Z79.01 Long term (current) use of anticoagulants; Z79.84 Long term (current) use of oral hypoglycemic drugs; Z88.5 Allergy status to narcotic agent; Z79.899 Other long term (current) drug therapy; Z86.73 Personal history of transient ischemic attack (TIA), and cerebral infarction without residual deficits
CPT/HCPCS: 36415; 71045; 71275; 74174; 74176; 80053; 83605; 83690; 84484; 85025; 93005; 93010; 96374-59; 96375-59; 99284-25; J2270; J3010; Q9967

== ENCOUNTER 2020-11-08 20:59 | Emergency (ER) | payer OTHER ==
[~2020-11-08] VITALS: Ht 182.9 cm; Wt 77.1 kg
[2020-11-08] MEDS ORDERED: PROM25 PO (21:18)
[2020-11-08] MEDS ORDERED: BASAGLAR K100 UNIT/3 SC (21:25)
[2020-11-08 21:45] LABS: BASOPHILS ABSOLUTE AUTO 0.06 K/mm3 (0.00-0.23); BASOPHILS PERCENT AUTO 1 % (0-2); EOSINOPHILS ABSOLUTE AUTO 0.35 K/mm3 (0.00-0.68); EOSINOPHILS PERCENT AUTO 4 % (0-6); Hematocrit 43.9 % (37.0-53.0); Hemoglobin 15.3 g/dL (13.5-17.5); IMMATURE GRAN ABSOLUTE AUTO 0.03 K/mm3 (0.00-0.10); IMMATURE GRAN PERCENT AUTO 0 % (0-1); LYMPHOCYTES ABSOLUTE AUTO 4.39 K/mm3 (0.84-5.20); LYMPHOCYTES PERCENT AUTO 48 % (21-46); MONOCYTES ABSOLUTE AUTO 0.67 K/mm3 (0.16-1.47); MONOCYTES PERCENT AUTO 7 % (4-13); Mean Corpuscular HGB Conc 34.9 g/dL (31.5-36.5); Mean Corpuscular Volume 98 fL (80-100); NEUTROPHILS ABSOLUTE AUTO 3.65 K/mm3 (1.96-9.15); NEUTROPHILS PERCENT AUTO 40 % (41-73); Platelet Count 230 K/mm3 (150-400); RDW Coefficient Variation 12.1 % (11.7-14.2); RDW Standard Deviation 43.6 fL (35.1-46.3); White Blood Cell Count 9.15 K/mm3 (4.00-11.30)
[2020-11-08 21:56] LABS: Alanine Aminotransfer (ALT/SGP 47 U/L (12-78); Albumin, Blood 3.4 g/dL (3.4-5.0); Albumin/Globulin Ratio 0.8 (0.8-1.8); Alk Phos 103 U/L (50-136); Anion Gap 5 mmol/L (6-16); Aspartate Aminotrans (AST/SGOT 28 U/L (12-37); Bilirubin, Total 0.2 mg/dL (0.1-1.0); Blood Urea Nitrogen 21 mg/dL (8-24); Bun/Creatinine Ratio 25.5 (12.0-20.0); CO2, Blood 28 mmol/L (21-32); Calcium, Blood 8.6 mg/dL (8.5-10.1); Chloride, Blood 101 mmol/L (98-108); Creatinine, Blood 0.83 mg/dL (0.60-1.20); Globulin, Blood 4.2 g/dL (2.2-4.0); Glomerular Filtration Rate >60 (60-); Glucose, Blood 335 mg/dL (70-99); Potassium, Blood 4.9 mmol/L (3.5-5.5); Sodium, Blood 134 mmol/L (136-145); Total Protein, Blood 7.6 g/dL (6.4-8.2)
[2020-11-08 22:37] LABS: Troponin I <0.015 ng/mL (0.000-0.040)
== END 2020-11-08 23:35 | disposition home or self-care (01) ==
LOC: ER 20:59
PROVIDERS: Student in an Organized Health Care Education/Training Program
DX: R10.9 Unspecified abdominal pain (principal); K21.9 Gastro-esophageal reflux disease without esophagitis; J44.9 Chronic obstructive pulmonary disease, unspecified; Z91.018 Allergy to other foods; Z91.02 Food additives allergy status; Z88.8 Allergy status to other drugs, medicaments and biological substances
CPT/HCPCS: 36415; 74018; 80053; 83605; 83690; 84484; 85025; 93005; 93010; 96374; 99284-25; J3010

== ENCOUNTER 2020-11-23 14:02 | Emergency (ER) | payer OTHER ==
[~2020-11-23] VITALS: Ht 170.2 cm; Wt 149.0 kg
[~2020-11-23 14:02] MED LIST changes: +BASAGLAR K100 UNIT/3 SC
[2020-11-23 14:30] LABS: BASOPHILS ABSOLUTE AUTO 0.07 K/mm3 (0.00-0.23); BASOPHILS PERCENT AUTO 1 % (0-2); EOSINOPHILS ABSOLUTE AUTO 0.37 K/mm3 (0.00-0.68); EOSINOPHILS PERCENT AUTO 4 % (0-6); Hematocrit 47.4 % (37.0-53.0); Hemoglobin 16.3 g/dL (13.5-17.5); IMMATURE GRAN ABSOLUTE AUTO 0.03 K/mm3 (0.00-0.10); IMMATURE GRAN PERCENT AUTO 0 % (0-1); LYMPHOCYTES ABSOLUTE AUTO 4.24 K/mm3 (0.84-5.20); LYMPHOCYTES PERCENT AUTO 48 % (21-46); MONOCYTES ABSOLUTE AUTO 0.64 K/mm3 (0.16-1.47); MONOCYTES PERCENT AUTO 7 % (4-13); Mean Corpuscular HGB 33.3 pg (26.0-34.0); Mean Corpuscular HGB Conc 34.4 g/dL (31.5-36.5); Mean Corpuscular Volume 97 fL (80-100); Mean Platelet Volume 9.1 fL (9.1-12.4); NEUTROPHILS ABSOLUTE AUTO 3.44 K/mm3 (1.96-9.15); NEUTROPHILS PERCENT AUTO 39 % (41-73); Platelet Count 212 K/mm3 (150-400); RDW Coefficient Variation 11.8 % (11.7-14.2); RDW Standard Deviation 42.1 fL (35.1-46.3); White Blood Cell Count 8.79 K/mm3 (4.00-11.30)
[2020-11-23 14:47] LABS: Alanine Aminotransfer (ALT/SGP 50 U/L (12-78); Albumin, Blood 3.6 g/dL (3.4-5.0); Albumin/Globulin Ratio 0.8 (0.8-1.8); Alk Phos 103 U/L (50-136); Anion Gap 5 mmol/L (6-16); Aspartate Aminotrans (AST/SGOT 25 U/L (12-37); Bilirubin, Total 0.3 mg/dL (0.1-1.0); Blood Urea Nitrogen 20 mg/dL (8-24); Bun/Creatinine Ratio 21.6 (12.0-20.0); CO2, Blood 28 mmol/L (21-32); Calcium, Blood 8.7 mg/dL (8.5-10.1); Chloride, Blood 102 mmol/L (98-108); Creatinine, Blood 0.93 mg/dL (0.60-1.20); Globulin, Blood 4.5 g/dL (2.2-4.0); Glomerular Filtration Rate >60 (60-); Glucose, Blood 477 mg/dL (70-99); Magnesium, Blood 2.1 mg/dL (1.6-2.4); Potassium, Blood 4.4 mmol/L (3.5-5.5); Sodium, Blood 135 mmol/L (136-145); Total Protein, Blood 8.1 g/dL (6.4-8.2); Troponin I <0.015 ng/mL (0.000-0.040)
== END 2020-11-23 17:21 | disposition home or self-care (01) ==
LOC: ER 14:02
PROVIDERS: Emergency Medicine
DX: J44.1 Chronic obstructive pulmonary disease with (acute) exacerbation (principal); R73.9 Hyperglycemia, unspecified; K21.9 Gastro-esophageal reflux disease without esophagitis; F17.200 Nicotine dependence, unspecified, uncomplicated; Z79.899 Other long term (current) drug therapy
CPT/HCPCS: 71045; 80053; 82947; 83735; 83880; 84145; 84484; 85025; 93005; 93010; 94644; 99285-25; J1815; J7120

== ENCOUNTER 2020-12-10 13:26 | Observation (INO) | payer OTHER ==
[~2020-12-10] VITALS: Ht 182.9 cm; Wt 78.4 kg
[2020-12-10 13:57] LABS: BASOPHILS ABSOLUTE AUTO 0.05 K/mm3 (0.00-0.23); BASOPHILS PERCENT AUTO 1 % (0-2); EOSINOPHILS PERCENT AUTO 4 % (0-6); Hematocrit 43.3 % (37.0-53.0); IMMATURE GRAN ABSOLUTE AUTO 0.01 K/mm3 (0.00-0.10); IMMATURE GRAN PERCENT AUTO 0 % (0-1); LYMPHOCYTES ABSOLUTE AUTO 3.13 K/mm3 (0.84-5.20); LYMPHOCYTES PERCENT AUTO 40 % (21-46); MONOCYTES ABSOLUTE AUTO 0.66 K/mm3 (0.16-1.47); MONOCYTES PERCENT AUTO 8 % (4-13); Mean Corpuscular HGB 33.9 pg (26.0-34.0); Mean Corpuscular HGB Conc 34.6 g/dL (31.5-36.5); Mean Corpuscular Volume 98 fL (80-100); Mean Platelet Volume 8.8 fL (9.1-12.4); NEUTROPHILS ABSOLUTE AUTO 3.72 K/mm3 (1.96-9.15); NEUTROPHILS PERCENT AUTO 47 % (41-73); Platelet Count 189 K/mm3 (150-400); RDW Coefficient Variation 11.7 % (11.7-14.2); RDW Standard Deviation 42.5 fL (35.1-46.3); Red Blood Cell Count 4.43 M/mm3 (4.30-5.90); White Blood Cell Count 7.87 K/mm3 (4.00-11.30)
[2020-12-10 14:15] LABS: Alanine Aminotransfer (ALT/SGP 41 U/L (12-78); Albumin, Blood 3.4 g/dL (3.4-5.0); Albumin/Globulin Ratio 0.9 (0.8-1.8); Alk Phos 101 U/L (50-136); Anion Gap 4 mmol/L (6-16); Aspartate Aminotrans (AST/SGOT 18 U/L (12-37); Bilirubin, Total 0.4 mg/dL (0.1-1.0); Blood Urea Nitrogen 20 mg/dL (8-24); Bun/Creatinine Ratio 24.6 (12.0-20.0); CO2, Blood 28 mmol/L (21-32); Calcium, Blood 8.2 mg/dL (8.5-10.1); Chloride, Blood 105 mmol/L (98-108); Creatinine, Blood 0.81 mg/dL (0.60-1.20); Globulin, Blood 3.9 g/dL (2.2-4.0); Glomerular Filtration Rate >60 (60-); Glucose, Blood 243 mg/dL (70-99); Potassium, Blood 4.3 mmol/L (3.5-5.5); Sodium, Blood 137 mmol/L (136-145); Total Protein, Blood 7.3 g/dL (6.4-8.2); Troponin I <0.015 ng/mL (0.000-0.040)
[2020-12-10] MEDS ORDERED: OXYCODONE-ACET1 EAC2 PO (17:59)
[2020-12-10] MEDS ORDERED: GABA300 PO (18:14)
[2020-12-10] MEDS ORDERED: GUAI600T33 PO (18:17)
--- NOTE | 2020-12-11 03:56 | NUR ---
SHIFT SUMMARY PT ER ADMIT THIS SHIFT FOR CHEST PAIN. PT HAS HAD CHEST PAIN SINCE ARRIVING TO THE FLOOR HE STATES 0 (0-10) SCALE. PT REPORTS THAT THE PAIN IS IN HIS LEFT CHEST. CARDIAC WORK UP IS NEGATIVE WITH NO ACUTE FINDINGS. BP AND HR STABLE. IT WAS FOUND THAT PT DOES HAVE PLEURAL EFFUSION. PT MEDICATED FOR PAIN PRN PER EMAR. IVF INFUSING ORDERED. PT IS A/OX4 BUT IS FORGETFUL AND HIGHLY ANXIOUS. PT WILL YELL OUT "HELP, "HELP", INSTEAD OF USING HIS CALL LIGHT. PT SBA TO THE BATHROOM. ADMISSION COMPLETE. BED IN LOWEST POSITION, CALL LIGHT WITHIN REACH.
[2020-12-11 05:47] LABS: BASOPHILS ABSOLUTE AUTO 0.05 K/mm3 (0.00-0.23); BASOPHILS PERCENT AUTO 1 % (0-2); EOSINOPHILS ABSOLUTE AUTO 0.28 K/mm3 (0.00-0.68); EOSINOPHILS PERCENT AUTO 4 % (0-6); Hematocrit 37.9 % (37.0-53.0); Hemoglobin 13.3 g/dL (13.5-17.5); IMMATURE GRAN ABSOLUTE AUTO 0.01 K/mm3 (0.00-0.10); IMMATURE GRAN PERCENT AUTO 0 % (0-1); LYMPHOCYTES ABSOLUTE AUTO 3.29 K/mm3 (0.84-5.20); LYMPHOCYTES PERCENT AUTO 51 % (21-46); MONOCYTES ABSOLUTE AUTO 0.54 K/mm3 (0.16-1.47); MONOCYTES PERCENT AUTO 8 % (4-13); Mean Corpuscular HGB 34.2 pg (26.0-34.0); Mean Corpuscular HGB Conc 35.1 g/dL (31.5-36.5); Mean Corpuscular Volume 97 fL (80-100); Mean Platelet Volume 9.1 fL (9.1-12.4); NEUTROPHILS ABSOLUTE AUTO 2.32 K/mm3 (1.96-9.15); NEUTROPHILS PERCENT AUTO 36 % (41-73); Platelet Count 151 K/mm3 (150-400); RDW Coefficient Variation 11.9 % (11.7-14.2); RDW Standard Deviation 42.3 fL (35.1-46.3); Red Blood Cell Count 3.89 M/mm3 (4.30-5.90); White Blood Cell Count 6.49 K/mm3 (4.00-11.30)
[2020-12-11 06:25] LABS: Alanine Aminotransfer (ALT/SGP 33 U/L (12-78); Albumin, Blood 2.9 g/dL (3.4-5.0); Albumin/Globulin Ratio 0.9 (0.8-1.8); Alk Phos 90 U/L (50-136); Anion Gap 4 mmol/L (6-16); Aspartate Aminotrans (AST/SGOT 15 U/L (12-37); Bilirubin, Total 0.3 mg/dL (0.1-1.0); Blood Urea Nitrogen 28 mg/dL (8-24); Bun/Creatinine Ratio 35.6 (12.0-20.0); CO2, Blood 28 mmol/L (21-32); Calcium, Blood 7.8 mg/dL (8.5-10.1); Chloride, Blood 103 mmol/L (98-108); Creatinine, Blood 0.79 mg/dL (0.60-1.20); Globulin, Blood 3.3 g/dL (2.2-4.0); Glomerular Filtration Rate >60 (60-); Glucose, Blood 302 mg/dL (70-99); Potassium, Blood 4.2 mmol/L (3.5-5.5); Sodium, Blood 135 mmol/L (136-145); Total Protein, Blood 6.2 g/dL (6.4-8.2)
--- NOTE | 2020-12-11 15:54 | NUR ---
Patient is sitting up in bed and alert. Patient tells me about the events that led to his hospitalization and his fears going forward. He talks about his family, his experiences in [place] and the tough times that he has endured in life. I normalize his experience and provide anxiety containment, companionship and prayer. Patient responds well and shows signs of reduced stress. I will continue to remain available to patient and family.
--- NOTE | 2020-12-11 18:27 | NUR ---
SHIFT SUMMARY PT HAD STRESS TEST TODAY AND WAITING FOR RESULTS. MEDICATED FOR PAIN SEVERAL TIMES THIS SHIFT PER EMAR. PT HAS HAD A GOOD APPETITE. PT HAS HAD NO ACUTE CHANGES THIS SHIFT. WILL CONTINUE TO MONITOR AND REPORT TO ONCOMING RN. CALL LIGHT IN REACH.
--- NOTE | 2020-12-12 06:27 | NUR ---
SUMMARY PT CONTINUES TO COMPLAIN OF CX PAIN. PT MEDICATED PER EMAR. PT ANXIETY INCREASES AT TIMES. PT SLEPT SOME DURING SHIFT. PT CURRENTLY AWAKE AND APPEARS COMFORTABLE. CALL LIGHT IN REACH.
[2020-12-12] MEDS ORDERED: PRED20 PO (11:26)
--- NOTE | 2020-12-12 12:52 | NUR ---
Patient talks about his daily life, his family his desire to grow in his Jainism anatoliy. We work a spiritual care plan and I provide spiritual guidance, companionship and prayer. Patient responds well and shows signs of greater peace regarding his spiritual journey.
--- NOTE | 2020-12-12 13:44 | NUR ---
PATIENT DISCHARGED HOME WITH ALL PERSONAL BELONGINGS. HE LEFT AT 1300. TEACHBACK METHOD UTILIZED. ALL QUESTIONS ANSWERED AND PATIENT VERBALIZED UNDERSTANDING OF THE DISCHARGE ORDERS.
== END 2020-12-12 13:53 | disposition home or self-care (01) ==
LOC: ER 13:26 → ERHOLD 13:27 → MEDS 13:27
PROVIDERS: Emergency Medicine; ADMIT Internal Medicine
DX: R07.81 Pleurodynia (principal); J90 Pleural effusion, not elsewhere classified; J44.9 Chronic obstructive pulmonary disease, unspecified; M54.9 Dorsalgia, unspecified; E11.9 Type 2 diabetes mellitus without complications; K21.9 Gastro-esophageal reflux disease without esophagitis; G89.4 Chronic pain syndrome; Z86.711 Personal history of pulmonary embolism; Z86.73 Personal history of transient ischemic attack (TIA), and cerebral infarction without residual deficits; Z79.01 Long term (current) use of anticoagulants; Z86.718 Personal history of other venous thrombosis and embolism; Z99.81 Dependence on supplemental oxygen; Z79.4 Long term (current) use of insulin; Z87.891 Personal history of nicotine dependence
CPT/HCPCS: 36415; 71046; 78452; 80053; 82947; 84484; 85025; 85379; 93005; 93010; 93017; 94640; 94664; 94760; 96374; 96375; 96376; 99285-25; A9270; A9500; G0378; J0706; J1885; J2785; J3010; J7030; J7512

== ENCOUNTER 2021-01-02 18:27 | Emergency (ER) | payer OTHER ==
[~2021-01-02] VITALS: Ht 185.4 cm; Wt 77.1 kg
[~2021-01-02 18:27] MED LIST changes: +OXYCODONE-ACET1 EAC2 PO
[2021-01-02 19:19] LABS: BASOPHILS ABSOLUTE AUTO 0.05 K/mm3 (0.00-0.23); BASOPHILS PERCENT AUTO 1 % (0-2); EOSINOPHILS PERCENT AUTO 5 % (0-6); Hematocrit 43.4 % (37.0-53.0); Hemoglobin 15.1 g/dL (13.5-17.5); IMMATURE GRAN ABSOLUTE AUTO 0.02 K/mm3 (0.00-0.10); IMMATURE GRAN PERCENT AUTO 0 % (0-1); LYMPHOCYTES ABSOLUTE AUTO 2.68 K/mm3 (0.84-5.20); LYMPHOCYTES PERCENT AUTO 44 % (21-46); MONOCYTES ABSOLUTE AUTO 0.54 K/mm3 (0.16-1.47); MONOCYTES PERCENT AUTO 9 % (4-13); Mean Corpuscular HGB Conc 34.8 g/dL (31.5-36.5); Mean Corpuscular Volume 98 fL (80-100); Mean Platelet Volume 9.3 fL (9.1-12.4); NEUTROPHILS ABSOLUTE AUTO 2.55 K/mm3 (1.96-9.15); NEUTROPHILS PERCENT AUTO 42 % (41-73); Platelet Count 198 K/mm3 (150-400); RDW Coefficient Variation 11.8 % (11.7-14.2); RDW Standard Deviation 42.4 fL (35.1-46.3); Red Blood Cell Count 4.44 M/mm3 (4.30-5.90); White Blood Cell Count 6.14 K/mm3 (4.00-11.30)
[2021-01-02 19:24] LABS: Source, Urine Clean Catch
[2021-01-02 19:27] LABS: Appearance, Urine Clear (Clear); Bilirubin, Urine Neg (Neg); Blood, Urine Neg (Neg); Color, Urine Yellow (P-Yellow); Glucose Qualitative, Urine 4+ (Neg); Ketones, Urine Neg (Neg); Leukocyte Esterase, Urine Neg (Neg); Nitrite, Urine Neg (Neg); Protein, Urine Neg (Neg); Specific Gravity, Urine 1.015 (1.003-1.022); Urobilinogen, Urine NORM (Normal)
[2021-01-02 19:42] LABS: Alanine Aminotransfer (ALT/SGP 58 U/L (12-78); Albumin, Blood 3.5 g/dL (3.4-5.0); Albumin/Globulin Ratio 0.8 (0.8-1.8); Alk Phos 109 U/L (50-136); Anion Gap 5 mmol/L (6-16); Aspartate Aminotrans (AST/SGOT 42 U/L (12-37); Bilirubin, Total 0.3 mg/dL (0.1-1.0); Blood Urea Nitrogen 17 mg/dL (8-24); Bun/Creatinine Ratio 20.8 (12.0-20.0); CO2, Blood 27 mmol/L (21-32); Calcium, Blood 8.8 mg/dL (8.5-10.1); Chloride, Blood 100 mmol/L (98-108); Creatinine, Blood 0.82 mg/dL (0.60-1.20); Globulin, Blood 4.4 g/dL (2.2-4.0); Glomerular Filtration Rate >60 (60-); Glucose, Blood 520 mg/dL (70-99); Potassium, Blood 4.9 mmol/L (3.5-5.5); Sodium, Blood 132 mmol/L (136-145); Total Protein, Blood 7.9 g/dL (6.4-8.2); Troponin I <0.015 ng/mL (0.000-0.040)
== END 2021-01-02 20:59 | disposition home or self-care (01) ==
LOC: ER 18:27
PROVIDERS: Physician Assistant
DX: M87.051 Idiopathic aseptic necrosis of right femur (principal); J44.9 Chronic obstructive pulmonary disease, unspecified; K21.9 Gastro-esophageal reflux disease without esophagitis; E11.40 Type 2 diabetes mellitus with diabetic neuropathy, unspecified; Z88.8 Allergy status to other drugs, medicaments and biological substances; Z91.018 Allergy to other foods; Z79.82 Long term (current) use of aspirin; Z79.01 Long term (current) use of anticoagulants; Z79.899 Other long term (current) drug therapy
CPT/HCPCS: 71045; 74176; 80053; 81003; 82947; 84484; 85025; 93005; 93010; 96374; 99284-25; J1815; J1885

== ENCOUNTER 2021-01-11 20:55 | Emergency (ER) | payer OTHER ==
[~2021-01-11] VITALS: Ht 185.4 cm; Wt 79.4 kg
[2021-01-11 22:03] LABS: BASOPHILS ABSOLUTE AUTO 0.04 K/mm3 (0.00-0.23); BASOPHILS PERCENT AUTO 1 % (0-2); EOSINOPHILS ABSOLUTE AUTO 0.28 K/mm3 (0.00-0.68); EOSINOPHILS PERCENT AUTO 3 % (0-6); Hematocrit 43.6 % (37.0-53.0); IMMATURE GRAN ABSOLUTE AUTO 0.02 K/mm3 (0.00-0.10); IMMATURE GRAN PERCENT AUTO 0 % (0-1); LYMPHOCYTES ABSOLUTE AUTO 3.78 K/mm3 (0.84-5.20); LYMPHOCYTES PERCENT AUTO 43 % (21-46); MONOCYTES ABSOLUTE AUTO 0.66 K/mm3 (0.16-1.47); MONOCYTES PERCENT AUTO 8 % (4-13); Mean Corpuscular HGB 33.2 pg (26.0-34.0); Mean Corpuscular HGB Conc 34.4 g/dL (31.5-36.5); Mean Corpuscular Volume 97 fL (80-100); Mean Platelet Volume 9.2 fL (9.1-12.4); NEUTROPHILS ABSOLUTE AUTO 4.03 K/mm3 (1.96-9.15); NEUTROPHILS PERCENT AUTO 46 % (41-73); Platelet Count 196 K/mm3 (150-400); RDW Coefficient Variation 11.7 % (11.7-14.2); RDW Standard Deviation 41.2 fL (35.1-46.3); Red Blood Cell Count 4.52 M/mm3 (4.30-5.90); White Blood Cell Count 8.81 K/mm3 (4.00-11.30)
[2021-01-11 22:26] LABS: Alanine Aminotransfer (ALT/SGP 47 U/L (12-78); Albumin, Blood 3.4 g/dL (3.4-5.0); Albumin/Globulin Ratio 0.9 (0.8-1.8); Alk Phos 105 U/L (50-136); Anion Gap 5 mmol/L (6-16); Aspartate Aminotrans (AST/SGOT 25 U/L (12-37); Bilirubin, Total 0.3 mg/dL (0.1-1.0); Blood Urea Nitrogen 22 mg/dL (8-24); Bun/Creatinine Ratio 26.2 (12.0-20.0); CO2, Blood 25 mmol/L (21-32); Calcium, Blood 8.3 mg/dL (8.5-10.1); Chloride, Blood 102 mmol/L (98-108); Creatinine, Blood 0.84 mg/dL (0.60-1.20); Globulin, Blood 3.9 g/dL (2.2-4.0); Glomerular Filtration Rate >60 (60-); Glucose, Blood 418 mg/dL (70-99); Potassium, Blood 4.6 mmol/L (3.5-5.5); Sodium, Blood 132 mmol/L (136-145); Total Protein, Blood 7.3 g/dL (6.4-8.2); Troponin I <0.015 ng/mL (0.000-0.040)
[2021-01-12] MEDS ORDERED: Roxicodone5 MG PO (00:32)
== END 2021-01-12 01:04 | disposition home or self-care (01) ==
LOC: ER 20:55
PROVIDERS: Emergency Medicine
DX: J93.9 Pneumothorax, unspecified (principal); E11.65 Type 2 diabetes mellitus with hyperglycemia; Z79.01 Long term (current) use of anticoagulants; Z79.4 Long term (current) use of insulin; Z79.52 Long term (current) use of systemic steroids; Z79.899 Other long term (current) drug therapy
CPT/HCPCS: 71260; 80053; 83880; 84484; 85025; 93005; 93010; 96374-59; 96375; 96375-59; 99285-25; A9270; J1170; J1885; J3010; Q9967

== ENCOUNTER 2021-01-29 23:42 | Emergency (ER) | payer OTHER ==
[~2021-01-29] VITALS: Ht 182.9 cm; Wt 80.3 kg
[~2021-01-29 23:42] MED LIST changes: +Roxicodone5 MG PO
[2021-01-30 00:55] LABS: BASOPHILS ABSOLUTE AUTO 0.04 K/mm3 (0.00-0.23); BASOPHILS PERCENT AUTO 0 % (0-2); EOSINOPHILS ABSOLUTE AUTO 0.14 K/mm3 (0.00-0.68); EOSINOPHILS PERCENT AUTO 1 % (0-6); Hematocrit 41.6 % (37.0-53.0); Hemoglobin 14.4 g/dL (13.5-17.5); IMMATURE GRAN ABSOLUTE AUTO 0.03 K/mm3 (0.00-0.10); IMMATURE GRAN PERCENT AUTO 0 % (0-1); LYMPHOCYTES ABSOLUTE AUTO 2.54 K/mm3 (0.84-5.20); LYMPHOCYTES PERCENT AUTO 26 % (21-46); MONOCYTES PERCENT AUTO 8 % (4-13); Mean Corpuscular HGB 33.3 pg (26.0-34.0); Mean Corpuscular HGB Conc 34.6 g/dL (31.5-36.5); Mean Corpuscular Volume 96 fL (80-100); Mean Platelet Volume 8.6 fL (9.1-12.4); NEUTROPHILS ABSOLUTE AUTO 6.16 K/mm3 (1.96-9.15); NEUTROPHILS PERCENT AUTO 64 % (41-73); Platelet Count 189 K/mm3 (150-400); RDW Standard Deviation 42.6 fL (35.1-46.3); Red Blood Cell Count 4.33 M/mm3 (4.30-5.90); White Blood Cell Count 9.71 K/mm3 (4.00-11.30)
[2021-01-30 01:16] LABS: Alanine Aminotransfer (ALT/SGP 48 U/L (12-78); Albumin, Blood 3.5 g/dL (3.4-5.0); Albumin/Globulin Ratio 0.9 (0.8-1.8); Alk Phos 101 U/L (50-136); Anion Gap 7 mmol/L (6-16); Aspartate Aminotrans (AST/SGOT 42 U/L (12-37); Bilirubin, Total 0.3 mg/dL (0.1-1.0); Blood Urea Nitrogen 25 mg/dL (8-24); Bun/Creatinine Ratio 28.3 (12.0-20.0); CO2, Blood 24 mmol/L (21-32); Calcium, Blood 8.6 mg/dL (8.5-10.1); Chloride, Blood 105 mmol/L (98-108); Creatinine, Blood 0.88 mg/dL (0.60-1.20); Globulin, Blood 4.1 g/dL (2.2-4.0); Glomerular Filtration Rate >60 (60-); Glucose, Blood 241 mg/dL (70-99); Potassium, Blood 4.5 mmol/L (3.5-5.5); Sodium, Blood 136 mmol/L (136-145); Total Protein, Blood 7.6 g/dL (6.4-8.2); Troponin I <0.015 ng/mL (0.000-0.040)
== END 2021-01-30 02:21 | disposition home or self-care (01) ==
LOC: ER 23:42
PROVIDERS: Student in an Organized Health Care Education/Training Program
DX: R07.89 Other chest pain (principal); J43.9 Emphysema, unspecified; G89.29 Other chronic pain; F17.200 Nicotine dependence, unspecified, uncomplicated; K21.9 Gastro-esophageal reflux disease without esophagitis; Z91.02 Food additives allergy status; Z88.5 Allergy status to narcotic agent; Z91.018 Allergy to other foods; Z79.01 Long term (current) use of anticoagulants; Z79.4 Long term (current) use of insulin; Z79.899 Other long term (current) drug therapy
CPT/HCPCS: 71045; 80053; 83690; 84484; 85025; 93005; 93010; 96374; 96375; 99284-25; A9270; J1885; J2270

== ENCOUNTER 2021-02-04 18:45 | Emergency (ER) | payer OTHER ==
[~2021-02-04] VITALS: Ht 182.9 cm; Wt 81.7 kg
[2021-02-04 19:33] LABS: BASOPHILS ABSOLUTE AUTO 0.05 K/mm3 (0.00-0.23); BASOPHILS PERCENT AUTO 1 % (0-2); EOSINOPHILS ABSOLUTE AUTO 0.27 K/mm3 (0.00-0.68); EOSINOPHILS PERCENT AUTO 4 % (0-6); Hematocrit 44.9 % (37.0-53.0); Hemoglobin 15.5 g/dL (13.5-17.5); IMMATURE GRAN ABSOLUTE AUTO 0.01 K/mm3 (0.00-0.10); IMMATURE GRAN PERCENT AUTO 0 % (0-1); LYMPHOCYTES ABSOLUTE AUTO 2.51 K/mm3 (0.84-5.20); LYMPHOCYTES PERCENT AUTO 35 % (21-46); MONOCYTES ABSOLUTE AUTO 0.55 K/mm3 (0.16-1.47); MONOCYTES PERCENT AUTO 8 % (4-13); Mean Corpuscular HGB 32.8 pg (26.0-34.0); Mean Corpuscular HGB Conc 34.5 g/dL (31.5-36.5); Mean Corpuscular Volume 95 fL (80-100); Mean Platelet Volume 8.9 fL (9.1-12.4); NEUTROPHILS ABSOLUTE AUTO 3.84 K/mm3 (1.96-9.15); NEUTROPHILS PERCENT AUTO 53 % (41-73); Platelet Count 197 K/mm3 (150-400); RDW Coefficient Variation 11.9 % (11.7-14.2); RDW Standard Deviation 41.4 fL (35.1-46.3); Red Blood Cell Count 4.73 M/mm3 (4.30-5.90); White Blood Cell Count 7.23 K/mm3 (4.00-11.30)
[2021-02-04 20:03] LABS: Alanine Aminotransfer (ALT/SGP 51 U/L (12-78); Albumin, Blood 3.4 g/dL (3.4-5.0); Albumin/Globulin Ratio 0.8 (0.8-1.8); Alk Phos 94 U/L (50-136); Anion Gap 5 mmol/L (6-16); Aspartate Aminotrans (AST/SGOT 30 U/L (12-37); Bilirubin, Total 0.4 mg/dL (0.1-1.0); Blood Urea Nitrogen 22 mg/dL (8-24); Bun/Creatinine Ratio 24.2 (12.0-20.0); CO2, Blood 25 mmol/L (21-32); Calcium, Blood 8.5 mg/dL (8.5-10.1); Chloride, Blood 106 mmol/L (98-108); Creatinine, Blood 0.91 mg/dL (0.60-1.20); Globulin, Blood 4.2 g/dL (2.2-4.0); Glomerular Filtration Rate >60 (60-); Glucose, Blood 302 mg/dL (70-99); Potassium, Blood 4.3 mmol/L (3.5-5.5); Sodium, Blood 136 mmol/L (136-145); Total Protein, Blood 7.6 g/dL (6.4-8.2); Troponin I <0.015 ng/mL (0.000-0.040)
[2021-02-04] MEDS ORDERED: ACETAMINOPHEN500 MG PO (22:16)
== END 2021-02-04 22:59 | disposition home or self-care (01) ==
LOC: ER 18:45
PROVIDERS: Emergency Medicine
DX: R07.89 Other chest pain (principal); J43.9 Emphysema, unspecified; F17.200 Nicotine dependence, unspecified, uncomplicated; E11.40 Type 2 diabetes mellitus with diabetic neuropathy, unspecified; Z99.81 Dependence on supplemental oxygen; Z91.02 Food additives allergy status; Z88.5 Allergy status to narcotic agent; Z91.018 Allergy to other foods; Z88.8 Allergy status to other drugs, medicaments and biological substances; Z79.899 Other long term (current) drug therapy; Z79.01 Long term (current) use of anticoagulants; Z79.4 Long term (current) use of insulin
CPT/HCPCS: 71045; 80053; 83880; 84484; 85025; 93005; 93010; 96374; 99285-25; A9270; J2405

== ENCOUNTER 2021-02-21 11:42 | Emergency (ER) | payer OTHER ==
[~2021-02-21] VITALS: Ht 182.9 cm; Wt 83.9 kg
[~2021-02-21 11:42] MED LIST changes: +ACETAMINOPHEN500 MG PO
[2021-02-21 12:20] LABS: BASOPHILS ABSOLUTE AUTO 0.05 K/mm3 (0.00-0.23); BASOPHILS PERCENT AUTO 1 % (0-2); EOSINOPHILS ABSOLUTE AUTO 0.28 K/mm3 (0.00-0.68); EOSINOPHILS PERCENT AUTO 3 % (0-6); Hematocrit 40.6 % (37.0-53.0); IMMATURE GRAN ABSOLUTE AUTO 0.05 K/mm3 (0.00-0.10); IMMATURE GRAN PERCENT AUTO 1 % (0-1); LYMPHOCYTES PERCENT AUTO 21 % (21-46); MONOCYTES ABSOLUTE AUTO 0.78 K/mm3 (0.16-1.47); MONOCYTES PERCENT AUTO 7 % (4-13); Mean Corpuscular HGB 33.3 pg (26.0-34.0); Mean Corpuscular HGB Conc 34.5 g/dL (31.5-36.5); Mean Corpuscular Volume 96 fL (80-100); Mean Platelet Volume 8.9 fL (9.1-12.4); NEUTROPHILS ABSOLUTE AUTO 7.43 K/mm3 (1.96-9.15); NEUTROPHILS PERCENT AUTO 68 % (41-73); Platelet Count 177 K/mm3 (150-400); RDW Standard Deviation 42.3 fL (35.1-46.3); Red Blood Cell Count 4.21 M/mm3 (4.30-5.90); White Blood Cell Count 10.89 K/mm3 (4.00-11.30)
[2021-02-21 12:40] LABS: Alanine Aminotransfer (ALT/SGP 49 U/L (12-78); Albumin, Blood 3.3 g/dL (3.4-5.0); Albumin/Globulin Ratio 0.8 (0.8-1.8); Alk Phos 94 U/L (50-136); Anion Gap 7 mmol/L (6-16); Aspartate Aminotrans (AST/SGOT 24 U/L (12-37); Bilirubin, Total 0.3 mg/dL (0.1-1.0); Blood Urea Nitrogen 18 mg/dL (8-24); Bun/Creatinine Ratio 22.8 (12.0-20.0); CO2, Blood 25 mmol/L (21-32); Calcium, Blood 8.4 mg/dL (8.5-10.1); Chloride, Blood 101 mmol/L (98-108); Creatinine, Blood 0.79 mg/dL (0.60-1.20); Globulin, Blood 4.2 g/dL (2.2-4.0); Glomerular Filtration Rate >60 (60-); Glucose, Blood 239 mg/dL (70-99); Potassium, Blood 4.1 mmol/L (3.5-5.5); Sodium, Blood 133 mmol/L (136-145); Total Protein, Blood 7.5 g/dL (6.4-8.2); Troponin I <0.015 ng/mL (0.000-0.040)
[2021-02-21 13:34] LABS: SARS-Cov-2 (COVID-19) PCR, MMC NEGATIVE (NEGATIVE)
[2021-02-21] MEDS ORDERED: PRED20 PO (16:41)
[2021-02-21] MEDS ORDERED: ACET500 PO (16:41)
[2021-02-21] MEDS ORDERED: DOXY100 PO (16:41)
== END 2021-02-21 17:20 | disposition home or self-care (01) ==
LOC: ER 11:42
PROVIDERS: Emergency Medicine; Student in an Organized Health Care Education/Training Program
DX: J44.1 Chronic obstructive pulmonary disease with (acute) exacerbation (principal); E11.40 Type 2 diabetes mellitus with diabetic neuropathy, unspecified; K21.9 Gastro-esophageal reflux disease without esophagitis; D64.9 Anemia, unspecified; F17.200 Nicotine dependence, unspecified, uncomplicated; Z20.822 Contact with and (suspected) exposure to COVID-19; Z91.02 Food additives allergy status; Z88.5 Allergy status to narcotic agent; Z88.8 Allergy status to other drugs, medicaments and biological substances; Z79.899 Other long term (current) drug therapy; Z99.81 Dependence on supplemental oxygen; Z79.4 Long term (current) use of insulin; Z86.73 Personal history of transient ischemic attack (TIA), and cerebral infarction without residual deficits; Z86.711 Personal history of pulmonary embolism; Z86.718 Personal history of other venous thrombosis and embolism
CPT/HCPCS: 36415; 71046; 80053; 84484; 85025; 93005; 93010; 94644; 96374; 99284-25; A9270; J1885; J7512; U0004

== ENCOUNTER 2021-03-21 17:56 | Emergency (ER) | payer OTHER ==
[~2021-03-21] VITALS: Ht 185.4 cm; Wt 90.3 kg
[~2021-03-21 17:56] MED LIST changes: +ACET500 PO; +DOXY100 PO
[2021-03-21 18:30] LABS: BASOPHILS ABSOLUTE AUTO 0.04 K/mm3 (0.00-0.23); BASOPHILS PERCENT AUTO 1 % (0-2); EOSINOPHILS ABSOLUTE AUTO 0.23 K/mm3 (0.00-0.68); EOSINOPHILS PERCENT AUTO 4 % (0-6); Hemoglobin 14.1 g/dL (13.5-17.5); IMMATURE GRAN ABSOLUTE AUTO 0.02 K/mm3 (0.00-0.10); IMMATURE GRAN PERCENT AUTO 0 % (0-1); LYMPHOCYTES ABSOLUTE AUTO 2.14 K/mm3 (0.84-5.20); LYMPHOCYTES PERCENT AUTO 33 % (21-46); MONOCYTES ABSOLUTE AUTO 0.59 K/mm3 (0.16-1.47); MONOCYTES PERCENT AUTO 9 % (4-13); Mean Corpuscular HGB 33.4 pg (26.0-34.0); Mean Corpuscular HGB Conc 33.6 g/dL (31.5-36.5); Mean Corpuscular Volume 100 fL (80-100); Mean Platelet Volume 9.1 fL (9.1-12.4); NEUTROPHILS ABSOLUTE AUTO 3.53 K/mm3 (1.96-9.15); NEUTROPHILS PERCENT AUTO 54 % (41-73); Platelet Count 196 K/mm3 (150-400); RDW Coefficient Variation 12.1 % (11.7-14.2); RDW Standard Deviation 43.8 fL (35.1-46.3); Red Blood Cell Count 4.22 M/mm3 (4.30-5.90); White Blood Cell Count 6.55 K/mm3 (4.00-11.30)
[2021-03-21 18:47] LABS: Alanine Aminotransfer (ALT/SGP 39 U/L (12-78); Albumin, Blood 3.2 g/dL (3.4-5.0); Albumin/Globulin Ratio 0.7 (0.8-1.8); Alk Phos 89 U/L (50-136); Anion Gap 4 mmol/L (6-16); Aspartate Aminotrans (AST/SGOT 34 U/L (12-37); Bilirubin, Total 0.5 mg/dL (0.1-1.0); Blood Urea Nitrogen 19 mg/dL (8-24); Bun/Creatinine Ratio 22.6 (12.0-20.0); CO2, Blood 26 mmol/L (21-32); Calcium, Blood 8.3 mg/dL (8.5-10.1); Chloride, Blood 103 mmol/L (98-108); Creatinine, Blood 0.84 mg/dL (0.60-1.20); Globulin, Blood 4.3 g/dL (2.2-4.0); Glomerular Filtration Rate >60 (60-); Glucose, Blood 334 mg/dL (70-99); Sodium, Blood 133 mmol/L (136-145); Total Protein, Blood 7.5 g/dL (6.4-8.2)
== END 2021-03-21 20:08 | disposition left against medical advice (07) ==
LOC: ER 17:56
PROVIDERS: Physician Assistant
DX: Z53.21 Procedure and treatment not carried out due to patient leaving prior to being seen by health care provider (principal)
CPT/HCPCS: 36415; 80053; 83690; 85025

== ENCOUNTER 2021-03-31 16:08 | Inpatient (IN) | payer OTHER ==
[~2021-03-31] VITALS: Ht 175.3 cm; Wt 81.7 kg
[2021-03-31 16:44] LABS: Hematocrit 47.5 % (37.0-53.0); Hemoglobin 16.8 g/dL (13.5-17.5); Mean Corpuscular HGB 33.9 pg (26.0-34.0); Mean Corpuscular HGB Conc 35.4 g/dL (31.5-36.5); Mean Corpuscular Volume 96 fL (80-100); Mean Platelet Volume 9.4 fL (9.1-12.4); Platelet Count 190 K/mm3 (150-400); RDW Standard Deviation 42.5 fL (35.1-46.3); Red Blood Cell Count 4.96 M/mm3 (4.30-5.90); White Blood Cell Count 21.16 K/mm3 (4.00-11.30)
[2021-03-31 16:54] LABS: Base Excess Venous -0.9 mmol/L; Bicarbonate Venous 23.9 mmol/L (24.0-30.0); PCO2 Venous 37.9 mmHg (38-42); PO2 Venous 109 mmHg (38-42); pH Blood Venous 7.41 (7.34-7.37)
[2021-03-31 17:21] LABS: Albumin, Blood 3.2 g/dL (3.4-5.0); Albumin/Globulin Ratio 0.6 (0.8-1.8); Bilirubin, Total 0.8 mg/dL (0.1-1.0); Bun/Creatinine Ratio 30.3 (12.0-20.0); Calcium, Blood 10.1 mg/dL (8.5-10.1); Creatinine, Blood 1.22 mg/dL (0.60-1.20); Globulin, Blood 5.4 g/dL (2.2-4.0); Potassium, Blood 4.6 mmol/L (3.5-5.5); Total Protein, Blood 8.6 g/dL (6.4-8.2)
[2021-03-31 17:23] LABS: BAND PERCENT MAN 10 % (0-8); BASOPHILS PERCENT MAN 0 % (0-2); EOSINOPHILS PERCENT MAN 0 % (0-6); LYMPHOCYTES % ATYPICAL MANUAL 1 % (0-0); LYMPHOCYTES PERCENT MAN 17 % (21-46); MONOCYTES PERCENT MAN 9 % (4-13); NEUTROPHILS ABSOLUTE MAN 15.44 K/mm3 (1.96-9.15); SEG NEUTROPHILS PERCENT MAN 63 % (41-73); TOTAL CELLS COUNTED 100
[2021-03-31 17:53] LABS: Troponin I 0.133 ng/mL (0.000-0.040)
[2021-03-31] MEDS ORDERED: ALBU90OI INH ×2 (18:40)
[2021-03-31] MEDS ORDERED: OMEP20ER PO ×2 (18:40)
[2021-03-31] MEDS ORDERED: XARELTO10 M2 PO ×2 (18:40)
[2021-03-31] MEDS ORDERED: SYMBICORT 80-10.2 GM INH ×2 (18:40)
[2021-03-31] MEDS ORDERED: GABA300 PO ×2 (18:41)
[2021-03-31] MEDS ORDERED: IPRAT-ALBUT 0.5-3 ML NEB ×2 (18:42)
[2021-03-31] MEDS ORDERED: ENBREL50 MG/1 M2 IM ×2 (18:42)
[2021-03-31] MEDS ORDERED: FERSU300 PO ×2 (18:42)
[2021-03-31] MEDS ORDERED: FLUO10 PO ×2 (18:43)
[2021-03-31] MEDS ORDERED: TRAZ50 PO ×2 (18:43)
[2021-03-31] MEDS ORDERED: ATOR10 PO ×2 (18:43)
[2021-03-31] MEDS ORDERED: LANTUS SOL100 UNIT/1 SC ×2 (18:44)
[2021-04-01 00:53] LABS: BASOPHILS ABSOLUTE AUTO 0.06 K/mm3 (0.00-0.23); BASOPHILS PERCENT AUTO 1 % (0-2); Hemoglobin 15.2 g/dL (13.5-17.5); LYMPHOCYTES ABSOLUTE AUTO 0.62 K/mm3 (0.84-5.20); LYMPHOCYTES PERCENT AUTO 5 % (21-46); MONOCYTES ABSOLUTE AUTO 0.21 K/mm3 (0.16-1.47); MONOCYTES PERCENT AUTO 2 % (4-13); Mean Corpuscular HGB 33.6 pg (26.0-34.0); Mean Corpuscular HGB Conc 33.8 g/dL (31.5-36.5); Mean Corpuscular Volume 100 fL (80-100); Mean Platelet Volume 9.3 fL (9.1-12.4); Platelet Count 140 K/mm3 (150-400); RDW Coefficient Variation 12.2 % (11.7-14.2); RDW Standard Deviation 45.1 fL (35.1-46.3); Red Blood Cell Count 4.52 M/mm3 (4.30-5.90); White Blood Cell Count 11.76 K/mm3 (4.00-11.30)
[2021-04-01 00:54] LABS: EOSINOPHILS ABSOLUTE AUTO 0.07 K/mm3 (0.00-0.68); EOSINOPHILS PERCENT AUTO 1 % (0-6); IMMATURE GRAN ABSOLUTE AUTO 0.11 K/mm3 (0.00-0.10); IMMATURE GRAN PERCENT AUTO 1 % (0-1); NEUTROPHILS ABSOLUTE AUTO 10.69 K/mm3 (1.96-9.15); NEUTROPHILS PERCENT AUTO 91 % (41-73)
[2021-04-01 01:13] LABS: Anion Gap 8 mmol/L (6-16); Blood Urea Nitrogen 30 mg/dL (8-24); Bun/Creatinine Ratio 26.1 (12.0-20.0); CO2, Blood 23 mmol/L (21-32); Calcium, Blood 8.4 mg/dL (8.5-10.1); Chloride, Blood 106 mmol/L (98-108); Creatinine, Blood 1.15 mg/dL (0.60-1.20); Glomerular Filtration Rate >60 (60-); Glucose, Blood 333 mg/dL (70-99); Potassium, Blood 4.5 mmol/L (3.5-5.5); Sodium, Blood 137 mmol/L (136-145); Troponin I 0.032 ng/mL (0.000-0.040)
[2021-04-01] MEDS ORDERED: OXYCONTIN10 MG PO ×2 (02:26)
--- NOTE | 2021-04-01 04:25 | NUR ---
END OF SHIFT SUMMARY: New admit. Pt is oriented, on arrival to floor, able to wake up to verbal stimuli but falls asleep mid sentence. As the night progressed pt became more alert. Nigt time dose of trazodone held. Pt is having frequent watery diarrhea. 4 in total so far. Stool softener and laxative held. Pt reports that he has had diarrhea for couple of days. Spouse called for update on pt status, and some of pt hx, phone number in chart. Pt is weak and needs help turning. Able to voice needs. Call light within reach. On tele, NSR in 80'S. On O2 at 3.5LNC satting >90% Bed in lowest position. No acute events since admission.
[2021-04-01 04:53] LABS: Adenovirus F 40/41 Not Detected (NOT DETECT); Astrovirus Not Detected (NOT DETECT); Campylobacter Sp Not Detected (NOT DETECT); Cryptosporidium Not Detected (NOT DETECT); Cyclospora Cayetanensis Not Detected (NOT DETECT); E. Coli O157 Not Detected (NOT DETECT); Entamoeba Histolytica Not Detected (NOT DETECT); Enteroaggregative E. coli-EAEC Not Detected (NOT DETECT); Enteropathogenic E. coli-EPEC Not Detected (NOT DETECT); Enterotoxigenic E. coli-ETEC Not Detected (NOT DETECT); Giardia Lamblia Not Detected (NOT DETECT); Norovirus GI/GII Not Detected (NOT DETECT); Plesiomonas Shigelloides Not Detected (NOT DETECT); Rotavirus A Not Detected (NOT DETECT); Salmonella Sp Not Detected (NOT DETECT); Sapovirus Not Detected (NOT DETECT); Shiga Toxin-prod E. coli-STEC Not Detected (NOT DETECT); Shigella/Enteroin E. coli-EIEC Not Detected (NOT DETECT); Vibrio Cholerae Not Detected (NOT DETECT); Vibrio Sp Not Detected (NOT DETECT); Yersinia Enterocolitica Not Detected (NOT DETECT)
[2021-04-01] MEDS ORDERED: BENZ100A PO ×2 (12:38)
[2021-04-01] MEDS ORDERED: GUAI600T33 PO ×2 (12:40)
[2021-04-01] MEDS ORDERED: PROM25 PO ×2 (12:42)
--- NOTE | 2021-04-01 16:05 | NUR ---
Patient immediately tells me about his SOB, confusion and his instability. He then talks at length about his grandson who lives with him and how he wants to be around to see him grow but he wonders how much longer he will be around. He states that everytime he is sick enough to come into the hospital he feels he is closer to his . Que gets tearful at the thought of missing his and grandson. He explains that because of his anatoliy in God that he he has peace about dying but he does not want to leave his family. I normalize patient's experience, reinforce helpful attitudes and practices and provide therapeutic listening, gentle outreach counselor, companionship and prayer. Patient responds well and shows signs of increased peace and being comforted. I will continue to remain available to patient and family.
--- NOTE | 2021-04-01 19:09 | NUR ---
Alert and oriented x3 ,one -two persons assist with bed mobility and repositioning. Had diarrhea multiple times. Ate about 50% of his meals. Blood sugar was 407 at dinner , 12 units lispro was given and DR Hector orderd additional 6 units and rechecked blood glucose at 1999. vital signs are stable. Worked with PT/OT for strength and endurance ,needs motivation per OT. On xarelo for PE, no adverse effects noted. Continue on 4 L n/c , no SOB noted. Continue on tele monitor , pacing at 90s. No changes in LOC. Continue to monitor.
--- NOTE | 2021-04-02 04:32 | NUR ---
END OF SHIFT SUMMARY: Pt had 5 BMs earlier tonight. Complaing of pain in anal area, some redness observed. Order for rectal tube obtained. Rectal tube inserted and draining well per gravity. Pt tolerated procedure well. Some gen pain, medicated per eMAR. Some episodes of SOB, sats stayed above 95% Pt is pleasant and is A&Ox. Able to voice needs, call light within reach. Bed in lowest position.
[2021-04-02 06:50] LABS: BASOPHILS ABSOLUTE AUTO 0.07 K/mm3 (0.00-0.23); BASOPHILS PERCENT AUTO 0 % (0-2); Hematocrit 37.9 % (37.0-53.0); Hemoglobin 13.1 g/dL (13.5-17.5); LYMPHOCYTES ABSOLUTE AUTO 0.52 K/mm3 (0.84-5.20); LYMPHOCYTES PERCENT AUTO 3 % (21-46); MONOCYTES ABSOLUTE AUTO 0.69 K/mm3 (0.16-1.47); MONOCYTES PERCENT AUTO 4 % (4-13); Mean Corpuscular HGB 33.7 pg (26.0-34.0); Mean Corpuscular HGB Conc 34.6 g/dL (31.5-36.5); Mean Corpuscular Volume 97 fL (80-100); Mean Platelet Volume 9.4 fL (9.1-12.4); Platelet Count 144 K/mm3 (150-400); RDW Coefficient Variation 12.4 % (11.7-14.2); RDW Standard Deviation 44.4 fL (35.1-46.3); Red Blood Cell Count 3.89 M/mm3 (4.30-5.90); White Blood Cell Count 15.84 K/mm3 (4.00-11.30)
[2021-04-02 06:54] LABS: EOSINOPHILS PERCENT AUTO 0 % (0-6); IMMATURE GRAN ABSOLUTE AUTO 0.11 K/mm3 (0.00-0.10); IMMATURE GRAN PERCENT AUTO 1 % (0-1); NEUTROPHILS ABSOLUTE AUTO 14.45 K/mm3 (1.96-9.15); NEUTROPHILS PERCENT AUTO 91 % (41-73)
[2021-04-02 07:07] LABS: Albumin, Blood 2.1 g/dL (3.4-5.0); Anion Gap 5 mmol/L (6-16); Blood Urea Nitrogen 24 mg/dL (8-24); Bun/Creatinine Ratio 28.8 (12.0-20.0); CO2, Blood 25 mmol/L (21-32); Calcium, Blood 8.1 mg/dL (8.5-10.1); Chloride, Blood 108 mmol/L (98-108); Creatinine, Blood 0.83 mg/dL (0.60-1.20); Glomerular Filtration Rate >60 (60-); Glucose, Blood 326 mg/dL (70-99); Potassium, Blood 4.2 mmol/L (3.5-5.5); Sodium, Blood 138 mmol/L (136-145)
--- NOTE | 2021-04-02 19:00 | NUR ---
Alert and oriented x2 with forgetfulness . c/o buttock/back pain , oxycodone 10 mg po was given for pain management , it was effective. Immodium was given for loose stool . Continue on ABO therapy for PNA, No SOB noted . Continue on 4 L n/c ,sp02 at 96% . Call light within reach and bed in low position . Continue to monitor.
--- NOTE | 2021-04-03 05:01 | NUR ---
END OF SHIFT SUMMARY: Pt A&Ox3, some forgetfullness. Less BMs tonight, pt reports being more comfortable tonight. No acute events overnight. Able to voice needs. Some complaints of gen pain, medicated per eMAR. Resting comfortably at this time, call light within reach, bed in lowest position. Continue to monitor.
--- NOTE | 2021-04-03 12:37 | NUR ---
Patient immediately tells me that he thinks he is going home tomorrow. He explains that he is feeling better. He then talks at length about his spouse, La Nena. He shares about how they met, the ups and downs of their journey together and about how much she means to him today. He also discusses her concerns about not being able to manage him and his medical needs at home. He shares the emotional strain his health issues have had on him and that he has had to rely on his Mormonism anatoliy to get through the tough days. I provide anxiety containment, therapeutic listening, pastoral career development counselor and prayer. Patient responds well and shows signs of increased peace. I will continue to remain available to patient and family.
--- NOTE | 2021-04-03 18:32 | NUR ---
Alert and oriented x2 with some confusion. c/o generalized pain 9/10 , oxycodone was given , it was effective. Blood glucose is improving , insulin coverage was given. Oxygen was titrated 1 L n/c , sp02 at 94-96% , no SOB noted. Diarrhea has improved significantly , no immodium was given. Blood culture tested positive for cocci , Dr dowd was notified . Antibiotic switched to Ceftriaxone . vital signs are stable . Continue to monitor .
[2021-04-04 04:54] LABS: BASOPHILS ABSOLUTE AUTO 0.02 K/mm3 (0.00-0.23); BASOPHILS PERCENT AUTO 0 % (0-2); EOSINOPHILS PERCENT AUTO 0 % (0-6); Hemoglobin 13.3 g/dL (13.5-17.5); IMMATURE GRAN ABSOLUTE AUTO 0.09 K/mm3 (0.00-0.10); IMMATURE GRAN PERCENT AUTO 1 % (0-1); LYMPHOCYTES ABSOLUTE AUTO 0.93 K/mm3 (0.84-5.20); LYMPHOCYTES PERCENT AUTO 12 % (21-46); MONOCYTES ABSOLUTE AUTO 0.49 K/mm3 (0.16-1.47); MONOCYTES PERCENT AUTO 6 % (4-13); Mean Corpuscular HGB 33.8 pg (26.0-34.0); Mean Corpuscular Volume 96 fL (80-100); Mean Platelet Volume 9.7 fL (9.1-12.4); NEUTROPHILS ABSOLUTE AUTO 6.14 K/mm3 (1.96-9.15); NEUTROPHILS PERCENT AUTO 80 % (41-73); Platelet Count 171 K/mm3 (150-400); RDW Coefficient Variation 12.1 % (11.7-14.2); RDW Standard Deviation 42.5 fL (35.1-46.3); Red Blood Cell Count 3.94 M/mm3 (4.30-5.90); White Blood Cell Count 7.67 K/mm3 (4.00-11.30)
[2021-04-04 05:03] LABS: Albumin, Blood 2.1 g/dL (3.4-5.0); Anion Gap 4 mmol/L (6-16); Blood Urea Nitrogen 19 mg/dL (8-24); CO2, Blood 28 mmol/L (21-32); Calcium, Blood 8.4 mg/dL (8.5-10.1); Chloride, Blood 105 mmol/L (98-108); Creatinine, Blood 0.59 mg/dL (0.60-1.20); Glomerular Filtration Rate >60 (60-); Glucose, Blood 181 mg/dL (70-99); Potassium, Blood 4.1 mmol/L (3.5-5.5); Sodium, Blood 137 mmol/L (136-145)
--- NOTE | 2021-04-04 06:18 | NUR ---
END OF SHIFT SUMMARY: Pt more agitated and anxious tonight. Saying he misses family and wants to go home. Had some nightmares and when he woke up started saying staff was trying to hurt him. Pt teaching and reassurance given. 0450: Pt calling out saying he is having chest pain and stomach upset. EKG obtained and MD notified. Labs ordered. Pain medicine given, pt reports feeling better on reassessment. VSS, LS bilaterally diminished. Pt resting comfortably at this time. Call light within reach, bed in lowest position. Continue to monitor.
[2021-04-04 06:28] LABS: Troponin I <0.015 ng/mL (0.000-0.040)
--- NOTE | 2021-04-04 11:26 | NUR ---
Patient tells me that he will DC today. Timan seems more confused that yesterday (repeating himself in a very short period of time, asking to go to upstairs when he is already on Medical floor and stating that he is innocent and should be allowed to go and be free of all charges etc.). He tells me that he is anxious to go home. I provide anxiety containment and prayer. Patient shows signs of reduced stress.
--- NOTE | 2021-04-04 17:14 | NUR ---
SHIFT SUMMARY PATIENT IS ALERT AND ORIENTED TO SELF ONLY. PATIENT SEEMS MORE CONFUSED FROM THE BEGINNING OF SHIFT. 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 PATIENT INSISTS ON BEING DISCHARGED. PATIENT HAD AN ACUTE EVENT THIS SHIFT OF CHEST PAIN AND PATIENT STATING "I CANT BREATHE" BUT O2 SATS ARE STAYING ABOVE 88 PERCENT. O2 TITRATED UP TO 6-7 LITERS AND PATIENT IS CURRENTLY SATTING AT 94 PERCENT. PATIENT WAS GIVEN ATARAX FOR ANXIETY AND TYLENOL FOR PAIN AND TALKED TO PATIENT USING THERAPEUTIC COMMUNICATION TO CALM PATIENT DOWN, THIS SEEMED TO LOWER PATIENTS ANXIETY. PATIENT HAS BEEN RESTING MOST OF THE AFTERNOON. WILL CONTINUE TO MONITOR UNTIL END OF SHIFT. VITAL SIGNS REVIEWED.
--- NOTE | 2021-04-05 01:21 | NUR ---
PATIENT HAD 17 BEATS OF MONOMORPHIC V TACH IN THE 140'S. PATIENT WAS AWAKE AND UNAWARE. MD INFORMED AND ORDERED STAT MG AND POTASSIUM. RHYTHM STRIP IN PAPER CHART. WILL CONTINUE CLOSE MONITORING
[2021-04-05 01:58] LABS: Magnesium, Blood 2.2 mg/dL (1.6-2.4); Potassium, Blood 4.3 mmol/L (3.5-5.5)
--- NOTE | 2021-04-05 04:45 | NUR ---
Orville was awake most of the night watching TV. He complained of pain in hands and feet which is chronic his pain was managed by 10mg oxycodone twice throughout the shift. Patient had 17 beat V Tach in 140's. Stat potassium and Mg were ordered and they were 4.3 and 2.2 respectfully. No further episodes of arrhythmia overnight. Patient was alert, comfortable and cooperative with care. Periods of confusion were easily resolved.
[2021-04-05 14:00] LABS: BASOPHILS ABSOLUTE AUTO 0.06 K/mm3 (0.00-0.23); BASOPHILS PERCENT AUTO 1 % (0-2); EOSINOPHILS ABSOLUTE AUTO 0.04 K/mm3 (0.00-0.68); EOSINOPHILS PERCENT AUTO 0 % (0-6); Hematocrit 42.7 % (37.0-53.0); IMMATURE GRAN ABSOLUTE AUTO 0.26 K/mm3 (0.00-0.10); IMMATURE GRAN PERCENT AUTO 3 % (0-1); LYMPHOCYTES PERCENT AUTO 30 % (21-46); MONOCYTES ABSOLUTE AUTO 0.87 K/mm3 (0.16-1.47); MONOCYTES PERCENT AUTO 8 % (4-13); Mean Corpuscular HGB 33.8 pg (26.0-34.0); Mean Corpuscular HGB Conc 35.1 g/dL (31.5-36.5); Mean Corpuscular Volume 96 fL (80-100); Mean Platelet Volume 9.7 fL (9.1-12.4); NEUTROPHILS ABSOLUTE AUTO 6.11 K/mm3 (1.96-9.15); NEUTROPHILS PERCENT AUTO 59 % (41-73); NRBC ABSOLUTE 0.03 K/mm3 (0.00-0.02); NRBC Auto 0.3 /100 WBC (0.0-0.2); Platelet Count 197 K/mm3 (150-400); RDW Coefficient Variation 12.2 % (11.7-14.2); RDW Standard Deviation 43.7 fL (35.1-46.3); Red Blood Cell Count 4.44 M/mm3 (4.30-5.90); White Blood Cell Count 10.44 K/mm3 (4.00-11.30)
[2021-04-05 14:21] LABS: Albumin, Blood 2.2 g/dL (3.4-5.0); Anion Gap 3 mmol/L (6-16); Blood Urea Nitrogen 18 mg/dL (8-24); Bun/Creatinine Ratio 24.6 (12.0-20.0); CO2, Blood 31 mmol/L (21-32); Calcium, Blood 8.6 mg/dL (8.5-10.1); Chloride, Blood 102 mmol/L (98-108); Creatinine, Blood 0.73 mg/dL (0.60-1.20); Glomerular Filtration Rate >60 (60-); Glucose, Blood 82 mg/dL (70-99); Phosphorus, Blood 2.9 mg/dL (2.5-4.9); Potassium, Blood 4.2 mmol/L (3.5-5.5); Sodium, Blood 136 mmol/L (136-145); Troponin I <0.015 ng/mL (0.000-0.040)
--- NOTE | 2021-04-05 16:35 | NUR ---
ORANGE JUICE GIVEN FOR BLOOD SUGAR OF 65.
--- NOTE | 2021-04-05 16:46 | NUR ---
PT WOULD NOT DRINK ORANGE JUICE. PROVIDED 240 MLS OF WHOLE MILK AND HE DRAK ALL OF IT. PT ENCOURAGED TO EAT HIS DINNER AND EDUCATED ON WHY HE NEEDS TO EAT. PT VU BUT REPORTED HE DOES'NT KNOW IF HE WILL EAT DINNER.
--- NOTE | 2021-04-05 18:45 | NUR ---
SHIFT SUMMARY: PT A/O TO SELF, CONFUSED. DOES NOT ALWAYS RESPOND APPROPRIATELY TO QUESTIONS. PT YELLS OUT FREQUENTLY AND REPORTS ANXIETY AND PAIN. PT REPORTED CP IN THE MORNING BUT RESOLVED POST MEDICATIONS GIVEN FOR PAIN. PT POSSIBLY HAD HEARTBURN HE DID POINT TO CENTER OF CHEST. POSSIBLE PAIN FROM COUGH. PT WAS UNABLE TO DESCRIBE PAIN OR GIVE FEEDBACK. PT ATE VERY LITTLE T/OUT DAY AND AT DINNER TIME CBG WAS 65. OJ, WHOLE MILK GIVEN AND PT CB SHARLA TO 113. PT GIVEN FENTANYL 25 MCG ONE TIME DOSE FOR PAIN AND WAS NOT REPORTING PAIN BUT DID CONTINUE TO YELL OUT AT TIMES BUT NOT FREQUENTLY. PT A BIT MORE CONFUSED AFTER GETTING FENTANYL. PT ABLE TO STAND AT BEDSIDE TO USE URINAL. NO OTHER CONCERNS AT THIS TIME.
--- NOTE | 2021-04-05 22:50 | NUR ---
PT AGITATED WITH CARE BY STAFF. PT UPSET AFTER BLOOD SUGAR CHECK. PT REFUSING TO TAKE ALL MEDICATIONS AT THIS TIME. PT REFUSING TO BE ASSESSED BY THIS RN. PT'S LIGHT TURNED OFF AND CALL LIGHT WITHIN REACH. PT CONTINUES TO YELL "OUCH" MULTIPLE TIMES BUT BECOMES AGITATED WHEN THIS RN OFFERS MEDICATION.
--- NOTE | 2021-04-06 04:59 | NUR ---
CERTIFIED LEGAL SECRETARY SPECIALIST SUMMARY ADMITTED FOR SEPSIS/PNA. PT IS FULL CODE. PT VERY CONFUSED AND SOMNOLENT THIS SHIFT. PT REFUSED ASSESSMENT AND NIGHT MEDICATION FROM THIS RN. PT OFFERED MEDICATION DUE TO VISUAL DISCOMFORT BUT PT YELLED "NO" WHEN ASKED IF HE WOULD TAKE MEDICATION. PT CONTINUED TO WAKE UP APPROXIMATELY EVERY 30 MINS YELLING "OW" MULTIPLE TIMES THEN RETURN TO SLEEP. PT DIFFICULT TO ROUSE BUT RESPONDS TO CONTINUOUS PHYSICAL PROMPTING. ORDER OBTAINED FOR PRN FENTANYL AND PT MEDICATED. CONTINUED TO YELL SO ORDER OBTAINED FOR PRN IV ATIVAN FOR PT'S COMPLAINT OF ANXIETY. PT RESTING AT THIS TIME. PT UNABLE TO TELL THIS RN WHERE HIS PAIN IS LOCATED. PT ON 4L BY NC AND SATTING 91%. PT HAD BLOOD SUGAR OF 79 AROUND 0200 AND PT AGREED TO DRINK A SMALL PORTION OF MILK. PT OTHERWISE REFUSING ALL ORAL INTAKE. ORDER FOR HYPOGLYCEMIC PROTOCOL OBTAINED.
[2021-04-06 12:19] LABS: Base Excess Venous 2.6 mmol/L; Bicarbonate Venous 27.7 mmol/L (24.0-30.0); PCO2 Venous 29.7 mmHg (38-42); PO2 Venous 163 mmHg (38-42)
[2021-04-06 12:20] LABS: pH Blood Venous 7.53 (7.34-7.37)
[2021-04-06 12:23] LABS: BASOPHILS ABSOLUTE AUTO 0.11 K/mm3 (0.00-0.23); BASOPHILS PERCENT AUTO 1 % (0-2); EOSINOPHILS ABSOLUTE AUTO 0.03 K/mm3 (0.00-0.68); EOSINOPHILS PERCENT AUTO 0 % (0-6); Hematocrit 47.1 % (37.0-53.0); Hemoglobin 16.3 g/dL (13.5-17.5); IMMATURE GRAN ABSOLUTE AUTO 0.33 K/mm3 (0.00-0.10); IMMATURE GRAN PERCENT AUTO 2 % (0-1); LYMPHOCYTES ABSOLUTE AUTO 3.09 K/mm3 (0.84-5.20); LYMPHOCYTES PERCENT AUTO 23 % (21-46); MONOCYTES ABSOLUTE AUTO 0.85 K/mm3 (0.16-1.47); MONOCYTES PERCENT AUTO 6 % (4-13); Mean Corpuscular HGB 33.5 pg (26.0-34.0); Mean Corpuscular HGB Conc 34.6 g/dL (31.5-36.5); Mean Corpuscular Volume 97 fL (80-100); Mean Platelet Volume 9.6 fL (9.1-12.4); NEUTROPHILS PERCENT AUTO 67 % (41-73); Platelet Count 227 K/mm3 (150-400); RDW Coefficient Variation 12.3 % (11.7-14.2); RDW Standard Deviation 44.2 fL (35.1-46.3); Red Blood Cell Count 4.86 M/mm3 (4.30-5.90); White Blood Cell Count 13.51 K/mm3 (4.00-11.30)
[2021-04-06 12:36] LABS: Albumin, Blood 2.1 g/dL (3.4-5.0); Anion Gap 8 mmol/L (6-16); Blood Urea Nitrogen 26 mg/dL (8-24); Bun/Creatinine Ratio 33.1 (12.0-20.0); CO2, Blood 24 mmol/L (21-32); Calcium, Blood 8.2 mg/dL (8.5-10.1); Chloride, Blood 101 mmol/L (98-108); Creatinine, Blood 0.79 mg/dL (0.60-1.20); Glomerular Filtration Rate >60 (60-); Glucose, Blood 174 mg/dL (70-99); Phosphorus, Blood 4.1 mg/dL (2.5-4.9); Potassium, Blood 3.8 mmol/L (3.5-5.5); Sodium, Blood 133 mmol/L (136-145)
--- NOTE | 2021-04-06 13:08 | NUR ---
PT O2 TURNED DOWN TO 2 LPM VIA NC PER DR. NUÑEZ REQUEST. O2 SATS ARE 90-92%. PT CONTINUES TO YELL OUT ALTHOUGH PRESENT. ATTEMPTED TO FEED PT HE WOULD NOT FEED HIMSELF. PT REFUSED ALL OFFERS OF FOOD BUT WOULD DRINK HIS MILK.
--- NOTE | 2021-04-06 21:56 | NUR ---
PT WITH DECREASED LOC TONIGHT. RESPONDS TO PAINFUL STIMULI AND REFUSES MOST OF ASSESSMENT. MEDICATIONS HELD DUE TO PT NOT BEING ALERT ENOUGH.
--- NOTE | 2021-04-07 00:39 | NUR ---
PT AWAKE AT THIS TIME. ALERT AND ORIENTED TO SURROUNDINGS, SELF AND FAMILY. CALLS STAFF "ANGELS." PT HAD LARGE HARD BM. PT GIVEN PAIN MEDICATION PER MAR AND GIVEN MISSED MEDS. PT REQUESTED AND GIVEN MILK.
--- NOTE | 2021-04-07 04:43 | NUR ---
SPINNER HAND SUMMARY ADMITTED FOR SEPSIS/PNA. PT IS FULL CODE. PLAN FOR DISCHARGE WITH HOME HEALTH. PT WAS ALTERED AT THE BEGINNING OF SHIFT, ONLY RESPONDING TO PAINFUL STIMULI. PT WOKE UP SUDDENLY AROUND 0000, ALERT AND ORIENTED TO SURROUNDINGS, FAMILY, SELF, AND SITUATION. PT COMPLAINED OF PAIN WITH LARGE, HARD BM. PT MEDICATED FOR PAIN X2 PER EMAR. PT CONTINUES TO COMPLAIN OF PAIN TO ABDOMEN, BUT FALLS BACK ASLEEP SHORTLY AFTER. NO OTHER CONCERNS THIS SHIFT.
--- NOTE | 2021-04-07 05:36 | NUR ---
PT WOKE UP COMPLAINING OF PAIN IN THE CHEST AND ABDOMEN. CHEST PAIN APPEARS MUSCULOSKELETAL AND WORSENS WITH PRESSURE AND POSITION CHANGES. PT REPEATING "I HURT SO BAD PLEASE HELP ME." PT REQUESTING PAIN PILL. MEDICATED WITH TYLENOL AND SCHEDULED GABAPENTIN. PT REQUESTING MILK. PT REPEATING "I'M SO SICK" AND APOLOGIZING FOR "BEING MEAN."
[2021-04-07 08:57] LABS: BASOPHILS ABSOLUTE AUTO 0.06 K/mm3 (0.00-0.23); BASOPHILS PERCENT AUTO 1 % (0-2); EOSINOPHILS ABSOLUTE AUTO 0.19 K/mm3 (0.00-0.68); EOSINOPHILS PERCENT AUTO 2 % (0-6); Hematocrit 45.6 % (37.0-53.0); Hemoglobin 15.2 g/dL (13.5-17.5); IMMATURE GRAN ABSOLUTE AUTO 0.19 K/mm3 (0.00-0.10); IMMATURE GRAN PERCENT AUTO 2 % (0-1); LYMPHOCYTES ABSOLUTE AUTO 2.53 K/mm3 (0.84-5.20); LYMPHOCYTES PERCENT AUTO 28 % (21-46); MONOCYTES ABSOLUTE AUTO 0.54 K/mm3 (0.16-1.47); MONOCYTES PERCENT AUTO 6 % (4-13); Mean Corpuscular HGB 33.3 pg (26.0-34.0); Mean Corpuscular HGB Conc 33.3 g/dL (31.5-36.5); Mean Corpuscular Volume 100 fL (80-100); Mean Platelet Volume 9.7 fL (9.1-12.4); NEUTROPHILS ABSOLUTE AUTO 5.68 K/mm3 (1.96-9.15); NEUTROPHILS PERCENT AUTO 62 % (41-73); Platelet Count 187 K/mm3 (150-400); RDW Coefficient Variation 12.7 % (11.7-14.2); RDW Standard Deviation 46.7 fL (35.1-46.3); Red Blood Cell Count 4.56 M/mm3 (4.30-5.90); White Blood Cell Count 9.19 K/mm3 (4.00-11.30)
[2021-04-07 09:32] LABS: Albumin, Blood 1.7 g/dL (3.4-5.0); Anion Gap 6 mmol/L (6-16); Blood Urea Nitrogen 27 mg/dL (8-24); Bun/Creatinine Ratio 31.6 (12.0-20.0); CO2, Blood 24 mmol/L (21-32); Calcium, Blood 8.1 mg/dL (8.5-10.1); Chloride, Blood 102 mmol/L (98-108); Creatinine, Blood 0.86 mg/dL (0.60-1.20); Glomerular Filtration Rate >60 (60-); Glucose, Blood 206 mg/dL (70-99); Phosphorus, Blood 3.5 mg/dL (2.5-4.9); Potassium, Blood 4.3 mmol/L (3.5-5.5); Sodium, Blood 132 mmol/L (136-145)
[2021-04-07 09:44] LABS: Percent Saturation 15.3 % (20.0-50.0)
--- NOTE | 2021-04-07 13:34 | NUR ---
Patient is in bed and immediately tells me that he is in pain and that he has been given medications for pain recently. Patient says that he wonders if God is punishing him by giving him this pain and weakness. We talk about his belief system and what he has been taught about God. I reinforce the helpful ideas and explain possible other explanations for pain and suffering that fit within patient's Gnosticist beliefs. Patient tells me that he struggles deeply with with his own thoughts and inner pain and states that he feels tormented. We talk about mindfulness, reframing and prayer. Patient responds well and exibits increased peace. I will continue to assist patient with his emotional/spiritual distress.
--- NOTE | 2021-04-07 17:58 | NUR ---
SHIFT SUMMARY: PT MUCH BETTER TODAY AT SHIFT END. PT A/O X3, ONE PERSON ASSIST WITH AMBULATION USING GAIT BELT AND WALKER. PT WORKED WITH PT TODAY AND AMBULATED 150 FEET AND WAS REPORTED TO BE STEADY ON FEET. PT GIVEN MOM AND PRUNE JUICE IN THE EVENING DUE TO REPORTED HARD STOOL LAST NIGHT AND NO BM AT SHIFT END. PT CONTINUES TO REPORT PAIN BUT IS TOLERABLE AT THIS TIME. BS ELEVATED AND ORDER RECEIVED TO RESTART SEMGLEE 30 UNITS AT BEDTIME TONIGHT, NO FURTHER S/S CORRECTION.
--- NOTE | 2021-04-08 04:09 | NUR ---
PT HAS BEEN ANXIOUS MOST SHIFT. CALLING CONSTANTLY. MEDICATED FOR PAIN WITH GOOD RELIEF. O2 2L NC IN PLACE. NO RESP DISTRESS NOTED. DR. PADILLA WAS CALLED FOR BS [id number]. SLIDING SCALE CHANGED TO MEDIUM AND FINGERSITCK AC/HS. PT WAS COVERED PER NEW SCALE. TOLERATING PO WELL. ATTENDS IN PLACE. WILL CONTINUE TO MONITOR.
[2021-04-08] MEDS ORDERED: HUMULIN R100 UNIT/2 ×2 (15:38)
[2021-04-08] MEDS ORDERED: SENN187 PO ×2 (15:39)
[2021-04-08] MEDS ORDERED: HYDCOR20 PO ×2 (15:40)
[2021-04-08] MEDS ORDERED: OXYC10ER PO ×2 (15:41)
--- NOTE | 2021-04-08 17:18 | NUR ---
PT ALERT ORIENTED,WITH CONFUSION AND FORGETFULNESS,PT ASSESSMENT REMAINS THE SAME,PT HAS NO ACUTE EVENTS T/O,PT DISCHARGED HOME WILL ALL BELONGINGS,RN GAVE A TEACHING TO MARIA DOLORES AND PATIENT BOTH VERBALIZE UNDERSTANDING OF THE DISCHARGE SUMMARY,PT LEAVE THE MEDICAL FLOOR VIA WHEELCHAIR.
== END 2021-04-08 16:52 | disposition home or self-care (01) | DRG 871 ==
LOC: ER 16:08 → MEDS 18:37 → ERHOLD 18:37 → MEDS 22:03
PROVIDERS: Emergency Medicine; Family Medicine; Internal Medicine; ADMIT Internal Medicine
DX: A41.9 Sepsis, unspecified organism (principal); J18.9 Pneumonia, unspecified organism; J96.21 Acute and chronic respiratory failure with hypoxia; G93.41 Metabolic encephalopathy; G92.8 Other toxic encephalopathy; N17.9 Acute kidney failure, unspecified; E87.1 Hypo-osmolality and hyponatremia; I47.2 Ventricular tachycardia; I24.8 Other forms of acute ischemic heart disease; J44.1 Chronic obstructive pulmonary disease with (acute) exacerbation; E27.3 Drug-induced adrenocortical insufficiency; K21.9 Gastro-esophageal reflux disease without esophagitis; Z23 Encounter for immunization; T38.0X5A Adverse effect of glucocorticoids and synthetic analogues, initial encounter; D72.829 Elevated white blood cell count, unspecified; E11.65 Type 2 diabetes mellitus with hyperglycemia; E11.42 Type 2 diabetes mellitus with diabetic polyneuropathy; R65.20 Severe sepsis without septic shock; F32.A Depression, unspecified; D69.6 Thrombocytopenia, unspecified; D64.9 Anemia, unspecified; G89.4 Chronic pain syndrome; Z91.018 Allergy to other foods; Z88.5 Allergy status to narcotic agent; Z88.8 Allergy status to other drugs, medicaments and biological substances; Z79.01 Long term (current) use of anticoagulants; Z79.899 Other long term (current) drug therapy; Z86.73 Personal history of transient ischemic attack (TIA), and cerebral infarction without residual deficits; Z86.718 Personal history of other venous thrombosis and embolism; Z86.711 Personal history of pulmonary embolism; Z90.49 Acquired absence of other specified parts of digestive tract; Z98.890 Other specified postprocedural states; Z87.891 Personal history of nicotine dependence
CPT/HCPCS: 0097U; 36415; 71045; 71046; 80048; 80053; 80069; 80400; 82533; 82728; 82803; 82947; 83540; 83550; 83605; 83735; 83880; 84132; 84484; 85025; 87040; 87070; 87205; 90686; 92610; 93005; 93010; 94640; 94644; 94664; 94760; 94762; 96365; 96367; 96375; 97110; 97116; 97162; 97167; 97530; 97535; 99285-25; A9270; C8929; J0456; J0696; J0834; J1100; J1815; J2060; J2405; J2543; J2930; J3010; J3475; J7030; J7050; Q9957

== ENCOUNTER 2021-04-10 05:00 | Emergency (ER) | payer OTHER ==
[~2021-04-10] VITALS: Ht 182.9 cm; Wt 90.7 kg
[~2021-04-10 05:00] MED LIST changes: +ENBREL50 MG/1 M2 IM; +HUMULIN R100 UNIT/2; +HYDCOR20 PO; +LANTUS SOL100 UNIT/1 SC; +OXYCONTIN10 MG PO; +SENN187 PO; +XARELTO10 M2 PO
[2021-04-10 05:23] LABS: BASOPHILS ABSOLUTE AUTO 0.03 K/mm3 (0.00-0.23); BASOPHILS PERCENT AUTO 0 % (0-2); EOSINOPHILS ABSOLUTE AUTO 0.07 K/mm3 (0.00-0.68); EOSINOPHILS PERCENT AUTO 1 % (0-6); Hematocrit 42.9 % (37.0-53.0); Hemoglobin 14.9 g/dL (13.5-17.5); IMMATURE GRAN PERCENT AUTO 1 % (0-1); LYMPHOCYTES PERCENT AUTO 21 % (21-46); MONOCYTES ABSOLUTE AUTO 1.06 K/mm3 (0.16-1.47); MONOCYTES PERCENT AUTO 8 % (4-13); Mean Corpuscular HGB 33.3 pg (26.0-34.0); Mean Corpuscular HGB Conc 34.7 g/dL (31.5-36.5); Mean Corpuscular Volume 96 fL (80-100); NEUTROPHILS ABSOLUTE AUTO 9.87 K/mm3 (1.96-9.15); NEUTROPHILS PERCENT AUTO 70 % (41-73); Platelet Count 325 K/mm3 (150-400); RDW Coefficient Variation 12.2 % (11.7-14.2); RDW Standard Deviation 43.6 fL (35.1-46.3); Red Blood Cell Count 4.47 M/mm3 (4.30-5.90); White Blood Cell Count 14.03 K/mm3 (4.00-11.30)
[2021-04-10 05:42] LABS: Alanine Aminotransfer (ALT/SGP 108 U/L (12-78); Albumin, Blood 2.2 g/dL (3.4-5.0); Albumin/Globulin Ratio 0.5 (0.8-1.8); Alk Phos 75 U/L (50-136); Anion Gap 4 mmol/L (6-16); Aspartate Aminotrans (AST/SGOT 60 U/L (12-37); Bilirubin, Total 0.5 mg/dL (0.1-1.0); Blood Urea Nitrogen 22 mg/dL (8-24); Bun/Creatinine Ratio 29.1 (12.0-20.0); CO2, Blood 27 mmol/L (21-32); Calcium, Blood 8.4 mg/dL (8.5-10.1); Chloride, Blood 104 mmol/L (98-108); Creatinine, Blood 0.76 mg/dL (0.60-1.20); Globulin, Blood 4.7 g/dL (2.2-4.0); Glomerular Filtration Rate >60 (60-); Glucose, Blood 128 mg/dL (70-99); Potassium, Blood 4.2 mmol/L (3.5-5.5); Sodium, Blood 135 mmol/L (136-145); Total Protein, Blood 6.9 g/dL (6.4-8.2)
[2021-04-10 07:03] LABS: CPK Creatine Kinase 90 U/L (39-308); Troponin I <0.015 ng/mL (0.000-0.040)
[2021-04-10] MEDS ORDERED: MIRALAX17 GM PO (09:27)
[2021-04-10] MEDS ORDERED: METAMUCIL POWD575 GM PO (09:27)
[2021-04-10] MEDS ORDERED: BISA10S PR (09:27)
== END 2021-04-10 09:55 | disposition home or self-care (01) ==
LOC: ER 05:00
PROVIDERS: Student in an Organized Health Care Education/Training Program
DX: K59.00 Constipation, unspecified (principal); D72.829 Elevated white blood cell count, unspecified; J43.9 Emphysema, unspecified; K21.9 Gastro-esophageal reflux disease without esophagitis; E11.40 Type 2 diabetes mellitus with diabetic neuropathy, unspecified; Z91.018 Allergy to other foods; Z88.5 Allergy status to narcotic agent; Z88.8 Allergy status to other drugs, medicaments and biological substances; Z79.899 Other long term (current) drug therapy; Z79.01 Long term (current) use of anticoagulants; Z79.4 Long term (current) use of insulin; Z86.73 Personal history of transient ischemic attack (TIA), and cerebral infarction without residual deficits; Z86.711 Personal history of pulmonary embolism; Z86.718 Personal history of other venous thrombosis and embolism; Z87.891 Personal history of nicotine dependence
CPT/HCPCS: 36415; 74177; 80053; 82550; 83605; 83690; 84484; 85025; 93005; 93010; 96374; 96375; 99284-25; A9270; J1885; J2405; J7030; Q9967

== ENCOUNTER 2021-04-15 09:50 | Emergency (ER) | payer OTHER ==
[~2021-04-15] VITALS: Ht 182.9 cm; Wt 83.9 kg
[~2021-04-15 09:50] MED LIST changes: +BISA10S PR; +METAMUCIL POWD575 GM PO
[2021-04-15 10:15] LABS: Calcium, Ionized (POC) 1.14 mmol/L (1.10-1.46); Chloride (POC) 99 mmol/L (98-108); Creatinine (POC) 0.7 mg/dL (0.8-1.3); Glucose (ISTAT POC) 263 mg/dL (70-99); Hemoglobin (POC) 13.3 g/dL (13.5-17.5); Potassium (POC) 4.8 mmol/L (3.5-5.5); Sodium (POC) 136 mmol/L (135-148); Total CO2 (POC) 29 mmol/L (21-32)
[2021-04-15] MEDS ORDERED: OMEP20ER PO (11:33)
[2021-04-15] MEDS ORDERED: DICY20 PO (11:33)
[2021-04-15] MEDS ORDERED: PROM25 PO (11:33)
== END 2021-04-15 12:10 | disposition home or self-care (01) ==
LOC: ER 09:50
PROVIDERS: Emergency Medicine
DX: K29.70 Gastritis, unspecified, without bleeding (principal); J43.9 Emphysema, unspecified; K21.9 Gastro-esophageal reflux disease without esophagitis; E11.40 Type 2 diabetes mellitus with diabetic neuropathy, unspecified; Z86.73 Personal history of transient ischemic attack (TIA), and cerebral infarction without residual deficits; Z86.718 Personal history of other venous thrombosis and embolism; Z91.018 Allergy to other foods; Z88.8 Allergy status to other drugs, medicaments and biological substances; Z79.899 Other long term (current) drug therapy; Z79.4 Long term (current) use of insulin
CPT/HCPCS: 80047; 85014; 96374; 96375; 99284-25; A9270; C9113; J2550; J7030

== ENCOUNTER 2021-04-24 19:16 | Emergency (ER) | payer OTHER ==
[~2021-04-24] VITALS: Ht 182.9 cm; Wt 79.4 kg
[~2021-04-24 19:16] MED LIST changes: +DICY20 PO
[2021-04-24 19:46] LABS: BASOPHILS ABSOLUTE AUTO 0.06 K/mm3 (0.00-0.23); BASOPHILS PERCENT AUTO 1 % (0-2); EOSINOPHILS ABSOLUTE AUTO 0.15 K/mm3 (0.00-0.68); EOSINOPHILS PERCENT AUTO 2 % (0-6); Hematocrit 44.3 % (37.0-53.0); IMMATURE GRAN ABSOLUTE AUTO 0.14 K/mm3 (0.00-0.10); IMMATURE GRAN PERCENT AUTO 2 % (0-1); LYMPHOCYTES ABSOLUTE AUTO 3.57 K/mm3 (0.84-5.20); LYMPHOCYTES PERCENT AUTO 46 % (21-46); MONOCYTES ABSOLUTE AUTO 0.88 K/mm3 (0.16-1.47); MONOCYTES PERCENT AUTO 11 % (4-13); Mean Corpuscular HGB 32.8 pg (26.0-34.0); Mean Corpuscular HGB Conc 33.9 g/dL (31.5-36.5); Mean Corpuscular Volume 97 fL (80-100); Mean Platelet Volume 8.6 fL (9.1-12.4); NEUTROPHILS ABSOLUTE AUTO 2.93 K/mm3 (1.96-9.15); NEUTROPHILS PERCENT AUTO 38 % (41-73); Platelet Count 352 K/mm3 (150-400); RDW Standard Deviation 43.1 fL (35.1-46.3); Red Blood Cell Count 4.58 M/mm3 (4.30-5.90); White Blood Cell Count 7.73 K/mm3 (4.00-11.30)
[2021-04-24 20:10] LABS: Alanine Aminotransfer (ALT/SGP 225 U/L (12-78); Albumin, Blood 2.8 g/dL (3.4-5.0); Albumin/Globulin Ratio 0.5 (0.8-1.8); Alk Phos 201 U/L (50-136); Anion Gap 8 mmol/L (6-16); Aspartate Aminotrans (AST/SGOT 42 U/L (12-37); Bilirubin, Total 0.2 mg/dL (0.1-1.0); Blood Urea Nitrogen 30 mg/dL (8-24); Bun/Creatinine Ratio 33.2 (12.0-20.0); CO2, Blood 28 mmol/L (21-32); Calcium, Blood 9.1 mg/dL (8.5-10.1); Chloride, Blood 99 mmol/L (98-108); Globulin, Blood 5.4 g/dL (2.2-4.0); Glomerular Filtration Rate >60 (60-); Glucose, Blood 257 mg/dL (70-99); Potassium, Blood 4.3 mmol/L (3.5-5.5); Sodium, Blood 135 mmol/L (136-145); Total Protein, Blood 8.2 g/dL (6.4-8.2)
== END 2021-04-25 01:55 | disposition home or self-care (01) ==
LOC: ER 19:16
PROVIDERS: Physician Assistant
DX: R10.84 Generalized abdominal pain (principal); K21.9 Gastro-esophageal reflux disease without esophagitis; J43.9 Emphysema, unspecified; E11.40 Type 2 diabetes mellitus with diabetic neuropathy, unspecified; F17.200 Nicotine dependence, unspecified, uncomplicated; Z88.8 Allergy status to other drugs, medicaments and biological substances; Z79.899 Other long term (current) drug therapy; Z91.018 Allergy to other foods; Z79.4 Long term (current) use of insulin
CPT/HCPCS: 74177; 80053; 83690; 85025; 96374-59; 96375; 99284-25; A9270; J1885; J2405; Q9967

== ENCOUNTER 2021-05-01 13:52 | Emergency (ER) | payer OTHER ==
[~2021-05-01] VITALS: Ht 182.9 cm; Wt 74.8 kg
[2021-05-01 14:26] LABS: BASOPHILS ABSOLUTE AUTO 0.08 K/mm3 (0.00-0.23); BASOPHILS PERCENT AUTO 1 % (0-2); EOSINOPHILS ABSOLUTE AUTO 0.07 K/mm3 (0.00-0.68); EOSINOPHILS PERCENT AUTO 1 % (0-6); Hematocrit 43.5 % (37.0-53.0); Hemoglobin 14.7 g/dL (13.5-17.5); IMMATURE GRAN ABSOLUTE AUTO 0.06 K/mm3 (0.00-0.10); IMMATURE GRAN PERCENT AUTO 1 % (0-1); LYMPHOCYTES ABSOLUTE AUTO 3.12 K/mm3 (0.84-5.20); LYMPHOCYTES PERCENT AUTO 29 % (21-46); MONOCYTES ABSOLUTE AUTO 0.82 K/mm3 (0.16-1.47); MONOCYTES PERCENT AUTO 8 % (4-13); Mean Corpuscular HGB 32.5 pg (26.0-34.0); Mean Corpuscular HGB Conc 33.8 g/dL (31.5-36.5); Mean Corpuscular Volume 96 fL (80-100); Mean Platelet Volume 8.8 fL (9.1-12.4); NEUTROPHILS ABSOLUTE AUTO 6.68 K/mm3 (1.96-9.15); NEUTROPHILS PERCENT AUTO 62 % (41-73); Platelet Count 241 K/mm3 (150-400); RDW Coefficient Variation 11.9 % (11.7-14.2); RDW Standard Deviation 42.3 fL (35.1-46.3); Red Blood Cell Count 4.52 M/mm3 (4.30-5.90); White Blood Cell Count 10.83 K/mm3 (4.00-11.30)
[2021-05-01 14:52] LABS: Alanine Aminotransfer (ALT/SGP 91 U/L (12-78); Albumin, Blood 2.8 g/dL (3.4-5.0); Albumin/Globulin Ratio 0.6 (0.8-1.8); Alk Phos 151 U/L (50-136); Anion Gap 5 mmol/L (6-16); Aspartate Aminotrans (AST/SGOT 75 U/L (12-37); Bilirubin, Total 0.8 mg/dL (0.1-1.0); Blood Urea Nitrogen 21 mg/dL (8-24); Bun/Creatinine Ratio 23.8 (12.0-20.0); CO2, Blood 29 mmol/L (21-32); Calcium, Blood 9.1 mg/dL (8.5-10.1); Chloride, Blood 101 mmol/L (98-108); Creatinine, Blood 0.88 mg/dL (0.60-1.20); Glomerular Filtration Rate >60 (60-); Glucose, Blood 253 mg/dL (70-99); Potassium, Blood 4.8 mmol/L (3.5-5.5); Sodium, Blood 135 mmol/L (136-145); Total Protein, Blood 7.8 g/dL (6.4-8.2); Troponin I <0.015 ng/mL (0.000-0.040)
[2021-05-01] MEDS ORDERED: CITRATE OF MAG296 M4 PO (17:13)
[2021-05-01] MEDS ORDERED: DOC250 PO (17:13)
== END 2021-05-01 17:58 | disposition home or self-care (01) ==
LOC: ER 13:52
PROVIDERS: Emergency Medicine
DX: R07.2 Precordial pain (principal); K59.09 Other constipation; R11.2 Nausea with vomiting, unspecified; F11.90 Opioid use, unspecified, uncomplicated; R74.01 Elevation of levels of liver transaminase levels; K21.9 Gastro-esophageal reflux disease without esophagitis; E11.40 Type 2 diabetes mellitus with diabetic neuropathy, unspecified; F17.200 Nicotine dependence, unspecified, uncomplicated; Z91.02 Food additives allergy status; Z88.5 Allergy status to narcotic agent; Z91.018 Allergy to other foods; Z79.899 Other long term (current) drug therapy; Z79.01 Long term (current) use of anticoagulants; Z79.4 Long term (current) use of insulin; Z86.73 Personal history of transient ischemic attack (TIA), and cerebral infarction without residual deficits; Z86.718 Personal history of other venous thrombosis and embolism; Z86.711 Personal history of pulmonary embolism
CPT/HCPCS: 71045; 80053; 83690; 83880; 84484; 85025; 93005; 93010; 96374; 99285-25; A9270; G0480; J2405

== ENCOUNTER 2021-06-17 00:09 | Inpatient (IN) | payer OTHER ==
[~2021-06-17] VITALS: Ht 170.2 cm; Wt 76.7 kg
[~2021-06-17 00:09] MED LIST changes: +CITRATE OF MAG296 M4 PO; +DOC250 PO; -HUMULIN R100 UNIT/2; +HUMULIN R100 UNIT/2 SC
[2021-06-17 00:25] LABS: Base Excess Venous 1.8 mmol/L; Bicarbonate Venous 24.4 mmol/L (24.0-30.0); PCO2 Venous 49.3 mmHg (38-42); PO2 Venous 35.5 mmHg (38-42); pH Blood Venous 7.35 (7.34-7.37)
[2021-06-17 00:25] LABS: BASOPHILS ABSOLUTE AUTO 0.06 K/mm3 (0.00-0.23); BASOPHILS PERCENT AUTO 1 % (0-2); EOSINOPHILS ABSOLUTE AUTO 0.09 K/mm3 (0.00-0.68); EOSINOPHILS PERCENT AUTO 1 % (0-6); Hematocrit 43.4 % (37.0-53.0); Hemoglobin 15.3 g/dL (13.5-17.5); IMMATURE GRAN ABSOLUTE AUTO 0.04 K/mm3 (0.00-0.10); IMMATURE GRAN PERCENT AUTO 0 % (0-1); LYMPHOCYTES ABSOLUTE AUTO 3.16 K/mm3 (0.84-5.20); LYMPHOCYTES PERCENT AUTO 24 % (21-46); MONOCYTES ABSOLUTE AUTO 1.06 K/mm3 (0.16-1.47); MONOCYTES PERCENT AUTO 8 % (4-13); Mean Corpuscular HGB 33.1 pg (26.0-34.0); Mean Corpuscular HGB Conc 35.3 g/dL (31.5-36.5); Mean Corpuscular Volume 94 fL (80-100); Mean Platelet Volume 8.8 fL (9.1-12.4); NEUTROPHILS ABSOLUTE AUTO 8.82 K/mm3 (1.96-9.15); NEUTROPHILS PERCENT AUTO 67 % (41-73); Platelet Count 246 K/mm3 (150-400); RDW Coefficient Variation 12.6 % (11.7-14.2); RDW Standard Deviation 43.4 fL (35.1-46.3); Red Blood Cell Count 4.62 M/mm3 (4.30-5.90); White Blood Cell Count 13.23 K/mm3 (4.00-11.30)
[2021-06-17 00:44] LABS: Anion Gap 7 mmol/L (6-16); Blood Urea Nitrogen 25 mg/dL (8-24); Bun/Creatinine Ratio 27.7 (12.0-20.0); CO2, Blood 26 mmol/L (21-32); Chloride, Blood 102 mmol/L (98-108); Glomerular Filtration Rate >60 (60-); Glucose, Blood 192 mg/dL (70-99); Potassium, Blood 4.5 mmol/L (3.5-5.5); Sodium, Blood 135 mmol/L (136-145)
[2021-06-17 01:21] LABS: Troponin I <0.015 ng/mL (0.000-0.040)
[2021-06-17 06:15] LABS: Hematocrit 42.8 % (37.0-53.0); Hemoglobin 14.8 g/dL (13.5-17.5); Mean Corpuscular HGB 32.5 pg (26.0-34.0); Mean Corpuscular HGB Conc 34.6 g/dL (31.5-36.5); Mean Corpuscular Volume 94 fL (80-100); Mean Platelet Volume 8.8 fL (9.1-12.4); Platelet Count 217 K/mm3 (150-400); RDW Coefficient Variation 12.6 % (11.7-14.2); RDW Standard Deviation 43.9 fL (35.1-46.3); Red Blood Cell Count 4.55 M/mm3 (4.30-5.90); White Blood Cell Count 13.28 K/mm3 (4.00-11.30)
[2021-06-17 06:54] LABS: Anion Gap 11 mmol/L (6-16); Blood Urea Nitrogen 22 mg/dL (8-24); Bun/Creatinine Ratio 29.4 (12.0-20.0); CO2, Blood 19 mmol/L (21-32); Calcium, Blood 8.3 mg/dL (8.5-10.1); Chloride, Blood 104 mmol/L (98-108); Creatinine, Blood 0.75 mg/dL (0.60-1.20); Glomerular Filtration Rate >60 (60-); Glucose, Blood 310 mg/dL (70-99); Potassium, Blood 4.4 mmol/L (3.5-5.5); Sodium, Blood 134 mmol/L (136-145)
[2021-06-17 11:12] LABS: Hematocrit 38.9 % (37.0-53.0); Hemoglobin 13.9 g/dL (13.5-17.5)
[2021-06-17 15:34] LABS: Hematocrit 40.4 % (37.0-53.0); Hemoglobin 13.8 g/dL (13.5-17.5)
--- NOTE | 2021-06-17 15:41 | NUR ---
I visit patient in Er8 and patient is somewhat confused and struggles to articulate his words. The more he talks the better he enunciates. He is very tearful and tells me that his baby is being taken from him and that he can't live without him. He tells me that he sees demons in the hallway of the ER and that he is scared. He talks about anabaptism and how he wonders if God has left him or if he has done something wrong to end up as sick and in as much pain as he feels. I provide calming touch, theological clarity, and gentle reassurance of his safety and God's love and presence being with him. Patient responds well and shows signs of being more peaceful and afraid. I willcontinue to remain available to patient and family.
--- NOTE | 2021-06-17 17:18 | NUR ---
PT ARRIVED TO ROOM AT 1420 AND HAS BEEN NAPPING OFF AND ON. AOX2 WITH CONFUSION. PT ALSO JUJU OUT WITH EVERY TOUCH OR SMALL BUMP FROM CAREGIVERS. THIS SEEMS MORE OF A REACTION FOR HIM HE STATES HE IS FINE. PT HAS BED ALARMS IN PLACE AND CALL LIGHT WITHIN REACH. PT WAS ABLE TO USE HIS URINAL HIMSELF WILL CONTINUE TO MONITOR.
[2021-06-17 17:49] LABS: Source, Urine Catheter
[2021-06-17 17:57] LABS: Appearance, Urine Clear (Clear); Bilirubin, Urine Neg (Neg); Blood, Urine Neg (Neg); Color, Urine Yellow (P-Yellow); Glucose Qualitative, Urine 4+ (Neg); Ketones, Urine 2+ (Neg); Leukocyte Esterase, Urine Neg (Neg); Nitrite, Urine Neg (Neg); Protein, Urine Neg (Neg); Urobilinogen, Urine NORM (Normal)
[2021-06-17] MEDS ORDERED: COMBIVENT RESPIM4 G1 INH (20:51)
[2021-06-17] MEDS ORDERED: IPRAT-ALBUT 0.5-3 ML INH (20:53)
[2021-06-17] MEDS ORDERED: BENZ100A PO (20:55)
[2021-06-17] MEDS ORDERED: FERSU300 PO (20:58)
[2021-06-17] MEDS ORDERED: ENBREL50 MG/1 M2 SC (20:58)
[2021-06-17] MEDS ORDERED: FLUO10 PO (20:59)
[2021-06-17 21:25] LABS: Hematocrit 37.3 % (37.0-53.0); Hemoglobin 12.9 g/dL (13.5-17.5)
[2021-06-18 03:38] LABS: Anion Gap 7 mmol/L (6-16); Blood Urea Nitrogen 21 mg/dL (8-24); Bun/Creatinine Ratio 28.6 (12.0-20.0); CO2, Blood 27 mmol/L (21-32); Calcium, Blood 8.3 mg/dL (8.5-10.1); Chloride, Blood 105 mmol/L (98-108); Creatinine, Blood 0.74 mg/dL (0.60-1.20); Glomerular Filtration Rate >60 (60-); Glucose, Blood 250 mg/dL (70-99); Potassium, Blood 4.7 mmol/L (3.5-5.5); Sodium, Blood 139 mmol/L (136-145)
[2021-06-18 04:27] LABS: Hematocrit 37.2 % (37.0-53.0); Hemoglobin 12.7 g/dL (13.5-17.5); Mean Corpuscular HGB 32.7 pg (26.0-34.0); Mean Corpuscular HGB Conc 34.1 g/dL (31.5-36.5); Mean Corpuscular Volume 96 fL (80-100); Mean Platelet Volume 9.1 fL (9.1-12.4); Platelet Count 214 K/mm3 (150-400); RDW Coefficient Variation 12.8 % (11.7-14.2); RDW Standard Deviation 44.3 fL (35.1-46.3); Red Blood Cell Count 3.88 M/mm3 (4.30-5.90); White Blood Cell Count 9.18 K/mm3 (4.00-11.30)
--- NOTE | 2021-06-18 06:10 | NUR ---
SHIFT SUMMARY PT AOX2-3 AT TIMES AND SELAWIK SOME WITH A LOUD VOICE. THE PT WAS C/O BACK PAIN AND YELLING OUT LOUDLY, DISTURBING OTHERS, BUT WAS MEDICATED PER EMAR. PT WAS ASLEEP AT THE START OF THIS SHIFT AND UP MOST OF THE SHIFT REQUESTING LARGE AMOUNTS OF MILK. THE PT CURRENTLY IS ASLEEP WITH LOUD SNORES HEARD UPON ROUNDS, WILL CONTINUE TO MONITOR UNTIL REPORT IS GIVEN.
--- NOTE | 2021-06-18 12:56 | NUR ---
Spiritual care visit conducted. Patient is lying in bed and alert. Patient immediately talks at length about his grandson, Branden. According to the patient, he has had custody of Branden since and he is 6 y/o currently. His father, patient's son-in-law, has been clean and sober for a couple yrs now and so he went to court and gained custody back of Branden without the patient's knowledge. A couple weeks ago authorities surprisingly came and gave Branden back to his father and the patient and his spouse, Carole, have been denied access to Branden ever since. Patient tells me about the heartache and pain this has caused his and himself. Patient struggles to talk about anything else and says that he weeps silently at night over the loss. Patient requests prayer for their hearts to heal. I provide therapeutic listening and prayer. Patient voices appreciation for the visit and prayer and shows signs of having some of the emotional pain lifted. I will continue to remain available to patient and family.
[2021-06-18 13:24] LABS: International Normalized Ratio 1.04; Prothrombin Time Results 10.9 Sec (9.7-11.5)
--- NOTE | 2021-06-18 16:45 | NUR ---
PT AOX3 AND COOPERATIVE OF CARE. PT IN GOOD SPIRITS TODAY AND WORKED WELL WITH PHYSICAL THERAPY AND WALKED AROUND IN ROOM A ONE PERSON WITH GAITBELT. PT TREATED FOR BACK PAIN PER EMAR. NO DISTRESS NOTED. CALL LIGHT WITHIN REACH AND WILL SOMETIMES USE OR JUST CALL OUT. WILL CONTINUE TO MONITOR BED ALARM IN PLACE.
[2021-06-19 05:25] LABS: Anion Gap 8 mmol/L (6-16); Blood Urea Nitrogen 17 mg/dL (8-24); Bun/Creatinine Ratio 24.1 (12.0-20.0); CO2, Blood 26 mmol/L (21-32); Calcium, Blood 8.5 mg/dL (8.5-10.1); Chloride, Blood 105 mmol/L (98-108); Creatinine, Blood 0.71 mg/dL (0.60-1.20); Glomerular Filtration Rate >60 (60-); Glucose, Blood 182 mg/dL (70-99); Potassium, Blood 3.9 mmol/L (3.5-5.5); Sodium, Blood 139 mmol/L (136-145)
--- NOTE | 2021-06-19 06:17 | NUR ---
Orville slept most of the night. He would wake and yell out help, help until someone came into the room. he is very touchy about tape and iv removal. Voiding clear yellow urine in the urinal. last BM was yesterday. No significant changes to report
[2021-06-19 06:20] LABS: Hematocrit 42.9 % (37.0-53.0); Hemoglobin 14.7 g/dL (13.5-17.5); Mean Corpuscular HGB 32.6 pg (26.0-34.0); Mean Corpuscular HGB Conc 34.3 g/dL (31.5-36.5); Mean Corpuscular Volume 95 fL (80-100); Mean Platelet Volume 9.3 fL (9.1-12.4); Platelet Count 207 K/mm3 (150-400); RDW Coefficient Variation 12.5 % (11.7-14.2); RDW Standard Deviation 43.5 fL (35.1-46.3); Red Blood Cell Count 4.51 M/mm3 (4.30-5.90); White Blood Cell Count 8.32 K/mm3 (4.00-11.30)
[2021-06-19] MEDS ORDERED: HUMALOG KW100 UNIT/1 SC (11:37)
[2021-06-19] MEDS ORDERED: PRED20 PO (11:38)
--- NOTE | 2021-06-19 15:26 | NUR ---
Spiritual care visit conducted. Just prior to pt DC, I visit with pt and his spouse Carole. Carole shares about the pain of having their grandson given back to the biological father after raising him for the last 6 yrs. She is very tearful and I provide hugs, gentle family life counselor and prayer. She responds well and shows signs of being comforted. I also provide a prayer and blessing for the patient for his health and healing. They both voice appreciation for the visit.
--- NOTE | 2021-06-19 15:46 | NUR ---
DISCHARGE NOTE PATIENT WAS DISCHARGED HOME WITH SPOUSE AT 1515 THS SHIFT. THE PATIENT AND SPOUSE UNDERSTOOD DISCHARGE INSTRUCTIONS GIVEN AT THE TIME OF DISCHARGE. VSS. NOTHING FURTHER TO REPORT.
== END 2021-06-19 15:22 | disposition home or self-care (01) | DRG 871 ==
LOC: ER 00:09 → ERHOLD 00:10 → MEDS 00:10
PROVIDERS: Family Medicine; Internal Medicine; Student in an Organized Health Care Education/Training Program; ADMIT Internal Medicine
DX: A41.9 Sepsis, unspecified organism (principal); J18.9 Pneumonia, unspecified organism; J96.21 Acute and chronic respiratory failure with hypoxia; G93.40 Encephalopathy, unspecified; J43.9 Emphysema, unspecified; K21.9 Gastro-esophageal reflux disease without esophagitis; G89.4 Chronic pain syndrome; E11.42 Type 2 diabetes mellitus with diabetic polyneuropathy; D63.8 Anemia in other chronic diseases classified elsewhere; L40.9 Psoriasis, unspecified; D50.9 Iron deficiency anemia, unspecified; K76.0 Fatty (change of) liver, not elsewhere classified; F03.90 Unspecified dementia, unspecified severity, without behavioral disturbance, psychotic disturbance, mood disturbance, and anxiety; M62.81 Muscle weakness (generalized); Z86.718 Personal history of other venous thrombosis and embolism; Z86.711 Personal history of pulmonary embolism; Z88.8 Allergy status to other drugs, medicaments and biological substances; Z91.018 Allergy to other foods; Z88.5 Allergy status to narcotic agent; Z90.49 Acquired absence of other specified parts of digestive tract; Z86.73 Personal history of transient ischemic attack (TIA), and cerebral infarction without residual deficits; Z98.890 Other specified postprocedural states; Z99.81 Dependence on supplemental oxygen; Z87.891 Personal history of nicotine dependence; Z79.4 Long term (current) use of insulin; Z79.899 Other long term (current) drug therapy; Z79.51 Long term (current) use of inhaled steroids
CPT/HCPCS: 36415; 71045; 74176; 80048; 81003; 82803; 82947; 83605; 84484; 85014; 85018; 85025; 85027; 85610; 87040; 93005; 93010; 94640; 94760; 96372; 96374; 96375; 96376; 97110; 97162; 99285-25; A9270; C9113; J0696; J1650; J1815; J2060; J2270; J2354; J2405; J3010; J7030; J7050; J7512

== ENCOUNTER 2021-06-24 11:42 | Emergency (ER) | payer OTHER ==
[~2021-06-24] VITALS: Ht 182.9 cm; Wt 77.1 kg
[~2021-06-24 11:42] MED LIST changes: +COMBIVENT RESPIM4 G1 INH; +HUMALOG KW100 UNIT/1 SC
[2021-06-24 13:01] LABS: BASOPHILS ABSOLUTE AUTO 0.07 K/mm3 (0.00-0.23); BASOPHILS PERCENT AUTO 1 % (0-2); EOSINOPHILS ABSOLUTE AUTO 0.56 K/mm3 (0.00-0.68); EOSINOPHILS PERCENT AUTO 6 % (0-6); Hematocrit 42.6 % (37.0-53.0); Hemoglobin 14.5 g/dL (13.5-17.5); IMMATURE GRAN ABSOLUTE AUTO 0.05 K/mm3 (0.00-0.10); IMMATURE GRAN PERCENT AUTO 1 % (0-1); LYMPHOCYTES ABSOLUTE AUTO 3.82 K/mm3 (0.84-5.20); LYMPHOCYTES PERCENT AUTO 42 % (21-46); MONOCYTES ABSOLUTE AUTO 0.88 K/mm3 (0.16-1.47); MONOCYTES PERCENT AUTO 10 % (4-13); Mean Corpuscular HGB 32.7 pg (26.0-34.0); Mean Corpuscular Volume 96 fL (80-100); Mean Platelet Volume 9.2 fL (9.1-12.4); NEUTROPHILS ABSOLUTE AUTO 3.74 K/mm3 (1.96-9.15); NEUTROPHILS PERCENT AUTO 41 % (41-73); Platelet Count 257 K/mm3 (150-400); RDW Coefficient Variation 12.6 % (11.7-14.2); Red Blood Cell Count 4.43 M/mm3 (4.30-5.90); White Blood Cell Count 9.12 K/mm3 (4.00-11.30)
[2021-06-24 13:15] LABS: International Normalized Ratio 1.03; Prothrombin Time Results 10.8 Sec (9.7-11.5)
[2021-06-24 13:44] LABS: Alanine Aminotransfer (ALT/SGP 35 U/L (12-78); Albumin, Blood 3.6 g/dL (3.4-5.0); Albumin/Globulin Ratio 0.8 (0.8-1.8); Alk Phos 88 U/L (50-136); Anion Gap 5 mmol/L (6-16); Aspartate Aminotrans (AST/SGOT 22 U/L (12-37); Bilirubin, Total 0.6 mg/dL (0.1-1.0); Blood Urea Nitrogen 21 mg/dL (8-24); Bun/Creatinine Ratio 24.5 (12.0-20.0); CO2, Blood 29 mmol/L (21-32); Chloride, Blood 102 mmol/L (98-108); Creatinine, Blood 0.86 mg/dL (0.60-1.20); Globulin, Blood 4.4 g/dL (2.2-4.0); Glomerular Filtration Rate >60 (60-); Glucose, Blood 218 mg/dL (70-99); Potassium, Blood 4.3 mmol/L (3.5-5.5); Sodium, Blood 136 mmol/L (136-145)
== END 2021-06-24 16:39 | disposition home or self-care (01) ==
LOC: ER 11:42
PROVIDERS: Physician Assistant
DX: K92.2 Gastrointestinal hemorrhage, unspecified (principal); K21.9 Gastro-esophageal reflux disease without esophagitis; J43.9 Emphysema, unspecified; Z79.899 Other long term (current) drug therapy
CPT/HCPCS: 80053; 82272; 83690; 85025; 85610; 93005; 93010; 96374; 99284-25; A9270; J2405

== ENCOUNTER 2021-08-24 01:58 | Emergency (ER) | payer OTHER ==
[~2021-08-24] VITALS: Ht 182.9 cm; Wt 81.7 kg
[2021-08-24 04:01] LABS: BASOPHILS ABSOLUTE AUTO 0.05 K/mm3 (0.00-0.23); BASOPHILS PERCENT AUTO 1 % (0-2); EOSINOPHILS ABSOLUTE AUTO 0.21 K/mm3 (0.00-0.68); EOSINOPHILS PERCENT AUTO 3 % (0-6); Hematocrit 44.9 % (37.0-53.0); Hemoglobin 15.6 g/dL (13.5-17.5); IMMATURE GRAN ABSOLUTE AUTO 0.01 K/mm3 (0.00-0.10); IMMATURE GRAN PERCENT AUTO 0 % (0-1); LYMPHOCYTES ABSOLUTE AUTO 2.38 K/mm3 (0.84-5.20); LYMPHOCYTES PERCENT AUTO 29 % (21-46); MONOCYTES ABSOLUTE AUTO 0.71 K/mm3 (0.16-1.47); MONOCYTES PERCENT AUTO 9 % (4-13); Mean Corpuscular HGB 31.9 pg (26.0-34.0); Mean Corpuscular HGB Conc 34.7 g/dL (31.5-36.5); Mean Corpuscular Volume 92 fL (80-100); Mean Platelet Volume 8.8 fL (9.1-12.4); NEUTROPHILS ABSOLUTE AUTO 4.84 K/mm3 (1.96-9.15); NEUTROPHILS PERCENT AUTO 59 % (41-73); Platelet Count 242 K/mm3 (150-400); RDW Coefficient Variation 11.9 % (11.7-14.2); RDW Standard Deviation 39.9 fL (35.1-46.3); Red Blood Cell Count 4.89 M/mm3 (4.30-5.90)
[2021-08-24 04:17] LABS: Alanine Aminotransfer (ALT/SGP 28 U/L (12-78); Albumin, Blood 3.7 g/dL (3.4-5.0); Albumin/Globulin Ratio 0.8 (0.8-1.8); Alk Phos 116 U/L (50-136); Anion Gap 5 mmol/L (6-16); Aspartate Aminotrans (AST/SGOT 20 U/L (12-37); Bilirubin, Total 0.4 mg/dL (0.1-1.0); Blood Urea Nitrogen 21 mg/dL (8-24); Bun/Creatinine Ratio 25.4 (12.0-20.0); CO2, Blood 31 mmol/L (21-32); Chloride, Blood 100 mmol/L (98-108); Creatinine, Blood 0.83 mg/dL (0.60-1.20); Globulin, Blood 4.6 g/dL (2.2-4.0); Glomerular Filtration Rate >60 (60-); Glucose, Blood 313 mg/dL (70-99); Potassium, Blood 4.1 mmol/L (3.5-5.5); Sodium, Blood 136 mmol/L (136-145); Total Protein, Blood 8.3 g/dL (6.4-8.2)
== END 2021-08-24 07:47 | disposition home or self-care (01) ==
LOC: ER 01:58
PROVIDERS: Physician Assistant
DX: R07.9 Chest pain, unspecified (principal); E11.9 Type 2 diabetes mellitus without complications; K21.9 Gastro-esophageal reflux disease without esophagitis; F17.200 Nicotine dependence, unspecified, uncomplicated; Z79.4 Long term (current) use of insulin; Z79.899 Other long term (current) drug therapy
CPT/HCPCS: 36415; 71045; 80053; 84484; 85025; 93005; 93010; 99285-25; A9270

== ENCOUNTER 2021-11-17 18:03 | Inpatient (IN) | payer OTHER ==
[~2021-11-17] VITALS: Ht 177.8 cm; Wt 72.6 kg
[2021-11-17 18:25] LABS: BASOPHILS ABSOLUTE AUTO 0.04 K/mm3 (0.00-0.23); BASOPHILS PERCENT AUTO 1 % (0-2); EOSINOPHILS ABSOLUTE AUTO 0.07 K/mm3 (0.00-0.68); EOSINOPHILS PERCENT AUTO 1 % (0-6); Hematocrit 42.8 % (37.0-53.0); Hemoglobin 14.5 g/dL (13.5-17.5); IMMATURE GRAN ABSOLUTE AUTO 0.03 K/mm3 (0.00-0.10); IMMATURE GRAN PERCENT AUTO 1 % (0-1); LYMPHOCYTES ABSOLUTE AUTO 1.43 K/mm3 (0.84-5.20); LYMPHOCYTES PERCENT AUTO 24 % (21-46); MONOCYTES ABSOLUTE AUTO 0.95 K/mm3 (0.16-1.47); MONOCYTES PERCENT AUTO 16 % (4-13); Mean Corpuscular HGB 31.5 pg (26.0-34.0); Mean Corpuscular HGB Conc 33.9 g/dL (31.5-36.5); Mean Corpuscular Volume 93 fL (80-100); NEUTROPHILS ABSOLUTE AUTO 3.51 K/mm3 (1.96-9.15); NEUTROPHILS PERCENT AUTO 58 % (41-73); Platelet Count 226 K/mm3 (150-400); RDW Coefficient Variation 12.6 % (11.7-14.2); RDW Standard Deviation 42.9 fL (35.1-46.3); Red Blood Cell Count 4.61 M/mm3 (4.30-5.90); White Blood Cell Count 6.03 K/mm3 (4.00-11.30)
[2021-11-17 18:45] LABS: Albumin, Blood 3.5 g/dL (3.4-5.0); Albumin/Globulin Ratio 0.8 (0.8-1.8); Bilirubin, Total 0.5 mg/dL (0.1-1.0); Bun/Creatinine Ratio 32.2 (12.0-20.0); Calcium, Blood 8.7 mg/dL (8.5-10.1); Creatinine, Blood 0.68 mg/dL (0.60-1.20); Globulin, Blood 4.5 g/dL (2.2-4.0); Potassium, Blood 4.5 mmol/L (3.5-5.5)
[2021-11-17 21:08] LABS: Influenza A, PCR NEGATIVE (NEGATIVE); Influenza B, PCR NEGATIVE (NEGATIVE); Resp Syncytial Virus, PCR NEGATIVE (NEGATIVE)
[2021-11-17 21:11] LABS: SARS-Cov-2 (COVID-19) PCR, MMC POSITIVE (NEGATIVE)
[2021-11-17] MEDS ORDERED: OXYCODONE-ACET1 EAC2 PO (23:45)
[2021-11-18] MEDS ORDERED: OMEP20ER PO (00:03)
[2021-11-18] MEDS ORDERED: Phenergan25 M1 PO (00:08)
[2021-11-18] MEDS ORDERED: XARELTO20 MG PO (00:10)
--- NOTE | 2021-11-18 04:18 | NUR ---
Patient recieved from ED with a tachycardia and a fever. Dr. Hector called for tylenol and pain medication. Patient very anxious, calling out over and over for help. No real help needs identified. Patient with multiple c/o pain, sore throat, and cough. VOiding per urinal. O2 sats remain in the low 90s on 4L/NC. Skin inspection reveals some old briusing,but no acute skin issues noted. Patient confused and wants to go home with his . Discussed his pneumonia and need to stay in the hospital.
[2021-11-18 05:47] LABS: BASOPHILS ABSOLUTE AUTO 0.01 K/mm3 (0.00-0.23); BASOPHILS PERCENT AUTO 0 % (0-2); EOSINOPHILS PERCENT AUTO 0 % (0-6); Hematocrit 44.5 % (37.0-53.0); Hemoglobin 14.8 g/dL (13.5-17.5); IMMATURE GRAN ABSOLUTE AUTO 0.03 K/mm3 (0.00-0.10); IMMATURE GRAN PERCENT AUTO 0 % (0-1); LYMPHOCYTES ABSOLUTE AUTO 1.02 K/mm3 (0.84-5.20); LYMPHOCYTES PERCENT AUTO 14 % (21-46); MONOCYTES ABSOLUTE AUTO 0.23 K/mm3 (0.16-1.47); MONOCYTES PERCENT AUTO 3 % (4-13); Mean Corpuscular HGB 31.5 pg (26.0-34.0); Mean Corpuscular HGB Conc 33.3 g/dL (31.5-36.5); Mean Corpuscular Volume 95 fL (80-100); Mean Platelet Volume 9.3 fL (9.1-12.4); NEUTROPHILS PERCENT AUTO 82 % (41-73); Platelet Count 200 K/mm3 (150-400); RDW Coefficient Variation 12.5 % (11.7-14.2); RDW Standard Deviation 43.2 fL (35.1-46.3); White Blood Cell Count 7.09 K/mm3 (4.00-11.30)
[2021-11-18 06:15] LABS: Albumin, Blood 3.2 g/dL (3.4-5.0); Albumin/Globulin Ratio 0.7 (0.8-1.8); Bilirubin, Total 0.3 mg/dL (0.1-1.0); Bun/Creatinine Ratio 29.8 (12.0-20.0); Calcium, Blood 8.2 mg/dL (8.5-10.1); Creatinine, Blood 0.77 mg/dL (0.60-1.20); Globulin, Blood 4.7 g/dL (2.2-4.0); Potassium, Blood 5.5 mmol/L (3.5-5.5); Total Protein, Blood 7.9 g/dL (6.4-8.2)
[2021-11-18 11:17] LABS: Source, Urine Clean Catch
[2021-11-18 11:46] LABS: Appearance, Urine Clear (Clear); Bilirubin, Urine Neg (Neg); Blood, Urine Neg (Neg); Color, Urine Yellow (P-Yellow); Glucose Qualitative, Urine 4+ (Neg); Ketones, Urine 1+ (Neg); Leukocyte Esterase, Urine Neg (Neg); Nitrite, Urine Neg (Neg); Protein, Urine Neg (Neg); Urobilinogen, Urine NORM (Normal)
--- NOTE | 2021-11-18 16:30 | NUR ---
Patient is lying in bed and alert. Pt is confused and tells me about how he thinks is in skilled nursing and has been calling his to break him out of skilled nursing. Then he tells me about the surgery that will be performed on him tomorrow where "they will open me up to find the COVID and cut it out." he also has clear moments in which he knows he is the hospital and he remembers that I am the "preacher at the hospital." I provide anxiety containment, companionship, a calming presence and prayer. Patient responds well and shows signs of increased peace.
--- NOTE | 2021-11-18 18:17 | NUR ---
SHIFT SUMMARY PT A&O X 2. IS CONFUSED AT TIMES AND FORGETFUL. O2 SATS ON 4 L'S RANGE 94-97% VIA CONTINUOUS BI-OX. NO TEMP TODAY. VSS. BLOOD SUGARS HAVE BEEN RANGING IN THE 300S. INCREASED INSULIN CORRECTION COVERAGE. IS ON DECADRON WHICH IS LIKELY THE REASON FOR THE BG ELEVATIONS. PT IS PLEASANT & COOPERATIVE WITH CARE THOUGH WILL AT TIMES YELL OUT AT STAFF.
--- NOTE | 2021-11-19 03:44 | NUR ---
Patient with VSS on 4l/nc overnight. Using call light appropriately. Voiding per urinal. C/o pain in legs and feet. See AUG.
--- NOTE | 2021-11-19 16:35 | NUR ---
SHIFT SUMMARY- PT ACTIVE THROUGHOUT DAY, DELIGATING NEEDS. PT PLEASANT TO CARE FOR. PAIN C/O PAIN MOST OF SHIFT, MEDICATED PER EMAR. DISCUSSED PAIN ISSUES WITH DR. DR ESPARZA FURTHER TESTING ORDER PER EMAR. VSS. BG HIGH THORUGHOUT SHIFT, TREATED PER EMAR. PT VOIDS NEEDED IN BEDSIDE URINAL. MRI SCHEDULED FOR THIS AFTERNOON, WILL MEDICATE ACCORDINGLY. PT WITH CALL LIGHT AND SIDE RAILS INTACT.
--- NOTE | 2021-11-20 04:29 | NUR ---
PATIENT WITH VSS ON 4L/O2 OVERNIGHT. PATIENT VOIDING CLEAR YELLOW URINE. ABLE TO SWALLOW HIS MEDICATIONS. MODERATE C/O LOWER BACK PAIN. SEE MAR. PATIENT SPEPT WELL THROUGHOUT THE SHIFT. NO ACUTE EVENTS OVERNIGHT.
[2021-11-20 06:02] LABS: Hematocrit 44.8 % (37.0-53.0); Hemoglobin 14.8 g/dL (13.5-17.5); Mean Corpuscular HGB 31.4 pg (26.0-34.0); Mean Corpuscular Volume 95 fL (80-100); Mean Platelet Volume 9.4 fL (9.1-12.4); Platelet Count 237 K/mm3 (150-400); RDW Coefficient Variation 12.6 % (11.7-14.2); RDW Standard Deviation 43.8 fL (35.1-46.3); Red Blood Cell Count 4.71 M/mm3 (4.30-5.90); White Blood Cell Count 12.15 K/mm3 (4.00-11.30)
[2021-11-20 06:44] LABS: Albumin, Blood 2.9 g/dL (3.4-5.0); Albumin/Globulin Ratio 0.7 (0.8-1.8); Bilirubin, Total 0.2 mg/dL (0.1-1.0); Bun/Creatinine Ratio 45.6 (12.0-20.0); Calcium, Blood 8.5 mg/dL (8.5-10.1); Creatinine, Blood 0.64 mg/dL (0.60-1.20); Globulin, Blood 4.1 g/dL (2.2-4.0); Potassium, Blood 4.1 mmol/L (3.5-5.5); Thyroid Stimulating Hormone 0.858 uIU/mL (0.360-4.800)
--- NOTE | 2021-11-20 13:03 | NUR ---
Patient is lying on his side and sleeping. Pt easily awakens and to the sound of his name. He is confused as to where he is or what his medical issues are. I spend sometime reassuring pt of his safety and the care that he is surrounded with. I remind him of a few points of reality which he may or may not retain. Pt admits to lonelineess and feeling disoriented. I provide anxiety containment, therapeutic listening, companionship and prayer. Pt responds well and shows signs of increased peace. I will continue to remain available to pr and family.
--- NOTE | 2021-11-20 16:32 | NUR ---
DAY SHIFT SUMMARY 71 YR OLD MALE PT WITH COVID PNEUMONIA. PT RESTLESS IN ROOM AND COMPLAINING OF BEING ALONE. PT IS CONFUSED, HX OF UNDERLYING DEMENTIA. EDUCATED PT ON COVID AND REASON FOR KEEPING ROOM DOOR CLOSED. PT USES URINAL AT BEDSIDE. 4L O2 NC. A/O X2. PT HARD TO UNDERSTAND AT TIMES. CALL LIGHT WITHIN REACH.
--- NOTE | 2021-11-21 04:02 | NUR ---
PATIENT WITH VSS ON 4L/O2 OVERNIGHT. PATIENT SOB WITH AMBULATING TO THE BATHROOM BUT DID NOT DROP HIS O2 SAT. VOIDING CLEAR YELLOW URINE. ALERT AND PLEASANT OVERNIGHT. NO ACUTE ISSUES.
--- NOTE | 2021-11-21 10:28 | NUR ---
Patient is very anxious and voices his fears of . I provide therapeutic listening, anxiety containment and prayer. Pt shows signs of greater peace and states that he feels much better and expresses gratitude for the visit. I will continue to remain available.
--- NOTE | 2021-11-21 17:42 | NUR ---
DAY SHIFT SUMMARY 71 YR OLD MALE WITH COVID PNEUMONIA. PT ON 4L O2 NC, STATES 4L IS HIS BASELINE AT HOME. PT STATES HE DOES NOT WISH TO GO HOME DUE TO NOT WANTING TO GO HOME TO HIS , PT ALSO STATES HE DOES NOT WANT TO BE ALONE IN HIS ROOM HERE. EDUCATED PT ON REASON FOR DOOR NEEDING TO REMAIN CLOSED WITH HIS ISO DUE TO COVID. CALL LIGHT WITHIN REACH OF PT. FREQUENT ROUNDING EVEN WITH COVID DX. UNDERLYING DEMENTIA PER MD NOTES. CHRONIC PAIN, MEDICATED PER EMAR.
--- NOTE | 2021-11-22 04:57 | NUR ---
SHIFT SUMMARY: PT IS A/OX2-3. HE REMAINS ON COVID PRECAUTIONS AND 4L OF 02 (BASELINE). HIS HS CBG WAS 361; WAS NOTIFIED AND NO NEW ORDERS ON HIS INSULIN COVERAGE. HE DID HAVE C/O PAIN AND WAS MEDICATED VIA EMAR. HE IS ABLE TO BE INDEPENDENT IN THE ROOM. HIS CALL LIGHT IS WITHIN REACH AND WE'LL CONTINUE TO MONITOR.
[2021-11-22 05:36] LABS: Hematocrit 45.3 % (37.0-53.0); Hemoglobin 14.8 g/dL (13.5-17.5); Mean Corpuscular HGB Conc 32.7 g/dL (31.5-36.5); Mean Corpuscular Volume 95 fL (80-100); Mean Platelet Volume 9.1 fL (9.1-12.4); Platelet Count 247 K/mm3 (150-400); RDW Coefficient Variation 12.8 % (11.7-14.2); RDW Standard Deviation 44.6 fL (35.1-46.3); Red Blood Cell Count 4.78 M/mm3 (4.30-5.90); White Blood Cell Count 7.94 K/mm3 (4.00-11.30)
[2021-11-22 06:13] LABS: Albumin, Blood 3.1 g/dL (3.4-5.0); Albumin/Globulin Ratio 0.7 (0.8-1.8); Bilirubin, Total 0.3 mg/dL (0.1-1.0); Bun/Creatinine Ratio 33.7 (12.0-20.0); Calcium, Blood 8.8 mg/dL (8.5-10.1); Creatinine, Blood 0.74 mg/dL (0.60-1.20); Globulin, Blood 4.4 g/dL (2.2-4.0); Potassium, Blood 3.8 mmol/L (3.5-5.5); Total Protein, Blood 7.5 g/dL (6.4-8.2)
--- NOTE | 2021-11-22 15:25 | NUR ---
PT IS ANXIOUS ABOUT LEAVING TO GO HOME. PT CONFRONTATIONAL WHEN APPROACHED TO DISCUSS STAYING UNTIL DISCHARGE ORDERS COMPLETE. 14:30 PT RIDE DUE AT 1800. DISCUSSED WITH PT TO STAY UNTIL RIDE IS HERE. PT CALMED AFTER SOME TIME AND IS RESTING NOW AWAITING DISCHARGE. 15:25
--- NOTE | 2021-11-22 15:43 | NUR ---
SPOKE WITH DR. PADILLA OVER TELEPHONE, REQUESTED A HOME O2 EVAL PRIOR TO DISCHARGE. ORDER IN. 15:45
[2021-11-22] MEDS ORDERED: ACET325 PO (17:18)
[2021-11-22] MEDS ORDERED: DECADRON6 M1 PO (17:18)
[2021-11-22] MEDS ORDERED: GUAI600T33 PO (17:19)
[2021-11-22] MEDS ORDERED: Seroquel Xr50 MG PO (17:19)
--- NOTE | 2021-11-22 17:29 | NUR ---
SHIFT SUMMARY- PT VSS. PT APPETITE GOOD. PT A@O X3. PT ANXIOUS ABOUT D/C, DEMANDING HE D/C RIGHT AWAY ALL SHIFT. PT C/O PAIN DURING AM SHIFT, TREATED PER EMAR. PT IS COMPLIANT WITH MEDICATION CARE, NEEDED. PT RESTING IN ROOM WITH CALL LIGHT AT SIDE AWAITING TRANSPORTATION SCHEDULED AT 1800.
--- NOTE | 2021-11-22 17:59 | NUR ---
DISCUSSED D/C PAPERWORK WITH PT. PT LEFT WITH [facility] TRANSFER SERVICE VIA WHEELCHAIR, WITH O2 VIA NC/PORTABLE TANK FOR LOAN. PT WITH ALL BELONGINGS AND DISCHARGE PAPERWORK IN HAND.
== END 2021-11-22 17:54 | disposition home health service (06) | DRG 177 ==
LOC: ER 18:03 → MEDS 22:44
PROVIDERS: Family Medicine; Internal Medicine; Student in an Organized Health Care Education/Training Program; ADMIT Internal Medicine
PROC: 3E0333Z Introduction of Anti-inflammatory into Peripheral Vein, Percutaneous Approach (ICD-10-PCS; principal; 2021-11-17)
PROC: XW033E5 Introduction of Remdesivir Anti-infective into Peripheral Vein, Percutaneous Approach, New Technology Group 5 (ICD-10-PCS; 2021-11-17)
PROC: 8E0ZXY6 Isolation (ICD-10-PCS; 2021-11-17)
PROC: 3E03329 Introduction of Other Anti-infective into Peripheral Vein, Percutaneous Approach (ICD-10-PCS; 2021-11-17)
DX: U07.1 COVID-19 (principal); J12.82 Pneumonia due to coronavirus disease 2019; J96.01 Acute respiratory failure with hypoxia; G92.8 Other toxic encephalopathy; J06.9 Acute upper respiratory infection, unspecified; G89.4 Chronic pain syndrome; F03.90 Unspecified dementia, unspecified severity, without behavioral disturbance, psychotic disturbance, mood disturbance, and anxiety; M54.16 Radiculopathy, lumbar region; M54.50 Low back pain, unspecified; M53.3 Sacrococcygeal disorders, not elsewhere classified; K21.9 Gastro-esophageal reflux disease without esophagitis; J43.9 Emphysema, unspecified; F32.A Depression, unspecified; E11.40 Type 2 diabetes mellitus with diabetic neuropathy, unspecified; L40.9 Psoriasis, unspecified; B35.3 Tinea pedis; F17.210 Nicotine dependence, cigarettes, uncomplicated; F10.10 Alcohol abuse, uncomplicated; Z86.73 Personal history of transient ischemic attack (TIA), and cerebral infarction without residual deficits; Z99.81 Dependence on supplemental oxygen; Z86.711 Personal history of pulmonary embolism; Z86.718 Personal history of other venous thrombosis and embolism; Z87.09 Personal history of other diseases of the respiratory system; Z87.19 Personal history of other diseases of the digestive system; Z90.49 Acquired absence of other specified parts of digestive tract; Z98.890 Other specified postprocedural states; F41.9 Anxiety disorder, unspecified; Z88.8 Allergy status to other drugs, medicaments and biological substances; Z88.5 Allergy status to narcotic agent; Z91.018 Allergy to other foods
CPT/HCPCS: 0241U; 36415; 71045; 72148; 80053; 81003; 82607; 82746; 82947; 83605; 84443; 84484; 85025; 85027; 85651; 93005; 93010; 94640; 94761; 94762; 96365; 96366; 96375; 99285-25; A9270; J0248; J1100; J1815; J1956; J7040; J7050

== ENCOUNTER 2021-11-26 04:21 | Emergency (ER) | payer OTHER ==
[~2021-11-26] VITALS: Ht 182.9 cm; Wt 77.1 kg
[~2021-11-26 04:21] MED LIST changes: +DECADRON6 M1 PO; +Phenergan25 M1 PO; +Seroquel Xr50 MG PO; +XARELTO20 MG PO
== END 2021-11-26 06:30 | disposition home or self-care (01) ==
LOC: ER 04:21
DX: R45.1 Restlessness and agitation (principal); F41.9 Anxiety disorder, unspecified; U07.1 COVID-19; Z87.891 Personal history of nicotine dependence; J44.9 Chronic obstructive pulmonary disease, unspecified; Z86.73 Personal history of transient ischemic attack (TIA), and cerebral infarction without residual deficits; Z79.899 Other long term (current) drug therapy; Z79.4 Long term (current) use of insulin
CPT/HCPCS: 82947; 99284; A9270

== ENCOUNTER 2021-11-28 16:48 | Emergency (ER) | payer OTHER ==
[~2021-11-28] VITALS: Ht 182.9 cm; Wt 77.1 kg
[2021-11-28 17:28] LABS: BASOPHILS ABSOLUTE AUTO 0.03 K/mm3 (0.00-0.23); BASOPHILS PERCENT AUTO 0 % (0-2); EOSINOPHILS ABSOLUTE AUTO 0.06 K/mm3 (0.00-0.68); EOSINOPHILS PERCENT AUTO 0 % (0-6); Hematocrit 42.2 % (37.0-53.0); Hemoglobin 14.2 g/dL (13.5-17.5); IMMATURE GRAN ABSOLUTE AUTO 0.05 K/mm3 (0.00-0.10); IMMATURE GRAN PERCENT AUTO 0 % (0-1); LYMPHOCYTES ABSOLUTE AUTO 2.13 K/mm3 (0.84-5.20); LYMPHOCYTES PERCENT AUTO 15 % (21-46); MONOCYTES ABSOLUTE AUTO 1.32 K/mm3 (0.16-1.47); MONOCYTES PERCENT AUTO 9 % (4-13); Mean Corpuscular HGB 31.9 pg (26.0-34.0); Mean Corpuscular HGB Conc 33.6 g/dL (31.5-36.5); Mean Corpuscular Volume 95 fL (80-100); Mean Platelet Volume 8.6 fL (9.1-12.4); NEUTROPHILS ABSOLUTE AUTO 10.58 K/mm3 (1.96-9.15); NEUTROPHILS PERCENT AUTO 75 % (41-73); Platelet Count 244 K/mm3 (150-400); RDW Coefficient Variation 12.4 % (11.7-14.2); RDW Standard Deviation 43.2 fL (35.1-46.3); Red Blood Cell Count 4.45 M/mm3 (4.30-5.90); White Blood Cell Count 14.17 K/mm3 (4.00-11.30)
[2021-11-28 17:45] LABS: Albumin/Globulin Ratio 0.6 (0.8-1.8); Bilirubin, Total 0.6 mg/dL (0.1-1.0); Bun/Creatinine Ratio 20.2 (12.0-20.0); Calcium, Blood 8.8 mg/dL (8.5-10.1); Creatinine, Blood 0.84 mg/dL (0.60-1.20); Globulin, Blood 4.9 g/dL (2.2-4.0); Potassium, Blood 4.9 mmol/L (3.5-5.5); Total Protein, Blood 7.9 g/dL (6.4-8.2)
== END 2021-11-28 22:12 | disposition home or self-care (01) ==
LOC: ER 16:48
PROVIDERS: Student in an Organized Health Care Education/Training Program
DX: R45.1 Restlessness and agitation (principal); R10.9 Unspecified abdominal pain; F03.90 Unspecified dementia, unspecified severity, without behavioral disturbance, psychotic disturbance, mood disturbance, and anxiety; K21.9 Gastro-esophageal reflux disease without esophagitis; J44.9 Chronic obstructive pulmonary disease, unspecified; E11.9 Type 2 diabetes mellitus without complications; F17.200 Nicotine dependence, unspecified, uncomplicated; Z91.018 Allergy to other foods; Z88.8 Allergy status to other drugs, medicaments and biological substances; Z79.899 Other long term (current) drug therapy; Z79.4 Long term (current) use of insulin
CPT/HCPCS: 71045; 74177; 80053; 82947; 85025; 93005; 93010; 96372; 96374; 96375; 99285-25; A9270; J2405; J3010; Q9967

== ENCOUNTER 2021-12-02 13:27 | Emergency (ER) | payer OTHER ==
[~2021-12-02] VITALS: Ht 182.9 cm; Wt 83.9 kg
[2021-12-02 14:14] LABS: BASOPHILS ABSOLUTE AUTO 0.04 K/mm3 (0.00-0.23); BASOPHILS PERCENT AUTO 1 % (0-2); EOSINOPHILS ABSOLUTE AUTO 0.19 K/mm3 (0.00-0.68); EOSINOPHILS PERCENT AUTO 3 % (0-6); Hematocrit 41.1 % (37.0-53.0); Hemoglobin 13.9 g/dL (13.5-17.5); IMMATURE GRAN ABSOLUTE AUTO 0.02 K/mm3 (0.00-0.10); IMMATURE GRAN PERCENT AUTO 0 % (0-1); LYMPHOCYTES ABSOLUTE AUTO 2.07 K/mm3 (0.84-5.20); LYMPHOCYTES PERCENT AUTO 30 % (21-46); MONOCYTES ABSOLUTE AUTO 0.62 K/mm3 (0.16-1.47); MONOCYTES PERCENT AUTO 9 % (4-13); Mean Corpuscular HGB 31.7 pg (26.0-34.0); Mean Corpuscular HGB Conc 33.8 g/dL (31.5-36.5); Mean Corpuscular Volume 94 fL (80-100); Mean Platelet Volume 8.9 fL (9.1-12.4); NEUTROPHILS ABSOLUTE AUTO 3.95 K/mm3 (1.96-9.15); NEUTROPHILS PERCENT AUTO 57 % (41-73); Platelet Count 273 K/mm3 (150-400); RDW Coefficient Variation 12.3 % (11.7-14.2); RDW Standard Deviation 42.4 fL (35.1-46.3); Red Blood Cell Count 4.39 M/mm3 (4.30-5.90); White Blood Cell Count 6.89 K/mm3 (4.00-11.30)
[2021-12-02 14:23] LABS: Albumin, Blood 2.8 g/dL (3.4-5.0); Albumin/Globulin Ratio 0.5 (0.8-1.8); Bilirubin, Total 0.3 mg/dL (0.1-1.0); Bun/Creatinine Ratio 23.3 (12.0-20.0); Creatinine, Blood 0.64 mg/dL (0.60-1.20); Globulin, Blood 5.1 g/dL (2.2-4.0); Potassium, Blood 4.4 mmol/L (3.5-5.5); Total Protein, Blood 7.9 g/dL (6.4-8.2)
== END 2021-12-02 17:12 | disposition home or self-care (01) ==
LOC: ER 13:27
PROVIDERS: Physician Assistant
DX: M54.50 Low back pain, unspecified (principal); G89.29 Other chronic pain; J43.9 Emphysema, unspecified; K21.9 Gastro-esophageal reflux disease without esophagitis; E11.40 Type 2 diabetes mellitus with diabetic neuropathy, unspecified; Z88.5 Allergy status to narcotic agent; Z88.8 Allergy status to other drugs, medicaments and biological substances; Z91.018 Allergy to other foods; Z79.899 Other long term (current) drug therapy
CPT/HCPCS: 36415; 71046; 80053; 83880; 84484; 85025; 93005; 93010; A9270; J1885

== ENCOUNTER 2022-01-01 10:27 | Emergency (ER) | payer OTHER ==
[~2022-01-01] VITALS: Ht 182.9 cm; Wt 81.7 kg
[2022-01-01 11:09] LABS: BASOPHILS ABSOLUTE AUTO 0.06 K/mm3 (0.00-0.23); BASOPHILS PERCENT AUTO 1 % (0-2); EOSINOPHILS ABSOLUTE AUTO 0.49 K/mm3 (0.00-0.68); EOSINOPHILS PERCENT AUTO 6 % (0-6); Hematocrit 39.4 % (37.0-53.0); Hemoglobin 13.7 g/dL (13.5-17.5); IMMATURE GRAN ABSOLUTE AUTO 0.02 K/mm3 (0.00-0.10); IMMATURE GRAN PERCENT AUTO 0 % (0-1); LYMPHOCYTES ABSOLUTE AUTO 3.34 K/mm3 (0.84-5.20); LYMPHOCYTES PERCENT AUTO 42 % (21-46); MONOCYTES ABSOLUTE AUTO 0.75 K/mm3 (0.16-1.47); MONOCYTES PERCENT AUTO 10 % (4-13); Mean Corpuscular HGB 31.6 pg (26.0-34.0); Mean Corpuscular HGB Conc 34.8 g/dL (31.5-36.5); Mean Corpuscular Volume 91 fL (80-100); Mean Platelet Volume 8.9 fL (9.1-12.4); NEUTROPHILS ABSOLUTE AUTO 3.21 K/mm3 (1.96-9.15); NEUTROPHILS PERCENT AUTO 41 % (41-73); Platelet Count 257 K/mm3 (150-400); RDW Coefficient Variation 12.9 % (11.7-14.2); Red Blood Cell Count 4.33 M/mm3 (4.30-5.90); White Blood Cell Count 7.87 K/mm3 (4.00-11.30)
[2022-01-01 11:28] LABS: Albumin, Blood 3.2 g/dL (3.4-5.0); Albumin/Globulin Ratio 0.7 (0.8-1.8); Bilirubin, Total 0.7 mg/dL (0.1-1.0); Bun/Creatinine Ratio 30.2 (12.0-20.0); Calcium, Blood 8.9 mg/dL (8.5-10.1); Creatinine, Blood 0.66 mg/dL (0.60-1.20); Globulin, Blood 4.4 g/dL (2.2-4.0); Potassium, Blood 4.1 mmol/L (3.5-5.5); Total Protein, Blood 7.6 g/dL (6.4-8.2)
[2022-01-01 12:34] LABS: Source, Urine Voided
[2022-01-01 12:47] LABS: Appearance, Urine Clear (Clear); Bilirubin, Urine Neg (Neg); Blood, Urine Neg (Neg); Color, Urine Yellow (P-Yellow); Glucose Qualitative, Urine 3+ (Neg); Ketones, Urine Neg (Neg); Leukocyte Esterase, Urine Neg (Neg); Nitrite, Urine Neg (Neg); Protein, Urine Neg (Neg); Specific Gravity, Urine 1.025 (1.003-1.022); Urobilinogen, Urine NORM (Normal)
== END 2022-01-01 13:53 | disposition home or self-care (01) ==
LOC: ER 10:27
PROVIDERS: Emergency Medicine
DX: R10.9 Unspecified abdominal pain (principal); E73.9 Lactose intolerance, unspecified; M54.9 Dorsalgia, unspecified; J43.9 Emphysema, unspecified; K21.9 Gastro-esophageal reflux disease without esophagitis; E11.40 Type 2 diabetes mellitus with diabetic neuropathy, unspecified; Z86.73 Personal history of transient ischemic attack (TIA), and cerebral infarction without residual deficits; Z86.718 Personal history of other venous thrombosis and embolism; Z86.711 Personal history of pulmonary embolism; Z79.899 Other long term (current) drug therapy; Z79.4 Long term (current) use of insulin; Z79.01 Long term (current) use of anticoagulants; Z91.02 Food additives allergy status; Z88.5 Allergy status to narcotic agent; Z88.8 Allergy status to other drugs, medicaments and biological substances; Z91.018 Allergy to other foods
CPT/HCPCS: 74177; 80053; 81003; 83690; 85025; 93005; 93010; 96374; 96375; 99284-25; J2270; J2405; Q9967

== ENCOUNTER 2022-01-06 01:51 | Emergency (ER) | payer OTHER ==
[~2022-01-06] VITALS: Ht 182.9 cm; Wt 81.7 kg
[2022-01-06 02:03] LABS: BASOPHILS ABSOLUTE AUTO 0.07 K/mm3 (0.00-0.23); BASOPHILS PERCENT AUTO 1 % (0-2); EOSINOPHILS ABSOLUTE AUTO 0.31 K/mm3 (0.00-0.68); EOSINOPHILS PERCENT AUTO 3 % (0-6); Hematocrit 42.1 % (37.0-53.0); Hemoglobin 14.2 g/dL (13.5-17.5); IMMATURE GRAN ABSOLUTE AUTO 0.03 K/mm3 (0.00-0.10); IMMATURE GRAN PERCENT AUTO 0 % (0-1); LYMPHOCYTES PERCENT AUTO 36 % (21-46); MONOCYTES PERCENT AUTO 8 % (4-13); Mean Corpuscular HGB 31.6 pg (26.0-34.0); Mean Corpuscular HGB Conc 33.7 g/dL (31.5-36.5); Mean Corpuscular Volume 94 fL (80-100); NEUTROPHILS ABSOLUTE AUTO 5.68 K/mm3 (1.96-9.15); NEUTROPHILS PERCENT AUTO 52 % (41-73); Platelet Count 301 K/mm3 (150-400); RDW Coefficient Variation 12.7 % (11.7-14.2); RDW Standard Deviation 43.8 fL (35.1-46.3); White Blood Cell Count 10.89 K/mm3 (4.00-11.30)
[2022-01-06 02:19] LABS: Bun/Creatinine Ratio 23.9 (12.0-20.0); Calcium, Blood 8.9 mg/dL (8.5-10.1); Creatinine, Blood 0.75 mg/dL (0.60-1.20)
[2022-01-06] MEDS ORDERED: ALBU90OI INH (03:18)
[2022-01-07] MEDS ORDERED: ALBU90OI INH (11:36)
[2022-01-07] MEDS ORDERED: Ventolin/Prove6.7 GM INH (19:37)
== END 2022-01-06 04:19 | disposition home or self-care (01) ==
LOC: ER 01:51
PROVIDERS: Emergency Medicine
DX: J43.9 Emphysema, unspecified (principal); E11.65 Type 2 diabetes mellitus with hyperglycemia; E11.40 Type 2 diabetes mellitus with diabetic neuropathy, unspecified; K21.9 Gastro-esophageal reflux disease without esophagitis; F32.A Depression, unspecified; Z99.81 Dependence on supplemental oxygen; Z91.02 Food additives allergy status; Z88.5 Allergy status to narcotic agent; Z88.8 Allergy status to other drugs, medicaments and biological substances; Z91.018 Allergy to other foods; Z79.4 Long term (current) use of insulin; Z79.01 Long term (current) use of anticoagulants; Z79.899 Other long term (current) drug therapy
CPT/HCPCS: 71045; 80048; 85025; 94644; 94664; A9270

== ENCOUNTER 2022-01-07 11:27 | Emergency (ER) | payer OTHER ==
[~2022-01-07] VITALS: Ht 172.7 cm; Wt 77.1 kg
[2022-01-07] MEDS ORDERED: ALBU90OI INH (11:36)
[2022-01-07] MEDS ORDERED: Ventolin/Prove6.7 GM INH (19:37)
== END 2022-01-07 11:43 | disposition home or self-care (01) ==
LOC: ER 11:27
DX: Z76.0 Encounter for issue of repeat prescription (principal); R06.02 Shortness of breath; Z86.73 Personal history of transient ischemic attack (TIA), and cerebral infarction without residual deficits; Z79.899 Other long term (current) drug therapy; Z79.4 Long term (current) use of insulin; Z91.02 Food additives allergy status; Z88.5 Allergy status to narcotic agent; Z88.8 Allergy status to other drugs, medicaments and biological substances; Z91.018 Allergy to other foods; Z79.01 Long term (current) use of anticoagulants
CPT/HCPCS: 99281

== ENCOUNTER 2022-01-07 19:26 | Emergency (ER) | payer OTHER ==
[~2022-01-07] VITALS: Ht 165.1 cm; Wt 77.1 kg
[2022-01-07] MEDS ORDERED: Ventolin/Prove6.7 GM INH (19:37)
== END 2022-01-07 20:17 | disposition home or self-care (01) ==
LOC: ER 19:26
DX: J44.9 Chronic obstructive pulmonary disease, unspecified (principal); K21.9 Gastro-esophageal reflux disease without esophagitis; E11.9 Type 2 diabetes mellitus without complications; Z79.4 Long term (current) use of insulin
CPT/HCPCS: 99281; A9270

== ENCOUNTER 2022-01-07 23:24 | Emergency (ER) | payer OTHER ==
[~2022-01-07] VITALS: Ht 165.1 cm; Wt 59.0 kg
[2022-01-07 23:57] LABS: BASOPHILS ABSOLUTE AUTO 0.02 K/mm3 (0.00-0.23); BASOPHILS PERCENT AUTO 0 % (0-2); EOSINOPHILS ABSOLUTE AUTO 0.01 K/mm3 (0.00-0.68); EOSINOPHILS PERCENT AUTO 0 % (0-6); Hematocrit 41.4 % (37.0-53.0); Hemoglobin 13.8 g/dL (13.5-17.5); IMMATURE GRAN ABSOLUTE AUTO 0.07 K/mm3 (0.00-0.10); IMMATURE GRAN PERCENT AUTO 1 % (0-1); LYMPHOCYTES ABSOLUTE AUTO 2.57 K/mm3 (0.84-5.20); LYMPHOCYTES PERCENT AUTO 20 % (21-46); MONOCYTES ABSOLUTE AUTO 1.03 K/mm3 (0.16-1.47); MONOCYTES PERCENT AUTO 8 % (4-13); Mean Corpuscular HGB 31.2 pg (26.0-34.0); Mean Corpuscular HGB Conc 33.3 g/dL (31.5-36.5); Mean Corpuscular Volume 94 fL (80-100); Mean Platelet Volume 8.8 fL (9.1-12.4); NEUTROPHILS ABSOLUTE AUTO 8.94 K/mm3 (1.96-9.15); NEUTROPHILS PERCENT AUTO 71 % (41-73); Platelet Count 284 K/mm3 (150-400); RDW Coefficient Variation 13.3 % (11.7-14.2); RDW Standard Deviation 45.4 fL (35.1-46.3); Red Blood Cell Count 4.43 M/mm3 (4.30-5.90); White Blood Cell Count 12.64 K/mm3 (4.00-11.30)
[2022-01-08 00:26] LABS: Albumin, Blood 3.6 g/dL (3.4-5.0); Albumin/Globulin Ratio 0.8 (0.8-1.8); Bilirubin, Total 0.3 mg/dL (0.1-1.0); Bun/Creatinine Ratio 41.4 (12.0-20.0); Calcium, Blood 8.8 mg/dL (8.5-10.1); Creatinine, Blood 0.63 mg/dL (0.60-1.20); Globulin, Blood 4.8 g/dL (2.2-4.0); Potassium, Blood 4.1 mmol/L (3.5-5.5); Total Protein, Blood 8.4 g/dL (6.4-8.2)
== END 2022-01-08 06:04 | disposition home or self-care (01) ==
LOC: ER 23:24
PROVIDERS: Physician Assistant
DX: J44.1 Chronic obstructive pulmonary disease with (acute) exacerbation (principal); E11.9 Type 2 diabetes mellitus without complications; F41.9 Anxiety disorder, unspecified; Z79.4 Long term (current) use of insulin; Z79.899 Other long term (current) drug therapy; Z91.018 Allergy to other foods; Z88.8 Allergy status to other drugs, medicaments and biological substances; Z88.5 Allergy status to narcotic agent; Z79.01 Long term (current) use of anticoagulants; Z86.73 Personal history of transient ischemic attack (TIA), and cerebral infarction without residual deficits
CPT/HCPCS: 36415; 80053; 83690; 83880; 84484; 85025; 93005; 93010; 99284-25; A9270

== ENCOUNTER 2022-01-08 15:21 | Inpatient (IN) | payer OTHER, MEDICARE ==
[~2022-01-08] VITALS: Ht 182.9 cm; Wt 145.6 kg
[~2022-01-08 15:21] MED LIST changes: +ACET325 PT
[2022-01-08 18:08] LABS: Base Excess Venous 11.2 mmol/L; Bicarbonate Venous 32.5 mmol/L (24.0-30.0); PCO2 Venous 57.5 mmHg (38-42)
[2022-01-08 22:38] LABS: Base Excess Venous 7.3 mmol/L; PCO2 Venous 46.1 mmHg (38-42); pH Blood Venous 7.44 (7.34-7.37)
[2022-01-09 05:13] LABS: BASOPHILS ABSOLUTE AUTO 0.01 K/mm3 (0.00-0.23); BASOPHILS PERCENT AUTO 0 % (0-2); EOSINOPHILS PERCENT AUTO 0 % (0-6); Hematocrit 45.5 % (37.0-53.0); Hemoglobin 15.2 g/dL (13.5-17.5); IMMATURE GRAN ABSOLUTE AUTO 0.02 K/mm3 (0.00-0.10); IMMATURE GRAN PERCENT AUTO 0 % (0-1); LYMPHOCYTES PERCENT AUTO 12 % (21-46); MONOCYTES PERCENT AUTO 4 % (4-13); Mean Corpuscular HGB 31.2 pg (26.0-34.0); Mean Corpuscular HGB Conc 33.4 g/dL (31.5-36.5); Mean Corpuscular Volume 93 fL (80-100); Mean Platelet Volume 9.1 fL (9.1-12.4); NEUTROPHILS ABSOLUTE AUTO 5.63 K/mm3 (1.96-9.15); NEUTROPHILS PERCENT AUTO 83 % (41-73); Platelet Count 270 K/mm3 (150-400); RDW Coefficient Variation 13.2 % (11.7-14.2); RDW Standard Deviation 45.5 fL (35.1-46.3); Red Blood Cell Count 4.87 M/mm3 (4.30-5.90); White Blood Cell Count 6.76 K/mm3 (4.00-11.30)
[2022-01-09 05:56] LABS: Bun/Creatinine Ratio 52.1 (12.0-20.0); Creatinine, Blood 0.75 mg/dL (0.60-1.20); Potassium, Blood 4.8 mmol/L (3.5-5.5)
--- NOTE | 2022-01-09 07:09 | NUR ---
PT EXTREMELY LRTHARGIC AT START OF SHIFT WITH COARSE LUNG SOUNDS AND TACHYPNIC (RR 34). INITIALLY AROUSABLE TO VOICE AND ABLE TO SWALLOW SMALL AMOUNTS OF WATER WITH CUES; HS MEDS TAKEN W/O ISSUES. THROUHOUT THE SHIFT, PT'S WORK OF BREATHING AND LOC BEGAN TO DECLINE; CLOSE OBSERVATION WITH NURSE DOCUMENTATION BEING DONE DIRECTLY OUTSIDE PATIENT'S DOOR. IVF STARTED PER AUG. BREATH SOUNDS BEGAN TO SOUND MORE WET; THIS RN SAW THAT THERE WAS A BEDSIDE SWALLOW EVALUATION THAT NEEDED TO BE DONE UPON ARRIVAL; HOWEVER, IT WAS NOT INITIALLY SEEN. PT FAILED SWALLOW EVALUATION AND SHALL REMAIN npo UNTIL EVALUATED BY ORCHARD PRUNER. ADDITIONALLY, PT WAS VERBALLY AND PHYSICALLY UNPROFESSIONAL THROUGHOUT THE SHIFT, PARTICULARLY WHEN THIS RN ATTEMPTED TO PERFORM ORAL SUCTION IN AN ATTEMPT TO CLEAR SECRETIONS. LOC BEGAN TO IMPROVE THE NIGHT PROGRESSED. BY GEOGRAPHIC AREA INTELLIGENCE OFFICER, PT WAS CONTIUALLY YELLING OUT, SOMETIMES FOR NOTHING, BUT MOSTLY FOR WATER. SPONGE SWABS WERE OFFERED D/T FAILED SWALLOW SCREEN AND WET LUNG SOUNDS. THIS BEHAVIOR CONTINUED UNTIL SHIFT CHANGE. CARE HANDED OVER TO DAY SHIFT RN.
--- NOTE | 2022-01-09 13:32 | NUR ---
NOTED DRIED BLOOD IN THE BACK AND ROOF OF PATIENTS MOUTH. ATTEMPTED ORAL CARE. PATIENT UNCOOPERATIVE, CONTINUALLY CLOSING HIS MOUTH. PATIENT IS STILL VERY RESTLESS IN BED, CONTINUALLY TAKING NC AND MONITOR EQUIPMENT OFF.
[2022-01-09 15:35] LABS: Base Excess Venous 6.9 mmol/L; Bicarbonate Venous 28.8 mmol/L (24.0-30.0); PCO2 Venous 54.8 mmHg (38-42); PO2 Venous 45.9 mmHg (38-42); pH Blood Venous 7.38 (7.34-7.37)
--- NOTE | 2022-01-09 18:10 | NUR ---
SHIFT SUMMARY PATIENT A&OX1. PATIENT VERY RESTLESS, YELLING OUT FOR THINGS. UNCOOPERATIVE WITH CARE, CONTINUALLY TAKING MONITOR AND NC OFF. PATIENT LUNG SOUNDS COURSE AND TACHYPNEIC (RR 40-50). PATIENT UNABLE TO CLEAR SECRETIONS AND UPON VISUAL INSPECTION NOTED DRIED BLOOD ON ROOF OF MOUTH. PATIENT REFUSED SUCTION AND ORAL CARE CLOSING HIS MOUTH AND PUSHING AWAY. PATIENT FAILED SWALLOW EVAL AND IS NPO. RECEIVING IV FLUIDS. PATIENT GIVEN ATIVAN WHICH HELPED WITH PATIENTS RESTLESSNESS AND TAKING EVERYTHING OFF BUT STILL TACHYPNEIC AND GURGLY. HR IN THE 100-120. WILL CONTINUE TO MONITOR.
--- NOTE | 2022-01-09 19:32 | NUR ---
RESTING QUIETLY WITH O2 PER NC. IVF OF NS INFUSING AT 100 ML/HR. CALL LIGHT IN REACH. PARADICHLOROBENZENE MACHINE OPERATOR AT BEDSIDE TO DO 12 LEAD EKG
--- NOTE | 2022-01-10 03:34 | NUR ---
ORCHID WORKER SUMMARY RESPS RAPID AND SHALLOW. NOTE GURGLING FROM THROAT BUT LUNG SOUNDS ONLY DIMINISHED PER AUSCULTATION. HR RAPID, O2 PER NC AT 2-3 L/MIN. RT HAS SEEN PT AT INTERVALS THIS SHIFT. IVF OF NS INFUSING AT 100 ML/HR HE IS NPO. AWAKENS FOR A FEW MINUTES WHEN REPOSITIONED, SKIN OF FEET COOL TO TOUCH BUT THE REST OF HIM IS WARM TO TOUCH. WARM BLANKET APPLIED, BUT PT REMOVED IT A FEW TIMES. O2 SATS IN LOW 90'S PER CONT PULSE OX. INCONT OF URINE AND CHANGED. CALL LIGHT IN REACH. WILL CONTINUE TO MONITOR.
[2022-01-10] MEDS ORDERED: COMBIVENT RESPIM4 G1 INH (04:02)
[2022-01-10] MEDS ORDERED: DESONIDE15 G1 TOP (04:04)
[2022-01-10 08:20] LABS: PO2 Arterial 103 mmHg (80-100); pH Blood Arterial 7.24 (7.35-7.45)
[2022-01-10 08:21] LABS: PCO2 Arterial 76 mmHg (35-45)
[2022-01-10 08:29] LABS: Source, Urine Clean Catch
[2022-01-10 08:33] LABS: Appearance, Urine Clear (Clear); Bilirubin, Urine Neg (Neg); Blood, Urine Neg (Neg); Color, Urine Yellow (P-Yellow); Glucose Qualitative, Urine 4+ (Neg); Ketones, Urine 2+ (Neg); Leukocyte Esterase, Urine Neg (Neg); Nitrite, Urine Neg (Neg); Protein, Urine 1+ (Neg); Urobilinogen, Urine NORM (Normal)
[2022-01-10 08:47] LABS: U Amphetamine Screen Not Detected; U Barbituate Screen Not Detected; U Benzodiazapine Screen DETECTED; U Buprenorphine Screen Not Detected; U Cannabinoids Screen Not Detected; U Cocaine Screen Not Detected; U Methadone Screen Not Detected; U Methamphetamine Screen Not Detected; U Opiates Screen Not Detected; U Oxycodone Screen Not Detected; U Phencyclidine Screen Not Detected; U Propoxyphene Screen Not Detected
--- NOTE | 2022-01-10 09:00 | NUR ---
Case conferenced with layaway clerk, who reports increasing resp effort and failure in pt this am. Shortly after, I received a call from pt's RN that pt is being intubated and transferred to ICU. t/c to to update and get guidance on goals of care. tearful and repeating, "I don't want him to , keep him alive, don't let him , do everything you can". Gently let her know pt may not survive even with agressive tx/intervention due to ES COPD and multiple other comorbidities/chronic illnesses. I assured her that Dr and staff were doing everything possible at this time and that he would be going to ICU. was just released from our hospital in the last day or two. She states her dad last month and she "cannot lose [place]". Emotional support given. Reported on my conversation with to rapid response team, email campaign manager, RN and . Plan to visit again in ICU for cont conversations on goals of care with pt's .
[2022-01-10 09:12] LABS: Influenza A, PCR NEGATIVE (NEGATIVE); Influenza B, PCR NEGATIVE (NEGATIVE); Resp Syncytial Virus, PCR NEGATIVE (NEGATIVE); SARS-Cov-2 (COVID-19) PCR, MMC NEGATIVE (NEGATIVE)
--- NOTE | 2022-01-10 09:23 | NUR ---
TRANSFER PATIENT FOUND UNRESPONSIVE AT 0800. SATS AT 84 ON 3L, PATIENT BREATHING THROUGH MOUTH. O2 MOVED TO MOUTH AND INCREASED TO 6L. PATIENT BREATHING AT [address] PADILLA CALLED. RT NOTIFIED. CHARGE NURSE CALLED. CHARGE NURSE CALLED ICU CHARGE. RT DEEP SUCTIONED THICK BROWN COLORED MUCUS. COVID SWAB DONE. STRAIGHT CATH FOR UA DONE. PATIENT INTUBATED IN ROOM BY DR. MORTON. BEDSIDE REPORT GIVEN TO RECIEVING NURSE IN ICU, MANNY. PATIENT TRANFERED WITH RT TO ICU13. BELONGINGS SENT WITH PATIENT. PALLIATIVE CARE CALLED, THEY INFORMED .
[2022-01-10 09:29] LABS: Hematocrit 40.2 % (37.0-53.0); Hemoglobin 12.6 g/dL (13.5-17.5); Mean Corpuscular HGB 31.3 pg (26.0-34.0); Mean Corpuscular HGB Conc 31.3 g/dL (31.5-36.5); Mean Platelet Volume 9.6 fL (9.1-12.4); Platelet Count 317 K/mm3 (150-400); RDW Coefficient Variation 13.4 % (11.7-14.2); RDW Standard Deviation 49.7 fL (35.1-46.3); Red Blood Cell Count 4.02 M/mm3 (4.30-5.90); White Blood Cell Count 11.27 K/mm3 (4.00-11.30)
[2022-01-10 09:32] LABS: Mean Corpuscular Volume 100 fL (80-100)
[2022-01-10 09:40] LABS: BAND PERCENT MAN 13 % (0-8); BASOPHILS PERCENT MAN 0 % (0-2); EOSINOPHILS PERCENT MAN 0 % (0-6); LYMPHOCYTES ABSOLUTE MAN 2.02 K/mm3 (0.84-5.20); LYMPHOCYTES PERCENT MAN 18 % (21-46); MONOCYTES ABSOLUTE MAN 0.78 K/mm3 (0.16-1.47); MONOCYTES PERCENT MAN 7 % (4-13); NEUTROPHILS ABSOLUTE MAN 8.45 K/mm3 (1.96-9.15); SEG NEUTROPHILS PERCENT MAN 62 % (41-73); TOTAL CELLS COUNTED 100
[2022-01-10 09:48] LABS: Source, Urine Foley catheter
[2022-01-10 09:53] LABS: Appearance, Urine Hazy (Clear); Bilirubin, Urine Neg (Neg); Blood, Urine 4+ (Neg); Color, Urine Yellow (P-Yellow); Glucose Qualitative, Urine 3+ (Neg); Ketones, Urine 1+ (Neg); Leukocyte Esterase, Urine Neg (Neg); Nitrite, Urine Neg (Neg); Protein, Urine 2+ (Neg); Urobilinogen, Urine NORM (Normal)
[2022-01-10 10:03] LABS: White Blood Cells, Urine 0-2 /hpf (0-5)
[2022-01-10 10:04] LABS: Bacteria Few /hpf; Squamous Epithelial Cells Few /hpf (Few); Transitional Epithelial Cells Few /hpf (0-Rare)
[2022-01-10 10:04] LABS: Magnesium, Blood 2.7 mg/dL (1.6-2.4); Thyroid Stimulating Hormone 0.216 uIU/mL (0.360-4.800)
[2022-01-10 10:07] LABS: Albumin, Blood 2.6 g/dL (3.4-5.0); Albumin/Globulin Ratio 0.7 (0.8-1.8); Bilirubin, Total 0.2 mg/dL (0.1-1.0); Bun/Creatinine Ratio 67.3 (12.0-20.0); Calcium, Blood 7.6 mg/dL (8.5-10.1); Creatinine, Blood 0.86 mg/dL (0.60-1.20); Globulin, Blood 3.9 g/dL (2.2-4.0); Potassium, Blood 5.1 mmol/L (3.5-5.5); Total Protein, Blood 6.5 g/dL (6.4-8.2)
[2022-01-10 10:07] LABS: Albumin, Blood 2.6 g/dL (3.4-5.0); Anion Gap 3 mmol/L (6-16); Blood Urea Nitrogen 59 mg/dL (8-24); Bun/Creatinine Ratio 53.2 (12.0-20.0); CO2, Blood 34 mmol/L (21-32); Calcium, Blood 7.7 mg/dL (8.5-10.1); Chloride, Blood 117 mmol/L (98-108); Creatinine, Blood 1.11 mg/dL (0.60-1.20); Glomerular Filtration Rate 71 (60-); Glucose, Blood 373 mg/dL (70-99); Potassium, Blood 5.2 mmol/L (3.5-5.5); Sodium, Blood 154 mmol/L (136-145)
[2022-01-10 10:59] LABS: pH Blood Arterial 7.23 (7.35-7.45)
[2022-01-10 11:00] LABS: PCO2 Arterial 60.7 mmHg (35-45)
[2022-01-10 11:01] LABS: PO2 Arterial 325 mmHg (80-100)
[2022-01-10 12:24] LABS: Hematocrit 30.9 % (37.0-53.0); Hemoglobin 9.3 g/dL (13.5-17.5)
--- NOTE | 2022-01-10 13:21 | NUR ---
PT ARRIVAL... THIS RN WAS CALLED TO THE PT'S ROOM ON MEDICAL FLOOR TO ASSIST DR. MORTON WITH INTUBATION. THE PT WAS UNRESPONSIVE, HYPOTENSIVE AND TACHY WITH HR IN THE 120'S-130'S. THE PT WAS INTUBATED WITH AN 8.0 AND 26 AT THE GUMS. THE PT WAS BAGGED BY RT UNTIL WE ARRIVED IN THE ROOM, THE PT WAS THEN PLACED ON THE VENT. THE PT'S VS WERE STABLE AT THAT TIME WITH SOFT BPs WITH MAPS >60. THE PT WAS IN SINUS TACH IN THE 120'S-130'S. NO SEDATION WAS STARTED D/T THE PT'S UNRESPONSIVENESS. A 16FR TEMP CAMACHO WAS PLACED BY THIS RN WITH A UA SENT TO THE LAB. RIGHT IJ CENTRAL LINE PLACED BY DR. MORTON. SPUTUM SAMPLE WAS SENT TO THE LAB PER ORDERS. OG TUBE PLACED PER ORDERS AND SET TO WALL SUCTION, ONCE THE OG TUBE WAS SET TO SUCTION 800MLS OF BLACK/RED GASTRIC CONTENTS WERE REMOVED. THE PT CONTINUES TO BE UNRESPONSIVE TO ANY STIMULI, COUGH IS PRESENT WHEN THE ET TUBE IS MOVED AND GAG PRESENT WHEN OG TUBE WAS PLACED. A GI CONSULT WAS PLACED AND GI PROVIDER WAS NOTIFIED BY DR. MORTON. WILL CONTINUE TO MONITOR.
[2022-01-10 16:26] LABS: Bun/Creatinine Ratio 50.6 (12.0-20.0); Calcium, Blood 7.1 mg/dL (8.5-10.1); Creatinine, Blood 0.89 mg/dL (0.60-1.20)
--- NOTE | 2022-01-10 16:37 | NUR ---
01/10/22 1637 Bonnie Colbert History, Chart, Medications and Allergies reviewed before start of procedure. 3-LEAD EKG REVIEWED WITH PHYSICIAN PRIOR TO START OF PROCEDURE. Bite Block Placed. PT ON VENTILATOR WITH PROPOFOL DRIP FOR SEDATION AND LEVOPHED GTT. MANNY RN AT BEDSIDE TO MANAGE VENT, SEDATION AND DRIPS. SEE PT RECORD FOR VITAL SIGNS.
--- NOTE | 2022-01-10 18:23 | NUR ---
SHIFT SUMMARY.... THE PT HAD HIS EGD THIS AFTERNOON, THE PT'S PROPOFOL WAS STARTED PRIOR TO THE EGD STARTING AND WAS TITRATED UP TO 60MCG/KG TO KEEP THE PT CALM FOR THE PROCEDURE D/T THIS THE PT'S BP STARTED TO TREND DOWN WITH MAPS <65 THE LEVOPHED WAS TITRATED UP TO 20MCG/MIN TO KEEP MAPS >60 DURING THE PROCEDURE. THE PT TOLERATED THE PROCEDURE WELL AFTER THE PROPOFOL WAS UP TO 60MCG/KG. THE PT'S OG TUBE WAS REMOVED BY DR. LOPEZ, PER DR. WALLER'S REQUEST A DOBHOFF WAS PLACED AND VERIFIED BY AUSCULTATION AND XRAY. L/S HAVE IMPROVED SINCE ARRIVAL PT'S L/S ARE NOT COARSE WITH MUCH RHONCHI. THE PTS' TMAX THIS SHIFT WAS >103.0 PT'S CURRENT TEMP IS 100.7. HR HAS BEEN LOW 100'S SINUS TACH. 950MLS OF BLACK/COFFEE GROUN/BROWN GASTRIC FLUID WAS REMOVED FROM THE PT'S OG TUBE PRIOR TO THE EGD. THE PT DID NOT HAVE A BM THIS SHIFT. WILL CONTINUE TO MONITOR UNTIL REPORT IS GIVEN TO ONCOMING RN.
--- NOTE | 2022-01-10 21:12 | NUR ---
SHIFT ASSESSMENT ASSUMED CARE OF PT @ 1900, REPORT RECEIVED FROM LORNA BRYANT. PT INTUBATED AND SEDATED, VENT SETTINGS AC-18/480/40/5 c SAST >95%. PROPOFOL INFUSING @ 60MCG/KG. LEVOPHED GTT @ 8MCG/MIN TO MAINTAIN MAP >65. PT HAS POSITIVE GAG AND COUGH BUT NOT RESPONDING TO STIMULI, SLOWLY TITRATING PROPOFOL DOWN AT THIS TIME. DOBHOFF PATENT, CONFIRMED VIA X-RAY AND RADIOLOGIST, CLAMPED AT THIS TIME. NO S/S OF GI BLEEDING, NO BM. TEMP PROBE CAMACHO PATENT DRAINING YELLOW URINE, TEMP SLOWLY DECREASING, CURRENTLY 99.9 WITHOUT MEDS. WILL MONITOR CLOSELY.
[2022-01-11 03:35] LABS: PCO2 Arterial 42.3 mmHg (35-45); PO2 Arterial 67.2 mmHg (80-100)
[2022-01-11 03:41] LABS: Hematocrit 26.6 % (37.0-53.0); Hemoglobin 8.5 g/dL (13.5-17.5); Mean Corpuscular HGB 31.6 pg (26.0-34.0); Mean Corpuscular Volume 99 fL (80-100); Mean Platelet Volume 9.4 fL (9.1-12.4); Platelet Count 204 K/mm3 (150-400); RDW Coefficient Variation 13.3 % (11.7-14.2); RDW Standard Deviation 47.8 fL (35.1-46.3); Red Blood Cell Count 2.69 M/mm3 (4.30-5.90); White Blood Cell Count 11.73 K/mm3 (4.00-11.30)
[2022-01-11 03:58] LABS: Albumin, Blood 1.8 g/dL (3.4-5.0); Albumin/Globulin Ratio 0.6 (0.8-1.8); Bilirubin, Total 0.2 mg/dL (0.1-1.0); Bun/Creatinine Ratio 37.5 (12.0-20.0); Creatinine, Blood 0.77 mg/dL (0.60-1.20); Globulin, Blood 2.9 g/dL (2.2-4.0); Potassium, Blood 3.5 mmol/L (3.5-5.5); Total Protein, Blood 4.7 g/dL (6.4-8.2)
[2022-01-11 04:04] LABS: BAND PERCENT MAN 31 % (0-8); BASOPHILS PERCENT MAN 0 % (0-2); EOSINOPHILS PERCENT MAN 0 % (0-6); LYMPHOCYTES ABSOLUTE MAN 0.46 K/mm3 (0.84-5.20); LYMPHOCYTES PERCENT MAN 4 % (21-46); METAMYELOCYTE ABSOLUTE MAN 0.23 K/mm3 (0.00-0.00); METAMYELOCYTE PERCENT MAN 2 % (0-0); MONOCYTES ABSOLUTE MAN 0.35 K/mm3 (0.16-1.47); MONOCYTES PERCENT MAN 3 % (4-13); NEUTROPHILS ABSOLUTE MAN 10.67 K/mm3 (1.96-9.15); SEG NEUTROPHILS PERCENT MAN 60 % (41-73); TOTAL CELLS COUNTED 100
--- NOTE | 2022-01-11 06:11 | NUR ---
SHIFT SUMMARY PT REMAINS INTUBATED AND SEDATED. PT OFF SEDATION FOR APPROXIMATELY 45 MINS THIS MORNING, NO PURPOSEFUL MOVEMENT OF EXTREMITIES NOR OPENING OF EYES. PT FORCEFULLY GAGGING/ COUGHING OVER VENT DURING THAT TIME, SEDATION BACK ON TO PROTECT AIRWAY. VENT SETTING NOW AC: 18/480/30/5 c SATS >90%. PROPOFOL @ 55MCG/KG/MIN AND LEVOPHED TITRATED DOWN TO 4MCG/MIN c MAP >65. DOBHOFF REMAINS CLAMPED, NO BM NOR SIGNS OF GI BLEEDING. TEMP PROBE CAMACHO DRAINING LIGHT YELLOW URINE, TEMP NOW 98.7. NO OTHER ACUTE CHANGES.
--- NOTE | 2022-01-11 08:02 | NUR ---
AM NOTE... ASSUMED CARE OF PT AT 0700, THE PT IS INTUBATED AND SEDATED ON 55MCG/KG OF PROPOFOL, THE PT IS UNRESPONSIVE AT THIS TIME BUT HAS STRONG COUGH AND GAG. THE PT'S VENT SETTINGS ARE AC/VC:65955/5/30% WITH O2 SATS >95% L/S CLEAR T/O. THE PT HAS A LARGE AMOUNT OF THICK CHAMORRO SECERETIONS WITH SMALL FLECKS OF BLOOD SUCTIONED FROM THE ET TUBE. THE PT IS IN SR IN THE 90'S BP IS STABLE WITH MAPS >65 ON LEVOPHED DRIP RUNNING AT 3MCG/MIN. NO EDEMA IS NOTED ON ASSESSMENT. BT PRESENT AND HYPOACTIVE, DOBHOFF IS IN PLACE AT 65 AT THE NARES, DOBHOFF IS CLAMPED AT THIS TIME. TEMP CAMACHO IN PLACE, PATENT AND DRAINING TO GRAVITY. THE PT WAS GIVEN A SEDATION VACATION SO FAR NO PURPOSEFUL RESPONSES NOTED. WILL CONTINUE TO MONITOR.
--- NOTE | 2022-01-11 18:06 | NUR ---
SHIFT SUMMARY.... NO ACUTE NEGATIVE CHANGES NOTED THIS SHIFT. NO CHANGES TO THE PROPOFOL AND THE LEVOPHED HAS BEEN TITRATED OFF. TRICKEL TUBE FEEDS STARTED AT 1430. THE PT'S CAMACHO IS PATENT AND DRAINING TO GRAVITY. NO SIGNS/SYMPTOMS OF GI BLEEDING NOTED. PT TURNED Q2HRS. NO BM THIS SHIFT. WILL CONTINUE TO MONITOR UNTIL REPORT IS GIVEN TO ONCOMING RN.
--- NOTE | 2022-01-11 20:05 | NUR ---
SHIFT ASSESSMENT PT INTUBATED AND SEDATED. VENT SETTINGS-AC: 18/480/30/5 c SATS >95%. PROPOFOL GTT @ 55MCG'S, LEVOPHED REMAINS OFF. PT HAS STRONG COUGH AND GAG, SUCTIONING LARG AMNT OF THICK/ WHITE SECRETIONS. DOBHOFF PATENT, TUBE FEED @ TRICKLE. NO BM. TEMP PROBE CAMACHO PATENT, PT AFEBRILE. WILL MONITOR CLOSELY.
--- NOTE | 2022-01-12 06:25 | NUR ---
SHIFT SUMMARY PT REMAINS INTUBATED AND SEDATED. VENT SETTINGS REMAIN THE SAME. SEDATION VACATION THIS AM FOR APPROXIMATELY 40 MINUTES, PT OPENING EYES SPONTANEOUSLY BUT CONSTANT GAZE LEFT. PT WOULD NOT FOLLOW COMMANDS, STRONG GAG AND COUGH, VIGOROUSLY BITING/ GAGGING ON ETT. PROPOFOL BACK ON @ 55MCG'S. LEVOPHED REMAINS OFF. TF CONTINUES @ TRICKLE, NO BM THIS SHIFT. TEMP CAMACHO DRAINING YELLOW URINE, AFEBRILE. NO OTHER ACUTE CHANGES, REPORT TO ONCOMING NURSE.
[2022-01-12 06:45] LABS: Glucose, Blood 299 mg/dL (70-99)
--- NOTE | 2022-01-12 08:02 | NUR ---
AM NOTE.... ASSUMED CARE OF PT AT 0700. THE PT IS INTUBATED AND SEDATED WITH PROPOFOL AT 60MCG/KG. THE PT'S VENT SETTINGS ARE AC/VC:18/470/5/30% WITH O2 SATS >90%. L/S CLEAR T/O. ET TUBE IS 8.0 AND 27 AT THE GUMS. A LARGE AMOUNT OF THICK CHAMORRO SPUTUM IS PRESENT WITH SUCTIONING. DOBHOFF IS RUNNING PER ORDERS AT 15MLS/HR. DOBHOFF 65 AT THE LEFT NARES. BT PRESENT AND HYPERACTIVE, ABD IS SOFT AND NONTENDER TO PALPATION. TEMP CAMACHO IN PLACE AND DRAINING CLEAR YELLOW URINE TO GRAVITY. PT'S TEMP IS CURRENTLY 98.3. PT'S BP STABLE WITH MAPS >65, LEVOPHED DRIP HAS BEEN OFF SINCE YESTERDAY. PT IS IN SR IN THE 90'S. DEPENDENT EDEMA IS NOTED TO BOTH HANDS. THE PT'S PROPOFOL DRIP WAS STOPPED TO ASSESS PT'S MENTAL STATUS, AT 0740 THE PT WAS ABLE TO FOLLOW SIMPLE COMMANDS AND NOD HIS HEAD APPROPRIATELY TO QUESTIONS. AT 0750 THE PT WAS SWITCHED OVER TO PS: 7/5 AND 30%, THE PT HAS BEEN TOLERATING THIS WELL. WILL CONTINUE TO MONITOR.
--- NOTE | 2022-01-12 11:25 | NUR ---
PT UPDATE.... PT WAS EXTUBATED AT 0957 TO 3L NC. THE PT STARTED YELLING OUT SAYING "KNOCK ME BACK OUT!" THE PT CONTINUES TO YELL OUT "HELP ME" WHEN STAFF ENTER THE ROOM TO ATTEND TO THE PT AND ASK WHAT HE NEEDS HELP WITH HE CONTINUES TO YELL OUT "HELP ME." PT'S VS STABLE AT THIS TIME. WILL CONTINUE TO MONITOR.
--- NOTE | 2022-01-12 13:51 | NUR ---
Spiritual care visit conducted. Patient is lying in bed yelling, "Help me, help me, I have to get out of here." He recognizes me from prior stays in the hospital. He tells me that God told him that he is dying and he knows where he is going. Then he tells me that no one will come and visit him and that I need to not leave. I then explain about his safety, about his value and worth and about the importance of letting the medical team help him to get well. I provide gentle evp general counsel and prayer. Pt responds well and shows signs of having some peace. He returns to yelling for help within minutes of my exit from his rm.
--- NOTE | 2022-01-12 14:02 | NUR ---
Spiritual care visit conducted. Late note. I call pt's spouse, La Nena around 1030 and inform her of the successful extubation and pt's strength an ability to communicate and express needs. She then talks about her emotional ups and downs after being told that he might not survive this event to hearing that he is off the vent. She also communicates about the family unit complications, her personal issues and her medical problems. I provide therapeutic listening and gentle prison classification counselor. I will continue to remain available to pt and family.
--- NOTE | 2022-01-12 17:57 | NUR ---
SHIFT SUMMARY.... NO ACUTE NEGATIVE CHANGES NOTED THIS SHIFT. THE PT'S VS HAVE BEEN STABLE. THE PT IS NOW PCU STATUS. DOBHOFF IN PLACE FOR PT MEDS. THE PT CONTINUES TO YELL OUT, PT WAS MEDICATED WITH 5MG IV HALDOL WHICH DID HELP. THE PT HAD A MED BLACK INCONT BM THIS SHIFT. THE PT'S CAMACHO IS PATENT AND DRAINING CLEAR YELLOW URINE TO GRAVITY. THE PT HAS BEEN STABLE ON 2L NC TO KEEP HIS O2 SATS>90%. CALL LIGHT IN REACH WILL CONTINUE TO MONITOR UNTIL REPORT IS GIVEN TO ONCOMING RN.
[2022-01-13 01:59] LABS: Vancomycin, Trough 13.1 ug/mL (5.0-10.0)
[2022-01-13 04:34] LABS: BASOPHILS ABSOLUTE AUTO 0.02 K/mm3 (0.00-0.23); BASOPHILS PERCENT AUTO 0 % (0-2); EOSINOPHILS PERCENT AUTO 0 % (0-6); Hematocrit 26.3 % (37.0-53.0); Hemoglobin 8.5 g/dL (13.5-17.5); IMMATURE GRAN ABSOLUTE AUTO 0.24 K/mm3 (0.00-0.10); IMMATURE GRAN PERCENT AUTO 2 % (0-1); LYMPHOCYTES ABSOLUTE AUTO 1.03 K/mm3 (0.84-5.20); LYMPHOCYTES PERCENT AUTO 10 % (21-46); MONOCYTES ABSOLUTE AUTO 0.54 K/mm3 (0.16-1.47); MONOCYTES PERCENT AUTO 5 % (4-13); Mean Corpuscular HGB 30.8 pg (26.0-34.0); Mean Corpuscular HGB Conc 32.3 g/dL (31.5-36.5); Mean Corpuscular Volume 95 fL (80-100); NEUTROPHILS ABSOLUTE AUTO 8.33 K/mm3 (1.96-9.15); NEUTROPHILS PERCENT AUTO 82 % (41-73); NRBC ABSOLUTE 0.15 K/mm3 (0.00-0.02); NRBC Auto 1.5 /100 WBC (0.0-0.2); Platelet Count 183 K/mm3 (150-400); RDW Coefficient Variation 13.5 % (11.7-14.2); RDW Standard Deviation 46.5 fL (35.1-46.3); Red Blood Cell Count 2.76 M/mm3 (4.30-5.90); White Blood Cell Count 10.16 K/mm3 (4.00-11.30)
[2022-01-13 05:05] LABS: Albumin/Globulin Ratio 0.6 (0.8-1.8); Bilirubin, Total 0.4 mg/dL (0.1-1.0); Calcium, Blood 7.5 mg/dL (8.5-10.1); Creatinine, Blood 0.6 mg/dL (0.60-1.20); Globulin, Blood 3.4 g/dL (2.2-4.0); Magnesium, Blood 2.2 mg/dL (1.6-2.4); Phosphorus, Blood 2.1 mg/dL (2.5-4.9); Potassium, Blood 3.2 mmol/L (3.5-5.5); Total Protein, Blood 5.4 g/dL (6.4-8.2)
--- NOTE | 2022-01-13 06:46 | NUR ---
SHIFT SUMMARY PT REMAINS ALERT TO PERSON WITH OCCASIONAL MOMENTS OF CLARITY WHEN HE KNOWS HE IS AT [facility], BUT MOST OF THE TIME PT YELLING OUT FOR FAMILY MEMBERS TO TAKE HIM TO THE HOSPITAL. PTS STRENGTH SLOWLY IMPROVING, HE IS ABLE TO LIFT BOTH LEGS SLOWLY AND REACH WITH TURNS. FOLLOWS ALL COMMANDS BUT QUICKLY FORGETS WHAT WAS SAID, REMAINS IN SOFT UPPER RESTRAINTS DUE TO REACHING FOR IV/ DOBHOFF. ON 2LPM O2 VIA NC c SATS >90%. DOBHOFF c TRICKLE FEEDS, AWAITING NUTRITION CONSULT. NO BM THIS SHIFT. TEMP PROBE CAMACHO DRAINING LIGHT YELLOW URINE, AFEBRILE. VSS. REPORT TO ONCOMING NURSE.
--- NOTE | 2022-01-13 10:28 | NUR ---
ASSUMED CARE OF PT, REPORT RCV'D FROM LORNA SALGUERO. PT ALERT TO SELF, FOLLOWS COMMANDS, CONFUSED WITH NEED FOR FREQUENT REORIENTATION, BEHAVIOR LABILE. PT IN BILATERAL WRIST RESTRAINTS TO PROTECT LINES/CORDS. PT FAILED SWALLOW EVALUATION THIS MORNING, DOBHOFF WITH TUBE FEEDING REMAINS IN PLACE. LUNG SOUNDS CLEAR/DIM, WEAK NON PRODUCTIVE COUGH. PT HAD ONE LOOSE DARK BLACK BOWEL MOVEMENT THIS MORNING. CAMACHO PATENT AND DRAINING TO GRAVITY. VSS AT THIS TIME. SEE FULL SHIFT ASSESSMENT.
--- NOTE | 2022-01-13 13:22 | NUR ---
Patient is lying in bed and still confused although he is more clear that the prior day. He expresses his loneliness and begins singing about his love for his . He also, at least during my visit, seemed less aggitated and demanding. I know patient has the capacity to be kind and thoughtful. He shares about his concerns about dying. I provide companionship and prayer. Pt responds well and shows signs of being conforted. I will continue to remain available to patient and family.
[2022-01-13 16:24] LABS: Bun/Creatinine Ratio 27.8 (12.0-20.0); Calcium, Blood 7.9 mg/dL (8.5-10.1); Creatinine, Blood 0.58 mg/dL (0.60-1.20); Magnesium, Blood 2.5 mg/dL (1.6-2.4); Phosphorus, Blood 2.4 mg/dL (2.5-4.9); Potassium, Blood 3.8 mmol/L (3.5-5.5)
--- NOTE | 2022-01-13 17:45 | NUR ---
SHIFT SUMMARY PT REMAINS ALERT, NEEDS FREQUENT REORIENTATION, LABILE MOOD. PT ABLE TO EXPRESS NEEDS VERBALLY WITH GARBLED SPEECH, DOES NOT USE CALL LIGHT. TUBE FEEDING INCREASED TO 35 ML/HR, GOAL RATE 70 WITH 90 ML Q4 FLUSH, THROUGH DOBHOFF. 4800 ML CLEAR URINARY OUTPUT FROM CAMACHO. DR. RICH NOTIFIED, ORDER FOR LABS TO BE DRAWN. 1/2NS@ 100 ML/HR INFUSING. RIJ CENTRAL LINE PULLED, PT TOLERATED WELL. PT REMAINS IN BILATERAL SOFT WRIST RESTRAINTS TO PROTECT LINES/CORDS. PT SATS 93% ON ROOM AIR. SEE PREVIOUS NOTES FROM THIS SHIFT. WILL REPORT TO ONCOMING NURSE.
[2022-01-14 04:59] LABS: Bun/Creatinine Ratio 31.9 (12.0-20.0); Calcium, Blood 7.8 mg/dL (8.5-10.1); Creatinine, Blood 0.6 mg/dL (0.60-1.20); Phosphorus, Blood 3.1 mg/dL (2.5-4.9); Potassium, Blood 4.4 mmol/L (3.5-5.5)
--- NOTE | 2022-01-14 05:00 | NUR ---
SHIFT SUMMARY: PT. REMAINED STABLE THROUGHOUT THE NIGHT. PT. ON 2L NC FOR COMPLAINTS OF SOB. SATS ABOVE 93% ALL NIGHT. PT. CAMACHO IS STILL PATENT AND DRAINING, UOP OF 4L TONIGHT CLEAR YELLOW. PT. HAD ONE BLACK TARRY BM AN COMPLAINED OF STOMACH PAIN HE WAS GOING. PT. IN SINUS TACH WITH HR IN LOW 100S AND BPS WNL ALL NIGHT. PT. REPOSITIONED AND IS RESTING COMFORTABLY AT THIS TIME.
[2022-01-14 08:04] LABS: Hematocrit 31.3 % (37.0-53.0); Hemoglobin 10.2 g/dL (13.5-17.5)
--- NOTE | 2022-01-14 08:30 | NUR ---
ASSUMED CARE OF PT. PT ALERT TO SELF, FOLLOWING DIRECTIONS. REQUIRES FREQUENT REORIENTATION. PT REMAINS IN BILATERAL SOFT WRIST RESTRAINTS TO PROTECT LINES/CORDS. LUNG SOUNDS CLEAR, SATS 96% ON RA. TUBE FEEDING AT GOAL RATE JEVITY 1.2 70 ML/HR, 90 ML Q4 FLUSH IN DOBHOFF. TEMP CAMACHO DRAINING CLEAR URINE. PT TO TRANSFER TO ROOM 353. SEE FULL SHIFT ASSESSMENT.
--- NOTE | 2022-01-14 18:11 | NUR ---
SHIFT SUMMARY PT A&OX2 AND IN PLEASENT MOOD T/O SHIFT. GENET RUNNING VIA DOBHOFF, 65 ML/HR. CAMACHO IN PLACE, DRAINING TO GRAVITY- HIGH CLEAR URINE OUTPUT NOTED. SOFT CUFF RESTRAINTS IN PLACE FOR PT SAFETY. POWERGLIDE SL. CALL LIGHT W/IN REACH. VSS. PLANS ON BRINGING PT DENTURES TOMORROW. WORKED W/ PHYSICAL, OCC., AND SPEECH THERAPY THIS SHIFT- MEDS CRUSHED OK.
[2022-01-15 02:01] LABS: Bun/Creatinine Ratio 35.7 (12.0-20.0); Calcium, Blood 7.7 mg/dL (8.5-10.1); Creatinine, Blood 0.65 mg/dL (0.60-1.20); Potassium, Blood 4.2 mmol/L (3.5-5.5)
[2022-01-15 02:27] LABS: Vancomycin, Trough 14.3 ug/mL (5.0-10.0)
--- NOTE | 2022-01-15 07:08 | NUR ---
PT OVERNIGHT WITH MINIMAL SLEEP. PT IS VERY ANXIOUS AND CONSTANTLY YELLS OUT LOUD FOR HELP. PT ASSITED IN WHATEVER HE NEEDS HOWEVER SOON STAFF LEAVES HE YELLS AGAIN. MEDICATED WITH HALDOL 2.5 MG ONCE AND SEROQUEL 25 MG PRN WITH POOR RESPONSE. PT ALSO REPORTED FEELING SOB AND 2L NC APPLIED. PT SATS LOW 90S ON ROOM AIR AND MID 90S ON 2L NC. PT ALSO CONSTANTLY ASKING FOR FOOD OR SOMETHING TO DRINK. ORAL CARE DONE FREQUENTLY. RESTRAINTS D/C DUE TO PT INSISTNG THAT IF GIVEN A CHANCE HE WOULD NOT PULL AT LINES. PT TRIALED OFF AND THEN SUCCESSFULLY D/C. PT REMAINS ON REMOTE CAMERA MONITOR. CAMACHO IN PLACE DRAINING TO GRAVITY. ENDORSED TO ONCOMING RN.
--- NOTE | 2022-01-15 15:39 | NUR ---
Pt is able to recognize me but can't remember my name. He tells me that I am his best friend. He says he has 4 gold [place] in the [place] He also talks about his new 400 pound brown and white dog named Cody and that "you can ride him." He talks about often during our conversation and states that he feels like he is dying. When asked why, he replies, "because God told me that I was dying." I provide education on proper use of the call-light, therapeutic listening, a calming presence and prayer. Pt responds well and cries when I have to leave. Speech therapy encourages and distracts him and he peaks right up. I will continue to remain available.
--- NOTE | 2022-01-15 17:31 | NUR ---
SHIFT SUMMARY PT A&OX 2-3 T/O SHIFT. PT CALLING OUT FOR HELP, WANTING HELP GETTING DRESSED, THINKS HE IS GETTING DC'ED THIS EVENING. PT REDIRECTED, REORIENTED. MEDICATED FOR ANXIETY. MADISON CAMPBELL DC'ED THIS SHIFT PER DR. GRIJALVA. DIET ADVANCED TO PUREE W/ MONITOR PER SPEECH THERAPY. CALL LIGHT W/ IN REACH. VSS.
--- NOTE | 2022-01-16 03:53 | NUR ---
PT OVERNIGHT WITH CONTINOUS YELLING FOR DIFFERENT THINGS. PT WANTING TO GO OUT TO SMOKE HOWEVER REMINDED THAT HE IS IN THE HOSPITAL AND HE CAN'T DO THAT. PT DECLINED NICOTINE PATCH. PT GIVEN HALDOL 5 MG. AT APPROX. 2 AM PT WAS EDNA TO SLEEP FOR ABOUT TWO HOURS. PT IS NOT EDNA TO SLEEP T/O THE NIGHT HE SLEEPS FOR A SHORT PERIOD THEN WAKES UP YELLING. PT REMAINS ALERT TO SELF AND AT TIMES PLACE. TOLERATING CURRENT DIET. PT IS 1-2 PERSON ASSIST TO BEDSIDE COMMODE. PT HAD 1 LOOSE BM THIS SHIFT. CAMACHO IN PLACE DRAINING TO GRAVITY. NO ACUTE CHANGES NOTED THIS SHIFT. ON AND OFF 2L NC FOR COMFORT.
[2022-01-16 06:49] LABS: Albumin, Blood 2.4 g/dL (3.4-5.0); Anion Gap 5 mmol/L (6-16); Blood Urea Nitrogen 23 mg/dL (8-24); Bun/Creatinine Ratio 38.5 (12.0-20.0); CO2, Blood 27 mmol/L (21-32); Calcium, Blood 7.8 mg/dL (8.5-10.1); Chloride, Blood 108 mmol/L (98-108); Glomerular Filtration Rate 104 (60-); Glucose, Blood 197 mg/dL (70-99); Phosphorus, Blood 3.6 mg/dL (2.5-4.9); Sodium, Blood 140 mmol/L (136-145)
--- NOTE | 2022-01-16 17:27 | NUR ---
ATTEMPTED TO PLACE DUBHOFF. PATIENT HAVING DIFFICULTY TOLERATING, PUSHING AWAY AND COUGHING. DUBHOFF ADVANCING BUT PATIENT COUGHING. DUBHOFF COILED IN MOUTH. PATIENT REFUSING ANOTHER ATTEMPT AT THIS TIME. PLAN TO TRY AGAIN WHEN PATIENT AGREEABLE. NPO AT THIS TIME.
--- NOTE | 2022-01-16 18:20 | NUR ---
SHIFT SUMMARY PATIENT A&OX1 AND FORGETFUL. PATIENT YELLS OUT AND DOES NOT USE CALL LIGHT. 1PA TO CHAIR AND BSC. ON 2L NC BUT FREQUENTLY REMOVED. ON TELE SINUS TACH IN THE 100S. CAMACHO D/C'D THIS AFTERNOON. PATIENT HAS VOIDED AFTER CAMACHO REMOVAL. FAILED SWALLOW EVAL, NPO AT THIS TIME. ATTEMPTED TO PLACE DUBHOFF FOR NUTRITION, UNABLE TO PLACE, WILL ATTEMPT AGAIN WHEN PATIENT IS WILLING. C/O PAIN, MEDICATED PER AUG X1. PATIENT REQUESTED TO CALL FAMILY MULTIPLE TIMES T/O SHIFT. WILL CONTINUE TO MONITOR.
--- NOTE | 2022-01-16 22:19 | NUR ---
PATIENT REFUSING DOBHOFF PLACEMENT. HOSPITALIST DR LOPEZ NOTIFIED AND REPORTS HE WILL ORDER IV FLUIDS.
--- NOTE | 2022-01-17 04:40 | NUR ---
SHIFT SUMMARY PATIENT AXOX 2-3 WITH CONFUSION REPEATING QUESTIONS ALREADY ANSWERED. ONE ASSIST TO BSC. USES URINAL AT BEDSIDE. REFUSED DOBHOFF REPLACEMENT AFTER OFFERED MULTIPLE TIMES. HOSPITALIST DR LOPEZ NOTIFIED AND ORDERED NS @ 75 mL/HR. NPO. CBG 134. ON 2L O2 NC PRN. POWERGLIDE JAYNE INTACT. IV HALDOL 5 MG GIVEN FOR INCREASED AGITATION. SAWMILL HAND NSR 78. REPORTED ABDOMINAL PAIN AND HOSPITALIST DR VALENTIN ORDERED IV FENTANYL 25 MCG X ONE. ANXIOUS REPORTING HIS [id number] IS DYING. VSS/FEBRILE. DENIES SOB AND N/V. CALL LIGHT IN REACH. BED IN LOWEST POSITION AND ALARM ACTIVATED. WILL CONTINUE TO MONITOR UNTIL DAY SHIFT NURSE ASSUMES CARE.
--- NOTE | 2022-01-17 05:33 | NUR ---
REFUSING LAB DRAW AT THIS TIME. TECH REPORTS WILL TRY AGAIN LATER.
[2022-01-17 10:26] LABS: Bun/Creatinine Ratio 35.7 (12.0-20.0); Calcium, Blood 7.4 mg/dL (8.5-10.1); Creatinine, Blood 0.62 mg/dL (0.60-1.20); Potassium, Blood 3.7 mmol/L (3.5-5.5)
--- NOTE | 2022-01-17 12:39 | NUR ---
MULTIPLE ATTEMPTS TO PLACE DOBHOFF, LIDOCAINE USED WELL, TUBE COILS IN PATIENTS MOUTH EACH TIME, PT FINALLY STATED HE IS GOING TO REFUSE ANY FURTHER ATTEMPTS, BEDSIDE RN TO NOTIFY
--- NOTE | 2022-01-17 18:45 | NUR ---
SHIFT SUMMARY PATIENT A&OX1, FORGETFUL. ASKS FOR ASSISTANCE CALLING MANY TIMES T/O SHIFT. 1PA TO CHAIR. ON 2L NC. CONTINUALLY NEEDS REMINDED TO KEEP NC ON. FAILED SWALLOW EVAL AGAIN THIS AM. ATTEMPTED TO PLACE DUBHOFF. PATIENT UNABLE TO TOLERATE. PLAN TO HAVE PEG TUBE PLACED. SURGERY CONSULT PLACED. RECEIVING IV FLUIDS. MEDICATED FOR PAIN X1. WILL CONTINUE TO MONITOR.
--- NOTE | 2022-01-17 22:47 | NUR ---
HOSPITALIST DAVID STRATEGY LEAD ORDERED FENTANYL 25-50 MCG Q4 PRN FOR ABDOMINAL PAIN MANAGEMENT. PATIENT IS NPO AT THIS TIME.
--- NOTE | 2022-01-18 01:38 | NUR ---
PATIENT HAVING INCREASING AGITATION AND ANXIOUS. YELLS AND SCREAMS OUT INTO THE HALLS RIGHT AFTER BEING HELPED AND CHANGED. INCREASED CONFUSION. WCTM
[2022-01-18 01:43] LABS: Vancomycin, Trough 17.1 ug/mL (5.0-10.0)
--- NOTE | 2022-01-18 04:31 | NUR ---
SHIFT SUMMARY AXOX 2 WITH CONFUSION. PATIENT ANXIOUS AND AGITATED T/O SHIFT. YELLS AND SCREAMS INTO CASTRO JUST AFTER BEING HELPED. PATIENT DOES NOT REMEMBER WHAT WAS SAID TO HIM A FEW MINUTES BEFORE WHEN ASKED. PUSHES CALL LIGHT JUST AFTER STAFF LEAVES HIS ROOM. IV HALDOL 5 MG GIVEN WITH MINIMAL EFFECT. REPORTED ABDOMINAL PAIN AND IV FENTANYL 50 MCG GIVEN PER EMAR. POWERGLIDE JAYNE INTACT. IV ABX INFUSED. NS INFUSING AT 75mL/HR. CBG 113. TELE MONITOR NSR 82. NPO AND ON 2L O2 N/C. CALLED SPOUSE X 4 IN TWO HOURS EVEN WHEN REMINDED HE JUST CALLED. VSS/AFEBRILE. DENIES SOB AND N/V. CALL LIGHT IN REACH. BED IN LOWEST POSITION. WILL CONTINUE TO MONITOR UNTIL DAY SHIFT NURSE ASSUMES CARE.
--- NOTE | 2022-01-18 18:31 | NUR ---
SHIFT SUMMARY PATIENT A&OX1. FORGETFUL AND ASKS SAME QUESTIONS MULTIPLE TIMES. DEMANDS TO CALL MULTIPLE TIMES T/O SHIFT. 1PA TO BSC AND CHAIR. C/O ABDOMINAL PAIN AND HEARTBURN, MEDICATED PER MAR. RECEIVING IV FLUIDS AND ANTIBIOTICS. VSS. WILL CONTINUE TO MONITOR.
--- NOTE | 2022-01-18 19:45 | NUR ---
PATIENT REFUSED VITALS. INCREASED AGITATION AT THIS TIME. PULLING OFF RT BREATHING TX. NO ABLE TO FOLLOW DIRECTIONS AT THIS TIME.
--- NOTE | 2022-01-19 04:38 | NUR ---
SHIFT SUMMARY PATIENT ANXIOUS AND NOT ABLE TO FOLLOW DIRECTIONS. ATTEMPTING TO GET OOB MULTIPLE TIMES. ON CAMERA. NOT EASILY REDIRECTABLE BACK INTO BED. AXOX 2 FORGETFUL. TWO ASSIST TO BSC. TELE MONITOR NSR 90. CBG 113. ON 2L O2 NC. PULLED RT BREATHING TX OFF BEFORE FINISHED. REFUSED FIRST SET OF VITALS. POWERGLIDE JAYNE INTACT. NS INFUSING AT 100 mL/HR. IV HADOL 5 MG GIVEN FOR AGITATION. NEW SCHEDULE ZYPREXA 5 MG ODT GIVEN PER EMAR. PATIENT YELLS OUT T/O THE SHIFT WHEN HELP HAS ALREADY BEEN PROVIDED. NPO FOR POSSIBLE PEG TUBE PLACEMENT TODAY. CALL LIGHT IN REACH. BED IN LOWEST POSITION AND ALARM ACTIVATED. WILL CONTINUE TO MONITOR UNTIL DAY SHIFT NURSE ASSUMES CARE.
--- NOTE | 2022-01-19 12:51 | NUR ---
01/19/22 Marquis1 Diana Au LOCATION OF EGD PEG TUBE OR #2. REFER TO DR GILMAN'S PAPER ANESTHESIA RECORD FOR SEDATION DETAILS.
--- NOTE | 2022-01-19 16:33 | NUR ---
PT AOX2-3 AND COPPERATIVE OF CARE IN THE AM. PT 1 PERSON TO TRANSFER AND WAS PLEASANT. PT WENT TO HAVE PEG TUBE PLACED AND HAS BEEN AGITATED TRYING TO GET UP AND BEING COMBATIVE. DR BEATTY WAS NOTIFIED AND ADDED MEDICATION TO EMAR. PT WAS TREATED AND BEING MONITORED CLOSELY. PT TREATED FOR PAIN PER EMAR. CALL LIGHT IS WITHIN REACH WITH BED ALARM IN PLACE.
--- NOTE | 2022-01-19 18:20 | NUR ---
PT SLID OUT OF HIS BED SUPPORTING HIS WIEGHT WITH HIS KNEES STAFF WAS ABLE TO HELP BEFORE PT FEEL TO THE FLOOR.
--- NOTE | 2022-01-19 20:21 | NUR ---
NURSE NOTE: ZIYAD HACKETT CONTACTED TO REQUEST INCREASED DOSE OF IV FENTANYL DUE TO INCREASED PAIN POST SURGICAL PEG TUBE PLACEMENT. GAVE TELEPHONE ORDER FOR 25-50MCG FENTANYL Q4 HRS. INFORMED OF PTS CONTINUED CONFUSION, PT CONTINUES TO REMOVE TELEMETRY- GAVE TELEPHONE ORDER THAT TELEMETRY MAY BE DISCONTINUED. CLARIFIED WITH ZIYAD HACKETT IF PT CAN RECEIVE PO SCHEDULED ZYPREXA DISSOLVE TABLET ALTHOUGH NPO POST PLACEMENT OF PEG TUBE. PT APPROVED OKAY TO ADMINISTER THIS MEDICATION.
--- NOTE | 2022-01-20 05:41 | NUR ---
SHIFT SUMMARY: PT REMAINS CONFUSED A/OX2, INCREASINGLY FORGETFUL WITH REPETITIVE QUESTIONING. VEST RESTRAINTS AND BILATERAL WRIST RESTRAINTS IN PLACE DUE TO PATIENTS CONTINUED CONFUSION, MULTIPLE ATTEMPTS TO GET OUT OF BED, NEW PEG TUBE IN PLACE- PT ATTEMPT TO PULL AT LINES AND DEROBING. MULITPLE PRN MEDICATIONS ADMINISTERED TONIGHT INCLUDING PRN FENTANYL, ZYPREXA AND HALDOL. INCREASED DOSING OF FENTANYL 50MCG SEEMS TO ASSIST IN PAIN RELIEF ALLOWING PT TO REST YET ONLY FOR A SHORT DURATION. OTHERWISE PT HAS INCREASING IRRITABILITY, CONFUSION AND RESTLESSNESS - YELLING AND CURSING. ZYPREXA AND HALDOL SEEMED TO ASSIST FOR ONLY A SHORT DURATION. PT ALLOWED ORAL CARE ONLY ONCE AND CONTINUED TO GET IRRITABLE WITH FURTHER ATTEMPTS TO CLEAN MOUTH. PT REMAINS INCONTINENT, 2 PERSON ASSIST TO CLEAN AND TURN DUE TO PT DIFFICULTY WITH FOLLOWING COMMANDS. CAMERA MONITORING CONTINUED, BED ALARM ACTIVATED, BED IN LOW POSITION, CALL RADER AND BELONGINGS IN REACH.
--- NOTE | 2022-01-20 12:58 | NUR ---
Spiritual care visit conducted. Pt is lying in bed and alert. Pt is in retraints and yelling for coffee. Pt is NPO, he tells the INTENSIVIST to "F___-off" because he told the pt that he is unable provide coffee due to the medical restrictions placed on him. I remind pt that this tone in not ok. The pt is very confused: he asked me to help him get his dog up on to the bed, and was struggling to process the fact that he is in the hospital and that his dog is not present. He tells me to take off the retraints and bring him his walker so he can make an escape. We talk through these challenges. Pt also asks to speak to his so I facilitate a call with the phone. Pt tells his he loves her then asks her to sneak over from her rm to his and bring some "pain meds" because he is hurting. He starts becoming angry that she won't come visit today. (Spouse, La Nena has a foot injury and was staying in the hospital and is home now but unable to travel). I console La Nena on the phone as she was upset by pt's confusion and aggressive tone. I provide companionship, after school counselor, calming presence and prayer for pt, who responds well and shows signs of being more peaceful for the moment.
--- NOTE | 2022-01-20 18:36 | NUR ---
LATE DOCUMENTATION 01/14/22 RESTRAINT ASSESSMENT @ 1000 PT RESTING COMFORTABLY IN SOFT CUFFS, ARRIVED TO UNIT IN SOFT CUFFS FOR SAFETY DUE TO PULLING @ TUBES/CAMACHO. NO LONGER ABLE TO DOCUMENT ON RESTRAINTS DUE TO TIME LAPSED. PULSES ASSESSED, MOUTH MOISTENED. PT CURRENTLY NPO 01/14/22 RESTRAINT ASSESSMENT @ 1600 PT RESTING COMFORTABLY IN SOFT CUFFS. PULSES ASSESSED, REPOSTIONED, BED ALARM IN PLACE. CONTINUE ORDER FOR PT SAFETY. MOUTH MOISTENED, PT CURRENTLY NPO. PT DOES NOT APPEAR TO BE IN DISTRESS @ THIS TIME. UNABLE TO BACK TIME ASSESSMENT DUE TO TIME LAPSED.
--- NOTE | 2022-01-20 19:42 | NUR ---
SHIFT SUMMARY PT AxOx2-3 WITH INTERMITTENT CONFUSION/HALLUCINATIONS. PT ON RITA AND ELIE WRIST RESTRAINTS AT BEGINNING OF SHIFT. PT HAD SOME AGGRESSIVE/THREATENING BEHAVIOR THIS AM, BUT RESOLVED AND WAS TAKEN OUT OF RESTRAINTS AT 1430. PT WORKED WITH PT AND WAS COOPERATIVE WITH CARE FOR DURATION OF SHIFT. PT STARTED ON PEG TUBE FEEDINGS THIS AM. PT TOLERATED WELL. PT MEDICATED FOR NAUSEA x1 THIS SHIFT WITH REPORTED RELIEF. PT IS CURRENTLY RESTING IN BED WITH CALL LIGHT IN REACH. PEG FEEDS UP TO 65ML/HOUR CONT WITH 110 FLUSHES Q4 AT THE END OF DAY SHIFT.
--- NOTE | 2022-01-21 04:34 | NUR ---
SHIFT SUMMARY 71 YR M ADMITTED ON 01/08/22 FOR TOXIC METABOLIC ENCEPHALOPATHY. FULL CODE. NO ACUTE CHANGES THIS SHIFT. PEG TUBE FEEDING WAS INCREASED TO 70ML/HR PER EMAR AND PT TOLERATED WELL. PT WAS AGGRESSIVE AND VERY UNPLEASANT AT BEGINNING OF SHIFT AND AT ONE POINT HE SHOOK HIS FIST AT ME. THIS NURSE SAT AND TALKED WITH HIM FOR AWHILE AND HE WAS ABLE TO CALM DOWN AND WAS BASICALLY PLEASANT FOR THE REST OF THE SHIFT.
--- NOTE | 2022-01-21 10:06 | NUR ---
SPEECH IN SEEING PATIENT, PATIENT WAS IRRITABLE AND NONCOOPERATIVE FOR SWALLOW EVAL, PAITNET REFUSED TO SIT UP AT 90 DEGREES, OR FOLLOW SWALLOWING DIRECTIONS
--- NOTE | 2022-01-21 14:55 | NUR ---
REPORTED LAST DOCUMENTED BM 01/18/22 AND NO OUTPUT FOR THE DAY TO DR BEATTY, PATIENT WAS JUST STARTED ON TUBE FEEDS SO THE BM SHOULD BE SOON, BLADDERSCAN AND IF >500 STRAIGHT CATH
--- NOTE | 2022-01-21 18:08 | NUR ---
NO ACUTE CHANGES, ALERT AND ORIENTED TO SELF, PLACE AND THING, SPEECH BECOEMS SO MUFFELED UNABLE TO UNDERSTAND, MAKES NEEDS KNOWN, NOT IMPULSIVE WEAKNESS, WORKED WITH PT. BM TODAY, VOIDED YELLOW URINE, ATTENDS ON, CONTINENT AND INCONTENTENT AT TIMES. TO START BOLUS FEEDING IN AM AT 0700, CLARIFIED WITH DR BEATTY CONTINUEOUS FEEDS TO CONTINUE UNTIL STARTING THE BOLUS IN AM. VSS, 3L O2 NC 90-93%. WILL RELAY TO PM RN, MARVINTM
--- NOTE | 2022-01-22 06:08 | NUR ---
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 THE PT IS FULL CODE. HE IS ALERT AND ORIENTED TO SELF MAINLY AND VERY FORGETFUL. 1PA WITH FWW TO COMMODE AND USES URINAL WITH ASSISTANCE. PEG TUBE IN PLACE AND PATENT, NO SIGNS OF INFECTION. GLUCERNA 1.2 RUNNING AT 70 ML/HR. PT CRIES OUT FOR ASSISTANCE INSTEAD OF USING CALL LIGHT. MEDICATED X1 FOR PAIN IN THE ABDOMEN. GETS AGITATED WITH CERTAIN STAFF IN CARE.
--- NOTE | 2022-01-22 08:00 | NUR ---
pt laying in bed asking for swabs, he is cooperative with care, complaining about his stomach hurting, will give tylenol, he states it wont do anything, but will take it. meds crushed and given through gtube, pt up to bsc, no further needs at this time. call light in reach.
--- NOTE | 2022-01-22 10:57 | NUR ---
pt was started on bolus tube feeds, he tolerated it well without diff, [place] in to see him, and will be taking him. call light in reach.
--- NOTE | 2022-01-22 18:15 | NUR ---
pt tolerating bolus feeds well, still complains of stomach pain, medicated with tramadol twice today, bed bath given, did have a liquid stool this afternoon, call light in reach.
--- NOTE | 2022-01-23 05:34 | NUR ---
SHIFT SUMMARY PATIENT ALERT AND ORIENTED X2. HAD NO COMPLAINTS OF PAIN OR SHORTNESS OF BREATH. NO ACUTE ISSUES NOTED OVERNIGHT. CALL LIGHT WITHIN REACH. REPORT GIVEN TO ONCOMING RN.
--- NOTE | 2022-01-23 14:32 | NUR ---
MR TORRES IS ORIENTATED TO SELF, PLACE, DATE. SOMETIMES FORGETFUL, BUT ABLE TO FOLLOW DIRECTIONS. HE HAS WORKED WITH SPEACH THERAPY, PT AND OT TODAY AND HAS WALKED IN THE HALLS. HEAD OF MOBILE PRESCRIBING HIS PEG FEED AND WATER INTAKE. PT TOLERATING PEG FEED WITHOUT NAUSEA AND HEAD OF BED ELEVATED FOR FEEDS AND EDUCATED TO KEEP HOB ELEVATED FOR AN HOUR AFTER FEED. ORAL CARE DONE BY SPEACH THERAPIST THIS AM. HE TOLERATED ORAL CARE AT NOON WITHOUT OBJECTION. WROTE DISCHARGE ORDER AND CM HAD BED ORGANISED AT [facility]. PT'S IS CONTESTING THE DISCHARGE. PT HAS NO RESP DISTRESS ON 4.5L NC. NO SOB. BED LOW, CALL LIGHT IN REACH.
--- NOTE | 2022-01-23 15:28 | NUR ---
MR TORRES WAS ASKING FOR FOOD AND DRINK. I REMINDED HIM OF THE REASON HE HAD THE PEG TUBE, OF THE TUBE FEEDS THAT HE HAS HAD TODAY, OF THE RISKS OF EATING OR DRINKING. HE SAID HE UNDERSTOOD, THANKED ME FOR EVERYTHING AND ASKED FOR A PESIS. 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 PLEASANT BUT CONFUSED CONVERSATION.
--- NOTE | 2022-01-23 17:52 | NUR ---
PT MINIMALLY RESPONSIVE. TO LOUD VOICE AND TOUCH HE WILL OPEN HIS EYES, BUT NOT VERBAL RESPONSE. VITAL SIGNS CHECKED. RECENT BLOOD SUGAR 257. DR NUÑEZ CALLED AND NOTIFIED. SHE ASKED FOR REPEAT BLOOD GLUCOSE AND SHE IS COMING OVER TO ASSESS HIM. REPEAT BLOOD GLUCOSE WAS 241 AT 1750.
--- NOTE | 2022-01-23 17:56 | NUR ---
DR NUÑEZ AT BEDSIDE.
--- NOTE | 2022-01-23 18:03 | NUR ---
ORDERS PLACED FOR HEAD CT, CXR, LABS, ABG. SANDRO, RT ARRIVED AND PT WOKE UP AND STARTED TO TALK, AGGITATED.
[2022-01-23 18:09] LABS: PO2 Arterial 68.5 mmHg (80-100); pH Blood Arterial 7.46 (7.35-7.45)
--- NOTE | 2022-01-23 19:31 | NUR ---
MR TORRES WAS AWAKE AND ALERT FOR MOST OF THIS SHIFT. CONFUSED CONVERSATION NOTED IN PRIOR CHARTING. REQUESTING TO EAT AND DRINK DESPITE BEING REMINDED OF ALL THE REASONS WHY IT IS NOT ADVISED. MOIST COUGH ON 3 TO 4.5L NC. TOLERATING TUBE FEEDS. EPISODE OF BEING VERY DIFFICULT TO AROUSE (SEE PRIOR NOTES) AROUND 6PM. HE WOULD OPEN HIS EYES TO LOUD STIMULI AND STERNAL RUB, NON VERBAL, IMMEDIATELY DROP HIS HEAD AND CLOSE HIS EYES AGAIN, NON RESPONSIVE. THIS CONTINUED THROUGH GETTING VS, DOING ACCUCHECK, DR NUÑEZ'S EXAM, BUT HE WOKE UP WHEN SANDRO REYES SPOKE TO HIM. HE WAS WIDE AWAKE, TALKATIVE, ANNOYED THAT PEOPLE WERE IN HIS ROOM, INSISTANT UPON WALKING INTO THE BATHROOM TO VOID. ABG, CXR, HEAD CT DONE AND HE HAS RETURNED TO HIS ROOM. TUBE FEEDINGS GIVEN RECENTLY, HOB ELEVATED. SS INSULIN WAS HELD AT [address] NUÑEZ. PT REMAINS AWAKE AND FORGETFUL, HE HAS ASKED NE SEVERAL TIMES WHERE HIS IS. BED LOW, BED ALARM ON, CALL LIGHT IN REACH.
[2022-01-23 20:23] LABS: BASOPHILS PERCENT AUTO 0 % (0-2); EOSINOPHILS PERCENT AUTO 0 % (0-6); Hematocrit 30.7 % (37.0-53.0); Hemoglobin 9.8 g/dL (13.5-17.5); IMMATURE GRAN ABSOLUTE AUTO 0.02 K/mm3 (0.00-0.10); IMMATURE GRAN PERCENT AUTO 0 % (0-1); LYMPHOCYTES ABSOLUTE AUTO 1.57 K/mm3 (0.84-5.20); LYMPHOCYTES PERCENT AUTO 26 % (21-46); MONOCYTES ABSOLUTE AUTO 0.35 K/mm3 (0.16-1.47); MONOCYTES PERCENT AUTO 6 % (4-13); Mean Corpuscular HGB Conc 31.9 g/dL (31.5-36.5); Mean Corpuscular Volume 94 fL (80-100); NEUTROPHILS ABSOLUTE AUTO 4.15 K/mm3 (1.96-9.15); NEUTROPHILS PERCENT AUTO 68 % (41-73); Platelet Count 282 K/mm3 (150-400); RDW Coefficient Variation 13.6 % (11.7-14.2); RDW Standard Deviation 46.5 fL (35.1-46.3); Red Blood Cell Count 3.27 M/mm3 (4.30-5.90); White Blood Cell Count 6.09 K/mm3 (4.00-11.30)
[2022-01-23 20:41] LABS: Albumin, Blood 2.4 g/dL (3.4-5.0); Anion Gap 5 mmol/L (6-16); Blood Urea Nitrogen 15 mg/dL (8-24); Bun/Creatinine Ratio 27.3 (12.0-20.0); CO2, Blood 34 mmol/L (21-32); Calcium, Blood 8.3 mg/dL (8.5-10.1); Chloride, Blood 98 mmol/L (98-108); Creatinine, Blood 0.55 mg/dL (0.60-1.20); Glomerular Filtration Rate 107 (60-); Glucose, Blood 229 mg/dL (70-99); Phosphorus, Blood 3.1 mg/dL (2.5-4.9); Potassium, Blood 4.4 mmol/L (3.5-5.5); Sodium, Blood 137 mmol/L (136-145)
--- NOTE | 2022-01-24 00:17 | NUR ---
PATIENT IS A HIGH FALL RISK AND KEPT SITTING ON THE SIDE OF THE BED. PATIENT DID NOT NEED TO USE THE RESTROOM. PATIENT WAS ASKED TO SIT IN THE CHAIR IF HE WANTED TO SIT UP SO THAT AN ALARM COULD BE ENGAGED TO HELP KEEP HIM SAFE. PATIENT REFUSED SO HE WAS ASKED TO LAY BACK IN BED SO THAT THE ALARM COULD BE ENGAGED. PATIENT AGAIN REFUSED AND DEMANDED TO CALL HIS . PATIENT AGREED TO LAY BACK IN BED DURING PHONE CALL BUT IMMEDIATELY SAT UP AFTER AND REFUSED TO COOPERATE WITH MEDICAL STAFF. AT ONE POINT HE STOOD UP AND FELL BACK ONTO HIS BED AND WAS YELLING, SWEARING, AND THREATENING STAFF. SECURITY HAD TO BE CALLED TO GET PATIENT INTO RESTRAINTS. DR LACKEY NOTIFIED AND ORDERED BILATERAL SOFT WRIST RESTRAINTS, RITA, AND FOUR SIDE RAILS. HE ALSO ORDERED A GI COCKTAIL Q6 HRS PER TUBE NEEDED THE PATIENT WAS EXPERIENCING HEARTBURN.
--- NOTE | 2022-01-24 06:14 | NUR ---
SHIFT SUMMARY PATIENT ALERT AND ORIENTED X2. MEDICATED PER EMAR FOR PAIN AND HEARTBURN. HE HAS BEEN IMPULSIVE, ARGUMENTATIVE, AND NOT FOLLOWING DIRECTIONS OVERNIGHT. CURRENTLY OUT OF RESTRAINTS. CALL LIGHT WITHIN REACH. REPORT GIVEN TO ONCOMING RN.
--- NOTE | 2022-01-24 11:54 | NUR ---
MR TORRES DID NOT WANT TO ANSWER ORIENTATION QUESTIONS TODAY. HE HAS BEEN EASILY IRRITATED AND ANNOYED, ALTERNATING WITH CALM AND COLORING PICTURES. HE IS VERY FORGETFUL, SAID HE FEELS HUNGRY AND HASN'T EATEN FOR MANY DAYS. REMINDED OF EVENTS LEADING TO PEG TUBE PLACEMENT AND REASONS FOR TUBE FEEDING RATHER THAN ORAL FEEDING. HE FORGETS THE CONVERSATION AND REPEATS THE QUESTION STRAIGHT AWAY. UP TO BATHROOM WITH STAND BY ASSIST - HE HAS BEEN ANNOYED WITH ATTEMPTS TO HELP HIM. BED AND CHAIR ALARMS ON. HE DID NOT COOPERATE WITH [facility]. WHEN DOING TUBE FEEDING THIS MORNING HE ONLY TOLERATED 150CC OF THE TUBE FEED BEFORE C/O ABDOMINAL PAIN. FEED STOPPED AT THIS POINT AND DR NUÑEZ NOTIFIED. 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 BED LOW, CALL LIGHT IN REACH.
--- NOTE | 2022-01-24 15:06 | NUR ---
MR TORRES IS AGGITATED, HE WAS BENT OVER IN THE BATHROOM C/O STOMACHE TROUBLES, POOR HISTORIAN, BUT HE DID SAY HE HAS SEVERE PAIN AND THAT HE WILL THROW UP ALL OVER ME. HE WAS GIVEN TYLENOL AROUND 1230 WHICH DOESN'T SEEM TO HAVE HELPED. DR. NUÑEZ CALLED AND NOTIFIED - SHE ASKED FOR A RESIDUAL FROM THE TUBE FEED. 210CC WITHDRAWN AND WASTED FROM PEG TUBE. MESSAGE LEFT FOR DR NUÑEZ. PT SAID HE DOES NOT FEEL ANY BETTER AFTERWARDS
--- NOTE | 2022-01-24 17:18 | NUR ---
MR TORRES HAS BEEN IRRITATED AND ANNOYED MANY TIMES THROUGHOUT THE SHIFT. HE HAS C/O SEVERE ABDOMINAL PAIN. TUBE FEEDING NOT COMPLETED THIS AM PT HAD PAIN I WAS INSTILLING IT. HE SEEMED TO TOLERATE LUNCH TUBE FEED, GIVEN ALONSIDE TYLENOL LIQUID, BUT AT AROUND 3PM HE C/O SEVERE PAIN AGAIN. DR NUÑEZ AWARE OF THESE EPISODES. SHE ASKED FOR RESIDUAL TUBE FEED TO BE WITHRAWN AND 210 ML REMOVED FROM THE PEG AT 1500HRS. PT CONTINUED TO BE AGGITATED, SWEARING, THREATENING TO HIT ME, NAME CALLING. HE SAID HE WANTS TO GO HOME AND THAT HIS WANTS HIM TO BE HOME. I LET DR NUÑEZ KNOW THAT HE'S GETTING MORE AGGITATED AND PAIN ISSUES. MAALOX AND TRAMADOL GIVEN PX, SHE ASKED FOR CONTINUAL TUBE FEEDS RATHER THAN BOLUS. SPOKE WITH FIDEL MANAGER [employer] WHO PUT IN NEW ORDERS FOR CONTINUOUS TUBE FEEDS AND WATER FLUSHES, WHICH SHOULD ARRIVE ON THE SUPPER TRAY. I SPOKE WITH HIS MARIA DOLORES WHO SAID THAT SHE HAS TOLD HER THAT SHE CAN NOT HAVE HIM HOME AT THIS TIME AND THAT HE NEEDS SKILLED CARE. SHE IS AWARE OF HIS AGGITATION AND CONFUSION THROUGH MANY PHONE CALLS WITH THE PT TODAY. PT HAS BED ALARM AND CHAIR ALARM, BUT WILL GET UP WITHOUT CALLING, OR YELL OUT FOR ASSISTANCE. HE TAKES OXYGEN OFF OCCASIONALLY, REMINDED TO KEEP IT ON AND HAS COMPLIED FOR THE MOST PART. HE HAS REMOVED HIS TELEMETRY UNIT AND HAD IT REPLACED A FEW TIMES (SINUS RHYTHM). REASONABLY STEADY GAIT BUT HE REALLY NEEDS ASSISTANCE WHEN UP. RT WORKING WITH HIM GIVING NEBS, PT REFUSED TO WORK WITH SPEACH THERAPY TODAY.
--- NOTE | 2022-01-24 23:47 | NUR ---
SAFETY: AT START OF SHIFT PATIENT WAS ARGUING WITH STAFF. WOULD NOT STAY IN THE BED OR THE CHAIR. WITH ORDERS TO START CONTINUOS TUBE FEED. DR VALENTIN WAS CALLED AND ORDER TO PLACE VEST AND SOFT WRIST RESTRAINTS WERE OBTAINED. WHEN EDUCATION WAS GIVEN ON THE REASONE RESTRAINTS WERE NEEDED PATIENT AGREED TO GET INTO THE BED AND ALLOW PEG TUBE FEED TO BE INITIATED. VEST AND WRIST RESTRAINTS ARE NOT INITIATED.
--- NOTE | 2022-01-25 00:05 | NUR ---
GI: CONTINUOS TUBE FEED STARTED AT 2145 @25ML/HR. @ 2330 PATIENT AGAIN REPORTED R SIDE PAIN. TRAMADOL WAS GIVEN. @ 0000 PATIENT STARTED YELLING THAT HE NEEDED TO GO TO THE ER BECAUSE HIS UPPER ABD. IS PAINFULL, 03/23. TUBE FEED IS STOPPED. PATIENT IMMEDIATLY CALMS DOWN. NO EVENTS OF TELI. PATIENT IS IN NSR.
--- NOTE | 2022-01-25 01:39 | NUR ---
GI: PATIENT REPORTS GOOD EFFECT FROM TRAMDOL. TUBE FEED IS RESTARTED AT 25ML/HR.
--- NOTE | 2022-01-25 07:28 | NUR ---
SHIFT SUMMARY: PATIENT IS A&O TO SELF AND FAMILY, VSS. STARTED CONTINOUS TUBE FEED AT 25ML/HR. PATIENT REPORTED ABD. PAIN A SHORT TIME AFTER STARTING FEED. TF WAS HELD FOR 20 MIN. AND TRAMADOL WAS GIVEN. TF WAS RESTARTED AT 25ML AND PATIENT HAD NO FURTHER PROBLEMS TOLERATING TF. ÁNGEL CEJA IS ON FOR SAFETY'
--- NOTE | 2022-01-25 17:24 | NUR ---
SHIFT SUMMARY MR TORRES IS ORIENTATED TO SELF, FAMILY AND [facility]. HE HAS BEEN CONFUSED, REPETATIVE QUESTIONS, GETTING UP OUT OF BED DESPITE BEING REMINDED NOT TO GET UP WITHOUT WAITING FOR ASSISTANCE. HE HAS NOT BEEN ANGRY TODAY. FREQUENTLY CALLLING HIS , BUT LESS ANXIOUS CONSISTANTLY ABOUT GOING HOME. HE HAS NOT HAD THE ACUTE PAIN EPISODES THAT HE DISPLAYED YESTERDAY. HE REPORTS PAIN, BUT IT SEEMS MORE TOLERABLE. MEDICATED PER MAR. ON CONTINUOUS TUBE FEED WHICH WAS INCREASED FROM 35 TO 45 ML/HR AT 1400 AND HE'S TOLERATING IT. PT PARTICIPATED IN ORAL CARE WITH SXN SWAB, REMINDED TO TAKE PURPOSEFUL SWALLOWS. PT SITTING UP IN CHAIR FOR MUCH OF THE DAY. 1 PERSON STAND BY ASSIST WITH AMBULATION. BED LOW, CALL LIGHT IN REACH. BED AND CHAIR ALARMS ON.
--- NOTE | 2022-01-26 05:00 | NUR ---
GI:PATIENT REPORTED NAUSEA AND UPPER ABD. PAIN. PATIENT IS HIGHLY ANXIOUS. TUBE FEED IS STOPPED. PRN MAALOX AND SCHEDULE PRILOSEC WERE GIVEN. VSS, TELI. SHOWS NSR. CALL IS PLACED TO DR LACKEY.
--- NOTE | 2022-01-26 07:47 | NUR ---
SHIFT SUMMARY: ORDER WAS OBTAINED FOR IV FENTANYL Q4H PRN. MED WAS GIVEN WITH GOOD EFFECT. TUBE FEED WAS RESUMED @ 55ML/HR, TOLERATING WELL. ANXIETY ALSO IMPROVED AFTER FENTANYL WAS ADMINISTERED.
[2022-01-26 10:58] LABS: Influenza A, PCR NEGATIVE (NEGATIVE); Influenza B, PCR NEGATIVE (NEGATIVE); Resp Syncytial Virus, PCR NEGATIVE (NEGATIVE); SARS-Cov-2 (COVID-19) PCR, MMC NEGATIVE (NEGATIVE)
--- NOTE | 2022-01-26 15:12 | NUR ---
PATIENT WAS DISCHARGED TO THE MEDICAL CENTER THIS AFTERNOON. IV WAS DISCONTINUED. TELE TAKEN OFF. TRANSPORT PICKED PATIENT UP AND HE WAS WHEELED OUT BY CHAIR WITH [address] REPORT WAS CALLED INTO THE MEDICAL CENTER.
[2022-01-26] MEDS ORDERED: Celexa20 MG PO (17:57)
[2022-01-26] MEDS ORDERED: HUMULIN R100 UNIT/2 SC (17:58)
[2022-01-26] MEDS ORDERED: PANT40 PT (17:59)
[2022-01-26] MEDS ORDERED: Prednisone10 MG PO (18:00)
== END 2022-01-26 12:43 | DRG 208 ==
LOC: ER 15:21 → MEDS 19:59 → ICUW 19:59 → MEDS 20:57 → ER 20:57 → MEDS 21:30 → ICUW 01-10 09:05 → MEDS 01-14 08:40 → ENPENDDIS 01-26 12:38 → MEDS 01-26 12:43
PROVIDERS: Emergency Medicine; Family Medicine; Internal Medicine; Internal Medicine Critical Care Medicine; ADMIT Internal Medicine
PROC: 5A09357 Assistance with Respiratory Ventilation, Less than 24 Consecutive Hours, Continuous Positive Airway Pressure (ICD-10-PCS; principal; 2022-01-08)
PROC: 3E033XZ Introduction of Vasopressor into Peripheral Vein, Percutaneous Approach (ICD-10-PCS; 2022-01-08)
PROC: 5A1945Z Respiratory Ventilation, 24-96 Consecutive Hours (ICD-10-PCS; 2022-01-10)
PROC: 0DJ08ZZ Inspection of Upper Intestinal Tract, Via Natural or Artificial Opening Endoscopic (ICD-10-PCS; 2022-01-10)
PROC: 02HV33Z Insertion of Infusion Device into Superior Vena Cava, Percutaneous Approach (ICD-10-PCS; 2022-01-10)
PROC: 0BH18EZ Insertion of Endotracheal Airway into Trachea, Via Natural or Artificial Opening Endoscopic (ICD-10-PCS; 2022-01-10)
PROC: 3E03329 Introduction of Other Anti-infective into Peripheral Vein, Percutaneous Approach (ICD-10-PCS; 2022-01-12)
PROC: 0DH63UZ Insertion of Feeding Device into Stomach, Percutaneous Approach (ICD-10-PCS; 2022-01-19)
DX: J15.211 Pneumonia due to Methicillin susceptible Staphylococcus aureus (principal); J96.21 Acute and chronic respiratory failure with hypoxia; G92.8 Other toxic encephalopathy; J96.22 Acute and chronic respiratory failure with hypercapnia; K20.91 Esophagitis, unspecified with bleeding; J44.1 Chronic obstructive pulmonary disease with (acute) exacerbation; F03.91 Unspecified dementia, unspecified severity, with behavioral disturbance; F05 Delirium due to known physiological condition; D62 Acute posthemorrhagic anemia; E44.0 Moderate protein-calorie malnutrition; R57.9 Shock, unspecified; Z20.822 Contact with and (suspected) exposure to COVID-19; Z86.718 Personal history of other venous thrombosis and embolism; Z68.23 Body mass index [BMI] 23.0-23.9, adult; G89.29 Other chronic pain; K21.9 Gastro-esophageal reflux disease without esophagitis; R13.10 Dysphagia, unspecified; F32.A Depression, unspecified; Z86.73 Personal history of transient ischemic attack (TIA), and cerebral infarction without residual deficits; R91.1 Solitary pulmonary nodule; F41.9 Anxiety disorder, unspecified; E11.65 Type 2 diabetes mellitus with hyperglycemia; K29.80 Duodenitis without bleeding; F60.9 Personality disorder, unspecified; E63.9 Nutritional deficiency, unspecified
CPT/HCPCS: 0241U; 31500; 36415; 36556; 36600; 51702; 70450; 71045; 80048; 80053; 80069; 80202; 81001; 82140; 82607; 82746; 82803; 82947; 83735; 83880; 84100; 84443; 84484; 85014; 85018; 85025; 87070; 87077; 87147; 87186; 87205; 92526; 92610; 93005; 93010; 94002; 94003; 94640; 94660; 94664; 94760; 94762; 96374; 97110; 97116; 97162; 97166; 97530; 97535; 99285-25; A9270; C1751; C9113; J0171; J0295; J0456; J1430; J1630; J1650; J1815; J1885; J2060; J2370; J2405; J2704; J2765; J2920; J2930; J3010; J3370; J7030; J7040; J7050; J7060; J7120; J7512

== ENCOUNTER → 2022-01-27 | Outpatient (CLI) | payer OTHER, MEDICARE ==
[~2022-01-27] MED LIST changes: +Celexa20 MG PO; +DESONIDE15 G1 TOP; +PANT40 PT
[2022-01-27 11:25] LABS: BASOPHILS PERCENT AUTO 0 % (0-2); EOSINOPHILS ABSOLUTE AUTO 0.03 K/mm3 (0.00-0.68); EOSINOPHILS PERCENT AUTO 1 % (0-6); Hematocrit 27.9 % (37.0-53.0); Hemoglobin 8.4 g/dL (13.5-17.5); IMMATURE GRAN ABSOLUTE AUTO 0.02 K/mm3 (0.00-0.10); IMMATURE GRAN PERCENT AUTO 1 % (0-1); LYMPHOCYTES ABSOLUTE AUTO 0.77 K/mm3 (0.84-5.20); LYMPHOCYTES PERCENT AUTO 23 % (21-46); MONOCYTES ABSOLUTE AUTO 0.23 K/mm3 (0.16-1.47); MONOCYTES PERCENT AUTO 7 % (4-13); Mean Corpuscular HGB 28.3 pg (26.0-34.0); Mean Corpuscular HGB Conc 30.1 g/dL (31.5-36.5); Mean Corpuscular Volume 94 fL (80-100); NEUTROPHILS ABSOLUTE AUTO 2.28 K/mm3 (1.96-9.15); NEUTROPHILS PERCENT AUTO 69 % (41-73); RDW Coefficient Variation 14.3 % (11.7-14.2); Red Blood Cell Count 2.97 M/mm3 (4.30-5.90); White Blood Cell Count 3.33 K/mm3 (4.00-11.30)
[2022-01-27 11:33] LABS: Mean Platelet Volume 10.2 fL (9.1-12.4); Platelet Count 131 K/mm3 (150-400)
[2022-01-27 12:20] LABS: Bun/Creatinine Ratio 24.5 (12.0-20.0); Calcium, Blood 8.7 mg/dL (8.5-10.1); Creatinine, Blood 0.61 mg/dL (0.60-1.20)
== END | disposition home or self-care (01) ==
LOC: LAB SHORT 10:05
PROVIDERS: Internal Medicine
DX: E11.9 Type 2 diabetes mellitus without complications (principal); J96.02 Acute respiratory failure with hypercapnia; I10 Essential (primary) hypertension
CPT/HCPCS: 80048; 83036; 85025

== ENCOUNTER 2022-05-17 11:38 | Emergency (ER) | payer OTHER ==
[~2022-05-17] VITALS: Ht 180.3 cm; Wt 54.9 kg
[2022-05-18] MEDS ORDERED: OSEL12SU2 PO ×3 (09:21→09:59)
== END 2022-05-17 15:20 | disposition home or self-care (01) ==
LOC: ER 11:38
DX: K94.23 Gastrostomy malfunction (principal); F03.90 Unspecified dementia, unspecified severity, without behavioral disturbance, psychotic disturbance, mood disturbance, and anxiety; R45.1 Restlessness and agitation; J43.9 Emphysema, unspecified; K21.9 Gastro-esophageal reflux disease without esophagitis; E11.40 Type 2 diabetes mellitus with diabetic neuropathy, unspecified; Z91.02 Food additives allergy status; Z88.5 Allergy status to narcotic agent; Z88.8 Allergy status to other drugs, medicaments and biological substances; Z91.018 Allergy to other foods; Z79.899 Other long term (current) drug therapy; Z79.4 Long term (current) use of insulin; Z86.73 Personal history of transient ischemic attack (TIA), and cerebral infarction without residual deficits
CPT/HCPCS: 71045; 93005; 93010; A9270

== ENCOUNTER 2022-05-18 04:17 | Emergency (ER) | payer OTHER ==
[~2022-05-18] VITALS: Ht 172.7 cm; Wt 68.0 kg
[2022-05-18 08:00] LABS: Influenza B, PCR NEGATIVE (NEGATIVE); Resp Syncytial Virus, PCR NEGATIVE (NEGATIVE); SARS-Cov-2 (COVID-19) PCR, MMC NEGATIVE (NEGATIVE)
[2022-05-18 08:01] LABS: Influenza A, PCR POSITIVE (NEGATIVE)
[2022-05-18] MEDS ORDERED: OSEL12SU2 PO ×3 (09:21→09:59)
== END 2022-05-18 09:50 | disposition home or self-care (01) ==
LOC: ER 04:17
PROVIDERS: Student in an Organized Health Care Education/Training Program
DX: J10.1 Influenza due to other identified influenza virus with other respiratory manifestations (principal); J44.9 Chronic obstructive pulmonary disease, unspecified; Z20.822 Contact with and (suspected) exposure to COVID-19; Z91.02 Food additives allergy status; Z88.5 Allergy status to narcotic agent; Z88.8 Allergy status to other drugs, medicaments and biological substances; Z91.018 Allergy to other foods; Z79.899 Other long term (current) drug therapy; Z79.4 Long term (current) use of insulin; E11.40 Type 2 diabetes mellitus with diabetic neuropathy, unspecified; K21.9 Gastro-esophageal reflux disease without esophagitis
CPT/HCPCS: 0241U; 71045; 94640; 94664; A9270

== ENCOUNTER 2022-05-19 01:53 | Emergency (ER) | payer OTHER ==
[~2022-05-19] VITALS: Ht 170.2 cm; Wt 68.0 kg
[~2022-05-19 01:53] MED LIST changes: +OSEL12SU2 PO
== END 2022-05-19 07:25 | disposition home or self-care (01) ==
LOC: ER 01:53
DX: J10.1 Influenza due to other identified influenza virus with other respiratory manifestations (principal); J44.1 Chronic obstructive pulmonary disease with (acute) exacerbation; Z91.02 Food additives allergy status; Z88.5 Allergy status to narcotic agent; Z88.8 Allergy status to other drugs, medicaments and biological substances; Z91.018 Allergy to other foods; Z79.899 Other long term (current) drug therapy; Z79.4 Long term (current) use of insulin; E11.40 Type 2 diabetes mellitus with diabetic neuropathy, unspecified; J44.9 Chronic obstructive pulmonary disease, unspecified; K21.9 Gastro-esophageal reflux disease without esophagitis
CPT/HCPCS: 94640; 94664

== ENCOUNTER 2022-05-22 16:53 | Emergency (ER) | payer OTHER ==
[~2022-05-22] VITALS: Ht 182.9 cm; Wt 68.0 kg
[2022-05-22] MEDS ORDERED: ONDA4ODT MM (22:09)
== END 2022-05-22 22:00 | disposition left against medical advice (07) ==
LOC: ER 16:53
DX: J10.1 Influenza due to other identified influenza virus with other respiratory manifestations (principal); R07.9 Chest pain, unspecified; R10.33 Periumbilical pain; Z88.8 Allergy status to other drugs, medicaments and biological substances; Z88.5 Allergy status to narcotic agent; Z91.018 Allergy to other foods; Z91.02 Food additives allergy status; Z79.4 Long term (current) use of insulin; Z79.899 Other long term (current) drug therapy; Z79.52 Long term (current) use of systemic steroids; K21.9 Gastro-esophageal reflux disease without esophagitis; J44.9 Chronic obstructive pulmonary disease, unspecified; E11.40 Type 2 diabetes mellitus with diabetic neuropathy, unspecified
CPT/HCPCS: 71045; 94640; 94664; J2405; J3010; J7030

== ENCOUNTER 2022-05-24 15:52 | Emergency (ER) | payer OTHER ==
[~2022-05-24] VITALS: Ht 182.9 cm; Wt 65.8 kg
[2022-05-24 16:30] LABS: BASOPHILS ABSOLUTE AUTO 0.02 K/mm3 (0.00-0.23); BASOPHILS PERCENT AUTO 0 % (0-2); EOSINOPHILS ABSOLUTE AUTO 0.05 K/mm3 (0.00-0.68); EOSINOPHILS PERCENT AUTO 1 % (0-6); Hematocrit 40.7 % (37.0-53.0); IMMATURE GRAN ABSOLUTE AUTO 0.04 K/mm3 (0.00-0.10); IMMATURE GRAN PERCENT AUTO 0 % (0-1); LYMPHOCYTES ABSOLUTE AUTO 1.93 K/mm3 (0.84-5.20); LYMPHOCYTES PERCENT AUTO 20 % (21-46); MONOCYTES ABSOLUTE AUTO 0.92 K/mm3 (0.16-1.47); MONOCYTES PERCENT AUTO 10 % (4-13); Mean Corpuscular HGB 27.1 pg (26.0-34.0); Mean Corpuscular HGB Conc 31.9 g/dL (31.5-36.5); Mean Corpuscular Volume 85 fL (80-100); NEUTROPHILS ABSOLUTE AUTO 6.48 K/mm3 (1.96-9.15); NEUTROPHILS PERCENT AUTO 69 % (41-73); Platelet Count 305 K/mm3 (150-400); RDW Coefficient Variation 19.9 % (11.7-14.2); RDW Standard Deviation 61.9 fL (35.1-46.3); White Blood Cell Count 9.44 K/mm3 (4.00-11.30)
[2022-05-24 16:50] LABS: Albumin, Blood 3.1 g/dL (3.4-5.0); Albumin/Globulin Ratio 0.6 (0.8-1.8); Bilirubin, Total 0.2 mg/dL (0.1-1.0); Bun/Creatinine Ratio 31.4 (12.0-20.0); Calcium, Blood 9.3 mg/dL (8.5-10.1); Creatinine, Blood 0.54 mg/dL (0.60-1.20); Globulin, Blood 5.6 g/dL (2.2-4.0); Potassium, Blood 4.4 mmol/L (3.5-5.5); Total Protein, Blood 8.7 g/dL (6.4-8.2)
[2022-05-24] MEDS ORDERED: CEFD300 PO (23:15)
[2022-05-24] MEDS ORDERED: Vibramycin100 MG PO (23:15)
== END 2022-05-25 01:13 | disposition home or self-care (01) ==
LOC: ER 15:52
PROVIDERS: Physician Assistant
DX: J10.00 Influenza due to other identified influenza virus with unspecified type of pneumonia (principal); J43.9 Emphysema, unspecified; K21.9 Gastro-esophageal reflux disease without esophagitis; E11.9 Type 2 diabetes mellitus without complications; F03.90 Unspecified dementia, unspecified severity, without behavioral disturbance, psychotic disturbance, mood disturbance, and anxiety; Z79.4 Long term (current) use of insulin; Z79.899 Other long term (current) drug therapy; Z79.52 Long term (current) use of systemic steroids; Z86.73 Personal history of transient ischemic attack (TIA), and cerebral infarction without residual deficits; Z91.018 Allergy to other foods; Z88.8 Allergy status to other drugs, medicaments and biological substances
CPT/HCPCS: 36415; 74177; 80053; 83690; 85025; A9270; J0696; Q9967

== ENCOUNTER 2022-05-27 15:08 | Emergency (ER) | payer OTHER ==
[~2022-05-27] VITALS: Ht 182.9 cm; Wt 64.0 kg
[~2022-05-27 15:08] MED LIST changes: +CEFD300 PO; +Vibramycin100 MG PO
[2022-05-27] MEDS ORDERED: OXYCODONE-ACET1 EAC2 PO (15:29)
[2022-05-27 15:33] LABS: BASOPHILS ABSOLUTE AUTO 0.03 K/mm3 (0.00-0.23); BASOPHILS PERCENT AUTO 0 % (0-2); EOSINOPHILS ABSOLUTE AUTO 0.11 K/mm3 (0.00-0.68); EOSINOPHILS PERCENT AUTO 1 % (0-6); Hematocrit 38.3 % (37.0-53.0); Hemoglobin 12.1 g/dL (13.5-17.5); IMMATURE GRAN ABSOLUTE AUTO 0.04 K/mm3 (0.00-0.10); IMMATURE GRAN PERCENT AUTO 0 % (0-1); LYMPHOCYTES PERCENT AUTO 26 % (21-46); MONOCYTES ABSOLUTE AUTO 0.98 K/mm3 (0.16-1.47); MONOCYTES PERCENT AUTO 11 % (4-13); Mean Corpuscular HGB 26.8 pg (26.0-34.0); Mean Corpuscular HGB Conc 31.6 g/dL (31.5-36.5); Mean Corpuscular Volume 85 fL (80-100); Mean Platelet Volume 8.7 fL (9.1-12.4); NEUTROPHILS ABSOLUTE AUTO 5.79 K/mm3 (1.96-9.15); NEUTROPHILS PERCENT AUTO 62 % (41-73); Platelet Count 367 K/mm3 (150-400); RDW Standard Deviation 58.9 fL (35.1-46.3); Red Blood Cell Count 4.52 M/mm3 (4.30-5.90); White Blood Cell Count 9.35 K/mm3 (4.00-11.30)
[2022-05-27 15:54] LABS: Albumin, Blood 2.6 g/dL (3.4-5.0); Albumin/Globulin Ratio 0.4 (0.8-1.8); Bilirubin, Total 0.2 mg/dL (0.1-1.0); Bun/Creatinine Ratio 29.9 (12.0-20.0); Calcium, Blood 8.6 mg/dL (8.5-10.1); Creatinine, Blood 0.64 mg/dL (0.60-1.20); Globulin, Blood 5.8 g/dL (2.2-4.0); Potassium, Blood 4.3 mmol/L (3.5-5.5); Total Protein, Blood 8.4 g/dL (6.4-8.2)
== END 2022-05-27 18:45 | disposition home or self-care (01) ==
LOC: ER 15:08
PROVIDERS: Emergency Medicine
DX: J10.1 Influenza due to other identified influenza virus with other respiratory manifestations (principal); J98.01 Acute bronchospasm; J43.9 Emphysema, unspecified; K21.9 Gastro-esophageal reflux disease without esophagitis; Z79.899 Other long term (current) drug therapy; Z79.4 Long term (current) use of insulin
CPT/HCPCS: 71045; 80053; 83880; 84484; 85025; 93005; 93010; 94640; 94664; A9270; J2060

== ENCOUNTER 2022-05-29 04:39 | Emergency (ER) | payer OTHER ==
[~2022-05-29] VITALS: Ht 175.3 cm; Wt 79.4 kg
== END 2022-05-29 07:20 | disposition home or self-care (01) ==
LOC: ER 04:39
DX: R06.00 Dyspnea, unspecified (principal); F41.9 Anxiety disorder, unspecified; J18.9 Pneumonia, unspecified organism; J43.9 Emphysema, unspecified; K21.9 Gastro-esophageal reflux disease without esophagitis; E11.40 Type 2 diabetes mellitus with diabetic neuropathy, unspecified; Z86.73 Personal history of transient ischemic attack (TIA), and cerebral infarction without residual deficits; Z86.711 Personal history of pulmonary embolism; Z86.718 Personal history of other venous thrombosis and embolism; Z91.02 Food additives allergy status; Z88.5 Allergy status to narcotic agent; Z91.018 Allergy to other foods; Z88.8 Allergy status to other drugs, medicaments and biological substances; Z79.899 Other long term (current) drug therapy; Z79.4 Long term (current) use of insulin
CPT/HCPCS: 36415; J2060